=== PATIENT | female | born 1960 | race Caucasian/White ===

== ENCOUNTER 2016-12-15 05:33 | Outpatient (CLI) | payer OTHER ==
[~2016-12-15] VITALS: Ht 160 cm; Wt 62.7 kg
[~2016-12-15 05:33] MED LIST: ALBU0.632 IH; ALBU8.5H2 IH; ALPR.5T PO; ALPR1T PO; AMLO10TA82 PO; ARIP15TA PO; ATEN25TA PO; ATENOLOL; BENICAR; CLD600T PO; CPR500T PO; CYCL10TA9 PO; DXZS2T PO; HYDR-1231 PO; HYDR1CAP2 PO; LISI10TA PO; LISI10TA2 PO; LURA40TA PO; LVF500T PO; NAPR-243 PO; ONDAN4ODT PO; PAXIL; PRD20T PO; PRED20TA PO; QUET150T PO; TRAM50TA2 PO
== END 2016-12-15 12:34 ==
LOC: PREOP 05:33
PROVIDERS: ATTEND Surgery
DX: Z01.818 Encounter for other preprocedural examination (principal); R19.4 Change in bowel habit; K21.9 Gastro-esophageal reflux disease without esophagitis

== ENCOUNTER 2016-12-20 10:08 | Day surgery (SDC) | payer OTHER ==
[~2016-12-20] VITALS: Ht 160 cm; Wt 62.7 kg
[2016-12-20] MEDS ORDERED: LACTATED RINGERS 1,000 ML IV STA (10:12)
[2016-12-20] MEDS ORDERED: HURRICAINE EXT TUBE (BENZOCAINE) XX PRN (10:15)
[2016-12-20] MEDS ORDERED: PROPOFOL INJECTION 50 ML IV ONE (10:21)
[2016-12-20] MEDS ORDERED: MIDAZOLAM 2 MG/2 ML (VERSED) VIAL ONE (10:21)
[2016-12-20] MEDS ORDERED: DOXA2TAB2 PO (10:25)
[2016-12-20] MEDS ORDERED: DEXL60CA PO (10:25)
[2016-12-20] MEDS ORDERED: MELA10CA2 PO (10:25)
[2016-12-20] MEDS ORDERED: QUET200T PO (10:25)
[2016-12-20] MEDS ORDERED: POLY454P4 MC (10:25)
[2016-12-20] MEDS ORDERED: AMIO100T4 PO (10:25)
--- NOTE | 2016-12-20 10:35 | Progress Note-Pre Operative ---
Pre-Operative Progress Note H&P Reviewed The H&P was reviewed, patient examined and no changes noted. Date Seen by Provider: Dec 20, 2016 Time Seen by Provider: 10:35 Date H&P Reviewed: Dec 20, 2016 Time H&P Reviewed: 10:35 Pre-Operative Diagnosis: gerd, change in bowel habits ALEXIS CUEVAS DO Dec 20, 2016 10:35 am
[2016-12-20] MEDS ORDERED: HURRICAINE EXT TUBE (BENZOCAINE) ONE (10:42)
[2016-12-20 10:50] VITALS: BP 124/90
--- NOTE | 2016-12-20 11:50 | Progress Note-Post Operative ---
Post-Operative Progess Note Surgeon (s)/Hydramatic Specialist (s) Surgeon ALEXIS CUEVAS DO Hydramatic Specialist: na Pre-Operative Diagnosis gerd, change in bowel habits Post-Operative Diagnosis gastric polyp, gastritis, descending colon polyp Procedure & Operative Findings Date of Procedure 12/20/16 Procedure Performed/Findings egd c biopsy and hot bx polypectomy colonoscopy with hot bx polypectomy Anesthesia Type per [facility] Estimated Blood Loss Estimated blood loss (mL): none Specimens/Packing Specimens Removed antrum, gastric poly, ge junction, descending colon polyp ALEXIS CUEVAS DO Dec 20, 2016 11:50 am
--- NOTE | 2016-12-20 11:52 | Discharge Inst-Simple/Standard ---
Discharge Inst-Standard Patient Instructions/Follow Up Plan of Care/Instructions/FU: Continue on Dexilant Follow up in [facility] in 2 weeks. Activity as Tolerated: Yes Discharge Diet: No Restrictions MAURICIO KRAMER APRN Dec 20, 2016 11:52
[2016-12-20 12:00] VITALS: BP 115/73
[2016-12-20 12:30] VITALS: BP 120/71
[2016-12-20 12:35] VITALS: BP 120/71
--- OUTSIDE RECORDS SUMMARY | 2016-12-20 19:56 | XMS REPORT ---
Author Author SILVERIO FULLER [facility] eClinicalWorks Address Unknown Phone Unavailable Care Team Providers Care Parcel Post Officer Name Role Phone SILVERIO FULLER Unavailable Allergies No Known Allergies Problems Problem Type Condition Code Onset Dates Condition Status Problem Constipation, unspecified constipation type K59.00 Active Problem Secondary hypertension I15.9 Active Problem Abdominal bloating R14.0 Active Problem Chronic obstructive pulmonary disease, unspecified COPD type J44.9 Active Problem Smoking addiction F17.200 Active Problem Insomnia, unspecified type G47.00 Active Problem Gastroesophageal reflux disease, esophagitis presence not specified K21.9 Active Medications Medication Code System Code Instructions Start Date End Date Status Dosage MiraLax [facility] [address]-96 17 gm/dose Orally Once a day Mar 16, 2016 17 gm in liquid Results No Known Results Summary Purpose eClinicalWorks Submission
--- OUTSIDE RECORDS SUMMARY | 2016-12-20 19:56 | XMS REPORT ---
Author Author SILVERIO FULLER [facility] eClinicalWorks Address Unknown Phone Unavailable Care Team Providers Care Link Trainer Operator Name Role Phone SILVERIO FULLER CP Unavailable Allergies, Adverse Reactions, Alerts Substance Reaction Event Type N.K.D.A. Info Not Available Non Drug Allergy Problems Problem Type Condition Code Onset Dates Condition Status Assessment Gastroesophageal reflux disease, esophagitis presence not specified K21.9 Active Assessment Chronic obstructive pulmonary disease, unspecified COPD type J44.9 Active Assessment Smoking addiction F17.200 Active Problem Insomnia, unspecified type G47.00 Active Problem Gastroesophageal reflux disease, esophagitis presence not specified K21.9 Active Problem Secondary hypertension I15.9 Active Assessment Secondary hypertension I15.9 Active Assessment Insomnia, unspecified type G47.00 Active Problem Chronic obstructive pulmonary disease, unspecified COPD type J44.9 Active Problem Smoking addiction F17.200 Active Medications Medication Code System Code Instructions Start Date End Date Status Dosage Albuterol Sulfate [facility] [address]-17 108 (90 Base) MCG/ACT Inhalation every 4 hrs November 25, 2015 1 puff as needed Restoril [facility] [address]-64 30 MG Orally Once a day November 25, 2015 1 capsule at bedtime as needed Prilosec [facility] [address]-11 20 mg Orally Once a day November 03, 2015 1 capsule Amlodipine Besylate [facility] [address]-77 10 mg Orally Once a day 1 tablet Doxazosin Mesylate [facility] [address]-63 2 MG Orally Once a day 1 tablet Procedures Procedure Coding System Code Date COMPLETE CBC W/AUTO DIFF WBC CPT-4 36764 December 24, 2015 COMPREHEN METABOLIC PANEL CPT-4 28628 December 24, 2015 LIPID PANEL CPT-4 98416 December 24, 2015 VENIPUNCT, ROUTINE* CPT-4 72199 December 24, 2015 Office Visit, Est Pt., Level 4 CPT-4 46811 December 24, 2015 Vital Signs Date/Time: December 24, 2015 Cardiac Monitoring Heart Rate 80 bpm Weight 147 lbs Height 62 in Blood Pressure Diastolic 86 mmHg Blood Pressure Systolic 122 mmHg Results No Known Results Summary Purpose eClinicalWorks Submission
--- OUTSIDE RECORDS SUMMARY | 2016-12-20 19:56 | XMS REPORT ---
Author SILVERIO [facility] eClinicalWorks Address Unknown Phone Unavailable Care Team Providers Care Coal Tram Driver Name Role Phone SILVERIO FULLER CP Unavailable Allergies, Adverse Reactions, Alerts Substance Reaction Event Type N.K.D.A. Info Not Available Non Drug Allergy Problems Problem Type Condition Code Onset Dates Condition Status Assessment Gastroesophageal reflux disease, esophagitis presence not specified K21.9 Active Assessment Secondary hypertension I15.9 Active Assessment Insomnia, unspecified type G47.00 Active Assessment Abdominal bloating R14.0 Active Assessment Chronic obstructive pulmonary disease, unspecified COPD type J44.9 Active Problem Constipation, unspecified constipation type K59.00 Active Problem Secondary hypertension I15.9 Active Problem Abdominal bloating R14.0 Active Problem Chronic obstructive pulmonary disease, unspecified COPD type J44.9 Active Problem Smoking addiction F17.200 Active Problem Insomnia, unspecified type G47.00 Active Problem Gastroesophageal reflux disease, esophagitis presence not specified K21.9 Active Medications Medication Code System Code Instructions Start Date End Date Status Dosage Prilosec [facility] [address]-85 20 mg Orally Once a day November 03, 2015 1 capsule Amlodipine Besylate [facility] [address]-39 5mg Orally Once a day 2 tablet MiraLax [facility] [address]-03 17 gm/dose Orally Once a day Mar 16, 2016 as directed Doxazosin Mesylate [facility] [address]-14 2 MG Orally Once a day 1 tablet Albuterol Sulfate [facility] [address]-65 108 (90 Base) MCG/ACT Inhalation every 4 hrs November 25, 2015 1 puff as needed Seroquel [facility] [address]-37 50 MG Orally Once a day Mar 16, 2016 1 tablet Procedures Procedure Coding System Code Date Office Visit, Est Pt., Level 4 CPT-4 21243 Apr 05, 2016 Vital Signs Date/Time: Apr 05, 2016 Cardiac Monitoring Heart Rate 90 bpm Weight 149.9 lbs Height 62 in BMI 27.41 Index Blood Pressure Diastolic 80 mmHg Blood Pressure Systolic 144 mmHg Results No Known Results Summary Purpose eClinicalWorks Submission
--- OUTSIDE RECORDS SUMMARY | 2016-12-20 19:56 | XMS REPORT ---
Author Author SILVERIO FULLER [facility] eClinicalWorks Address Unknown Phone Unavailable Care Team Providers Care Community Organization Aide Name Role Phone SILVERIO FULLER Unavailable Allergies No Known Allergies Problems Problem Type Condition Code Onset Dates Condition Status Problem Insomnia, unspecified type G47.00 Active Problem Gastroesophageal reflux disease, esophagitis presence not specified K21.9 Active Problem Secondary hypertension I15.9 Active Problem Chronic obstructive pulmonary disease, unspecified COPD type J44.9 Active Problem Smoking addiction F17.200 Active Medications Medication Code System Code Instructions Start Date End Date Status Dosage Amlodipine Besylate [facility] [address]-70 5mg Orally Once a day 2 tablet Results No Known Results Summary Purpose eClinicalWorks Submission
--- OUTSIDE RECORDS SUMMARY | 2016-12-20 19:56 | XMS REPORT | Continuity of Care Document ---
Author Author [facility] Organization [facility] [address] Address Unknown Phone Unavailable Allergies Active Description Code Type Severity Reaction Onset Reported/Identified Relationship to Patient Clinical Status Yes No Known Drug Allergies [id number] Drug Allergy Unknown N/ A 12/15/2016 Medications Problems Date Dx Coded Attending Type Code Diagnosis Diagnosed By 03/25/2011 Ot 784.0 HEADACHE 03/25/2011 Ot 995.20 UNSP ADVERSE EFFECT OF UNSP DRUG, MEDICI 03/25/2011 Ot E000.8 OTHER EXTERNAL CAUSE STATUS 03/25/2011 Ot E939.3 ADV EFF ANTIPSYCHOTC NEC 06/15/2011 Ot 401.9 HYPERTENSION NOS 06/15/2011 Ot 791.9 ABN URINE FINDINGS NEC 06/15/2011 Ot 792.1 ABN FIND-STOOL CONTENTS 03/06/2012 Ot 276.8 HYPOPOTASSEMIA 03/06/2012 Ot 300.00 ANXIETY STATE NOS 03/06/2012 Ot 305.1 TOBACCO USE DISORDER 03/06/2012 Ot 311 DEPRESSIVE DISORDER NEC 03/06/2012 Ot 401.9 HYPERTENSION NOS 03/06/2012 Ot 496 CHR AIRWAY OBSTRUCT NEC 03/07/2012 Ot 706.2 SEBACEOUS CYST 03/01/2014 SCOTT STANTON APRN Ot 491.20 OBSTR CHRONIC BRONCHITIS, W/O EXACERBATI 03/01/2014 SCOTT STANTON GATEKEEPER Ot 724.1 PAIN IN THORACIC SPINE 09/28/2014 Ot 401.9 09/28/2014 Ot 706.2 09/28/2014 Ot V72.81 09/28/2014 Ot V74.8 09/28/2014 YUE DIETZ DO Ot 401.9 09/28/2014 YUE DIETZ DO Ot V58.69 09/28/2014 NIRMALA HENDERSON Ot 724.2 LUMBAGO 09/28/2014 NIRMALA HENDERSON Ot 724.3 SCIATICA 09/28/2014 NIRMALA HENDERSON Ot 847.2 SPRAIN LUMBAR REGION 09/28/2014 NIRMALA HENDERSON Ot E000.8 OTHER EXTERNAL CAUSE STATUS 09/28/2014 NIRMALA HENDERSON Ot E928.9 ACCIDENT NOS 09/28/2014 Ot 401.9 09/28/2014 Ot 706.2 09/28/2014 Ot V72.81 09/28/2014 Ot V74.8 09/28/2014 GELLENDER YUE ROJO Ot 401.9 09/28/2014 GELLENDER DOYUE Ot V58.69 03/20/2015 Ot 401.9 03/20/2015 Ot 706.2 03/20/2015 Ot V72.81 03/20/2015 Ot V74.8 03/20/2015 GELLENDER DOYUE Ot 401.9 03/20/2015 GELLENDER DOYUE Ot V58.69 04/03/2015 Ot 401.9 04/03/2015 Ot 706.2 04/03/2015 Ot V72.81 04/03/2015 Ot V74.8 04/03/2015 GELLENDER DOYUE Ot 401.9 04/03/2015 GELLENDER DOYUE Ot V58.69 03/24/2016 YUE DIETZ DO Ot I10 ESSENTIAL (PRIMARY) HYPERTENSION 03/24/2016 Ot 401.9 HYPERTENSION NOS 03/24/2016 Ot 706.2 SEBACEOUS CYST 03/24/2016 Ot V72.81 [id number] CARDIOVASCULAR 03/24/2016 Ot V74.8 SCREEN-BACTERIAL DIS NEC 03/24/2016 YUE DIETZ DO Ot 401.9 HYPERTENSION NOS 03/24/2016 GELLENDER DOYUE Ot V58.69 OTH MED,LT,CURRENT USE 03/24/2016 GELLENDER YUE ROJO Ot I10 ESSENTIAL (PRIMARY) HYPERTENSION 03/24/2016 GELLENDER DOYUE Ot I10 ESSENTIAL (PRIMARY) HYPERTENSION 04/29/2016 GELLENDER DOYUE Ot I10 ESSENTIAL (PRIMARY) HYPERTENSION 04/29/2016 GELLENDER DOYUE Ot 401.9 HYPERTENSION NOS 04/29/2016 GELLENDER YUE ROJO Ot V58.69 OTH MED,LT,CURRENT USE 12/15/2016 Ot 401.9 HYPERTENSION NOS 12/15/2016 Ot 706.2 SEBACEOUS CYST 12/15/2016 Ot V72.81 ISYS-RDD-ELUGWOGIL CARDIOVASCULAR 12/15/2016 Ot V74.8 SCREEN-BACTERIAL DIS NEC 12/15/2016 YUE DIETZ DO Ot 401.9 HYPERTENSION NOS 12/15/2016 YUE DIETZ DO Ot V58.69 OTH MED,LT,CURRENT USE 12/15/2016 YUE DIETZ DO Ot I10 ESSENTIAL (PRIMARY) HYPERTENSION 12/15/2016 YUE DIETZ DO Ot I10 ESSENTIAL (PRIMARY) HYPERTENSION 12/16/2016 ALEXIS CUEVAS DO Ot K21.9 GASTRO-ESOPHAGEAL REFLUX DISEASE WITHOUT 12/16/2016 ALEXIS CUEVAS DO Ot R19.4 CHANGE IN BOWEL HABIT 12/16/2016 ALEXIS CUEVAS DO Ot Z01.818 ENCOUNTER FOR OTHER PREPROCEDURAL EXAMIN Procedures Results Encounters ACCT No. Visit Date/Time Discharge Status Pt. Type Provider Facility Loc./Unit Complaint [id number] 12/15/2016 05:33:00 2016 12:34:00 DIS Outpatient ALEXIS CUEVAS DO [facility] [address] PREOP ACID REFLUX; CHANGE IN BH [id number] 09/28/2014 10:53:00 2014 12:45:00 DIS Emergency NIRMALA HENDERSON [facility] [address] ER BACK PAIN [id number] 03/01/2014 16:47:00 2013 18:18:00 DIS Emergency SCOTT STANTON APRN [facility] [address] ER BACK PAIN;COPD [id number] 10/15/2012 08:05:00 2012 23:59:59 CLS Outpatient YUE DIETZ DO [facility] [address] LAB HYPERTENSION,MEDICINE [id number] 12/20/2016 11:00:00 PEN Preadmit ALEXIS CUEVAS DO [facility] [address] ENDO ACID REFLUX;CHANGE IN BH [id number] 05/19/2015 10:18:00 ACT Outpatient YUE DIETZ DO [facility] [address] LAB HTN [id number] 05/16/2015 12:58:00 ACT Outpatient YUE DIETZ DO [facility] [address] LAB HYPERTENSION [id number] 03/07/2012 05:33:00 Document Registration [id number] 03/02/2012 23:00:00 Document Registration [id number] 03/01/2012 08:33:00 Document Registration [id number] 02/02/2012 07:37:00 Document Registration [id number] 06/15/2011 16:55:00 Document Registration [id number] 03/25/2011 11:35:00 Document Registration
--- OUTSIDE RECORDS SUMMARY | 2016-12-20 19:56 | XMS REPORT ---
Author Author SILVERIO FULLER [facility] eClinicalWorks Address Unknown Phone Unavailable Care Team Providers Care Eyeglass Frame Truer Name Role Phone SILVERIO FULLER Unavailable Allergies [...] esophagitis presence not specified K21.9 Active Medications No Known Medications Results No Known Results Summary Purpose eClinicalWorks Submission
--- NOTE | 2016-12-22 08:57 | OPERATIVE REPORT ---
PROCEDURE PHYSICIAN: ALXEIS CUEVAS DATE OF PROCEDURE: 12/20/2016 PREOPERATIVE DIAGNOSES: 1. GERD. 2. Change in bowel habits. POSTOPERATIVE DIAGNOSES: 1. Gastric polyp. 2. Gastritis. 3. Descending colon polyp. PROCEDURE: 1. EGD with biopsy and hot biopsy polypectomy. 2. Colonoscopy with hot biopsy polypectomy. SURGEON: Jeremy. ANESTHESIA: Per MDA. ESTIMATED BLOOD LOSS: None. COMPLICATIONS: None. INDICATIONS: The patient is a 56-year-old female with gastroesophageal reflux disease and change in bowel habits. She is recommended to have EGD and colonoscopy. She understands risks and benefits and wished to proceed with the procedure. Consent was signed on the chart. PROCEDURE: The patient was taken to the endoscopy suite, placed in left lateral recumbent position. Timeout was performed. The scope was inserted in the mouth, down the esophagus, stomach and into the duodenum without difficulty. There were no polyps, masses or ulcerations. The scope was slowly retracted back into the stomach which had erythematous changes. Biopsy of the antrum was obtained. The scope was retroflexed and in the cardia, there is a small around pale appearing polyp. Hot biopsy polypectomy was performed. A small to moderate sized hiatal hernia present. The scope was then returned to its normal position and slowly withdrawn. A biopsy of the GE junction was obtained. The scope was then slowly retracted back until completely removed. COLONOSCOPY: Digital rectal exam was performed. There were no palpable polyps, masses, or ulcerations. The scope was inserted in the rectum and advanced all the way to the cecum with minimal difficulty. Prep was adequate. There were no polyps, masses ulcers in the cecum, ascending, or transverse colon. Within the descending colon, there is diverticulosis present. There was also a small polyp, which hot biopsy polypectomy was performed. The scope was continued to be slowly retracted back into the sigmoid which again noting some diverticulosis present. Once in rectum, the scope was also retroflexed noting no other pathology. The scope was returned its normal position and slowly withdrawn until completely removed. The patient tolerated the procedure well without any complications. RECOMMENDATIONS: The patient will continue on her Dexilant and await biopsy results. The patient will need repeat colonoscopy in 3 to 5 years depending upon pathology results. The patient will need to be reevaluated if she has any problems prior to that. She should also eat a high fiber diet due to the diverticulosis. The patient will follow-up in the office in 2 to 3 weeks. Job ID: [id number] Dictated Date: 12/20/2016 11:54:46 Wallcovering Texturer Date: 12/22/2016 08:43:33 / renata
== END 2016-12-20 12:35 | disposition home or self-care (01) ==
LOC: ENDO 10:08
PROVIDERS: ATTEND Surgery
DX: K63.5 Polyp of colon (principal); K29.70 Gastritis, unspecified, without bleeding; K31.7 Polyp of stomach and duodenum; I10 Essential (primary) hypertension; J44.9 Chronic obstructive pulmonary disease, unspecified; F17.210 Nicotine dependence, cigarettes, uncomplicated; Z79.899 Other long term (current) drug therapy
CPT/HCPCS: 88305; 88341; 88342

== ENCOUNTER 2017-07-21 19:50 | Outpatient (CLI) | payer OTHER ==
[~2017-07-21 19:50] MED LIST changes: +AMIO100T4 PO; +DEXL60CA PO; +DOXA2TAB2 PO; +MELA10CA2 PO; +POLY454P4 MC; +QUET200T PO
== END 2017-07-22 06:20 | disposition home or self-care (01) ==
LOC: SLEEP 19:50
PROVIDERS: ATTEND Nurse Practitioner Community Health
DX: G47.33 Obstructive sleep apnea (adult) (pediatric) (principal); R06.83 Snoring
CPT/HCPCS: 95810

== ENCOUNTER → 2017-10-05 | Outpatient (CLI) | payer OTHER ==
[~2017-10-05] MED LIST changes: +CATHETER FLUSH 10 ML SYR IV PRN
--- NOTE | 2017-10-05 13:53 | Diagnostic Imaging Report ---
INDICATION: Chronic gastritis. TECHNIQUE: Patient was administered 5.1 mCi technetium 99m Choletec and imaging of the abdomen was performed. After 60 minutes, the patient was given one can of Ensure to drink and gallbladder ejection fraction was calculated. FINDINGS: There is homogeneous uptake of activity by the liver with prompt excretion of activity into the common duct. There was filling of the gallbladder. Normal passage of activity into the small bowel is seen. Gallbladder ejection fraction is calculated to be 74%. IMPRESSION: 1. No evidence of cystic duct or common bile duct obstruction. 2. Gallbladder ejection fraction of 74%. Dictated by: Dictated on workstation # [id number]
== END ==
LOC: CARD 09:51
PROVIDERS: ATTEND Nurse Practitioner Community Health
DX: K29.50 Unspecified chronic gastritis without bleeding (principal)
CPT/HCPCS: 78227

== ENCOUNTER 2019-01-11 14:03 | Emergency (ER) | payer SELFPAY ==
[~2019-01-11] VITALS: Ht 157.5 cm; Wt 66.7 kg
[~2019-01-11 14:03] MED LIST changes: -CATHETER FLUSH 10 ML SYR IV PRN
--- NOTE | 2019-01-11 14:07 | NUR ---
lamar shes been n/v blood for 3-4 yrs. pt here by self alert gcs 15. in [facility] pt same time. pt with ongoing issues of n/v blood. pt relates she came here with belongings in case she is admitted. pt relates " low on blood". last labs 2 weeks ago per pt. pt rela. pt also c/o abd " cramping " rating 6. pt relates stools as " my stools are always dark". last n/v 2 dyas ago but pt also said no blood. pt c/o nausea curently. denies dyspnea and no acute sighns of dyspnea noted. pt appears slightly anxious. lungs cta bilaterally. abd soft and distended and pt c/o abd " bloaty". tender to palpation bilateral upper quads only including the epigastric area. done [place] pt at 1413.
--- OUTSIDE RECORDS SUMMARY | 2019-01-11 14:10 | XMS REPORT ---
Author Author AYDE BYRD Organization [facility] Address [address] [place] [address] Care Team Providers Care Manager Consumer Insights Name Role Phone AYDE BYRD Unavailable PROBLEMS Type Condition ICD9-CM Code HRH39-NP Code Onset Dates Condition Status SNOMED Code Problem Chronic obstructive pulmonary disease, unspecified COPD type J44.9 Active 92775449 Problem Smoking addiction F17.200 Active 448528380 Problem Gastroesophageal reflux disease, esophagitis presence not specified K21.9 Active 698439799 Problem Insomnia, unspecified type G47.00 Active 073225102 Problem Secondary hypertension I15.9 Active 29484754 Problem Routine gynecological examination Z01.419 Active 170552109 Problem Primary insomnia F51.01 Active 1776803 Problem Gastroesophageal reflux disease without esophagitis K21.9 Active 410560137 Problem COPD with exacerbation J44.1 Active 362351496 Problem Constipation, unspecified constipation type K59.00 Active 71028407 Problem Other chronic pain G89.29 Active 28437440 Problem Abdominal bloating R14.0 Active 578071474 Problem Panlobular emphysema J43.1 Active 8241346 Problem Other chronic gastritis without hemorrhage K29.50 Active 8279004 Problem GERD with esophagitis K21.0 Active 066202331 Problem Anxiety F41.9 Active 71022672 ALLERGIES No Known Allergies ENCOUNTERS Encounter Location Date Diagnosis [facility] [id number] [place] [address] Sep, Other chest pain R07.89 [facility] [id number] [place] [address] Sep, GERD with esophagitis K21.0 [facility] [id number] [place] [address] Sep, Low back pain M54.5 and Other chronic pain G89.29 [facility] [id number] [place] [address] Sep, Secondary hypertension I15.9 [facility] [address] [address] Sep, [facility] [id number] [place] [address] Aug, GERD with esophagitis K21.0 [facility] [address] [address] Aug, Other chest pain R07.89 [facility] [address] [address] Aug, [facility] [address] [address] Aug, [facility] [address] [address] Aug, Bronchitis J40 ; Black stools K92.1 and Gastric pain R10.9 [facility] [id number] [place] [address] Aug, [facility] [id number] [place] [address] Jul, Other chest pain R07.89 [facility] [id number] [place] [address] Jul, [facility] [id number] [place] [address] Jun, Other chest pain R07.89 [facility] [id number] [place] [address] Jun, Viral gastroenteritis A08.4 and Bronchitis J40 [facility] [id number] [place] [address] Jun, [facility] [address] [address] Jun, Other chest pain R07.89 and Secondary hypertension I15.9 [facility] [id number] [place] [address] May, Chronic obstructive pulmonary disease, unspecified COPD type J44.9 [facility] [id number] [place] [address] May, [facility] [id number] [place] [address] May, Other chest pain R07.89 [facility] [id number] [place] [address] May, Other chest pain R07.89 [facility] [id number] [place] [address] Apr, Anxiety F41.9 [facility] [id number] [place] [address] Apr, [facility] [id number] [place] [address] Apr, [facility] [id number] [place] [address] Apr, Anxiety F41.9 [facility] [id number] [place] [address] Apr, COPD with exacerbation J44.1 [facility] [id number] [place] [address] Mar, [facility] [id number] [place] [address] Mar, [facility] [id number] [place] [address] Mar, Anxiety F41.9 ; Acute pain of right knee M25.561 ; Arthralgia, unspecified joint M25.50 and Panlobular emphysema J43.1 [facility] [id number] [address] Feb, Insomnia, unspecified type G47.00 [facility] [id number] [place] [address] Jan, [facility] [id number] [place] [address] Jan, Insomnia, unspecified type G47.00 [facility] [id number] [place] [address] Dec, [facility] [id number] [place] [address] Dec, Insomnia, unspecified type G47.00 [facility] [id number] [place] [address] Dec, [facility] [id number] [place] [address] Dec, GERD with esophagitis K21.0 [facility] [id number] [place] [address] Nov, Insomnia, unspecified type G47.00 [facility] [id number] [place] [address] October, Insomnia, unspecified type G47.00 [facility] [id number] [place] [address] Sep, Other chronic gastritis without hemorrhage K29.50 [facility] [id number] [place] [address] Sep, Secondary hypertension I15.9 [facility] [id number] [place] [address] Sep, Insomnia, unspecified type G47.00 [facility] [address] [place] [address] Sep, Primary insomnia F51.01 [facility] [address] [place] [address] Jul, [facility] [id number] [place] [address] Jul, [facility] [id number] [place] [address] Jul, [facility] [id number] [place] [address] Jun, [facility] [id number] [place] [address] Jun, Chronic obstructive pulmonary disease, unspecified COPD type J44.9 [facility] [id number] [place] [address] Jun, [facility] [id number] [place] [address] Jun, Primary insomnia F51.01 [facility] [id number] [place] [address] Jun, [facility] [id number] [place] [address] May, Chronic obstructive pulmonary disease, unspecified COPD type J44.9 [facility] [id number] [place] [address] May, [facility] [id number] [place] [address] May, Panlobular emphysema J43.1 and Gastroesophageal reflux disease without esophagitis K21.9 [facility] [id number] [place] [address] 28 Feb, 2017 Insomnia, unspecified type G47.00 [facility] [id number] [place] [address] 27 Feb, 2017 [facility] [id number] [place] [address] Feb, Secondary hypertension I15.9 [facility] [address] [address] Feb, [facility] [address] [place] [address] Jan, [facility] [id number] [place] [address] Jan, [facility] [id number] [place] [address] Jan, Secondary hypertension I15.9 [facility] [id number] [place] [address] Nov, [facility] [id number] [place] [address] Nov, Gastroesophageal reflux disease, esophagitis presence not specified K21.9 [facility] [id number] [place] [address] October, Chronic obstructive pulmonary disease, unspecified COPD type J44.9 [facility] [id number] [place] [address] Sep, [facility] [id number] [place] [address] Sep, [facility] [id number] [place] [address] Sep, [facility] [id number] [place] [address] Sep, [facility] [address] [place] [address] Sep, [facility] [id number] [place] [address] Sep, Secondary hypertension I15.9 ; Gastroesophageal reflux disease, esophagitis presence not specified K21.9 ; Smoking addiction F17.200 ; Constipation, unspecified constipation type K59.00 and Insomnia, unspecified type G47.00 [facility] [id number] [place] [address] Aug, Constipation, unspecified constipation type K59.00 [facility] [id number] [place] [address] Aug, [facility] [id number] [place] [address] Jul, Gastroesophageal reflux disease, esophagitis presence not specified K21.9 [facility] [id number] [place] [address] Jun, Insomnia, unspecified type G47.00 and Constipation, unspecified constipation type K59.00 [facility] [id number] [place] [address] Jun, Secondary hypertension I15.9 ; Gastroesophageal reflux disease, esophagitis presence not specified K21.9 ; Smoking addiction F17.200 ; Chronic obstructive pulmonary disease, unspecified COPD type J44.9 ; Insomnia, unspecified type G47.00 ; Constipation, unspecified constipation type K59.00 ; Routine gynecological examination Z01.419 and Screening cholesterol level Z13.220 [facility] [id number] [place] [address] Jun, [facility] [id number] [place] [address] May, [facility] [id number] [place] [address] May, [facility] [id number] [place] [address] Apr, [facility] [id number] [place] [address] Mar, Secondary hypertension I15.9 ; Insomnia, unspecified type G47.00 ; Gastroesophageal reflux disease, esophagitis presence not specified K21.9 ; Chronic obstructive pulmonary disease, unspecified COPD type J44.9 and Abdominal bloating R14.0 [facility] [address] [place] [address] Mar, [facility] [id number] [place] [address] Mar, [facility] [id number] [place] [address] Mar, Gastroesophageal reflux disease, esophagitis presence not specified K21.9 ; Secondary hypertension I15.9 ; Chronic obstructive pulmonary disease, unspecified COPD type J44.9 ; Smoking addiction F17.200 ; Abdominal bloating R14.0 ; Insomnia, unspecified type G47.00 and Constipation, unspecified constipation type K59.00 [facility] [id number] [place] [address] Jan, [facility] [address] [address] Dec, Secondary hypertension I15.9 ; Insomnia, unspecified type G47.00 ; Chronic obstructive pulmonary disease, unspecified COPD type J44.9 ; Smoking addiction F17.200 and Gastroesophageal reflux disease, esophagitis presence not specified K21.9 [facility] [id number] [place] [address] Nov, Secondary hypertension I15.9 ; Insomnia, unspecified type G47.00 ; Gastroesophageal reflux disease, esophagitis presence not specified K21.9 and Chronic obstructive pulmonary disease, unspecified COPD type J44.9 [facility] [address] [place] [address] October, Dyspepsia R10.13 IMMUNIZATIONS No Known Immunizations SOCIAL HISTORY Never Assessed REASON FOR VISIT Congestion, Pt reports she has COPD and spitting up yellow stuff. Notes for last 3 weeks she has noticed a "pea sized" knots that move around her stomach, and has some pain in upper left quadrants. Bowels are normal, notes some black stools. -Jase SANTORO PLAN OF CARE VITAL SIGNS Height 62 in 2018-08-15 Weight 145.8 lbs 2018-08-15 Temperature 97.8 degrees Fahrenheit 2018-08-15 Heart Rate 110 bpm 2018-08-15 Respiratory Rate 20 2018-08-15 Oximetry 98 % 2018-08-15 BMI 26.66 kg/m2 2018-08-15 Blood pressure systolic 146 mmHg 2018-08-15 Blood pressure diastolic 82 mmHg 2018-08-15 MEDICATIONS Medication Instructions Dosage Frequency Start Date End Date Duration Status Klonopin 1 MG Orally 2 times a day 1 tablet 12h Feb, 28 days Active PredniSONE 20 mg Orally Once a day 2 tablets 24h Apr, 5 days Not-Taking Zofran 4 MG Orally 3 times a day 1 tablet 8h Jun, Active Spiriva HandiHaler 18 MCG Inhalation Once a day 1 capsule 24h Mar, 90 days Active Seroquel 200 mg TAKE ONE TABLET BY MOUTH ONCE DAILY AT BEDTIME 30 Active PredniSONE 20 mg Orally Once a day 2 tablets 24h Aug, 5 days Active Amoxicillin 500 mg Orally every 8 hrs 1 capsule 8h Aug, 10 day(s) Active Oxygen 2 L/NC Not-Taking Naproxen 500 mg Orally every 12 hrs 1 tablet with food or milk as needed 12h Mar, Active Ventolin HFA 108 (90 Base) MCG/ACT Inhalation every 6 hrs 2 puffs as needed 6h Jun, 90 days Active Doxycycline Hyclate 100 MG Orally 2 times a day 1 capsule 12h Jun, 10 day(s) Active Amlodipine Besylate 5 mg Orally Once a day 2 tablet 24h 30 Active MiraLax - Orally Once a day 1 packet mixed with 8 ounces of fluid 24h Active Doxazosin Mesylate 2 MG Orally Once a day 1 tablet 24h 90 days Active Protonix 40 mg Orally at bedtime 1 tablet Active Famotidine 40 mg Orally Once a day 1 tablet 24h 30 Active RESULTS No Results PROCEDURES No Known procedures INSTRUCTIONS MEDICATIONS ADMINISTERED No Known Medications MEDICAL (GENERAL) HISTORY Type Description Date Medical History hypertension Medical History COPD -smoker Medical History blood in colon Surgical History cyst removal- back Surgical History endoscopy 01/2017 Surgical History colonoscopy 2016/ Hospitalization History Surgery(s)/Childbirth(s) only Hospitalization History ICU x2 days for HTN 2012
--- OUTSIDE RECORDS SUMMARY | 2019-01-11 14:10 | XMS REPORT ---
Author Author AYDE BYRD Organization [facility] Address [address] [place] [address] Care Team Providers Care Wool Classer Name Role Phone AYDE BYRD Unavailable PROBLEMS Type Condition ICD9-CM Code GMH32-OM Code Onset Dates Condition Status SNOMED Code Problem Abdominal bloating R14.0 Active 234084498 Problem Primary insomnia F51.01 Active 1335737 Problem Routine gynecological examination Z01.419 Active 779681046 Problem COPD with exacerbation J44.1 Active 614642745 Problem Anxiety F41.9 Active 47532260 Problem Panlobular emphysema J43.1 Active 8209199 Problem Gastroesophageal reflux disease without esophagitis K21.9 Active 267975090 Problem GERD with esophagitis K21.0 Active 702097004 Problem Other chronic gastritis without hemorrhage K29.50 Active 5772496 Problem Smoking addiction F17.200 Active 923943194 Problem Secondary hypertension I15.9 Active 72620164 Problem Chronic obstructive pulmonary disease, unspecified COPD type J44.9 Active 52259800 Problem Insomnia, unspecified type G47.00 Active 295737546 Problem Gastroesophageal reflux disease, esophagitis presence not specified K21.9 Active 869192237 Problem Constipation, unspecified constipation type K59.00 Active 29039817 ALLERGIES No Information ENCOUNTERS Encounter Location Date Diagnosis [facility] [id number] [address] May, [facility] [id number] [address] May, Other chest pain R07.89 [facility] [id number] [place] [address] May, Other chest pain R07.89 [facility] [id number] [address] Apr, Anxiety F41.9 [facility] [id number] [place] [address] Apr, [facility] [id number] [place] [address] Apr, [facility] [id number] [place] [address] Apr, Anxiety F41.9 [facility] [address] [address] Apr, COPD with exacerbation J44.1 [facility] [id number] [place] [address] Mar, [facility] [id number] [place] [address] Mar, [facility] [id number] [place] [address] Mar, Anxiety F41.9 ; Acute pain of right knee M25.561 ; Arthralgia, unspecified joint M25.50 and Panlobular emphysema J43.1 [facility] [id number] [place] [address] Feb, Insomnia, unspecified type G47.00 [facility] [id number] [place] [address] Jan, [facility] [id number] [place] [address] Jan, Insomnia, unspecified type G47.00 [facility] [id number] [place] [address] Dec, [facility] [id number] [place] [address] Dec, Insomnia, unspecified type G47.00 [facility] [id number] [place] [address] Dec, [facility] [id number] [place] [address] Dec, GERD with esophagitis K21.0 [facility] [id number] [place] [address] Nov, Insomnia, unspecified type G47.00 [facility] [id number] [place] [address] October, Insomnia, unspecified type G47.00 [facility] [id number] [place] [address] Sep, Other chronic gastritis without hemorrhage K29.50 [facility] [id number] [place] [address] Sep, Secondary hypertension I15.9 [facility] [id number] [place] [address] Sep, Insomnia, unspecified type G47.00 [facility] [id number] [place] [address] Sep, Primary insomnia F51.01 [facility] [id number] [place] [address] Jul, [facility] [id number] [place] [address] Jul, [facility] [id number] [place] [address] Jul, [facility] [id number] [place] [address] Jun, [facility] [id number] [place] [address] Jun, Chronic obstructive pulmonary disease, unspecified COPD type J44.9 [facility] [id number] [place] [address] Jun, [facility] [id number] [place] [address] Jun, Primary insomnia F51.01 [facility] [address] [address] Jun, [facility] [id number] [place] [address] May, Chronic obstructive pulmonary disease, unspecified COPD type J44.9 [facility] [address] [address] May, [facility] [address] [address] May, Panlobular emphysema J43.1 and Gastroesophageal reflux disease without esophagitis K21.9 [facility] [address] [address] Feb, Insomnia, unspecified type G47.00 [facility] [address] [address] Feb, [facility] [address] [address] Feb, Secondary hypertension I15.9 [facility] [id number] [place] [address] Feb, [facility] [id number] [place] [address] Jan, [facility] [id number] [place] [address] Jan, [facility] [id number] [place] [address] Jan, Secondary hypertension I15.9 [facility] [id number] [place] [address] Nov, [facility] [id number] [place] [address] Nov, Gastroesophageal reflux disease, esophagitis presence not specified K21.9 [facility] [id number] [place] [address] October, Chronic obstructive pulmonary disease, unspecified COPD type J44.9 [facility] [id number] [place] [address] Sep, [facility] [id number] [place] [address] Sep, [facility] [id number] [place] [address] Sep, [facility] [id number] [place] [address] Sep, [facility] [id number] [place] [address] Sep, [facility] [id number] [place] [address] Sep, Secondary hypertension I15.9 ; Gastroesophageal reflux disease, esophagitis presence not specified K21.9 ; Smoking addiction F17.200 ; Constipation, unspecified constipation type K59.00 and Insomnia, unspecified type G47.00 [id number] [place] [address] Aug, Constipation, unspecified constipation type K59.00 [facility] [address] [address] Aug, [facility] [id number] [place] [address] Jul, Gastroesophageal reflux disease, esophagitis presence not specified K21.9 [facility] [id number] [place] [address] Jun, Insomnia, unspecified type G47.00 and Constipation, unspecified constipation type K59.00 [facility] [id number] [place] [address] Jun, Secondary hypertension I15.9 ; Gastroesophageal reflux disease, esophagitis presence not specified K21.9 ; Smoking addiction F17.200 ; Chronic obstructive pulmonary disease, unspecified COPD type J44.9 ; Insomnia, unspecified type G47.00 ; Constipation, unspecified constipation type K59.00 ; Routine gynecological examination Z01.419 and Screening cholesterol level Z13.220 [id number] [place] [address] Jun, [address] [address] May, [address] [address] May, [id number] [place] [address] Apr, [address] [address] Mar, Secondary hypertension I15.9 ; Insomnia, unspecified type G47.00 ; Gastroesophageal reflux disease, esophagitis presence not specified K21.9 ; Chronic obstructive pulmonary disease, unspecified COPD type J44.9 and Abdominal bloating R14.0 [id number] [place] [address] Mar, [address] [id number] [place] [address] Mar, [address] [id number] [place] [address] Mar, Gastroesophageal reflux disease, esophagitis presence not specified K21.9 ; Secondary hypertension I15.9 ; Chronic obstructive pulmonary disease, unspecified COPD type J44.9 ; Smoking addiction F17.200 ; Abdominal bloating R14.0 ; Insomnia, unspecified type G47.00 and Constipation, unspecified constipation type K59.00 [address] [place] [id number] [place] [address] Jan, [address] [place] [address] Dec, Secondary hypertension I15.9 ; Insomnia, unspecified type G47.00 ; Chronic obstructive pulmonary disease, unspecified COPD type J44.9 ; Smoking addiction F17.200 and Gastroesophageal reflux disease, esophagitis presence not specified K21.9 [facility] [address] [facility] [id number] [address] 15 Nov, 2015 Secondary hypertension I15.9 ; Insomnia, unspecified type G47.00 ; Gastroesophageal reflux disease, esophagitis presence not specified K21.9 and Chronic obstructive pulmonary disease, unspecified COPD type J44.9 [facility] [address] [facility] [id number] [address] October, Dyspepsia R10.13 IMMUNIZATIONS No Known Immunizations SOCIAL HISTORY Never Assessed REASON FOR VISIT Medication refill request PLAN OF CARE VITAL SIGNS MEDICATIONS Unknown Medications RESULTS No Results PROCEDURES No Known procedures INSTRUCTIONS MEDICATIONS ADMINISTERED No Known Medications MEDICAL (GENERAL) HISTORY Type Description Date Medical History hypertension Medical History COPD -smoker Medical History blood in colon Surgical History cyst removal- back Surgical History endoscopy 01/2017 Surgical History colonoscopy 2017/ Hospitalization History Surgery(s)/Childbirth(s) only Hospitalization History ICU x2 days for HTN 2012
--- OUTSIDE RECORDS SUMMARY | 2019-01-11 14:10 | XMS REPORT ---
Author Author AYDE BYRD Organization [facility] Address [address] [place] [address] Care Team Providers Care Brick Burner Head Name Role Phone AYDE BYRD Unavailable PROBLEMS Type Condition ICD9-CM Code AAI74-BD Code Onset Dates Condition Status SNOMED Code Problem Abdominal bloating R14.0 Active 295896338 Problem Primary insomnia F51.01 Active 9200087 Problem Routine gynecological examination Z01.419 Active 714729941 Problem COPD with exacerbation J44.1 Active 027761424 Problem Anxiety F41.9 Active 14112500 Problem Panlobular emphysema J43.1 Active 6536503 Problem Gastroesophageal reflux disease without esophagitis K21.9 Active 279875242 Problem GERD with esophagitis K21.0 Active 863630887 Problem Other chronic gastritis without hemorrhage K29.50 Active 6306829 Problem Smoking addiction F17.200 Active 874412887 Problem Secondary hypertension I15.9 Active 41927524 Problem Chronic obstructive pulmonary disease, unspecified COPD type J44.9 Active 71708700 Problem Insomnia, unspecified type G47.00 Active 465053777 Problem Gastroesophageal reflux disease, esophagitis presence not specified K21.9 Active 448802304 Problem Constipation, unspecified constipation type K59.00 Active 89051708 ALLERGIES No Known Allergies ENCOUNTERS Encounter Location Date Diagnosis [facility] [id number] [address] May, Other chest pain R07.89 [facility] [id number] [address] May, Other chest pain R07.89 [facility] [id number] [address] Apr, Anxiety F41.9 [facility] [id number], [place] [address] Apr, [facility] [id number] [place] [phone] Apr, [facility] [id number] [place] [address] Apr, Anxiety F41.9 [facility] [id number] [place] [address] Apr, COPD with exacerbation J44.1 [facility] [id number] [place] [address] Mar, [facility] [id number] [place] [phone] Mar, [facility] [id number] [place] [address] Mar, Anxiety F41.9 ; Acute pain of right knee M25.561 ; Arthralgia, unspecified joint M25.50 and Panlobular emphysema J43.1 [facility] [id number] [place] [address] Feb, Insomnia, unspecified type G47.00 [facility] [id number] [place] [address] Jan, [facility] [id number] [place] [address] Jan, Insomnia, unspecified type G47.00 [facility] [id number] [place] [address] Dec, [facility] [id number] [place] [address] Dec, Insomnia, unspecified type G47.00 [facility] [id number] [place] [address] Dec, [facility] [id number] [place] [address] Dec, GERD with esophagitis K21.0 [facility] [id number] [place] [address] Nov, Insomnia, unspecified type G47.00 [facility] [id number] [place] [address] October, Insomnia, unspecified type G47.00 [facility] [address] [address] Sep, Other chronic gastritis without hemorrhage K29.50 [facility] [id number] [place] [address] Sep, Secondary hypertension I15.9 [facility] [id number] [place] [address] Sep, Insomnia, unspecified type G47.00 [facility] [id number] [place] [address] Sep, Primary insomnia F51.01 [facility] [id number] [place] [phone] Jul, [facility] [id number] [place] [phone] Jul, [facility] [id number] [place] [address] Jul, [facility] [id number] [place] [address] Jun, [facility] [id number] [place] [address] Jun, Chronic obstructive pulmonary disease, unspecified COPD type J44.9 [facility] [id number] [place] [address] Jun, [facility] [id number] [place] [address] Jun, Primary insomnia F51.01 [facility] [id number] [place] [address] Jun, [facility] [address] [address] May, Chronic obstructive pulmonary disease, unspecified COPD type J44.9 [facility] [id number] [place] [address] May, [facility] [address] [address] May, Panlobular emphysema J43.1 and Gastroesophageal reflux disease without esophagitis K21.9 [facility] [address] [address] Feb, Insomnia, unspecified type G47.00 [facility] [id number] [place] [address] Feb, [facility] [address] [address] Feb, Secondary hypertension I15.9 [facility] [id number] [place] [phone] Feb, [facility] [id number] [place] [phone] Jan, [facility] [id number] [place] [phone] Jan, [facility] [address] [address] Jan, Secondary hypertension I15.9 [facility] [address] [address] Nov, [facility] [address] [address] Nov, Gastroesophageal reflux disease, esophagitis presence not specified K21.9 [facility] [address] [address] October, Chronic obstructive pulmonary disease, unspecified COPD type J44.9 [facility] [id number] [place] [address] Sep, [facility] [id number] [place] [address] Sep, [id number] [place] [address] Sep, [facility] [id number] [place] [phone] Sep, [id number] [place] [phone] Sep, [id number] [place] [address] Sep, Secondary hypertension I15.9 ; Gastroesophageal reflux disease, esophagitis presence not specified K21.9 ; Smoking addiction F17.200 ; Constipation, unspecified constipation type K59.00 and Insomnia, unspecified type G47.00 [address] [facility] [id number] [place] [address] Aug, Constipation, unspecified constipation type K59.00 [address] [facility] [id number] [place] [address] Aug, [id number] [place] [address] Jul, Gastroesophageal reflux disease, esophagitis presence not specified K21.9 [address] [facility] [id number] [place] [address] Jun, Insomnia, unspecified type G47.00 and Constipation, unspecified constipation type K59.00 [address] [facility] [id number] [place] [address] Jun, Secondary hypertension I15.9 ; Gastroesophageal reflux disease, esophagitis presence not specified K21.9 ; Smoking addiction F17.200 ; Chronic obstructive pulmonary disease, unspecified COPD type J44.9 ; Insomnia, unspecified type G47.00 ; Constipation, unspecified constipation type K59.00 ; Routine gynecological examination Z01.419 and Screening cholesterol level Z13.220 [id number] [place] [phone] Jun, [id number] [place] [address] May, [id number] [place] [phone] May, [id number] [place] [address] Apr, [id number] [place] [address] Mar, Secondary hypertension I15.9 ; Insomnia, unspecified type G47.00 ; Gastroesophageal reflux disease, esophagitis presence not specified K21.9 ; Chronic obstructive pulmonary disease, unspecified COPD type J44.9 and Abdominal bloating R14.0 [address] [facility] [id number] [place] [address] Mar, [id number] [place] [address] Mar, [id number] [place] [address] Mar, Gastroesophageal reflux disease, esophagitis presence not specified K21.9 ; Secondary hypertension I15.9 ; Chronic obstructive pulmonary disease, unspecified COPD type J44.9 ; Smoking addiction F17.200 ; Abdominal bloating R14.0 ; Insomnia, unspecified type G47.00 and Constipation, unspecified constipation type K59.00 [id number] [place] [address] Jan, [id number] [place] [address] Dec, Secondary hypertension I15.9 ; Insomnia, unspecified type G47.00 ; Chronic obstructive pulmonary disease, unspecified COPD type J44.9 ; Smoking addiction F17.200 and Gastroesophageal reflux disease, esophagitis presence not specified K21.9 [facility] [address] [facility] [id number] [place] [address] Nov, Secondary hypertension I15.9 ; Insomnia, unspecified type G47.00 ; Gastroesophageal reflux disease, esophagitis presence not specified K21.9 and Chronic obstructive pulmonary disease, unspecified COPD type J44.9 [facility] [address] [facility] [id number] [place] [address] October, Dyspepsia R10.13 IMMUNIZATIONS No Known Immunizations SOCIAL HISTORY Never Assessed REASON FOR VISIT COPD, PT reports fort the last 2 months she has been having random chest pains t hat last 15 minutes. PT notes a slight flutter and acid reflux. -Jase SANTORO PLAN OF CARE VITAL SIGNS Height 62 in 2018-05-14 Weight 147.9 lbs 2018-05-14 Temperature 97.5 degrees Fahrenheit 2018-05-14 Heart Rate 108 bpm 2018-05-14 Respiratory Rate 20 2018-05-14 Oximetry 98 % 2018-05-14 BMI 27.05 kg/m2 2018-05-14 Blood pressure systolic 140 mmHg 2018-05-14 Blood pressure diastolic 68 mmHg 2018-05-14 MEDICATIONS Medication Instructions Dosage Frequency Start Date End Date Duration Status Ventolin HFA 108 (90 Base) MCG/ACT Inhalation every 6 hrs 2 puffs as needed 6h Jun, 90 days Active Doxazosin Mesylate 2 MG Orally Once a day 1 tablet 24h 90 days Active Famotidine 40 mg Orally Once a day 1 tablet 24h Dec, 30 day(s) Active Klonopin 1 MG Orally 2 times a day 1 tablet 12h 28 Feb, 2017 28 days Active Spiriva HandiHaler 18 MCG Inhalation Once a day 1 capsule 24h Mar, 90 days Active PredniSONE 20 mg Orally Once a day 2 tablets 24h Apr, 5 days Not-Taking Oxygen 2 L/NC Active Seroquel 200 mg TAKE ONE TABLET BY MOUTH ONCE DAILY AT BEDTIME 30 Active Amlodipine Besylate 5 mg Orally Once a day 2 tablet 24h 30 Active Protonix 40 mg Orally at bedtime 1 tablet Active Naproxen 500 mg Orally every 12 hrs 1 tablet with food or milk as needed 12h Mar, Active MiraLax - Orally Once a day 1 packet mixed with 8 ounces of fluid 24h Active RESULTS No Results PROCEDURES No Known [...]
--- OUTSIDE RECORDS SUMMARY | 2019-01-11 14:11 | XMS REPORT ---
Author Author AYDE BYRD Organization [facility] Address [address] [place] [address] Care Team Providers Care Health Associate Name Role Phone AYDE BYRD Unavailable PROBLEMS Type Condition ICD9-CM Code [id number] Code Onset Dates Condition Status SNOMED Code Problem Abdominal bloating R14.0 Active 217075472 Problem Primary insomnia F51.01 Active 6795350 Problem Routine gynecological examination Z01.419 Active 675057454 Problem COPD with exacerbation J44.1 Active 689121816 Problem Anxiety F41.9 Active 72775945 Problem Panlobular emphysema J43.1 Active 5913826 Problem Gastroesophageal reflux disease without esophagitis K21.9 Active 689239665 Problem GERD with esophagitis K21.0 Active 878352562 Problem Other chronic gastritis without hemorrhage K29.50 Active 9052719 Problem Smoking addiction F17.200 Active 996575071 Problem Secondary hypertension I15.9 Active 72174942 Problem Chronic obstructive pulmonary disease, unspecified COPD type J44.9 Active 97544271 Problem Insomnia, unspecified type G47.00 Active 543356464 Problem Gastroesophageal reflux disease, esophagitis presence not specified K21.9 Active 807815372 Problem Constipation, unspecified constipation type K59.00 Active 55406702 ALLERGIES No Information ENCOUNTERS Encounter Location Date Diagnosis [facility] [id number], [place] [address] May, Other chest pain R07.89 [facility] [id number] [address] May, Other chest pain R07.89 [facility] [address], [place] [address] Apr, Anxiety F41.9 [facility] [id number], [place] [address] Apr, [facility] [id number] [place] [address] Apr, [facility] [id number] [place] [address] Apr, Anxiety F41.9 [facility] [id number] [place] [address] Apr, COPD with exacerbation J44.1 [facility] [id number] [place] [address] Mar, [facility] [id number] [place] [address] Mar, [facility] [id number] [place] [address] Mar, Anxiety F41.9 ; Acute pain of right knee M25.561 ; Arthralgia, unspecified joint M25.50 and Panlobular emphysema J43.1 [facility] [id number] [place] [address] Feb, Insomnia, unspecified type G47.00 [facility] [id number] [place] [address] Jan, [facility] [id number] [place] [address] Jan, Insomnia, unspecified type G47.00 [facility] [id number] [place] [address] Dec, [facility] [id number] [place] [address] Dec, Insomnia, unspecified type G47.00 [facility] [id number] [place] [address] Dec, [facility] [id number] [place] [address] Dec, GERD with esophagitis K21.0 [facility] [id number] [place] [address] Nov, Insomnia, unspecified type G47.00 [facility] [id number] [place] [address] October, Insomnia, unspecified type G47.00 [facility] [id number] [place] [address] Sep, Other chronic gastritis without hemorrhage K29.50 [facility] [id number] [place] [address] Sep, Secondary hypertension I15.9 [facility] [id number] [place] [address] Sep, Insomnia, unspecified type G47.00 [facility] [id number] [place] [address] Sep, Primary insomnia F51.01 [facility] [id number] [place] [address] Jul, [facility] [id number] [place] [address] Jul, [facility] [id number] [place] [address] Jul, [facility] [id number] [place] [address] Jun, [facility] [id number] [place] [address] Jun, Chronic obstructive pulmonary disease, unspecified COPD type J44.9 [facility] [id number] [place] [address] Jun, [facility] [id number] [place] [address] Jun, Primary insomnia F51.01 [facility] [id number] [place] [address] Jun, [facility] [id number] [place] [address] May, Chronic obstructive pulmonary disease, unspecified COPD type J44.9 [facility] [id number] [place] [address] May, [facility] [address] [address] May, Panlobular emphysema J43.1 and Gastroesophageal reflux disease without esophagitis K21.9 [facility] [address] [address] Feb, Insomnia, unspecified type G47.00 [facility] [id number] [place] [address] Feb, [facility] [id number] [place] [address] Feb, Secondary hypertension I15.9 [facility] [id number] [place] [address] Feb, [facility] [id number] [place] [address] Jan, [facility] [id number] [place] [address] Jan, [facility] [id number] [place] [address] Jan, Secondary hypertension I15.9 [facility] [id number] [place] [address] Nov, [facility] [address] [address] Nov, Gastroesophageal reflux disease, esophagitis presence not specified K21.9 [facility] [id number] [place] [address] October, Chronic obstructive pulmonary disease, unspecified COPD type J44.9 [facility] [id number] [place] [address] Sep, [facility] [id number] [place] [address] Sep, [facility] [id number] [place] [address] Sep, [facility] [id number] [place] [address] Sep, [id number] [place] [address] Sep, [id number] [place] [address] Sep, Secondary hypertension I15.9 ; Gastroesophageal reflux disease, esophagitis presence not specified K21.9 ; Smoking addiction F17.200 ; Constipation, unspecified constipation type K59.00 and Insomnia, unspecified type G47.00 [address] [id number] [place] [address] Aug, Constipation, unspecified constipation type K59.00 [id number] [place] [address] Aug, [id number] [place] [address] Jul, Gastroesophageal reflux disease, esophagitis presence not specified K21.9 [id number] [place] [address] Jun, Insomnia, unspecified type G47.00 and Constipation, unspecified constipation type K59.00 [id number] [place] [address] Jun, Secondary hypertension I15.9 ; Gastroesophageal reflux disease, esophagitis presence not specified K21.9 ; Smoking addiction F17.200 ; Chronic obstructive pulmonary disease, unspecified COPD type J44.9 ; Insomnia, unspecified type G47.00 ; Constipation, unspecified constipation type K59.00 ; Routine gynecological examination Z01.419 and Screening cholesterol level Z13.220 [id number] [place] [address] Jun, [id number] [place] [address] May, [id number] [place] [address] May, [id number] [place] [address] Apr, [id number] [place] [address] Mar, Secondary hypertension I15.9 ; Insomnia, unspecified type G47.00 ; Gastroesophageal reflux disease, esophagitis presence not specified K21.9 ; Chronic obstructive pulmonary disease, unspecified COPD type J44.9 and Abdominal bloating R14.0 [address] [id number] [place] [address] Mar, [address] [id number] [place] [address] Mar, [id number] [place] [address] Mar, Gastroesophageal reflux disease, esophagitis presence not specified K21.9 ; Secondary hypertension I15.9 ; Chronic obstructive pulmonary disease, unspecified COPD type J44.9 ; Smoking addiction F17.200 ; Abdominal bloating R14.0 ; Insomnia, unspecified type G47.00 and Constipation, unspecified constipation type K59.00 [id number] [place] [address] Jan, [id number] [place] [address] Dec, Secondary hypertension I15.9 ; Insomnia, unspecified type G47.00 ; Chronic obstructive pulmonary disease, unspecified COPD type J44.9 ; Smoking addiction F17.200 and Gastroesophageal reflux disease, esophagitis presence not specified K21.9 [facility] [address] [facility] [id number] [place] [address] Nov, Secondary hypertension I15.9 ; Insomnia, unspecified type G47.00 ; Gastroesophageal reflux disease, esophagitis presence not specified K21.9 and Chronic obstructive pulmonary disease, unspecified COPD type J44.9 [facility] [address] [facility] [id number] [place] [address] October, Dyspepsia R10.13 IMMUNIZATIONS No Known Immunizations SOCIAL HISTORY Never Assessed REASON FOR VISIT Xray (walk-in) Kevin.Pati RT (R) RDMS RVT PLAN OF CARE Activity Details Pending Test Xray : Chest 2 View (IN HOUSE) VITAL SIGNS MEDICATIONS Unknown Medications RESULTS No Results PROCEDURES Procedure Date Ordered Result Body Site EKG, TRACING (IN-HOUSE) 2018-05-15 Normal X-RAY EXAM CHEST 2 VIEWS May 15, 2018 ELECTROCARDIOGRAM, TRACING May 15, 2018 INSTRUCTIONS MEDICATIONS ADMINISTERED No Known Medications MEDICAL (GENERAL) HISTORY Type Description Date Medical History hypertension Medical History COPD -smoker Medical History blood in colon Surgical History cyst removal- back Surgical History endoscopy 01/2017 Surgical History colonoscopy 2017/ Hospitalization History Surgery(s)/Childbirth(s) only Hospitalization History ICU x2 days for HTN 2012
--- OUTSIDE RECORDS SUMMARY | 2019-01-11 14:11 | XMS REPORT ---
Author Author AYDE BYRD Organization [facility] Address [address] [place] [address] Care Team Providers Care Business Ethics Professor Name Role Phone AYDE BYRD Unavailable PROBLEMS Type Condition ICD9-CM Code [id number] Code Onset Dates Condition Status SNOMED Code Problem Abdominal bloating R14.0 Active 985765116 Problem Primary insomnia F51.01 Active 5259472 Problem Routine gynecological examination Z01.419 Active 802899860 Problem COPD with exacerbation J44.1 Active 403613904 Problem Anxiety F41.9 Active 99894123 Problem Panlobular emphysema J43.1 Active 7085112 Problem Gastroesophageal reflux disease without esophagitis K21.9 Active 538270934 Problem GERD with esophagitis K21.0 Active 132690590 Problem Other chronic gastritis without hemorrhage K29.50 Active 7043077 Problem Smoking addiction F17.200 Active 897450354 Problem Secondary hypertension I15.9 Active 89844167 Problem Chronic obstructive pulmonary disease, unspecified COPD type J44.9 Active 83950153 Problem Insomnia, unspecified type G47.00 Active 473262376 Problem Gastroesophageal reflux disease, esophagitis presence not specified K21.9 Active 290194968 Problem Constipation, unspecified constipation type K59.00 Active 39882548 ALLERGIES No Information ENCOUNTERS Encounter Location Date Diagnosis [facility] [id number] [address] May, [facility] [id number], [place] [address] Apr, Anxiety F41.9 [facility] [id number], [place] [address] Apr, [facility] [id number], [place] [address] Apr, [facility] [id number] [place] [address] Apr, Anxiety F41.9 [facility] [id number] [place] [address] Apr, COPD with exacerbation J44.1 [facility] [id number] [place] [address] Mar, [facility] [id number] [place] [address] Mar, [facility] [id number] [place] [address] Mar, Anxiety F41.9 ; Acute pain of right knee M25.561 ; Arthralgia, unspecified joint M25.50 and Panlobular emphysema J43.1 [facility] [id number] [place] [address] Feb, Insomnia, unspecified type G47.00 [facility] [id number] [place] [address] Jan, [facility] [id number] [place] [address] Jan, Insomnia, unspecified type G47.00 [facility] [id number] [place] [address] Dec, [facility] [id number] [place] [address] Dec, Insomnia, unspecified type G47.00 [facility] [id number] [place] [address] Dec, [facility] [id number] [place] [address] Dec, GERD with esophagitis K21.0 [facility] [id number] [place] [address] Nov, Insomnia, unspecified type G47.00 [facility] [id number] [place] [address] October, Insomnia, unspecified type G47.00 [facility] [id number] [place] [address] Sep, Other chronic gastritis without hemorrhage K29.50 [facility] [id number] [place] [address] Sep, Secondary hypertension I15.9 [facility] [id number] [place] [address] Sep, Insomnia, unspecified type G47.00 [facility] [id number] [place] [address] Sep, Primary insomnia F51.01 [facility] [id number] [place] [address] Jul, [facility] [id number] [place] [address] Jul, [facility] [id number] [place] [address] Jul, [facility] [id number] [place] [address] Jun, [facility] [id number] [place] [address] Jun, Chronic obstructive pulmonary disease, unspecified COPD type J44.9 [facility] [id number] [place] [address] Jun, [facility] [id number] [place] [address] Jun, Primary insomnia F51.01 [facility] [id number] [place] [address] Jun, [facility] [id number] [place] [address] May, Chronic obstructive pulmonary disease, unspecified COPD type J44.9 [facility] [id number] [place] [address] May, [facility] [id number] [place] [address] May, Panlobular emphysema J43.1 and Gastroesophageal reflux disease without esophagitis K21.9 [facility] [id number] [place] [address] Feb, Insomnia, unspecified type G47.00 [facility] [id number] [place] [address] Feb, [facility] [id number] [place] [address] Feb, Secondary hypertension I15.9 [facility] [address] [address] Feb, [facility] [id number] [place] [address] Jan, [facility] [id number] [place] [phone] Jan, [facility] [id number] [place] [address] Jan, Secondary hypertension I15.9 [facility] [id number] [place] [address] Nov, [facility] [id number] [place] [address] Nov, Gastroesophageal reflux disease, esophagitis presence not specified K21.9 [facility] [id number] [place] [address] October, Chronic obstructive pulmonary disease, unspecified COPD type J44.9 [facility] [id number] [place] [phone] Sep, [id number] [place] [address] Sep, [address] [id number] [place] [address] Sep, [address] [facility] [id number] [place] [address] Sep, [id number] [place] [address] Sep, [address] [facility] [id number] [place] [address] Sep, Secondary hypertension I15.9 ; Gastroesophageal reflux disease, esophagitis presence not specified K21.9 ; Smoking addiction F17.200 ; Constipation, unspecified constipation type K59.00 and Insomnia, unspecified type G47.00 [address] [facility] [id number] [place] [address] Aug, Constipation, unspecified constipation type K59.00 [address] [facility] [id number] [place] [address] Aug, [address] [id number] [place] [address] Jul, Gastroesophageal reflux disease, esophagitis presence not specified K21.9 [address] [facility] [id number] [place] [address] Jun, Insomnia, unspecified type G47.00 and Constipation, unspecified constipation type K59.00 [id number] [place] [address] Jun, Secondary hypertension I15.9 ; Gastroesophageal reflux disease, esophagitis presence not specified K21.9 ; Smoking addiction F17.200 ; Chronic obstructive pulmonary disease, unspecified COPD type J44.9 ; Insomnia, unspecified type G47.00 ; Constipation, unspecified constipation type K59.00 ; Routine gynecological examination Z01.419 and Screening cholesterol level Z13.220 [address], [place] [address] Jun, [facility] [address], [place] [address] May, [facility] [address], [place] [address] May, [facility] [id number] [place] [phone] Apr, [facility] [id number] [place] [address] Mar, Secondary hypertension I15.9 ; Insomnia, unspecified type G47.00 ; Gastroesophageal reflux disease, esophagitis presence not specified K21.9 ; Chronic obstructive pulmonary disease, unspecified COPD type J44.9 and Abdominal bloating R14.0 [address], [place] [address] Mar, [facility] [address], [place] [address] Mar, [id number] [place] [address] Mar, Gastroesophageal reflux disease, esophagitis presence not specified K21.9 ; Secondary hypertension I15.9 ; Chronic obstructive pulmonary disease, unspecified COPD type J44.9 ; Smoking addiction F17.200 ; Abdominal bloating R14.0 ; Insomnia, unspecified type G47.00 and Constipation, unspecified constipation type K59.00 [address] [address], [place] [address] Jan, [address] [id number] [place] [address] Dec, Secondary hypertension I15.9 ; Insomnia, unspecified type G47.00 ; Chronic obstructive pulmonary disease, unspecified COPD type J44.9 ; Smoking addiction F17.200 and Gastroesophageal reflux disease, esophagitis presence not specified K21.9 [id number] [address] Nov, Secondary hypertension I15.9 ; Insomnia, unspecified type G47.00 ; Gastroesophageal reflux disease, esophagitis presence not specified K21.9 and Chronic obstructive pulmonary disease, unspecified COPD type J44.9 [facility] [address] [facility] [id number] [place] [address] October, Dyspepsia R10.13 IMMUNIZATIONS No Known Immunizations SOCIAL HISTORY Never Assessed REASON FOR VISIT Spiriva PLAN OF CARE VITAL SIGNS MEDICATIONS Medication Instructions Dosage Frequency Start Date End Date Duration Status Spiriva HandiHaler 18 MCG Inhalation Once a day 1 capsule 24h Mar, 90 days Active RESULTS No Results PROCEDURES No Known [...]
--- OUTSIDE RECORDS SUMMARY | 2019-01-11 14:11 | XMS REPORT ---
Author Author PAULINE GRANDA Organization [facility] Address [address] [place] [address] Care Team Providers Care Log Getter Name Role Phone PAULINE GRANDA Unavailable PROBLEMS Type Condition ICD9-CM Code WEQ59-AI Code Onset Dates Condition Status SNOMED Code Problem Abdominal bloating R14.0 Active 514948994 Problem Primary insomnia F51.01 Active 8406716 Problem Routine gynecological examination Z01.419 Active 388614013 Problem COPD with exacerbation J44.1 Active 196310745 Problem Anxiety F41.9 Active 93530412 Problem Panlobular emphysema J43.1 Active 6137074 Problem Gastroesophageal reflux disease without esophagitis K21.9 Active 128533650 Problem GERD with esophagitis K21.0 Active 745245165 Problem Other chronic gastritis without hemorrhage K29.50 Active 3969395 Problem Smoking addiction F17.200 Active 271208282 Problem Secondary hypertension I15.9 Active 99562701 Problem Chronic obstructive pulmonary disease, unspecified COPD type J44.9 Active 66355759 Problem Insomnia, unspecified type G47.00 Active 436519984 Problem Gastroesophageal reflux disease, esophagitis presence not specified K21.9 Active 618527573 Problem Constipation, unspecified constipation type K59.00 Active 61772781 ALLERGIES No Known Allergies ENCOUNTERS Encounter Location Date Diagnosis [facility] [id number], [place] [address] Apr, [facility] [id number] [address] Apr, Anxiety F41.9 [facility] [address], [place] [address] Apr, COPD with exacerbation J44.1 [facility] [id number], [place] [address] Mar, [place] [id number] [place] [address] Mar, [place] [address] [address] Mar, Anxiety F41.9 ; Acute pain of right knee M25.561 ; Arthralgia, unspecified joint M25.50 and Panlobular emphysema J43.1 [place] [address] [address] Feb, Insomnia, unspecified type G47.00 [place] [address] [address] Jan, [place] [address] [address] Jan, Insomnia, unspecified type G47.00 [place] [address] [address] Dec, [place] [id number] [place] [address] Dec, Insomnia, unspecified type G47.00 [place] [id number] [place] [address] Dec, [place] [id number] [place] [address] Dec, GERD with esophagitis K21.0 [place] [id number] [place] [address] Nov, Insomnia, unspecified type G47.00 [place] [id number] [place] [address] October, Insomnia, unspecified type G47.00 [place] [id number] [place] [address] Sep, Other chronic gastritis without hemorrhage K29.50 [facility] [id number] [place] [address] Sep, Secondary hypertension I15.9 [facility] [id number] [place] [address] Sep, Insomnia, unspecified type G47.00 [facility] [id number] [place] [address] Sep, Primary insomnia F51.01 [facility] [id number] [place] [address] Jul, [facility] [id number] [place] [address] Jul, [facility] [id number] [place] [address] Jul, [facility] [id number] [place] [address] Jun, [facility] [id number] [place] [address] Jun, Chronic obstructive pulmonary disease, unspecified COPD type J44.9 [facility] [id number] [place] [address] Jun, [facility] [id number] [place] [address] Jun, Primary insomnia F51.01 [facility] [id number] [place] [address] Jun, [facility] [id number] [place] [address] May, Chronic obstructive pulmonary disease, unspecified COPD type J44.9 [facility] [id number] [place] [address] May, [facility] [id number] [place] [address] May, Panlobular emphysema J43.1 and Gastroesophageal reflux disease without esophagitis K21.9 [facility] [address], [place] [address] Feb, Insomnia, unspecified type G47.00 [facility] [address], [place] [address] Feb, [facility] [id number] [place] [address] Feb, Secondary hypertension I15.9 [facility] [address], [place] [address] Feb, [facility] [id number] [place] [address] Jan, [facility] [id number] [place] [address] Jan, [facility] [id number] [place] [address] Jan, Secondary hypertension I15.9 [facility] [id number] [place] [address] Nov, [facility] [id number] [place] [address] Nov, Gastroesophageal reflux disease, esophagitis presence not specified K21.9 [facility] [address], [place] [address] October, Chronic obstructive pulmonary disease, unspecified COPD type J44.9 [facility] [address], [place] [address] Sep, [facility] [id number] [place] [address] Sep, [facility] [address], [place] [address] Sep, [facility] [id number] [place] [address] Sep, [place] [id number] [place] [address] Sep, [place] [id number] [place] [address] Sep, Secondary hypertension I15.9 ; Gastroesophageal reflux disease, esophagitis presence not specified K21.9 ; Smoking addiction F17.200 ; Constipation, unspecified constipation type K59.00 and Insomnia, unspecified type G47.00 [place] [id number] [place] [address] Aug, Constipation, unspecified constipation type K59.00 [place] [id number] [place] [address] Aug, [place] [id number] [place] [address] Jul, Gastroesophageal reflux disease, esophagitis presence not specified K21.9 [place] [id number] [place] [address] Jun, Insomnia, unspecified type G47.00 and Constipation, unspecified constipation type K59.00 [place] [id number] [place] [address] Jun, Secondary hypertension I15.9 ; Gastroesophageal reflux disease, esophagitis presence not specified K21.9 ; Smoking addiction F17.200 ; Chronic obstructive pulmonary disease, unspecified COPD type J44.9 ; Insomnia, unspecified type G47.00 ; Constipation, unspecified constipation type K59.00 ; Routine gynecological examination Z01.419 and Screening cholesterol level Z13.220 [place] [id number] [place] [address] Jun, [place] [id number] [place] [address] May, [place] [id number] [place] [address] May, [place] [id number] [place] [address] Apr, [place] [id number] [place] [address] Mar, Secondary hypertension I15.9 ; Insomnia, unspecified type G47.00 ; Gastroesophageal reflux disease, esophagitis presence not specified K21.9 ; Chronic obstructive pulmonary disease, unspecified COPD type J44.9 and Abdominal bloating R14.0 [place] [id number] [place] [address] Mar, [place] [id number] [place] [address] Mar, [place] [id number] [place] [address] Mar, Gastroesophageal reflux disease, esophagitis presence not specified K21.9 ; Secondary hypertension I15.9 ; Chronic obstructive pulmonary disease, unspecified COPD type J44.9 ; Smoking addiction F17.200 ; Abdominal bloating R14.0 ; Insomnia, unspecified type G47.00 and Constipation, unspecified constipation type K59.00 [place] [id number] [place] [address] Jan, [place] [id number] [place] [address] Dec, Secondary hypertension I15.9 ; Insomnia, unspecified type G47.00 ; Chronic obstructive pulmonary disease, unspecified COPD type J44.9 ; Smoking addiction F17.200 and Gastroesophageal reflux disease, esophagitis presence not specified K21.9 [place] [address] [place] [address] Nov, Secondary hypertension I15.9 ; Insomnia, unspecified type G47.00 ; Gastroesophageal reflux disease, esophagitis presence not specified K21.9 and Chronic obstructive pulmonary disease, unspecified COPD type J44.9 [facility] [id number] [place] [address] October, Dyspepsia R10.13 IMMUNIZATIONS Vaccine Route Administration Date Status SOLUMEDROL (UP TO 125 MG) IM Intramuscular Apr 12, 2018 Administered SOCIAL HISTORY Never Assessed REASON FOR VISIT dizziness, congestion-twoshahrzad,RMA, pt complainingof dizziness hard to breathe, c oughing up green phlegm. started a couple of days ago PLAN OF CARE Activity Details Follow Up prn Reason: VITAL SIGNS Height 62 in 2018-04-12 Weight 148.6 lbs 2018-04-12 Temperature 98.1 degrees Fahrenheit 2018-04-12 Heart Rate 80 bpm 2018-04-12 Respiratory Rate 20 2018-04-12 Oximetry on room air:100 % 2018-04-12 BMI 27.18 kg/m2 2018-04-12 Blood pressure systolic 122 mmHg 2018-04-12 Blood pressure diastolic 72 mmHg 2018-04-12 MEDICATIONS Medication Instructions Dosage Frequency Start Date End Date Duration Status Protonix 40 mg Orally at bedtime 1 tablet Active Doxazosin Mesylate 2 MG Orally Once a day 1 tablet 24h 90 days Active Ventolin HFA 108 (90 Base) MCG/ACT Inhalation every 6 hrs 2 puffs as needed 6h Jun, 90 days Active MiraLax - Orally Once a day 1 packet mixed with 8 ounces of fluid 24h Active Naproxen 500 mg Orally every 12 hrs 1 tablet with food or milk as needed 12h Mar, Active Spiriva HandiHaler 18 MCG Inhalation Once a day 1 capsule 24h Mar, Active Oxygen 2 L/NC Active Seroquel 200 mg TAKE ONE TABLET BY MOUTH ONCE DAILY AT BEDTIME 30 Active Amlodipine Besylate 5 mg Orally Once a day 2 tablet 24h 30 Active Doxycycline Hyclate 100 mg Orally twice a day 1 tablet 12h Apr, Apr, 10 day(s) Active PredniSONE 20 mg Orally Once a day 2 tablets 24h Apr, 5 days Active Famotidine 40 mg Orally Once a day 1 tablet 24h Dec, 30 day(s) Active Klonopin 1 MG Orally 2 times a day 1 tablet 12h Feb, 28 days Active RESULTS No Results PROCEDURES Procedure Date Ordered Result Body Site SOLUMEDROL (UP TO 125 MG) Apr 12, 2018 THER/PROPH/DIAG INJ, SC/IM Apr 12, 2018 INSTRUCTIONS MEDICATIONS ADMINISTERED No Known Medications MEDICAL (GENERAL) HISTORY Type Description Date Medical History hypertension Medical History COPD -smoker Medical History blood in colon Surgical History cyst removal- back Surgical History endoscopy 01/2017 Surgical History colonoscopy 2017/ Hospitalization History Surgery(s)/Childbirth(s) only Hospitalization History ICU x2 days for HTN 2012
--- OUTSIDE RECORDS SUMMARY | 2019-01-11 14:11 | XMS REPORT ---
Author Author AYDE BYRD Organization [facility] Address [address] [place] [address] Care Team Providers Care Executive Casino Host Name Role Phone AYDE BYRD Unavailable PROBLEMS Type Condition ICD9-CM Code NWE70-LA Code Onset Dates Condition Status SNOMED Code Problem Abdominal bloating R14.0 Active 530325663 Problem Primary insomnia F51.01 Active 0313564 Problem Routine gynecological examination Z01.419 Active 633114989 Problem COPD with exacerbation J44.1 Active 473167528 Problem Anxiety F41.9 Active 12589284 Problem Panlobular emphysema J43.1 Active 9357980 Problem Gastroesophageal reflux disease without esophagitis K21.9 Active 076923295 Problem GERD with esophagitis K21.0 Active 863418749 Problem Other chronic gastritis without hemorrhage K29.50 Active 3979935 Problem Smoking addiction F17.200 Active 742104246 Problem Secondary hypertension I15.9 Active 33151750 Problem Chronic obstructive pulmonary disease, unspecified COPD type J44.9 Active 50087918 Problem Insomnia, unspecified type G47.00 Active 770086794 Problem Gastroesophageal reflux disease, esophagitis presence not specified K21.9 Active 545784840 Problem Constipation, unspecified constipation type K59.00 Active 81916802 ALLERGIES No Information ENCOUNTERS Encounter Location Date Diagnosis [facility] [id number] [address] May, [facility] [id number] [address] Apr, Anxiety F41.9 [facility] [id number] [address] Apr, [facility] [id number] [address] Apr, [facility] [id number] [place] [address] Apr, Anxiety F41.9 [facility] [id number] [place] [address] Apr, COPD with exacerbation J44.1 [facility] [id number] [place] [address] Mar, [facility] [id number] [place] [address] Mar, [facility] [id number] [place] [address] Mar, Anxiety F41.9 ; Acute pain of right knee M25.561 ; Arthralgia, unspecified joint M25.50 and Panlobular emphysema J43.1 [facility] [id number] [place] [address] Feb, Insomnia, unspecified type G47.00 [facility] [id number] [place] [address] Jan, [facility] [id number] [place] [address] Jan, Insomnia, unspecified type G47.00 [facility] [id number] [place] [address] Dec, [facility] [id number] [place] [address] Dec, Insomnia, unspecified type G47.00 [facility] [id number] [place] [address] Dec, [facility] [id number] [place] [address] Dec, GERD with esophagitis K21.0 [facility] [id number] [place] [address] Nov, Insomnia, unspecified type G47.00 [facility] [id number] [place] [address] October, Insomnia, unspecified type G47.00 [facility] [id number] [place] [address] Sep, Other chronic gastritis without hemorrhage K29.50 [facility] [id number] [place] [address] Sep, Secondary hypertension I15.9 [facility] [id number] [place] [address] Sep, Insomnia, unspecified type G47.00 [facility] [id number] [place] [address] Sep, Primary insomnia F51.01 [facility] [id number] [place] [address] Jul, [facility] [id number] [place] [address] Jul, [facility] [id number] [place] [address] Jul, [facility] [id number] [place] [address] Jun, [facility] [id number] [place] [address] Jun, Chronic obstructive pulmonary disease, unspecified COPD type J44.9 [facility] [id number] [place] [address] Jun, [facility] [id number] [place] [address] Jun, Primary insomnia F51.01 [facility] [id number] [place] [address] Jun, [facility] [id number] [place] [address] May, Chronic obstructive pulmonary disease, unspecified COPD type J44.9 [facility] [id number] [place] [address] May, [facility] [id number] [place] [address] May, Panlobular emphysema J43.1 and Gastroesophageal reflux disease without esophagitis K21.9 [facility] [id number] [place] [address] Feb, Insomnia, unspecified type G47.00 [facility] [id number] [place] [address] Feb, [facility] [id number] [place] [address] Feb, Secondary hypertension I15.9 [facility] [address] [address] Feb, [facility] [id number] [place] [address] Jan, [facility] [id number] [place] [address] Jan, [facility] [id number] [place] [address] Jan, Secondary hypertension I15.9 [facility] [id number] [place] [address] Nov, [facility] [id number] [place] [address] Nov, Gastroesophageal reflux disease, esophagitis presence not specified K21.9 [facility] [id number] [place] [address] October, Chronic obstructive pulmonary disease, unspecified COPD type J44.9 [facility] [id number] [place] [address] Sep, [place] [id number] [place] [address] Sep, [place] [id number] [place] [address] Sep, [place] [id number] [place] [address] Sep, [place] [id number] [place] [address] Sep, [place] [id number] [place] [address] Sep, Secondary hypertension I15.9 ; Gastroesophageal reflux disease, esophagitis presence not specified K21.9 ; Smoking addiction F17.200 ; Constipation, unspecified constipation type K59.00 and Insomnia, unspecified type G47.00 [place] [id number] [place] [address] Aug, Constipation, unspecified constipation type K59.00 [place] [id number] [place] [address] Aug, [place] [id number] [place] [address] Jul, Gastroesophageal reflux disease, esophagitis presence not specified K21.9 [place] [id number] [place] [address] Jun, Insomnia, unspecified type G47.00 and Constipation, unspecified constipation type K59.00 [place] [id number] [place] [address] Jun, Secondary hypertension I15.9 ; Gastroesophageal reflux disease, esophagitis presence not specified K21.9 ; Smoking addiction F17.200 ; Chronic obstructive pulmonary disease, unspecified COPD type J44.9 ; Insomnia, unspecified type G47.00 ; Constipation, unspecified constipation type K59.00 ; Routine gynecological examination Z01.419 and Screening cholesterol level Z13.220 [place] [address] [address] Jun, [facility] [address] [address] May, [facility] [address] [address] May, [facility] [id number] [place] [address] Apr, [facility] [id number] [place] [address] Mar, Secondary hypertension I15.9 ; Insomnia, unspecified type G47.00 ; Gastroesophageal reflux disease, esophagitis presence not specified K21.9 ; Chronic obstructive pulmonary disease, unspecified COPD type J44.9 and Abdominal bloating R14.0 [place] [address] [address] Mar, [facility] [address] [address] Mar, [place] [id number] [place] [address] Mar, Gastroesophageal reflux disease, esophagitis presence not specified K21.9 ; Secondary hypertension I15.9 ; Chronic obstructive pulmonary disease, unspecified COPD type J44.9 ; Smoking addiction F17.200 ; Abdominal bloating R14.0 ; Insomnia, unspecified type G47.00 and Constipation, unspecified constipation type K59.00 [place] [address] [address] Jan, [place] [id number] [place] [address] Dec, Secondary hypertension I15.9 ; Insomnia, unspecified type G47.00 ; Chronic obstructive pulmonary disease, unspecified COPD type J44.9 ; Smoking addiction F17.200 and Gastroesophageal reflux disease, esophagitis presence not specified K21.9 [place] [id number] [address] Nov, Secondary hypertension I15.9 ; Insomnia, unspecified type G47.00 ; Gastroesophageal reflux disease, esophagitis presence not specified K21.9 and Chronic obstructive pulmonary disease, unspecified COPD type J44.9 [facility] [address] [facility] [id number] [address] October, Dyspepsia R10.13 IMMUNIZATIONS No Known Immunizations SOCIAL HISTORY Never Assessed REASON FOR VISIT Repository Medication PLAN OF CARE VITAL SIGNS MEDICATIONS Unknown [...]
--- OUTSIDE RECORDS SUMMARY | 2019-01-11 14:11 | XMS REPORT ---
Author Author AYDE BYRD Organization [facility] Address [address] [place] [address] Care Team Providers Care Cns Name Role Phone AYDE BYRD Unavailable PROBLEMS Type Condition ICD9-CM Code YYR41-HQ Code Onset Dates Condition Status SNOMED Code Problem Abdominal bloating R14.0 Active 978393907 Problem Primary insomnia F51.01 Active 3346452 Problem Routine gynecological examination Z01.419 Active 927465520 Problem COPD with exacerbation J44.1 Active 026327771 Problem Anxiety F41.9 Active 08367259 Problem Panlobular emphysema J43.1 Active 8831301 Problem Gastroesophageal reflux disease without esophagitis K21.9 Active 888708134 Problem GERD with esophagitis K21.0 Active 084212738 Problem Other chronic gastritis without hemorrhage K29.50 Active 2693531 Problem Smoking addiction F17.200 Active 191849199 Problem Secondary hypertension I15.9 Active 85905180 Problem Chronic obstructive pulmonary disease, unspecified COPD type J44.9 Active 93836760 Problem Insomnia, unspecified type G47.00 Active 037471686 Problem Gastroesophageal reflux disease, esophagitis presence not specified K21.9 Active 810418932 Problem Constipation, unspecified constipation type K59.00 Active 12591417 ALLERGIES No Information ENCOUNTERS Encounter Location Date Diagnosis [facility] [id number], [place] [address] Apr, [facility] [address], [place] [address] Apr, [facility] [address] [place] [address] Apr, Anxiety F41.9 [facility] [id number], [place] [address] Apr, COPD with exacerbation J44.1 [facility] [id number], [place] [address] Mar, [facility] [id number] [place] [address] Mar, [facility] [id number] [place] [address] Mar, Anxiety F41.9 ; Acute pain of right knee M25.561 ; Arthralgia, unspecified joint M25.50 and Panlobular emphysema J43.1 [facility] [id number] [place] [address] Feb, Insomnia, unspecified type G47.00 [facility] [id number] [place] [address] Jan, [facility] [id number] [place] [address] Jan, Insomnia, unspecified type G47.00 [facility] [id number] [place] [address] Dec, [facility] [id number] [place] [address] Dec, Insomnia, unspecified type G47.00 [facility] [id number] [place] [address] Dec, [facility] [id number] [place] [address] Dec, GERD with esophagitis K21.0 [facility] [id number] [place] [address] Nov, Insomnia, unspecified type G47.00 [facility] [id number] [place] [address] October, Insomnia, unspecified type G47.00 [facility] [id number] [place] [address] Sep, Other chronic gastritis without hemorrhage K29.50 [facility] [id number], [place] [address] Sep, Secondary hypertension I15.9 [facility] [address] [place] [address] Sep, Insomnia, unspecified type G47.00 [facility] [id number] [place] [address] Sep, Primary insomnia F51.01 [facility] [id number] [place] [address] Jul, [facility] [id number] [place] [address] Jul, [facility] [id number] [place] [address] Jul, [facility] [id number] [place] [address] Jun, [facility] [address] [place] [address] Jun, Chronic obstructive pulmonary disease, unspecified COPD type J44.9 [facility] [address], [place] [address] Jun, [facility] [address] [place] [address] Jun, Primary insomnia F51.01 [facility] [address], [place] [address] Jun, [facility] [id number] [place] [address] May, Chronic obstructive pulmonary disease, unspecified COPD type J44.9 [facility] [address], [place] [address] May, [facility] [id number] [place] [address] May, Panlobular emphysema J43.1 and Gastroesophageal reflux disease without esophagitis K21.9 [facility] [id number] [place] [address] Feb, Insomnia, unspecified type G47.00 [facility] [address] [address] Feb, [facility] [address] [address] Feb, Secondary hypertension I15.9 [facility] [address] [address] Feb, [facility] [address] [address] Jan, [facility] [address] [address] Jan, [facility] [address] [address] Jan, Secondary hypertension I15.9 [facility] [address] [address] Nov, [facility] [id number] [place] [address] Nov, Gastroesophageal reflux disease, esophagitis presence not specified K21.9 [facility] [id number] [place] [address] October, Chronic obstructive pulmonary disease, unspecified COPD type J44.9 [facility] [address] [address] Sep, [facility] [id number] [place] [address] Sep, [facility] [address] [address] Sep, [facility] [address], [place] [address] Sep, [facility] [id number] [place] [address] Sep, [facility] [id number] [place] [address] Sep, Secondary hypertension I15.9 ; Gastroesophageal reflux disease, esophagitis presence not specified K21.9 ; Smoking addiction F17.200 ; Constipation, unspecified constipation type K59.00 and Insomnia, unspecified type G47.00 [place] [id number] [place] [address] Aug, Constipation, unspecified constipation type K59.00 [place] [id number] [place] [address] Aug, [place] [id number] [place] [address] Jul, Gastroesophageal reflux disease, esophagitis presence not specified K21.9 [place] [id number] [place] [address] Jun, Insomnia, unspecified type G47.00 and Constipation, unspecified constipation type K59.00 [place] [id number] [place] [address] Jun, Secondary hypertension I15.9 ; Gastroesophageal reflux disease, esophagitis presence not specified K21.9 ; Smoking addiction F17.200 ; Chronic obstructive pulmonary disease, unspecified COPD type J44.9 ; Insomnia, unspecified type G47.00 ; Constipation, unspecified constipation type K59.00 ; Routine gynecological examination Z01.419 and Screening cholesterol level Z13.220 [place] [address] [place] [address] Jun, [place] [address] [place] [address] May, [place] [address], [place] [address] May, [place] [id number] [place] [address] Apr, [place] [id number] [place] [address] Mar, Secondary hypertension I15.9 ; Insomnia, unspecified type G47.00 ; Gastroesophageal reflux disease, esophagitis presence not specified K21.9 ; Chronic obstructive pulmonary disease, unspecified COPD type J44.9 and Abdominal bloating R14.0 [place] [id number] [place] [address] Mar, [place] [id number] [place] [address] Mar, [place] [id number] [place] [address] Mar, Gastroesophageal reflux disease, esophagitis presence not specified K21.9 ; Secondary hypertension I15.9 ; Chronic obstructive pulmonary disease, unspecified COPD type J44.9 ; Smoking addiction F17.200 ; Abdominal bloating R14.0 ; Insomnia, unspecified type G47.00 and Constipation, unspecified constipation type K59.00 [place] [address] [place] [address] Jan, [place] [id number] [place] [address] Dec, Secondary hypertension I15.9 ; Insomnia, unspecified type G47.00 ; Chronic obstructive pulmonary disease, unspecified COPD type J44.9 ; Smoking addiction F17.200 and Gastroesophageal reflux disease, esophagitis presence not specified K21.9 [place] [address] [place] [address] Nov, Secondary hypertension I15.9 ; Insomnia, unspecified type G47.00 ; Gastroesophageal reflux disease, esophagitis presence not specified K21.9 and Chronic obstructive pulmonary disease, unspecified COPD type J44.9 [facility] [place] [address] [facility] [id number] [address] October, Dyspepsia R10.13 IMMUNIZATIONS No Known Immunizations SOCIAL HISTORY Never Assessed REASON FOR VISIT Medication refill request PLAN OF CARE VITAL SIGNS MEDICATIONS Medication Instructions Dosage Frequency Start Date End Date Duration Status Seroquel 200 mg TAKE ONE TABLET BY MOUTH ONCE DAILY AT BEDTIME 30 Active RESULTS No Results PROCEDURES No [...]
[2019-01-11] MEDS ORDERED: PANTOPRAZOLE 40 MG (PROTONIX) VIAL IV STA (14:12)
[2019-01-11] MEDS ORDERED: NS IV 1000 ML 1,000 ML IV SCH (14:12)
--- OUTSIDE RECORDS SUMMARY | 2019-01-11 14:12 | XMS REPORT ---
Author Author AYDE BYRD Organization [facility] Address [address] [place] [address] Care Team Providers Care Automotive Product Engineer Name Role Phone AYDE BYRD Unavailable PROBLEMS Type Condition ICD9-CM Code [id number] Code Onset Dates Condition Status SNOMED Code Problem Abdominal bloating R14.0 Active 502098974 Problem Routine gynecological examination Z01.419 Active 675426130 Problem Constipation, unspecified constipation type K59.00 Active 70221021 Problem Anxiety F41.9 Active 07760251 Problem GERD with esophagitis K21.0 Active 542625231 Problem Gastroesophageal reflux disease without esophagitis K21.9 Active 546254951 Problem Primary insomnia F51.01 Active 2021454 Problem Other chronic gastritis without hemorrhage K29.50 Active 0769084 Problem Panlobular emphysema J43.1 Active 7909754 Problem Secondary hypertension I15.9 Active 16964310 Problem Insomnia, unspecified type G47.00 Active 058455217 Problem Chronic obstructive pulmonary disease, unspecified COPD type J44.9 Active 54419720 Problem Smoking addiction F17.200 Active 173877706 Problem Gastroesophageal reflux disease, esophagitis presence not specified K21.9 Active 503069271 ALLERGIES No Information ENCOUNTERS Encounter Location Date Diagnosis [facility] [address], [place] [address] Mar, [facility] [address], [place] [address] Mar, Anxiety F41.9 ; Acute pain of right knee M25.561 ; Arthralgia, unspecified joint M25.50 and Panlobular emphysema J43.1 [facility] [id number] [address] Feb, Insomnia, unspecified type G47.00 [place] [id number] [place] [address] Jan, [facility] [id number] [place] [address] Jan, Insomnia, unspecified type G47.00 [facility] [id number] [place] [address] Dec, [facility] [address] [address] Dec, Insomnia, unspecified type G47.00 [facility] [id number] [place] [address] Dec, [facility] [address] [address] Dec, GERD with esophagitis K21.0 [facility] [id number] [place] [address] Nov, Insomnia, unspecified type G47.00 [facility] [id number] [place] [address] October, Insomnia, unspecified type G47.00 [facility] [id number] [place] [address] Sep, Other chronic gastritis without hemorrhage K29.50 [facility] [id number] [place] [address] Sep, Secondary hypertension I15.9 [facility] [id number] [place] [address] Sep, Insomnia, unspecified type G47.00 [facility] [id number] [place] [address] Sep, Primary insomnia F51.01 [facility] [id number] [place] [address] Jul, [facility] [address] [address] Jul, [facility] [address], [place] [address] Jul, [facility] [id number] [place] [address] Jun, [facility] [id number] [place] [address] Jun, Chronic obstructive pulmonary disease, unspecified COPD type J44.9 [facility] [id number] [place] [address] Jun, [facility] [id number] [place] [address] Jun, Primary insomnia F51.01 [facility] [id number] [place] [address] Jun, [facility] [id number] [place] [address] May, Chronic obstructive pulmonary disease, unspecified COPD type J44.9 [facility] [address] [place] [address] May, [facility] [id number] [place] [address] May, Panlobular emphysema J43.1 and Gastroesophageal reflux disease without esophagitis K21.9 [facility] [address] [place] [address] Feb, Insomnia, unspecified type G47.00 [facility] [address] [place] [address] Feb, [facility] [id number] [place] [address] Feb, Secondary hypertension I15.9 [facility] [address], [place] [address] Feb, [place] [address], [place] [address] Jan, [facility] [id number] [place] [address] Jan, [facility] [address], [place] [address] Jan, Secondary hypertension I15.9 [facility] [id number] [place] [address] Nov, [facility] [id number] [place] [address] Nov, Gastroesophageal reflux disease, esophagitis presence not specified K21.9 [facility] [id number] [address] October, Chronic obstructive pulmonary disease, unspecified COPD type J44.9 [facility] [id number] [place] [address] Sep, [facility] [id number] [place] [address] Sep, [facility] [id number] [place] [address] Sep, [facility] [address], [place] [address] Sep, [facility] [address] [place] [address] Sep, [facility] [address], [place] [address] Sep, Secondary hypertension I15.9 ; Gastroesophageal reflux disease, esophagitis presence not specified K21.9 ; Smoking addiction F17.200 ; Constipation, unspecified constipation type K59.00 and Insomnia, unspecified type G47.00 [facility] [address], [place] [address] Aug, Constipation, unspecified constipation type K59.00 [place] [id number] [address] Aug, [place] [id number] [place] [address] Jul, Gastroesophageal reflux disease, esophagitis presence not specified K21.9 [place] [id number] [place] [address] Jun, Insomnia, unspecified type G47.00 and Constipation, unspecified constipation type K59.00 [place] [id number] [place] [address] Jun, Secondary hypertension I15.9 ; Gastroesophageal reflux disease, esophagitis presence not specified K21.9 ; Smoking addiction F17.200 ; Chronic obstructive pulmonary disease, unspecified COPD type J44.9 ; Insomnia, unspecified type G47.00 ; Constipation, unspecified constipation type K59.00 ; Routine gynecological examination Z01.419 and Screening cholesterol level Z13.220 [place] [id number] [place] [address] Jun, [place] [id number] [place] [address] May, [place] [id number] [place] [address] May, [place] [id number] [place] [address] Apr, [place] [id number] [place] [address] Mar, Secondary hypertension I15.9 ; Insomnia, unspecified type G47.00 ; Gastroesophageal reflux disease, esophagitis presence not specified K21.9 ; Chronic obstructive pulmonary disease, unspecified COPD type J44.9 and Abdominal bloating R14.0 [place] [id number] [place] [address] Mar, [place] [address] [place] [address] Mar, [facility] [id number] [place] [address] Mar, Gastroesophageal reflux disease, esophagitis presence not specified K21.9 ; Secondary hypertension I15.9 ; Chronic obstructive pulmonary disease, unspecified COPD type J44.9 ; Smoking addiction F17.200 ; Abdominal bloating R14.0 ; Insomnia, unspecified type G47.00 and Constipation, unspecified constipation type K59.00 [facility] [id number] [place] [address] Jan, [facility] [id number] [place] [address] Dec, Secondary hypertension I15.9 ; Insomnia, unspecified type G47.00 ; Chronic obstructive pulmonary disease, unspecified COPD type J44.9 ; Smoking addiction F17.200 and Gastroesophageal reflux disease, esophagitis presence not specified K21.9 [facility] [address] [place] [address] Nov, Secondary hypertension I15.9 ; Insomnia, unspecified type G47.00 ; Gastroesophageal reflux disease, esophagitis presence not specified K21.9 and Chronic obstructive pulmonary disease, unspecified COPD type J44.9 [facility] [id number], [place] [address] October, Dyspepsia R10.13 IMMUNIZATIONS No Known Immunizations SOCIAL HISTORY Never Assessed REASON FOR VISIT Controlled Med Refill PLAN OF CARE VITAL SIGNS MEDICATIONS Medication Instructions Dosage Frequency Start Date End Date Duration Status Klonopin 1 MG Orally hs 1 tablet Feb, 28 days Active RESULTS No Results PROCEDURES No [...]
--- OUTSIDE RECORDS SUMMARY | 2019-01-11 14:12 | XMS REPORT ---
Author Author AYDE BYRD Organization [facility] Address [address] [place] [address] Care Team Providers Care Analytics Specialist Name Role Phone AYDE BYRD Unavailable PROBLEMS Type Condition ICD9-CM Code [id number] Code Onset Dates Condition Status SNOMED Code Problem Abdominal bloating R14.0 Active 131662973 Problem Routine gynecological examination Z01.419 Active 229425560 Problem Constipation, unspecified constipation type K59.00 Active 61672819 Problem Anxiety F41.9 Active 07728304 Problem GERD with esophagitis K21.0 Active 340446298 Problem Gastroesophageal reflux disease without esophagitis K21.9 Active 499376789 Problem Primary insomnia F51.01 Active 7149837 Problem Other chronic gastritis without hemorrhage K29.50 Active 1035442 Problem Panlobular emphysema J43.1 Active 1186625 Problem Secondary hypertension I15.9 Active 26815725 Problem Insomnia, unspecified type G47.00 Active 836046575 Problem Chronic obstructive pulmonary disease, unspecified COPD type J44.9 Active 07843284 Problem Smoking addiction F17.200 Active 790565512 Problem Gastroesophageal reflux disease, esophagitis presence not specified K21.9 Active 599977117 ALLERGIES No Known Allergies ENCOUNTERS Encounter Location Date Diagnosis [facility] [address], [place] [address] Mar, [facility] [address] [address] Mar, [facility] [address] [place] [address] Mar, Anxiety F41.9 ; Acute pain of right knee M25.561 ; Arthralgia, unspecified joint M25.50 and Panlobular emphysema J43.1 [facility] [address] [place] [address] Feb, Insomnia, unspecified type G47.00 [facility] [id number] [place] [address] Jan, [facility] [id number] [place] [address] Jan, Insomnia, unspecified type G47.00 [facility] [address] [address] Dec, [facility] [id number] [place] [address] Dec, Insomnia, unspecified type G47.00 [facility] [id number] [place] [address] Dec, [facility] [id number] [place] [address] Dec, GERD with esophagitis K21.0 [facility] [id number] [place] [address] Nov, Insomnia, unspecified type G47.00 [facility] [id number] [place] [address] October, Insomnia, unspecified type G47.00 [facility] [id number] [place] [address] Sep, Other chronic gastritis without hemorrhage K29.50 [facility] [id number] [place] [address] Sep, Secondary hypertension I15.9 [facility] [id number] [place] [address] Sep, Insomnia, unspecified type G47.00 [facility] [id number] [place] [address] Sep, Primary insomnia F51.01 [facility] [id number] [place] [address] Jul, [facility] [address], [place] [address] Jul, [facility] [address] [place] [address] Jul, [facility] [address] [place] [address] Jun, [facility] [id number] [place] [address] Jun, Chronic obstructive pulmonary disease, unspecified COPD type J44.9 [facility] [id number] [place] [address] Jun, [facility] [address] [place] [address] Jun, Primary insomnia F51.01 [facility] [id number] [place] [address] Jun, [facility] [address] [place] [address] May, Chronic obstructive pulmonary disease, unspecified COPD type J44.9 [facility] [address] [place] [address] May, [facility] [address] [place] [address] May, Panlobular emphysema J43.1 and Gastroesophageal reflux disease without esophagitis K21.9 [facility] [address], [place] [address] Feb, Insomnia, unspecified type G47.00 [facility] [address], [place] [address] Feb, [facility] [address], [place] [address] Feb, Secondary hypertension I15.9 [facility] [address], [place] [address] Feb, [facility] [address] [place] [address] Jan, [facility] [address] [place] [address] Jan, [facility] [id number] [place] [address] Jan, Secondary hypertension I15.9 [facility] [id number] [place] [address] Nov, [facility] [id number] [place] [address] Nov, Gastroesophageal reflux disease, esophagitis presence not specified K21.9 [facility] [id number] [place] [address] October, Chronic obstructive pulmonary disease, unspecified COPD type J44.9 [facility] [address], [place] [address] Sep, [facility] [id number] [place] [address] Sep, [facility] [id number] [place] [address] Sep, [facility] [address] [place] [address] Sep, [facility] [address] [place] [address] Sep, [facility] [id number] [place] [address] Sep, Secondary hypertension I15.9 ; Gastroesophageal reflux disease, esophagitis presence not specified K21.9 ; Smoking addiction F17.200 ; Constipation, unspecified constipation type K59.00 and Insomnia, unspecified type G47.00 [place] [id number] [place] [address] Aug, Constipation, unspecified constipation type K59.00 [place] [id number] [place] [address] Aug, [place] [id number] [place] [address] Jul, Gastroesophageal reflux disease, esophagitis presence not specified K21.9 [place] [id number] [place] [address] Jun, Insomnia, unspecified type G47.00 and Constipation, unspecified constipation type K59.00 [place] [id number] [place] [address] Jun, Secondary hypertension I15.9 ; Gastroesophageal reflux disease, esophagitis presence not specified K21.9 ; Smoking addiction F17.200 ; Chronic obstructive pulmonary disease, unspecified COPD type J44.9 ; Insomnia, unspecified type G47.00 ; Constipation, unspecified constipation type K59.00 ; Routine gynecological examination Z01.419 and Screening cholesterol level Z13.220 [place] [id number] [place] [address] Jun, [place] [id number] [place] [address] May, [place] [id number] [place] [address] May, [place] [id number] [place] [address] Apr, [place] [id number] [place] [address] Mar, Secondary hypertension I15.9 ; Insomnia, unspecified type G47.00 ; Gastroesophageal reflux disease, esophagitis presence not specified K21.9 ; Chronic obstructive pulmonary disease, unspecified COPD type J44.9 and Abdominal bloating R14.0 [place] [address] [address] Mar, [facility] [id number] [place] [address] Mar, [facility] [id number] [place] [address] Mar, Gastroesophageal reflux disease, esophagitis presence not specified K21.9 ; Secondary hypertension I15.9 ; Chronic obstructive pulmonary disease, unspecified COPD type J44.9 ; Smoking addiction F17.200 ; Abdominal bloating R14.0 ; Insomnia, unspecified type G47.00 and Constipation, unspecified constipation type K59.00 [facility] [id number] [place] [address] Jan, [place] [id number] [place] [address] Dec, Secondary hypertension I15.9 ; Insomnia, unspecified type G47.00 ; Chronic obstructive pulmonary disease, unspecified COPD type J44.9 ; Smoking addiction F17.200 and Gastroesophageal reflux disease, esophagitis presence not specified K21.9 [place] [id number] [place] [address] Nov, Secondary hypertension I15.9 ; Insomnia, unspecified type G47.00 ; Gastroesophageal reflux disease, esophagitis presence not specified K21.9 and Chronic obstructive pulmonary disease, unspecified COPD type J44.9 [facility] [address] [place] [address] October, Dyspepsia R10.13 IMMUNIZATIONS No Known Immunizations SOCIAL HISTORY Never Assessed REASON FOR VISIT Anxiety, PT reports she has been having shortness of breath. PT notes some pain in right knee, sharp pain in the back of the knee -Jase SANTORO PLAN OF CARE Activity Details Follow Up 4 Weeks Reason:copd VITAL SIGNS Height 62 in 2018-03-12 Weight 148.1 lbs 2018-03-12 Temperature 97.9 degrees Fahrenheit 2018-03-12 Heart Rate 97 bpm 2018-03-12 Respiratory Rate 20 2018-03-12 Oximetry 99 % 2018-03-12 BMI 27.08 kg/m2 2018-03-12 Blood pressure systolic 148 mmHg 2018-03-12 Blood pressure diastolic 72 mmHg 2018-03-12 MEDICATIONS Medication Instructions Dosage Frequency Start Date End Date Duration Status Zofran 4 MG Orally every 8 hours, PRN 1 tablet 16 Sep, 2017 Active Ventolin HFA 108 (90 Base) MCG/ACT Inhalation every 6 hrs 2 puffs as needed 6h Jun, 90 days Active Naproxen 500 mg Orally every 12 hrs 1 tablet with food or milk as needed 12h Mar, Active Amlodipine Besylate 5 mg Orally Once a day 2 tablet 24h 30 Active Famotidine 40 mg Orally Once a day 1 tablet 24h Dec, 30 day(s) Active Spiriva HandiHaler 18 MCG Inhalation Once a day 1 capsule 24h Mar, Active Doxazosin Mesylate 2 MG Orally Once a day 1 tablet 24h 90 days Active Oxygen 2 L/NC Active Seroquel 200 mg TAKE ONE TABLET BY MOUTH ONCE DAILY AT BEDTIME 30 Active Klonopin 1 MG Orally 2 times a day 1 tablet 12h Feb, 28 days Active MiraLax - Orally Once a day 1 packet mixed with 8 ounces of fluid 24h Active Protonix 40 mg Orally at bedtime 1 tablet Active RESULTS No Results PROCEDURES Procedure Date Ordered Result Body Site 09 PANEL (PROFILE 1) Mar 12, 2018 VENIPUNCT, ROUTINE* Mar 12, 2018 COMPLETE CBC W/AUTO DIFF WBC Mar 12, 2018 COMPREHEN METABOLIC PANEL Mar 12, 2018 ASSAY THYROID STIM HORMONE Mar 12, 2018 C-REACTIVE PROTEIN Mar 12, 2018 INSTRUCTIONS MEDICATIONS ADMINISTERED No Known Medications MEDICAL (GENERAL) HISTORY Type Description Date Medical History hypertension Medical History COPD -smoker Medical History blood in colon Surgical History cyst removal- back Surgical History endoscopy 01/2017 Surgical History colonoscopy 2017/ Hospitalization History Surgery(s)/Childbirth(s) only Hospitalization History ICU x2 days for HTN 2012
--- OUTSIDE RECORDS SUMMARY | 2019-01-11 14:12 | XMS REPORT ---
Author Author AYDE BYRD Organization [facility] Address [address] [place] [address] Care Team Providers Care Turbine Assembler Name Role Phone AYDE BYRD Unavailable PROBLEMS Type Condition ICD9-CM Code ICO47-OQ Code Onset Dates Condition Status SNOMED Code Problem Abdominal bloating R14.0 Active 732976593 Problem Primary insomnia F51.01 Active 2200167 Problem Routine gynecological examination Z01.419 Active 432488903 Problem COPD with exacerbation J44.1 Active 272181036 Problem Anxiety F41.9 Active 38819164 Problem Panlobular emphysema J43.1 Active 5401745 Problem Gastroesophageal reflux disease without esophagitis K21.9 Active 009036790 Problem GERD with esophagitis K21.0 Active 899391571 Problem Other chronic gastritis without hemorrhage K29.50 Active 1059875 Problem Smoking addiction F17.200 Active 121103380 Problem Secondary hypertension I15.9 Active 91901574 Problem Chronic obstructive pulmonary disease, unspecified COPD type J44.9 Active 05599969 Problem Insomnia, unspecified type G47.00 Active 036279674 Problem Gastroesophageal reflux disease, esophagitis presence not specified K21.9 Active 552685777 Problem Constipation, unspecified constipation type K59.00 Active 20382222 ALLERGIES No Information ENCOUNTERS Encounter Location Date Diagnosis [facility] [id number] [address] Apr, [facility] [address] [address] Apr, Anxiety F41.9 [facility] [address], [place] [address] Apr, COPD with exacerbation J44.1 [facility] [id number] [address] Mar, [facility] [id number] [place] [address] Mar, [facility] [address] [address] Mar, Anxiety F41.9 ; Acute pain of right knee M25.561 ; Arthralgia, unspecified joint M25.50 and Panlobular emphysema J43.1 [place] [address] [address] Feb, Insomnia, unspecified type G47.00 [place] [id number] [place] [address] Jan, [place] [address] [address] Jan, Insomnia, unspecified type G47.00 [place] [address] [address] Dec, [place] [id number] [place] [address] Dec, Insomnia, unspecified type G47.00 [place] [id number] [place] [address] Dec, [place] [id number] [place] [address] Dec, GERD with esophagitis K21.0 [place] [id number] [place] [address] Nov, Insomnia, unspecified type G47.00 [place] [id number] [place] [address] October, Insomnia, unspecified type G47.00 [place] [id number] [place] [address] Sep, Other chronic gastritis without hemorrhage K29.50 [place] [address] [address] Sep, Secondary hypertension I15.9 [facility] [address] [place] [address] Sep, Insomnia, unspecified type G47.00 [facility] [address], [place] [address] Sep, Primary insomnia F51.01 [facility] [id number] [place] [address] Jul, [facility] [address] [place] [address] Jul, [facility] [id number] [place] [address] Jul, [facility] [id number] [place] [address] Jun, [facility] [id number] [place] [address] Jun, Chronic obstructive pulmonary disease, unspecified COPD type J44.9 [facility] [address] [place] [address] Jun, [facility] [address], [place] [address] Jun, Primary insomnia F51.01 [facility] [address] [place] [address] Jun, [facility] [address] [address] May, Chronic obstructive pulmonary disease, unspecified COPD type J44.9 [facility] [address] [place] [address] May, [facility] [address] [address] May, Panlobular emphysema J43.1 and Gastroesophageal reflux disease without esophagitis K21.9 [facility] [address], [place] [address] Feb, Insomnia, unspecified type G47.00 [facility] [address] [place] [address] Feb, [facility] [id number] [place] [address] Feb, Secondary hypertension I15.9 [facility] [address] [place] [address] Feb, [facility] [id number] [place] [address] Jan, [facility] [id number] [place] [address] Jan, [facility] [id number] [place] [address] Jan, Secondary hypertension I15.9 [facility] [id number] [place] [address] Nov, [facility] [id number] [place] [address] Nov, Gastroesophageal reflux disease, esophagitis presence not specified K21.9 [facility] [address] [place] [address] October, Chronic obstructive pulmonary disease, unspecified COPD type J44.9 [facility] [address], [place] [address] Sep, [facility] [id number] [place] [address] Sep, [facility] [id number] [place] [address] Sep, [facility] [id number] [place] [address] Sep, [place] [address] [place] [address] Sep, [place] [id number] [place] [address] Sep, Secondary hypertension I15.9 ; Gastroesophageal reflux disease, esophagitis presence not specified K21.9 ; Smoking addiction F17.200 ; Constipation, unspecified constipation type K59.00 and Insomnia, unspecified type G47.00 [place] [id number] [place] [address] Aug, Constipation, unspecified constipation type K59.00 [place] [id number] [place] [address] Aug, [place] [id number] [place] [address] Jul, Gastroesophageal reflux disease, esophagitis presence not specified K21.9 [place] [id number] [place] [address] Jun, Insomnia, unspecified type G47.00 and Constipation, unspecified constipation type K59.00 [place] [id number] [place] [address] Jun, Secondary hypertension I15.9 ; Gastroesophageal reflux disease, esophagitis presence not specified K21.9 ; Smoking addiction F17.200 ; Chronic obstructive pulmonary disease, unspecified COPD type J44.9 ; Insomnia, unspecified type G47.00 ; Constipation, unspecified constipation type K59.00 ; Routine gynecological examination Z01.419 and Screening cholesterol level Z13.220 [place] [id number] [place] [address] Jun, [place] [id number] [place] [address] May, [place] [id number] [place] [address] May, [place] [address] [place] [address] Apr, [place] [id number] [place] [address] Mar, Secondary hypertension I15.9 ; Insomnia, unspecified type G47.00 ; Gastroesophageal reflux disease, esophagitis presence not specified K21.9 ; Chronic obstructive pulmonary disease, unspecified COPD type J44.9 and Abdominal bloating R14.0 [place] [id number] [place] [address] Mar, [place] [id number] [place] [address] Mar, [place] [id number] [place] [address] Mar, Gastroesophageal reflux disease, esophagitis presence not specified K21.9 ; Secondary hypertension I15.9 ; Chronic obstructive pulmonary disease, unspecified COPD type J44.9 ; Smoking addiction F17.200 ; Abdominal bloating R14.0 ; Insomnia, unspecified type G47.00 and Constipation, unspecified constipation type K59.00 [place] [id number] [place] [address] Jan, [place] [id number] [place] [address] Dec, Secondary hypertension I15.9 ; Insomnia, unspecified type G47.00 ; Chronic obstructive pulmonary disease, unspecified COPD type J44.9 ; Smoking addiction F17.200 and Gastroesophageal reflux disease, esophagitis presence not specified K21.9 [place] [address] [place] [address] Nov, Secondary hypertension I15.9 ; Insomnia, unspecified type G47.00 ; Gastroesophageal reflux disease, esophagitis presence not specified K21.9 and Chronic obstructive pulmonary disease, unspecified COPD type J44.9 [facility] [address] [address] 24 May, 2016 Dyspepsia R10.13 IMMUNIZATIONS No Known Immunizations SOCIAL HISTORY Never Assessed REASON FOR VISIT Controlled Med Refill PLAN OF CARE VITAL SIGNS MEDICATIONS Medication Instructions Dosage Frequency Start Date End Date Duration Status Klonopin 1 MG Orally 2 times a day 1 tablet 12h 28 Feb, 2017 28 days Active RESULTS No Results PROCEDURES [...]
--- OUTSIDE RECORDS SUMMARY | 2019-01-11 14:12 | XMS REPORT ---
Author Author AYDE BYRD Organization [facility] Address [address] [place] [address] Care Team Providers Care Python Architect Name Role Phone AYDE BYRD Unavailable PROBLEMS Type Condition ICD9-CM Code HWL31-NJ Code Onset Dates Condition Status SNOMED Code Problem Abdominal bloating R14.0 Active 132962373 Problem Routine gynecological examination Z01.419 Active 372661301 Problem Constipation, unspecified constipation type K59.00 Active 13821077 Problem Anxiety F41.9 Active 89679182 Problem GERD with esophagitis K21.0 Active 101416674 Problem Gastroesophageal reflux disease without esophagitis K21.9 Active 895350029 Problem Primary insomnia F51.01 Active 7886219 Problem Other chronic gastritis without hemorrhage K29.50 Active 2330968 Problem Panlobular emphysema J43.1 Active 4225588 Problem Secondary hypertension I15.9 Active 36750694 Problem Insomnia, unspecified type G47.00 Active 282148753 Problem Chronic obstructive pulmonary disease, unspecified COPD type J44.9 Active 38396539 Problem Smoking addiction F17.200 Active 891688234 Problem Gastroesophageal reflux disease, esophagitis presence not specified K21.9 Active 372517888 ALLERGIES No Information ENCOUNTERS Encounter Location Date Diagnosis [facility] [address], [place] [address] Mar, [facility] [address], [place] [address] Mar, [facility] [id number] [place] [address] Mar, [facility] [address], [place] [address] Mar, Anxiety F41.9 ; Acute pain of right knee M25.561 ; Arthralgia, unspecified joint M25.50 and Panlobular emphysema J43.1 [facility] [id number] [place] [address] Feb, Insomnia, unspecified type G47.00 [facility] [id number] [place] [address] Jan, [facility] [id number] [place] [address] Jan, Insomnia, unspecified type G47.00 [facility] [id number] [place] [address] Dec, [facility] [address] [address] Dec, Insomnia, unspecified type G47.00 [facility] [id number] [place] [address] Dec, [facility] [address] [address] Dec, GERD with esophagitis K21.0 [facility] [id number] [place] [address] Nov, Insomnia, unspecified type G47.00 [facility] [id number] [place] [address] October, Insomnia, unspecified type G47.00 [facility] [id number] [place] [address] Sep, Other chronic gastritis without hemorrhage K29.50 [facility] [id number] [place] [address] Sep, Secondary hypertension I15.9 [facility] [id number] [place] [address] Sep, Insomnia, unspecified type G47.00 [facility] [id number] [place] [address] Sep, Primary insomnia F51.01 [facility] [address], [place] [address] Jul, [facility] [address], [place] [address] Jul, [facility] [address] [place] [address] Jul, [facility] [id number] [place] [address] Jun, [facility] [id number] [place] [address] Jun, Chronic obstructive pulmonary disease, unspecified COPD type J44.9 [facility] [address] [place] [address] Jun, [facility] [id number] [place] [address] Jun, Primary insomnia F51.01 [facility] [id number] [place] [address] Jun, [facility] [address] [place] [address] May, Chronic obstructive pulmonary disease, unspecified COPD type J44.9 [facility] [address], [place] [address] May, [facility] [id number] [place] [address] May, Panlobular emphysema J43.1 and Gastroesophageal reflux disease without esophagitis K21.9 [facility] [address], [place] [address] Feb, Insomnia, unspecified type G47.00 [facility] [address], [place] [address] Feb, [facility] [id number], [place] [address] Feb, Secondary hypertension I15.9 [facility] [address], [place] [address] Feb, [facility] [address], [place] [address] Jan, [facility] [address] [place] [address] Jan, [facility] [address] [place] [address] Jan, Secondary hypertension I15.9 [facility] [address] [place] [address] Nov, [facility] [id number] [place] [address] Nov, Gastroesophageal reflux disease, esophagitis presence not specified K21.9 [facility] [address], [place] [address] October, Chronic obstructive pulmonary disease, unspecified COPD type J44.9 [facility] [address] [place] [address] Sep, [facility] [address], [place] [address] Sep, [facility] [address], [place] [address] Sep, [facility] [address], [place] [address] Sep, [facility] [id number] [place] [address] Sep, [facility] [address], [place] [address] Sep, Secondary hypertension I15.9 ; Gastroesophageal reflux disease, esophagitis presence not specified K21.9 ; Smoking addiction F17.200 ; Constipation, unspecified constipation type K59.00 and Insomnia, unspecified type G47.00 [place] [id number] [place] [address] Aug, Constipation, unspecified constipation type K59.00 [place] [id number] [place] [address] Aug, [place] [address] [address] Jul, Gastroesophageal reflux disease, esophagitis presence not specified K21.9 [place] [id number] [place] [address] Jun, Insomnia, unspecified type G47.00 and Constipation, unspecified constipation type K59.00 [place] [id number] [place] [address] Jun, Secondary hypertension I15.9 ; Gastroesophageal reflux disease, esophagitis presence not specified K21.9 ; Smoking addiction F17.200 ; Chronic obstructive pulmonary disease, unspecified COPD type J44.9 ; Insomnia, unspecified type G47.00 ; Constipation, unspecified constipation type K59.00 ; Routine gynecological examination Z01.419 and Screening cholesterol level Z13.220 [place] [address] [place] [address] Jun, [place] [id number] [place] [address] May, [place] [id number] [place] [address] May, [place] [id number] [place] [address] Apr, [place] [id number] [place] [address] Mar, Secondary hypertension I15.9 ; Insomnia, unspecified type G47.00 ; Gastroesophageal reflux disease, esophagitis presence not specified K21.9 ; Chronic obstructive pulmonary disease, unspecified COPD type J44.9 and Abdominal bloating R14.0 [place] [id number] [place] [address] Mar, [place] [id number] [place] [address] Mar, [place] [id number] [place] [address] Mar, Gastroesophageal reflux disease, esophagitis presence not specified K21.9 ; Secondary hypertension I15.9 ; Chronic obstructive pulmonary disease, unspecified COPD type J44.9 ; Smoking addiction F17.200 ; Abdominal bloating R14.0 ; Insomnia, unspecified type G47.00 and Constipation, unspecified constipation type K59.00 [place] [id number] [place] [address] Jan, [place] [id number] [place] [address] Dec, Secondary hypertension I15.9 ; Insomnia, unspecified type G47.00 ; Chronic obstructive pulmonary disease, unspecified COPD type J44.9 ; Smoking addiction F17.200 and Gastroesophageal reflux disease, esophagitis presence not specified K21.9 [place] [address] [place] [address] Nov, Secondary hypertension I15.9 ; Insomnia, unspecified type G47.00 ; Gastroesophageal reflux disease, esophagitis presence not specified K21.9 and Chronic obstructive pulmonary disease, unspecified COPD type J44.9 [facility] [id number] [place] [address] October, Dyspepsia R10.13 IMMUNIZATIONS No Known Immunizations SOCIAL HISTORY Never Assessed REASON FOR VISIT Requests return call PLAN OF CARE VITAL SIGNS MEDICATIONS Unknown Medications RESULTS No Results PROCEDURES No Known procedures INSTRUCTIONS MEDICATIONS ADMINISTERED No Known Medications MEDICAL (GENERAL) HISTORY Type Description Date Medical History hypertension Medical History COPD -smoker Medical History blood in colon Surgical History cyst removal- back Surgical History endoscopy 01/2017 Surgical History colonoscopy 2017/ Hospitalization History Surgery(s)/Childbirth(s) only Hospitalization History ICU x2 days for HTN 2013
--- OUTSIDE RECORDS SUMMARY | 2019-01-11 14:12 | XMS REPORT ---
Author Author AYDE BYRD Organization [facility] Address [address] [place] [address] Care Team Providers Care Bradley Linebacker Crewmember Name Role Phone AYDE BYRD Unavailable PROBLEMS Type Condition ICD9-CM Code PPW32-YC Code Onset Dates Condition Status SNOMED Code Problem Abdominal bloating R14.0 Active 414412372 Problem Routine gynecological examination Z01.419 Active 705418101 Problem Constipation, unspecified constipation type K59.00 Active 50333978 Problem Anxiety F41.9 Active 80843160 Problem GERD with esophagitis K21.0 Active 062007977 Problem Gastroesophageal reflux disease without esophagitis K21.9 Active 326729088 Problem Primary insomnia F51.01 Active 6419336 Problem Other chronic gastritis without hemorrhage K29.50 Active 1388377 Problem Panlobular emphysema J43.1 Active 7853304 Problem Secondary hypertension I15.9 Active 89554042 Problem Insomnia, unspecified type G47.00 Active 392438345 Problem Chronic obstructive pulmonary disease, unspecified COPD type J44.9 Active 35488690 Problem Smoking addiction F17.200 Active 858385323 Problem Gastroesophageal reflux disease, esophagitis presence not specified K21.9 Active 237271839 ALLERGIES No Information ENCOUNTERS Encounter Location Date Diagnosis [facility] [id number] [place] [address] Mar, [facility] [id number] [place] [address] Mar, [facility] [id number] [place] [address] Mar, Anxiety F41.9 ; Acute pain of right knee M25.561 ; Arthralgia, unspecified joint M25.50 and Panlobular emphysema J43.1 [facility] [address] [place] [address] Feb, Insomnia, unspecified type G47.00 [facility] [id number] [place] [address] Jan, [facility] [id number] [place] [address] Jan, Insomnia, unspecified type G47.00 [facility] [address] [address] Dec, [facility] [id number] [place] [address] Dec, Insomnia, unspecified type G47.00 [facility] [address] [address] Dec, [facility] [address] [address] Dec, GERD with esophagitis K21.0 [facility] [id number] [place] [address] Nov, Insomnia, unspecified type G47.00 [facility] [id number] [place] [address] October, Insomnia, unspecified type G47.00 [facility] [id number] [place] [address] Sep, Other chronic gastritis without hemorrhage K29.50 [facility] [id number] [place] [address] Sep, Secondary hypertension I15.9 [facility] [address] [address] Sep, Insomnia, unspecified type G47.00 [facility] [id number] [place] [address] Sep, Primary insomnia F51.01 [facility] [address] [address] Jul, [facility] [address] [address] Jul, [facility] [id number] [place] [address] Jul, [facility] [id number] [address] Jun, [facility] [id number] [place] [address] Jun, Chronic obstructive pulmonary disease, unspecified COPD type J44.9 [facility] [id number] [place] [address] Jun, [facility] [address] [place] [address] Jun, Primary insomnia F51.01 [facility] [address] [place] [address] Jun, [facility] [address] [place] [address] May, Chronic obstructive pulmonary disease, unspecified COPD type J44.9 [facility] [address] [address] May, [facility] [address] [address] May, Panlobular emphysema J43.1 and Gastroesophageal reflux disease without esophagitis K21.9 [facility] [address] [address] Feb, Insomnia, unspecified type G47.00 [facility] [address] [address] Feb, [facility] [address] [address] 19 Feb, 2017 Secondary hypertension I15.9 [facility] [address] [address] Feb, [facility] [id number] [address] Jan, [facility] [address] [address] Jan, [facility] [id number] [place] [address] Jan, Secondary hypertension I15.9 [facility] [address] [place] [address] Nov, [facility] [id number] [place] [address] Nov, Gastroesophageal reflux disease, esophagitis presence not specified K21.9 [facility] [id number] [place] [address] October, Chronic obstructive pulmonary disease, unspecified COPD type J44.9 [facility] [address] [address] Sep, [facility] [id number] [place] [address] Sep, [facility] [address] [place] [address] Sep, [facility] [id number] [address] Sep, [facility] [address] [address] Sep, [facility] [id number] [place] [address] Sep, Secondary hypertension I15.9 ; Gastroesophageal reflux disease, esophagitis presence not specified K21.9 ; Smoking addiction F17.200 ; Constipation, unspecified constipation type K59.00 and Insomnia, unspecified type G47.00 [facility] [id number] [place] [address] Aug, Constipation, unspecified constipation type K59.00 [place] [id number] [place] [address] Aug, [place] [id number] [place] [address] Jul, Gastroesophageal reflux disease, esophagitis presence not specified K21.9 [place] [id number] [place] [address] Jun, Insomnia, unspecified type G47.00 and Constipation, unspecified constipation type K59.00 [place] [id number] [place] [address] Jun, Secondary hypertension I15.9 ; Gastroesophageal reflux disease, esophagitis presence not specified K21.9 ; Smoking addiction F17.200 ; Chronic obstructive pulmonary disease, unspecified COPD type J44.9 ; Insomnia, unspecified type G47.00 ; Constipation, unspecified constipation type K59.00 ; Routine gynecological examination Z01.419 and Screening cholesterol level Z13.220 [place] [id number] [place] [address] Jun, [place] [id number] [place] [address] May, [place] [id number] [place] [address] May, [place] [id number] [place] [address] Apr, [place] [id number] [place] [address] Mar, Secondary hypertension I15.9 ; Insomnia, unspecified type G47.00 ; Gastroesophageal reflux disease, esophagitis presence not specified K21.9 ; Chronic obstructive pulmonary disease, unspecified COPD type J44.9 and Abdominal bloating R14.0 [place] [address] [place] [address] 10 Mar, 2016 [facility] [id number] [place] [address] Mar, [facility] [id number] [place] [address] Mar, Gastroesophageal reflux disease, esophagitis presence not specified K21.9 ; Secondary hypertension I15.9 ; Chronic obstructive pulmonary disease, unspecified COPD type J44.9 ; Smoking addiction F17.200 ; Abdominal bloating R14.0 ; Insomnia, unspecified type G47.00 and Constipation, unspecified constipation type K59.00 [facility] [id number] [place] [address] Jan, [place] [id number] [place] [address] Dec, Secondary hypertension I15.9 ; Insomnia, unspecified type G47.00 ; Chronic obstructive pulmonary disease, unspecified COPD type J44.9 ; Smoking addiction F17.200 and Gastroesophageal reflux disease, esophagitis presence not specified K21.9 [place] [id number] [place] [address] Nov, Secondary hypertension I15.9 ; Insomnia, unspecified type G47.00 ; Gastroesophageal reflux disease, esophagitis presence not specified K21.9 and Chronic obstructive pulmonary disease, unspecified COPD type J44.9 [facility] [id number] [place] [address] October, Dyspepsia R10.13 IMMUNIZATIONS No Known Immunizations SOCIAL HISTORY Never Assessed REASON FOR VISIT Medication question PLAN OF CARE VITAL SIGNS MEDICATIONS Unknown [...]
--- OUTSIDE RECORDS SUMMARY | 2019-01-11 14:13 | XMS REPORT ---
Author Author AYDE BYRD Organization [facility] [place] Address [address] [place] [address] Care Team Providers Care Material Reclaimer Name Role Phone AYDE BYRD Unavailable PROBLEMS Type Condition ICD9-CM Code YOX95-RH Code Onset Dates Condition Status SNOMED Code Problem Chronic obstructive pulmonary disease, unspecified COPD type J44.9 Active 77004941 Problem Constipation, unspecified constipation type K59.00 Active 56215519 Problem Abdominal bloating R14.0 Active 168929569 Problem Smoking addiction F17.200 Active 540680149 Problem Secondary hypertension I15.9 Active 19460718 Problem Insomnia, unspecified type G47.00 Active 072845738 Problem Gastroesophageal reflux disease, esophagitis presence not specified K21.9 Active 650274461 Problem GERD with esophagitis K21.0 Active 155122894 Problem Other chronic gastritis without hemorrhage K29.50 Active 4833925 Problem Primary insomnia F51.01 Active 6358188 Problem Routine gynecological examination Z01.419 Active 929112740 Problem Panlobular emphysema J43.1 Active 5880164 Problem Gastroesophageal reflux disease without esophagitis K21.9 Active 921074790 ALLERGIES No Known Allergies ENCOUNTERS Encounter Location Date Diagnosis [place] [id number] [place] [address] Jan, [facility] [place] [id number] [place] [address] Jan, Insomnia, unspecified type G47.00 [facility] [place] [address] [place] [id number] [place] [address] Dec, [facility] [place] [id number] [place] [address] Dec, Insomnia, unspecified type G47.00 [place] [address] [place] [id number] [place] [address] Dec, [facility] [place] [address] [place] [id number] [place] [address] Dec, GERD with esophagitis K21.0 [facility] [place] [address] [place] [id number] [place] [address] Nov, Insomnia, unspecified type G47.00 [facility] [place] [address] [address] October, Insomnia, unspecified type G47.00 [facility] [place] [address] [place] [id number] [place] [address] Sep, Other chronic gastritis without hemorrhage K29.50 [facility] [place] [address] [place] [id number] [place] [address] Sep, Secondary hypertension I15.9 [place] [address] [place] [id number] [place] [address] Sep, Insomnia, unspecified type G47.00 [facility] [place] [address] [place] [id number] [place] [address] Sep, Primary insomnia F51.01 [facility] [place] [address] [place] [id number] [place] [address] Jul, [facility] [place] [address] [place] [id number] [place] [address] Jul, [facility] [place] [address] [place] [id number] [place] [address] Jul, [facility] [place] [address] [place] [id number] [place] [address] Jun, [facility] [place] [address] [place] [id number] [place] [address] Jun, Chronic obstructive pulmonary disease, unspecified COPD type J44.9 [facility] [place] [address] [place] [id number] [place] [address] Jun, [facility] [place] [address] [place] [id number] [place] [address] Jun, Primary insomnia F51.01 [facility] [place] [address] [place] [id number] [place] [address] Jun, [facility] [place] [address] [place] [id number] [place] [address] May, Chronic obstructive pulmonary disease, unspecified COPD type J44.9 [facility] [place] [address] [place] [id number] [place] [address] May, [facility] [place] [address] [address] May, Panlobular emphysema J43.1 and Gastroesophageal reflux disease without esophagitis K21.9 [facility] [place] [address] [place] [id number] [place] [address] Feb, Insomnia, unspecified type G47.00 [facility] [place] [address] [place] [id number] [place] [address] Feb, [facility] [place] [address] [place] [id number] [place] [address] Feb, Secondary hypertension I15.9 [facility] [address] [place] [id number] [place] [address] Feb, [facility] [place] [address] [place] [id number] [place] [address] Jan, [facility] [place] [address] [place] [id number] [place] [address] Jan, [facility] [place] [address] [address] Jan, Secondary hypertension I15.9 [facility] [place] [address] [place] [id number] [place] [address] Nov, [facility] [place] [address] [address] Nov, Gastroesophageal reflux disease, esophagitis presence not specified K21.9 [facility] [place] [address] [place] [id number] [place] [address] October, Chronic obstructive pulmonary disease, unspecified COPD type J44.9 [facility] [place] [address] [place] [id number] [place] [address] Sep, [facility] [place] [address] [address] Sep, [facility] [place] [address] [place] [id number] [place] [address] Sep, [facility] [place] [address] [place] [id number] [place] [address] Sep, [facility] [place] [address] [place] [id number] [place] [address] Sep, [facility] [address] [place] [id number] [place] [address] Sep, Secondary hypertension I15.9 ; Gastroesophageal reflux disease, esophagitis presence not specified K21.9 ; Smoking addiction F17.200 ; Constipation, unspecified constipation type K59.00 and Insomnia, unspecified type G47.00 [facility] [place] [address] [place] [id number] [place] [address] Aug, Constipation, unspecified constipation type K59.00 [facility] [place] [address] [place] [id number] [place] [address] Aug, [facility] [place] [address] [place] [id number] [place] [address] Jul, Gastroesophageal reflux disease, esophagitis presence not specified K21.9 [facility] [place] [address] [place] [id number] [place] [address] Jun, Insomnia, unspecified type G47.00 and Constipation, unspecified constipation type K59.00 [facility] [place] [address] [place] [id number] [place] [address] Jun, Secondary hypertension I15.9 ; Gastroesophageal reflux disease, esophagitis presence not specified K21.9 ; Smoking addiction F17.200 ; Chronic obstructive pulmonary disease, unspecified COPD type J44.9 ; Insomnia, unspecified type G47.00 ; Constipation, unspecified constipation type K59.00 ; Routine gynecological examination Z01.419 and Screening cholesterol level Z13.220 [place] [address] [address] Jun, [place] [address] [address] May, [place] [address] [address] May, [place] [address] [place] [id number] [place] [address] Apr, [place] [address] [address] Mar, Secondary hypertension I15.9 ; Insomnia, unspecified type G47.00 ; Gastroesophageal reflux disease, esophagitis presence not specified K21.9 ; Chronic obstructive pulmonary disease, unspecified COPD type J44.9 and Abdominal bloating R14.0 [place] [address] [place] [id number] [place] [address] Mar, [place] [address] [place] [id number] [place] [address] Mar, [place] [address] [place] [id number] [place] [address] Mar, Gastroesophageal reflux disease, esophagitis presence not specified K21.9 ; Secondary hypertension I15.9 ; Chronic obstructive pulmonary disease, unspecified COPD type J44.9 ; Smoking addiction F17.200 ; Abdominal bloating R14.0 ; Insomnia, unspecified type G47.00 and Constipation, unspecified constipation type K59.00 [place] [address] [place] [id number] [place] [address] Jan, [facility] [address] [facility] [id number] [address] Dec, Secondary hypertension I15.9 ; Insomnia, unspecified type G47.00 ; Chronic obstructive pulmonary disease, unspecified COPD type J44.9 ; Smoking addiction F17.200 and Gastroesophageal reflux disease, esophagitis presence not specified K21.9 [facility] [address] [facility] [id number] [address] Nov, Secondary hypertension I15.9 ; Insomnia, unspecified type G47.00 ; Gastroesophageal reflux disease, esophagitis presence not specified K21.9 and Chronic obstructive pulmonary disease, unspecified COPD type J44.9 [facility] [address] [id number] [address] October, Dyspepsia R10.13 IMMUNIZATIONS No Known Immunizations SOCIAL HISTORY Never Assessed REASON FOR VISIT Abdominal pain-MAUDE long, heart burn, vomiting a lot ,dizziness PLAN OF CARE VITAL SIGNS Height 62 in 2017-12-14 Weight 142.4 lbs 2017-12-14 Temperature 97.6 degrees Fahrenheit 2017-12-14 Heart Rate 77 bpm 2017-12-14 Respiratory Rate 20 2017-12-14 Oximetry on room air:100 % 2017-12-14 BMI 26.04 kg/m2 2017-12-14 Blood pressure systolic 150 mmHg 2017-12-14 Blood pressure diastolic 84 mmHg 2017-12-14 MEDICATIONS Medication Instructions Dosage Frequency Start Date End Date Duration Status Ventolin HFA 108 (90 Base) MCG/ACT Inhalation every 6 hrs 2 puffs as needed 6h Jun, 90 days Active Oxygen 2 L/NC Active Famotidine 40 mg Orally Once a day 1 tablet 24h Dec, 30 day(s) Active Doxazosin Mesylate 2 MG Orally Once a day 1 tablet 24h 90 days Active Doxepin HCl 150 MG Orally Once a day 1 capsule at bedtime 24h 30 Not-Taking Klonopin 1 MG Orally hs 1 tablet Feb, 28 days Active Melatonin 3 MG Orally Once a day 1 tablet at bedtime as needed with food 24h Active Seroquel 200 mg TAKE ONE TABLET BY MOUTH ONCE DAILY AT BEDTIME 30 Active MiraLax - Orally Once a day 1 packet mixed with 8 ounces of fluid 24h Active Zofran 4 MG Orally every 8 hours, PRN 1 tablet Sep, Active Tofranil 25 MG Orally Once a day, at night 1 tablet at bedtime Jun, Not-Taking Protonix 40 mg Orally at bedtime 1 tablet Active Amlodipine Besylate 5 mg Orally Once a day 2 tablet 24h 30 Active ProAir HFA 108 (90 Base) MCG/ACT Inhalation every 4 hrs 2 puffs as needed 4h 17 Not-Taking RESULTS No Results PROCEDURES No Known procedures INSTRUCTIONS MEDICATIONS ADMINISTERED No Known Medications MEDICAL (GENERAL) HISTORY Type Description Date Medical History hypertension Medical History COPD -smoker Medical History blood in colon Surgical History cyst removal- back Surgical History endoscopy 01/2017 Surgical History colonoscopy 2017/ Hospitalization History Surgery(s)/Childbirth(s) only Hospitalization History ICU x2 days for HTN 2012
--- OUTSIDE RECORDS SUMMARY | 2019-01-11 14:13 | XMS REPORT ---
Author Author AYDE BYRD Organization [facility] Address [address] [place] [address] Care Team Providers Care Forensic Psychologist Name Role Phone AYDE BYRD Unavailable PROBLEMS Type Condition ICD9-CM Code APO45-UW Code Onset Dates Condition Status SNOMED Code Problem Chronic obstructive pulmonary disease, unspecified COPD type J44.9 Active 47205986 Problem Constipation, unspecified constipation type K59.00 Active 63602663 Problem Abdominal bloating R14.0 Active 191834778 Problem Smoking addiction F17.200 Active 559983825 Problem Secondary hypertension I15.9 Active 71431332 Problem Insomnia, unspecified type G47.00 Active 568186501 Problem Gastroesophageal reflux disease, esophagitis presence not specified K21.9 Active 297010352 Problem GERD with esophagitis K21.0 Active 868778186 Problem Other chronic gastritis without hemorrhage K29.50 Active 1174442 Problem Primary insomnia F51.01 Active 4043562 Problem Routine gynecological examination Z01.419 Active 663470562 Problem Panlobular emphysema J43.1 Active 3925479 Problem Gastroesophageal reflux disease without esophagitis K21.9 Active 208776578 ALLERGIES No Information ENCOUNTERS Encounter Location Date Diagnosis [place] [id number] [place] [address] Jan, [facility] [address] [address] Jan, Insomnia, unspecified type G47.00 [place] [address] [place] [id number] [address] Dec, [facility] [address] [address] Dec, Insomnia, unspecified type G47.00 [place] [address] [place] [id number] [address] Dec, [facility] [address] [place] [id number] [address] Dec, GERD with esophagitis K21.0 [facility] [address] [place] [id number] [address] Nov, Insomnia, unspecified type G47.00 [facility] [address] [place] [id number] [address] October, Insomnia, unspecified type G47.00 [facility] [address] [place] [id number] [address] Sep, Other chronic gastritis without hemorrhage K29.50 [facility] [address] [place] [id number] [address] Sep, Secondary hypertension I15.9 [facility] [address] [place] [id number] [place] [address] Sep, Insomnia, unspecified type G47.00 [facility] [address] [place] [id number] [place] [address] Sep, Primary insomnia F51.01 [facility] [address] [place] [id number] [address] Jul, [facility] [address] [place] [id number] [address] Jul, [facility] [address] [place] [id number] [place] [address] Jul, [facility] [address] [place] [id number] [address] Jun, [facility] [address] [place] [id number] [address] Jun, Chronic obstructive pulmonary disease, unspecified COPD type J44.9 [facility] [address] [place] [id number] [address] Jun, [facility] [address] [place] [id number] [place] [address] Jun, Primary insomnia F51.01 [facility] [address] [place] [id number] [address] Jun, [facility] [address] [place] [id number] [place] [address] May, Chronic obstructive pulmonary disease, unspecified COPD type J44.9 [facility] [address] [place] [id number] [place] [address] May, [facility] [address] [address] May, Panlobular emphysema J43.1 and Gastroesophageal reflux disease without esophagitis K21.9 [facility] [address] [place] [id number] [place] [address] Feb, Insomnia, unspecified type G47.00 [facility] [address] [place] [id number] [place] [address] Feb, [facility] [address] [place] [id number] [place] [address] Feb, Secondary hypertension I15.9 [facility] [address] [place] [id number] [address] Feb, [facility] [address] [place] [id number] [place] [address] Jan, [facility] [address] [place] [id number] [place] [address] Jan, [facility] [address] [address] Jan, Secondary hypertension I15.9 [facility] [address] [place] [id number] [place] [address] Nov, [facility] [address] [address] Nov, Gastroesophageal reflux disease, esophagitis presence not specified K21.9 [facility] [address] [place] [id number] [place] [address] October, Chronic obstructive pulmonary disease, unspecified COPD type J44.9 [facility] [address] [place] [id number] [place] [address] Sep, [facility] [address] [place] [id number] [place] [address] Sep, [facility] [address] [place] [id number] [address] Sep, [facility] [address] [place] [id number] [address] Sep, [facility] [address] [place] [id number] [place] [address] Sep, [facility] [address] [place] [id number] [place] [address] Sep, Secondary hypertension I15.9 ; Gastroesophageal reflux disease, esophagitis presence not specified K21.9 ; Smoking addiction F17.200 ; Constipation, unspecified constipation type K59.00 and Insomnia, unspecified type G47.00 [facility] [address] [place] [address] Aug, Constipation, unspecified constipation type K59.00 [facility] [address] [place] [address] Aug, [facility] [address] [place] [id number] [place] [address] Jul, Gastroesophageal reflux disease, esophagitis presence not specified K21.9 [facility] [address] [place] [id number] [place] [address] Jun, Insomnia, unspecified type G47.00 and Constipation, unspecified constipation type K59.00 [facility] [address] [place] [id number] [place] [address] Jun, Secondary hypertension I15.9 ; Gastroesophageal reflux disease, esophagitis presence not specified K21.9 ; Smoking addiction F17.200 ; Chronic obstructive pulmonary disease, unspecified COPD type J44.9 ; Insomnia, unspecified type G47.00 ; Constipation, unspecified constipation type K59.00 ; Routine gynecological examination Z01.419 and Screening cholesterol level Z13.220 [place] [address] [place] [id number] [place] [address] Jun, [place] [address] [place] [id number] [address] May, [place] [address] [address] May, [place] [address] [place] [id number] [address] Apr, [place] [address] [place] [id number] [address] Mar, Secondary hypertension I15.9 ; Insomnia, unspecified type G47.00 ; Gastroesophageal reflux disease, esophagitis presence not specified K21.9 ; Chronic obstructive pulmonary disease, unspecified COPD type J44.9 and Abdominal bloating R14.0 [place] [address] [place] [id number] [place] [address] Mar, [place] [address] [place] [id number] [address] Mar, [place] [address] [place] [id number] [address] Mar, Gastroesophageal reflux disease, esophagitis presence not specified K21.9 ; Secondary hypertension I15.9 ; Chronic obstructive pulmonary disease, unspecified COPD type J44.9 ; Smoking addiction F17.200 ; Abdominal bloating R14.0 ; Insomnia, unspecified type G47.00 and Constipation, unspecified constipation type K59.00 [place] [address] [id number] [id number] Jan, [facility] [address] [facility] [id number] [address] Dec, Secondary hypertension I15.9 ; Insomnia, unspecified type G47.00 ; Chronic obstructive pulmonary disease, unspecified COPD type J44.9 ; Smoking addiction F17.200 and Gastroesophageal reflux disease, esophagitis presence not specified K21.9 [facility] [address] [facility] [id number], [place] [address] Nov, Secondary hypertension I15.9 ; Insomnia, unspecified type G47.00 ; Gastroesophageal reflux disease, esophagitis presence not specified K21.9 and Chronic obstructive pulmonary disease, unspecified COPD type J44.9 [facility] [address] [facility] [id number], [place] [address] October, Dyspepsia R10.13 IMMUNIZATIONS No Known Immunizations [...]
--- OUTSIDE RECORDS SUMMARY | 2019-01-11 14:13 | XMS REPORT ---
Author Author AYDE BYRD Organization [facility] Address [address] [place] [address] Care Team Providers Care Floor Covering Printer Name Role Phone AYDE BYRD Unavailable PROBLEMS Type Condition ICD9-CM Code LKI25-HT Code Onset Dates Condition Status SNOMED Code Problem Chronic obstructive pulmonary disease, unspecified COPD type J44.9 Active 30665370 Problem Constipation, unspecified constipation type K59.00 Active 89612657 Problem Abdominal bloating R14.0 Active 808477738 Problem Smoking addiction F17.200 Active 655889712 Problem Secondary hypertension I15.9 Active 64726745 Problem Insomnia, unspecified type G47.00 Active 793261158 Problem Gastroesophageal reflux disease, esophagitis presence not specified K21.9 Active 251490511 Problem GERD with esophagitis K21.0 Active 326418869 Problem Other chronic gastritis without hemorrhage K29.50 Active 9685153 Problem Primary insomnia F51.01 Active 2825403 Problem Routine gynecological examination Z01.419 Active 818110014 Problem Panlobular emphysema J43.1 Active 0507831 Problem Gastroesophageal reflux disease without esophagitis K21.9 Active 116083122 ALLERGIES No Information ENCOUNTERS Encounter Location Date Diagnosis [place] [id number] [place] [address] Jan, [facility] [id number] [place] [address] Jan, Insomnia, unspecified type G47.00 [place] [address] [place] [id number] [place] [address] Dec, [facility] [id number] [place] [address] Dec, Insomnia, unspecified type G47.00 [place] [address] [place] [id number] [place] [address] Dec, [facility] [address] [place] [id number] [place] [address] Dec, GERD with esophagitis K21.0 [facility] [address] [place] [id number] [place] [address] Nov, Insomnia, unspecified type G47.00 [facility] [address] [place] [id number] [place] [address] October, Insomnia, unspecified type G47.00 [facility] [address] [place] [id number] [place] [address] Sep, Other chronic gastritis without hemorrhage K29.50 [facility] [address] [place] [id number] [place] [address] Sep, Secondary hypertension I15.9 [facility] [address] [place] [id number] [place] [address] Sep, Insomnia, unspecified type G47.00 [facility] [address] [place] [id number] [place] [address] Sep, Primary insomnia F51.01 [facility] [address] [place] [id number] [place] [address] Jul, [facility] [address] [place] [id number] [place] [address] Jul, [facility] [address] [place] [id number] [place] [address] Jul, [facility] [address] [place] [id number] [place] [address] Jun, [facility] [address] [place] [id number] [place] [address] Jun, Chronic obstructive pulmonary disease, unspecified COPD type J44.9 [facility] [address] [place] [id number] [place] [address] Jun, [facility] [address] [place] [id number] [place] [address] Jun, Primary insomnia F51.01 [facility] [address] [place] [id number] [place] [address] Jun, [facility] [address] [place] [id number] [place] [address] May, Chronic obstructive pulmonary disease, unspecified COPD type J44.9 [facility] [address] [place] [id number] [place] [address] May, [facility] [address] [address] May, Panlobular emphysema J43.1 and Gastroesophageal reflux disease without esophagitis K21.9 [facility] [address] [place] [id number] [place] [address] Feb, Insomnia, unspecified type G47.00 [facility] [address] [place] [id number] [place] [address] Feb, [facility] [address] [place] [id number] [place] [address] Feb, Secondary hypertension I15.9 [facility] [address] [place] [id number] [place] [address] Feb, [facility] [address] [place] [id number] [place] [address] Jan, [facility] [address] [place] [id number] [place] [address] Jan, [facility] [address] [address] Jan, Secondary hypertension I15.9 [facility] [address] [place] [id number] [place] [address] Nov, [facility] [address] [address] Nov, Gastroesophageal reflux disease, esophagitis presence not specified K21.9 [facility] [address] [place] [id number] [place] [address] October, Chronic obstructive pulmonary disease, unspecified COPD type J44.9 [facility] [address] [place] [id number] [place] [address] Sep, [facility] [address] [place] [id number] [place] [address] Sep, [facility] [address] [place] [id number] [place] [address] Sep, [facility] [address] [place] [id number] [place] [address] Sep, [facility] [address] [place] [id number] [place] [address] Sep, [facility] [address] [place] [id number] [place] [address] Sep, Secondary hypertension I15.9 ; Gastroesophageal reflux disease, esophagitis presence not specified K21.9 ; Smoking addiction F17.200 ; Constipation, unspecified constipation type K59.00 and Insomnia, unspecified type G47.00 [facility] [id number] [place] [address] Aug, Constipation, unspecified constipation type K59.00 [facility] [id number] [place] [address] Aug, [facility] [address] [place] [id number] [place] [address] Jul, Gastroesophageal reflux disease, esophagitis presence not specified K21.9 [facility] [address] [place] [id number] [place] [address] Jun, Insomnia, unspecified type G47.00 and Constipation, unspecified constipation type K59.00 [facility] [address] [place] [id number] [place] [address] Jun, Secondary hypertension I15.9 ; Gastroesophageal reflux disease, esophagitis presence not specified K21.9 ; Smoking addiction F17.200 ; Chronic obstructive pulmonary disease, unspecified COPD type J44.9 ; Insomnia, unspecified type G47.00 ; Constipation, unspecified constipation type K59.00 ; Routine gynecological examination Z01.419 and Screening cholesterol level Z13.220 [place] [address] [place] [id number] [place] [address] Jun, [place] [address] [place] [id number] [place] [address] May, [place] [address] [address] May, [place] [address] [place] [id number] [place] [address] Apr, [place] [address] [place] [id number] [place] [address] Mar, Secondary hypertension I15.9 ; Insomnia, unspecified type G47.00 ; Gastroesophageal reflux disease, esophagitis presence not specified K21.9 ; Chronic obstructive pulmonary disease, unspecified COPD type J44.9 and Abdominal bloating R14.0 [place] [address] [place] [id number] [place] [address] Mar, [place] [address] [place] [id number] [place] [address] Mar, [place] [address] [place] [id number] [place] [address] Mar, Gastroesophageal reflux disease, esophagitis presence not specified K21.9 ; Secondary hypertension I15.9 ; Chronic obstructive pulmonary disease, unspecified COPD type J44.9 ; Smoking addiction F17.200 ; Abdominal bloating R14.0 ; Insomnia, unspecified type G47.00 and Constipation, unspecified constipation type K59.00 [place] [address] [place] [id number] [place] [address] Jan, [facility] [address] [facility] [id number] [address] Dec, Secondary hypertension I15.9 ; Insomnia, unspecified type G47.00 ; Chronic obstructive pulmonary disease, unspecified COPD type J44.9 ; Smoking addiction F17.200 and Gastroesophageal reflux disease, esophagitis presence not specified K21.9 [facility] [address] [facility] [id number] [address] Nov, Secondary hypertension I15.9 ; Insomnia, unspecified type G47.00 ; Gastroesophageal reflux disease, esophagitis presence not specified K21.9 and Chronic obstructive pulmonary disease, unspecified COPD type J44.9 [facility] [address] [place] [id number] [address] October, Dyspepsia R10.13 IMMUNIZATIONS No Known Immunizations [...]
--- OUTSIDE RECORDS SUMMARY | 2019-01-11 14:13 | XMS REPORT ---
Author Author AYDE BYRD Organization [facility] Address [address] [place] [address] Care Team Providers Care Coroner Transport Technician Name Role Phone AYDE BYRD Unavailable PROBLEMS Type Condition ICD9-CM Code GNH66-MH Code Onset Dates Condition Status SNOMED Code Problem Chronic obstructive pulmonary disease, unspecified COPD type J44.9 Active 70925699 Problem Constipation, unspecified constipation type K59.00 Active 21133028 Problem Abdominal bloating R14.0 Active 640778068 Problem Smoking addiction F17.200 Active 184121776 Problem Secondary hypertension I15.9 Active 16707519 Problem Insomnia, unspecified type G47.00 Active 576805810 Problem Gastroesophageal reflux disease, esophagitis presence not specified K21.9 Active 719672797 Problem GERD with esophagitis K21.0 Active 878631935 Problem Other chronic gastritis without hemorrhage K29.50 Active 7850627 Problem Primary insomnia F51.01 Active 0594237 Problem Routine gynecological examination Z01.419 Active 464287932 Problem Panlobular emphysema J43.1 Active 1541183 Problem Gastroesophageal reflux disease without esophagitis K21.9 Active 601012575 ALLERGIES No Information ENCOUNTERS Encounter Location Date Diagnosis [place] [id number] [place] [address] Mar, [facility] [address] [place] [address] Feb, Insomnia, unspecified type G47.00 [facility] [address] [place] [id number] [place] [address] Jan, [facility] [address] [place] [address] Jan, Insomnia, unspecified type G47.00 [place] [address] [place] [id number] [place] [address] Dec, [facility] [address] [place] [id number] [place] [address] Dec, Insomnia, unspecified type G47.00 [facility] [address] [place] [id number] [place] [address] Dec, [facility] [address] [place] [id number] [place] [address] Dec, GERD with esophagitis K21.0 [facility] [address] [place] [id number] [place] [address] Nov, Insomnia, unspecified type G47.00 [facility] [address] [place] [id number] [place] [address] October, Insomnia, unspecified type G47.00 [facility] [address] [place] [id number] [place] [address] Sep, Other chronic gastritis without hemorrhage K29.50 [facility] [address] [place] [id number] [place] [address] Sep, Secondary hypertension I15.9 [facility] [address] [place] [id number] [place] [address] Sep, Insomnia, unspecified type G47.00 [facility] [address] [place] [id number] [place] [address] Sep, Primary insomnia F51.01 [facility] [address] [place] [id number] [place] [address] Jul, [facility] [address] [place] [id number] [place] [address] Jul, [facility] [address] [place] [id number] [place] [address] Jul, [facility] [address] [place] [id number] [place] [address] Jun, [facility] [address] [place] [id number] [place] [address] Jun, Chronic obstructive pulmonary disease, unspecified COPD type J44.9 [facility] [address] [place] [id number] [place] [address] Jun, [facility] [address] [place] [id number] [place] [address] Jun, Primary insomnia F51.01 [facility] [address] [address] Jun, [facility] [address] [place] [id number] [place] [address] May, Chronic obstructive pulmonary disease, unspecified COPD type J44.9 [facility] [address] [place] [id number] [place] [address] May, [facility] [address] [address] May, Panlobular emphysema J43.1 and Gastroesophageal reflux disease without esophagitis K21.9 [facility] [address] [place] [id number] [place] [address] Feb, Insomnia, unspecified type G47.00 [facility] [address] [place] [id number] [place] [address] Feb, [facility] [address] [place] [id number] [place] [address] Feb, Secondary hypertension I15.9 [facility] [address] [place] [id number] [place] [address] Feb, [facility] [address] [place] [id number] [place] [address] Jan, [facility] [address] [place] [id number] [place] [address] Jan, [facility] [address] [place] [id number] [place] [address] Jan, Secondary hypertension I15.9 [facility] [address] [place] [id number] [place] [address] Nov, [facility] [address] [place] [id number] [place] [address] Nov, Gastroesophageal reflux disease, esophagitis presence not specified K21.9 [facility] [address] [place] [id number] [place] [address] October, Chronic obstructive pulmonary disease, unspecified COPD type J44.9 [facility] [address] [place] [id number] [place] [address] Sep, [facility] [address] [place] [id number] [place] [address] Sep, [facility] [address] [place] [id number] [place] [address] Sep, [facility] [address] [place] [id number] [place] [address] Sep, [facility] [address] [place] [id number] [place] [address] Sep, [facility] [address] [place] [id number] [place] [address] Sep, Secondary hypertension I15.9 ; Gastroesophageal reflux disease, esophagitis presence not specified K21.9 ; Smoking addiction F17.200 ; Constipation, unspecified constipation type K59.00 and Insomnia, unspecified type G47.00 [facility] [address] [address] Aug, Constipation, unspecified constipation type K59.00 [facility] [address] [place] [id number] [place] [address] Aug, [facility] [address] [place] [address] Jul, Gastroesophageal reflux disease, esophagitis presence not specified K21.9 [place] [address] [place] [id number] [place] [address] Jun, Insomnia, unspecified type G47.00 and Constipation, unspecified constipation type K59.00 [place] [address] [place] [id number] [place] [address] Jun, Secondary hypertension I15.9 ; Gastroesophageal reflux disease, esophagitis presence not specified K21.9 ; Smoking addiction F17.200 ; Chronic obstructive pulmonary disease, unspecified COPD type J44.9 ; Insomnia, unspecified type G47.00 ; Constipation, unspecified constipation type K59.00 ; Routine gynecological examination Z01.419 and Screening cholesterol level Z13.220 [place] [address] [address] Jun, [place] [address] [address] May, [place] [address] [address] May, [place] [address] [place] [id number] [place] [address] Apr, [place] [address] [place] [id number] [place] [address] Mar, Secondary hypertension I15.9 ; Insomnia, unspecified type G47.00 ; Gastroesophageal reflux disease, esophagitis presence not specified K21.9 ; Chronic obstructive pulmonary disease, unspecified COPD type J44.9 and Abdominal bloating R14.0 [place] [address] [place] [id number] [place] [address] Mar, [place] [address] [address] Mar, [place] [address] [place] [id number] [place] [address] Mar, Gastroesophageal reflux disease, esophagitis presence not specified K21.9 ; Secondary hypertension I15.9 ; Chronic obstructive pulmonary disease, unspecified COPD type J44.9 ; Smoking addiction F17.200 ; Abdominal bloating R14.0 ; Insomnia, unspecified type G47.00 and Constipation, unspecified constipation type K59.00 [facility] [address] [place] [address] Jan, [facility] [address] [place] [id number] [place] [address] Dec, Secondary hypertension I15.9 ; Insomnia, unspecified type G47.00 ; Chronic obstructive pulmonary disease, unspecified COPD type J44.9 ; Smoking addiction F17.200 and Gastroesophageal reflux disease, esophagitis presence not specified K21.9 [facility] [address] [place] [address] Nov, Secondary hypertension I15.9 ; Insomnia, unspecified type G47.00 ; Gastroesophageal reflux disease, esophagitis presence not specified K21.9 and Chronic obstructive pulmonary disease, unspecified COPD type J44.9 [facility] [address] [place] [address] October, Dyspepsia R10.13 IMMUNIZATIONS No Known Immunizations [...]
--- OUTSIDE RECORDS SUMMARY | 2019-01-11 14:13 | XMS REPORT ---
Author Author AYDE BYRD Organization [facility] Address [address] [place] [address] Care Team Providers Care Proof Coin Collector Name Role Phone AYDE BYRD Unavailable PROBLEMS Type Condition ICD9-CM Code [id number] Code Onset Dates Condition Status SNOMED Code Problem Chronic obstructive pulmonary disease, unspecified COPD type J44.9 Active 39244174 Problem Constipation, unspecified constipation type K59.00 Active 03498410 Problem Abdominal bloating R14.0 Active 442806656 Problem Smoking addiction F17.200 Active 781895641 Problem Secondary hypertension I15.9 Active 12511499 Problem Insomnia, unspecified type G47.00 Active 147569822 Problem Gastroesophageal reflux disease, esophagitis presence not specified K21.9 Active 938911849 Problem GERD with esophagitis K21.0 Active 516056807 Problem Other chronic gastritis without hemorrhage K29.50 Active 5636703 Problem Primary insomnia F51.01 Active 7442343 Problem Routine gynecological examination Z01.419 Active 880904959 Problem Panlobular emphysema J43.1 Active 6981162 Problem Gastroesophageal reflux disease without esophagitis K21.9 Active 273812321 ALLERGIES No Information ENCOUNTERS Encounter Location Date Diagnosis [place] [id number] [place] [address] Mar, [facility] [id number] [place] [address] Feb, Insomnia, unspecified type G47.00 [facility] [address] [place] [id number] [place] [address] Jan, [facility] [id number] [place] [address] Jan, Insomnia, unspecified type G47.00 [place] [address] [place] [id number] [place] [address] Dec, [facility] [id number] [place] [address] Dec, Insomnia, unspecified type G47.00 [facility] [id number] [place] [address] Dec, [facility] [id number] [place] [address] Dec, GERD with esophagitis K21.0 [facility] [id number] [place] [address] Nov, Insomnia, unspecified type G47.00 [facility] [address] [id number] [place] [address] October, Insomnia, unspecified type G47.00 [facility] [id number] [place] [address] Sep, Other chronic gastritis without hemorrhage K29.50 [facility] [address] [id number] [place] [address] Sep, Secondary hypertension I15.9 [facility] [id number] [place] [address] Sep, Insomnia, unspecified type G47.00 [facility] [id number] [place] [address] Sep, Primary insomnia F51.01 [facility] [id number] [place] [phone] Jul, [facility] [address] [id number] [place] [address] Jul, [facility] [address] [id number] [place] [phone] Jul, [facility] [id number] [place] [address] Jun, [facility] [id number] [place] [address] Jun, Chronic obstructive pulmonary disease, unspecified COPD type J44.9 [facility] [id number] [place] [address] Jun, [facility] [id number] [place] [address] Jun, Primary insomnia F51.01 [facility] [address] [address] Jun, [facility] [address] [id number] [place] [address] May, Chronic obstructive pulmonary disease, unspecified COPD type J44.9 [facility] [id number] [place] [address] May, [facility] [address] [address] May, Panlobular emphysema J43.1 and Gastroesophageal reflux disease without esophagitis K21.9 [facility] [address] [id number] [place] [address] Feb, Insomnia, unspecified type G47.00 [facility] [id number] [place] [address] Feb, [facility] [address] [place] [id number] [place] [address] Feb, Secondary hypertension I15.9 [facility] [id number] [place] [phone] Feb, [facility] [address] [place] [id number] [place] [address] Jan, [facility] [address] [id number] [place] [address] Jan, [facility] [address] [place] [id number] [place] [address] Jan, Secondary hypertension I15.9 [facility] [address] [place] [id number] [place] [address] Nov, [facility] [address] [place] [id number] [place] [address] Nov, Gastroesophageal reflux disease, esophagitis presence not specified K21.9 [facility] [address] [place] [id number] [place] [address] October, Chronic obstructive pulmonary disease, unspecified COPD type J44.9 [facility] [address] [place] [id number] [place] [address] Sep, [facility] [address] [place] [id number] [place] [address] Sep, [facility] [address] [place] [id number] [place] [address] Sep, [facility] [address] [place] [id number] [place] [address] Sep, [facility] [address] [place] [id number] [place] [address] Sep, [facility] [address] [id number] [place] [address] Sep, Secondary hypertension I15.9 ; Gastroesophageal reflux disease, esophagitis presence not specified K21.9 ; Smoking addiction F17.200 ; Constipation, unspecified constipation type K59.00 and Insomnia, unspecified type G47.00 [facility] [address] [address] Aug, Constipation, unspecified constipation type K59.00 [facility] [address] [place] [id number] [place] [address] Aug, [facility] [id number] [place] [address] Jul, Gastroesophageal reflux disease, esophagitis presence not specified K21.9 [place] [address] [place] [id number] [place] [address] Jun, Insomnia, unspecified type G47.00 and Constipation, unspecified constipation type K59.00 [place] [address] [place] [id number] [place] [address] Jun, Secondary hypertension I15.9 ; Gastroesophageal reflux disease, esophagitis presence not specified K21.9 ; Smoking addiction F17.200 ; Chronic obstructive pulmonary disease, unspecified COPD type J44.9 ; Insomnia, unspecified type G47.00 ; Constipation, unspecified constipation type K59.00 ; Routine gynecological examination Z01.419 and Screening cholesterol level Z13.220 [place] [address] [address] Jun, [place] [address] [address] May, [place] [address] [address] May, [place] [address] [place] [id number] [place] [address] Apr, [place] [address] [place] [id number] [place] [address] Mar, Secondary hypertension I15.9 ; Insomnia, unspecified type G47.00 ; Gastroesophageal reflux disease, esophagitis presence not specified K21.9 ; Chronic obstructive pulmonary disease, unspecified COPD type J44.9 and Abdominal bloating R14.0 [place] [address] [place] [id number] [place] [address] Mar, [place] [address] [address] Mar, [place] [address] [place] [id number] [place] [address] Mar, Gastroesophageal reflux disease, esophagitis presence not specified K21.9 ; Secondary hypertension I15.9 ; Chronic obstructive pulmonary disease, unspecified COPD type J44.9 ; Smoking addiction F17.200 ; Abdominal bloating R14.0 ; Insomnia, unspecified type G47.00 and Constipation, unspecified constipation type K59.00 [facility] [address] [address] Jan, [facility] [address] [place] [id number] [place] [address] Dec, Secondary hypertension I15.9 ; Insomnia, unspecified type G47.00 ; Chronic obstructive pulmonary disease, unspecified COPD type J44.9 ; Smoking addiction F17.200 and Gastroesophageal reflux disease, esophagitis presence not specified K21.9 [place] [id number] [place] [address] Nov, Secondary hypertension I15.9 ; Insomnia, unspecified type G47.00 ; Gastroesophageal reflux disease, esophagitis presence not specified K21.9 and Chronic obstructive pulmonary disease, unspecified COPD type J44.9 [facility] [id number] [place] [address] October, Dyspepsia R10.13 IMMUNIZATIONS No Known Immunizations SOCIAL HISTORY Never Assessed REASON FOR VISIT letter of medical necessity PLAN OF CARE VITAL SIGNS MEDICATIONS Unknown [...]
--- OUTSIDE RECORDS SUMMARY | 2019-01-11 14:14 | XMS REPORT ---
Author Author AYDE BYRD Organization [facility] Address [address] [place] [address] Care Team Providers Care Head Swamper Name Role Phone AYDE BYRD Unavailable PROBLEMS Type Condition ICD9-CM Code OEG52-II Code Onset Dates Condition Status SNOMED Code Problem Chronic obstructive pulmonary disease, unspecified COPD type J44.9 Active 45653306 Problem Constipation, unspecified constipation type K59.00 Active 54551958 Problem Abdominal bloating R14.0 Active 327832920 Problem Smoking addiction F17.200 Active 222109964 Problem Secondary hypertension I15.9 Active 23718303 Problem Insomnia, unspecified type G47.00 Active 193913264 Problem Gastroesophageal reflux disease, esophagitis presence not specified K21.9 Active 409722357 Problem GERD with esophagitis K21.0 Active 517771891 Problem Other chronic gastritis without hemorrhage K29.50 Active 5795974 Problem Primary insomnia F51.01 Active 3604028 Problem Routine gynecological examination Z01.419 Active 107985681 Problem Panlobular emphysema J43.1 Active 2281927 Problem Gastroesophageal reflux disease without esophagitis K21.9 Active 296300503 ALLERGIES No Known Allergies ENCOUNTERS Encounter Location Date Diagnosis [facility] [id number] [place] [address] Dec, [facility] [address] [place] [address] Dec, Insomnia, unspecified type G47.00 [facility] [address] [place] [id number] [place] [address] Dec, [facility] [address] [place] [address] Dec, GERD with esophagitis K21.0 [facility] [address] [id number] [place] [address] Nov, Insomnia, unspecified type G47.00 [facility] [address] [place] [id number] [place] [address] October, Insomnia, unspecified type G47.00 [facility] [address] [place] [id number] [place] [address] Sep, Other chronic gastritis without hemorrhage K29.50 [facility] [address] [place] [id number] [place] [address] Sep, Secondary hypertension I15.9 [facility] [address] [place] [id number] [place] [address] Sep, Insomnia, unspecified type G47.00 [facility] [address] [place] [id number] [place] [address] Sep, Primary insomnia F51.01 [facility] [address] [id number] [place] [address] Jul, [facility] [address] [place] [id number] [place] [address] Jul, [facility] [address] [id number] [place] [address] Jul, [facility] [address] [id number] [place] [address] Jun, [facility] [address] [place] [id number] [place] [address] Jun, Chronic obstructive pulmonary disease, unspecified COPD type J44.9 [facility] [id number] [place] [address] Jun, [facility] [address] [id number] [place] [address] Jun, Primary insomnia F51.01 [facility] [address] [place] [id number] [place] [address] Jun, [facility] [address] [place] [address] May, Chronic obstructive pulmonary disease, unspecified COPD type J44.9 [facility] [address] [id number] [place] [address] May, [facility] [id number] [place] [address] May, Panlobular emphysema J43.1 and Gastroesophageal reflux disease without esophagitis K21.9 [facility] [id number] [place] [address] Feb, Insomnia, unspecified type G47.00 [facility] [id number] [place] [address] Feb, [facility] [address] [place] [id number] [place] [address] Feb, Secondary hypertension I15.9 [facility] [address] [place] [address] Feb, [facility] [id number] [place] [address] Jan, [facility] [id number] [place] [address] Jan, [facility] [id number] [place] [address] Jan, Secondary hypertension I15.9 [facility] [id number] [place] [address] Nov, [facility] [id number] [place] [address] Nov, Gastroesophageal reflux disease, esophagitis presence not specified K21.9 [facility] [address] [place] [address] October, Chronic obstructive pulmonary disease, unspecified COPD type J44.9 [place] [address] [address] Sep, [place] [address] [place] [id number] [place] [address] Sep, [place] [address] [place] [id number] [place] [address] Sep, [place] [address] [place] [id number] [place] [address] Sep, [place] [address] [place] [id number] [place] [address] Sep, [place] [address] [place] [id number] [place] [address] Sep, Secondary hypertension I15.9 ; Gastroesophageal reflux disease, esophagitis presence not specified K21.9 ; Smoking addiction F17.200 ; Constipation, unspecified constipation type K59.00 and Insomnia, unspecified type G47.00 [place] [address] [place] [id number] [place] [address] Aug, Constipation, unspecified constipation type K59.00 [place] [address] [id number] [place] [address] Aug, [place] [address] [place] [id number] [place] [address] Jul, Gastroesophageal reflux disease, esophagitis presence not specified K21.9 [place] [address] [id number] [place] [address] Jun, Insomnia, unspecified type G47.00 and Constipation, unspecified constipation type K59.00 [place] [address] [place] [id number] [place] [address] Jun, Secondary hypertension I15.9 ; Gastroesophageal reflux disease, esophagitis presence not specified K21.9 ; Smoking addiction F17.200 ; Chronic obstructive pulmonary disease, unspecified COPD type J44.9 ; Insomnia, unspecified type G47.00 ; Constipation, unspecified constipation type K59.00 ; Routine gynecological examination Z01.419 and Screening cholesterol level Z13.220 [place] [id number] [place] [address] Jun, [place] [address] [place] [id number] [place] [address] May, [place] [address] [place] [id number] [place] [address] May, [place] [address] [place] [id number] [place] [address] Apr, [place] [address] [place] [id number] [place] [address] Mar, Secondary hypertension I15.9 ; Insomnia, unspecified type G47.00 ; Gastroesophageal reflux disease, esophagitis presence not specified K21.9 ; Chronic obstructive pulmonary disease, unspecified COPD type J44.9 and Abdominal bloating R14.0 [place] [address] [id number] [place] [address] Mar, [place] [address] [place] [id number] [place] [address] Mar, [place] [address] [place] [id number] [place] [address] Mar, Gastroesophageal reflux disease, esophagitis presence not specified K21.9 ; Secondary hypertension I15.9 ; Chronic obstructive pulmonary disease, unspecified COPD type J44.9 ; Smoking addiction F17.200 ; Abdominal bloating R14.0 ; Insomnia, unspecified type G47.00 and Constipation, unspecified constipation type K59.00 [place] [address] [place] [address] Jan, [place] [address] [place] [id number] [place] [address] Dec, Secondary hypertension I15.9 ; Insomnia, unspecified type G47.00 ; Chronic obstructive pulmonary disease, unspecified COPD type J44.9 ; Smoking addiction F17.200 and Gastroesophageal reflux disease, esophagitis presence not specified K21.9 [facility] [address] [facility] [id number] [place] [address] Nov, Secondary hypertension I15.9 ; Insomnia, unspecified type G47.00 ; Gastroesophageal reflux disease, esophagitis presence not specified K21.9 and Chronic obstructive pulmonary disease, unspecified COPD type J44.9 [facility] [address] [facility] [id number] [place] [address] October, Dyspepsia R10.13 IMMUNIZATIONS No Known Immunizations SOCIAL HISTORY Never Assessed REASON FOR VISIT gallbladder check, nausea, intermittent vomiting, epigastric pain----DBennettRN, PHQ2, AUDIT-C, contract and PDM PLAN OF CARE VITAL SIGNS Height 62 in 2017-09-25 Weight 150 lbs 2017-09-25 Temperature 98.0 degrees Fahrenheit 2017-09-25 Heart Rate 90 bpm 2017-09-25 Respiratory Rate 20 2017-09-25 BMI 27.43 kg/m2 2017-09-25 Blood pressure systolic 154 mmHg 2017-09-25 Blood pressure diastolic 86 mmHg 2017-09-25 MEDICATIONS Medication Instructions Dosage Frequency Start Date End Date Duration Status Doxepin HCl 150 MG Orally Once a day 1 capsule at bedtime 24h Sep, 30 day(s) Active Oxygen 2 L/NC Active Seroquel 200 mg TAKE ONE TABLET BY MOUTH ONCE DAILY AT BEDTIME 30 Active Amlodipine Besylate 5 mg Orally Once a day 2 tablet 24h 30 Active Doxazosin Mesylate 2 MG Orally Once a day 1 tablet 24h 90 days Active MiraLax - Orally Once a day 1 packet mixed with 8 ounces of fluid 24h Active Protonix 40 mg Orally at bedtime 1 tablet Active Klonopin 1 MG Orally hs 1 tablet Feb, 28 days Active Nicoderm CQ 14 MG/24HR Transdermal Once a day 1 patch to skin 24h Aug, Sep, 30 day(s) Not-Taking Tofranil 25 MG Orally Once a day, at night 1 tablet at bedtime Jun, Not-Taking ProAir HFA 108 (90 Base) MCG/ACT Inhalation every 4 hrs 2 puffs as needed 4h 17 Not-Taking Ventolin HFA 108 (90 Base) MCG/ACT Inhalation every 6 hrs 2 puffs as needed 6h Jun, 90 days Active Chantix 1 MG Orally Twice a day 1 tablet 12h 15 May, 2017 Nov, 30 day(s) Not-Taking Zofran 4 MG Orally every 8 hours, PRN 1 tablet Sep, Active RESULTS Name Result Date Reference Range H PYLORI (IN HOUSE) 2017-09-25 H. PYLORI Negative Control + Lot # [id number] Exp date 10/17/2017 PROCEDURES Procedure Date Ordered Result Body Site IMMUNOASSAY,INFECTIOUS AGENT September 25, 2017 INSTRUCTIONS MEDICATIONS ADMINISTERED No Known Medications MEDICAL (GENERAL) HISTORY Type Description Date Medical History hypertension Medical History COPD -smoker Medical History blood in colon Surgical History cyst removal- back Surgical History endoscopy 01/2017 Surgical History colonoscopy 2017/ Hospitalization History Surgery(s)/Childbirth(s) only Hospitalization History ICU x2 days for HTN 2012
--- OUTSIDE RECORDS SUMMARY | 2019-01-11 14:14 | XMS REPORT ---
Author Author AYDE BYRD Organization [facility] Address [address] [place] [address] Care Team Providers Care Vascular Physician Name Role Phone AYDE BYRD Unavailable PROBLEMS Type Condition ICD9-CM Code [id number] Code Onset Dates Condition Status SNOMED Code Problem Chronic obstructive pulmonary disease, unspecified COPD type J44.9 Active 24088504 Problem Constipation, unspecified constipation type K59.00 Active 27247166 Problem Abdominal bloating R14.0 Active 590756506 Problem Smoking addiction F17.200 Active 707425876 Problem Secondary hypertension I15.9 Active 51571848 Problem Insomnia, unspecified type G47.00 Active 827928763 Problem Gastroesophageal reflux disease, esophagitis presence not specified K21.9 Active 073940443 Problem GERD with esophagitis K21.0 Active 248816915 Problem Other chronic gastritis without hemorrhage K29.50 Active 7268744 Problem Primary insomnia F51.01 Active 3737114 Problem Routine gynecological examination Z01.419 Active 379697576 Problem Panlobular emphysema J43.1 Active 5850267 Problem Gastroesophageal reflux disease without esophagitis K21.9 Active 873225688 ALLERGIES No Information ENCOUNTERS Encounter Location Date Diagnosis [facility] [id number] [place] [address] Dec, [facility] [address] [place] [address] Dec, Insomnia, unspecified type G47.00 [facility] [id number] [place] [address] Dec, [facility] [id number] [place] [address] Dec, GERD with esophagitis K21.0 [facility] [id number] [place] [address] Nov, Insomnia, unspecified type G47.00 [facility] [id number] [place] [address] October, Insomnia, unspecified type G47.00 [facility] [id number] [place] [address] Sep, Other chronic gastritis without hemorrhage K29.50 [facility] [id number] [place] [address] Sep, Secondary hypertension I15.9 [facility] [id number] [place] [address] Sep, Insomnia, unspecified type G47.00 [facility] [id number] [place] [address] Sep, Primary insomnia F51.01 [facility] [id number] [place] [address] Jul, [facility] [id number] [place] [address] Jul, [facility] [id number] [place] [address] Jul, [facility] [id number] [place] [address] Jun, [facility] [id number] [place] [address] Jun, Chronic obstructive pulmonary disease, unspecified COPD type J44.9 [facility] [id number] [place] [address] Jun, [facility] [id number] [place] [address] Jun, Primary insomnia F51.01 [facility] [id number] [place] [address] Jun, [facility] [address] [place] [address] May, Chronic obstructive pulmonary disease, unspecified COPD type J44.9 [facility] [id number] [place] [address] May, [facility] [id number] [place] [address] May, Panlobular emphysema J43.1 and Gastroesophageal reflux disease without esophagitis K21.9 [facility] [id number] [place] [address] Feb, Insomnia, unspecified type G47.00 [facility] [id number] [place] [address] Feb, [facility] [id number] [place] [address] Feb, Secondary hypertension I15.9 [facility] [id number] [place] [address] Feb, [facility] [id number] [place] [address] Jan, [facility] [id number] [place] [address] Jan, [facility] [id number] [place] [address] Jan, Secondary hypertension I15.9 [facility] [id number] [place] [address] Nov, [facility] [id number] [place] [address] Nov, Gastroesophageal reflux disease, esophagitis presence not specified K21.9 [facility] [address] [place] [address] October, Chronic obstructive pulmonary disease, unspecified COPD type J44.9 [place] [address] [address] Sep, [place] [id number] [place] [address] Sep, [place] [id number] [place] [address] Sep, [place] [id number] [place] [address] Sep, [place] [id number] [place] [address] Sep, [place] [id number] [place] [address] Sep, Secondary hypertension I15.9 ; Gastroesophageal reflux disease, esophagitis presence not specified K21.9 ; Smoking addiction F17.200 ; Constipation, unspecified constipation type K59.00 and Insomnia, unspecified type G47.00 [place] [id number] [place] [address] Aug, Constipation, unspecified constipation type K59.00 [place] [address] [place] [address] Aug, [place] [id number] [place] [address] Jul, Gastroesophageal reflux disease, esophagitis presence not specified K21.9 [place] [id number] [place] [address] Jun, Insomnia, unspecified type G47.00 and Constipation, unspecified constipation type K59.00 [place] [id number] [place] [address] Jun, Secondary hypertension I15.9 ; Gastroesophageal reflux disease, esophagitis presence not specified K21.9 ; Smoking addiction F17.200 ; Chronic obstructive pulmonary disease, unspecified COPD type J44.9 ; Insomnia, unspecified type G47.00 ; Constipation, unspecified constipation type K59.00 ; Routine gynecological examination Z01.419 and Screening cholesterol level Z13.220 [place] [address] [place] [address] Jun, [place] [id number] [place] [address] May, [place] [id number] [place] [address] May, [place] [id number] [place] [address] Apr, [place] [id number] [place] [address] Mar, Secondary hypertension I15.9 ; Insomnia, unspecified type G47.00 ; Gastroesophageal reflux disease, esophagitis presence not specified K21.9 ; Chronic obstructive pulmonary disease, unspecified COPD type J44.9 and Abdominal bloating R14.0 [place] [id number] [place] [address] Mar, [place] [id number] [place] [address] Mar, [place] [id number] [place] [address] Mar, Gastroesophageal reflux disease, esophagitis presence not specified K21.9 ; Secondary hypertension I15.9 ; Chronic obstructive pulmonary disease, unspecified COPD type J44.9 ; Smoking addiction F17.200 ; Abdominal bloating R14.0 ; Insomnia, unspecified type G47.00 and Constipation, unspecified constipation type K59.00 [place] [address] [place] [address] Jan, [place] [id number] [place] [address] Dec, Secondary hypertension I15.9 ; Insomnia, unspecified type G47.00 ; Chronic obstructive pulmonary disease, unspecified COPD type J44.9 ; Smoking addiction F17.200 and Gastroesophageal reflux disease, esophagitis presence not specified K21.9 [facility] [address] [facility] [id number] [address] Nov, Secondary hypertension I15.9 ; Insomnia, unspecified type G47.00 ; Gastroesophageal reflux disease, esophagitis presence not specified K21.9 and Chronic obstructive pulmonary disease, unspecified COPD type J44.9 [facility] [address] [facility] [id number] [place] [address] October, Dyspepsia R10.13 IMMUNIZATIONS No Known Immunizations SOCIAL HISTORY Never Assessed REASON FOR VISIT Repository Medication PLAN OF CARE VITAL SIGNS MEDICATIONS Medication Instructions Dosage Frequency Start Date End Date Duration Status Doxazosin Mesylate 2 MG Orally Once a day 1 tablet 24h 90 days Active RESULTS No Results PROCEDURES [...]
--- OUTSIDE RECORDS SUMMARY | 2019-01-11 14:14 | XMS REPORT ---
Author Author AYDE BYRD Organization [facility] Address [address] [place] [address] Care Team Providers Care [employer] Commerce Consultant Name Role Phone AYDE BYRD Unavailable PROBLEMS Type Condition ICD9-CM Code HTH74-UE Code Onset Dates Condition Status SNOMED Code Problem Chronic obstructive pulmonary disease, unspecified COPD type J44.9 Active 75405373 Problem Constipation, unspecified constipation type K59.00 Active 54535978 Problem Abdominal bloating R14.0 Active 020120681 Problem Smoking addiction F17.200 Active 668840234 Problem Secondary hypertension I15.9 Active 52352611 Problem Insomnia, unspecified type G47.00 Active 084274344 Problem Gastroesophageal reflux disease, esophagitis presence not specified K21.9 Active 637107765 Problem GERD with esophagitis K21.0 Active 049459503 Problem Other chronic gastritis without hemorrhage K29.50 Active 2619296 Problem Primary insomnia F51.01 Active 5372423 Problem Routine gynecological examination Z01.419 Active 821509868 Problem Panlobular emphysema J43.1 Active 6072152 Problem Gastroesophageal reflux disease without esophagitis K21.9 Active 521762828 ALLERGIES No Information ENCOUNTERS Encounter Location Date Diagnosis [place] [id number] [place] [address] Jan, [facility] [id number] [place] [address] Jan, Insomnia, unspecified type G47.00 [place] [address] [id number] [place] [address] Dec, [facility] [id number] [place] [address] Dec, Insomnia, unspecified type G47.00 [place] [id number] [place] [address] Dec, [facility] [id number] [place] [address] Dec, GERD with esophagitis K21.0 [facility] [id number] [place] [address] Nov, Insomnia, unspecified type G47.00 [facility] [id number] [place] [address] October, Insomnia, unspecified type G47.00 [facility] [id number] [place] [address] Sep, Other chronic gastritis without hemorrhage K29.50 [facility] [id number] [place] [address] Sep, Secondary hypertension I15.9 [facility] [id number] [place] [address] Sep, Insomnia, unspecified type G47.00 [facility] [id number] [place] [address] Sep, Primary insomnia F51.01 [facility] [id number] [place] [address] Jul, [facility] [id number] [place] [address] Jul, [facility] [id number] [place] [address] Jul, [facility] [id number] [place] [address] Jun, [facility] [id number] [place] [address] Jun, Chronic obstructive pulmonary disease, unspecified COPD type J44.9 [facility] [id number] [place] [address] Jun, [facility] [id number] [place] [address] Jun, Primary insomnia F51.01 [facility] [id number] [place] [address] Jun, [facility] [id number] [place] [address] May, Chronic obstructive pulmonary disease, unspecified COPD type J44.9 [facility] [id number] [place] [address] May, [facility] [address] [address] May, Panlobular emphysema J43.1 and Gastroesophageal reflux disease without esophagitis K21.9 [facility] [id number] [place] [address] Feb, Insomnia, unspecified type G47.00 [facility] [id number] [place] [address] Feb, [facility] [id number] [place] [address] Feb, Secondary hypertension I15.9 [facility] [id number] [place] [address] Feb, [facility] [id number] [place] [address] Jan, [facility] [id number] [place] [address] Jan, [facility] [address] [address] Jan, Secondary hypertension I15.9 [facility] [id number] [place] [address] Nov, [facility] [address] [address] Nov, Gastroesophageal reflux disease, esophagitis presence not specified K21.9 [facility] [id number] [place] [address] October, Chronic obstructive pulmonary disease, unspecified COPD type J44.9 [facility] [id number] [place] [address] Sep, [facility] [id number] [place] [address] Sep, [facility] [id number] [place] [address] Sep, [facility] [id number] [place] [address] Sep, [facility] [id number] [place] [address] Sep, [facility] [id number] [place] [address] Sep, Secondary hypertension I15.9 ; Gastroesophageal reflux disease, esophagitis presence not specified K21.9 ; Smoking addiction F17.200 ; Constipation, unspecified constipation type K59.00 and Insomnia, unspecified type G47.00 [facility] [address] [place] [address] Aug, Constipation, unspecified constipation type K59.00 [facility] [id number] [place] [address] Aug, [facility] [id number] [place] [address] Jul, Gastroesophageal reflux disease, esophagitis presence not specified K21.9 [facility] [id number] [place] [address] Jun, Insomnia, unspecified type G47.00 and Constipation, unspecified constipation type K59.00 [facility] [id number] [place] [address] Jun, Secondary hypertension I15.9 ; Gastroesophageal reflux disease, esophagitis presence not specified K21.9 ; Smoking addiction F17.200 ; Chronic obstructive pulmonary disease, unspecified COPD type J44.9 ; Insomnia, unspecified type G47.00 ; Constipation, unspecified constipation type K59.00 ; Routine gynecological examination Z01.419 and Screening cholesterol level Z13.220 [place] [id number] [place] [address] Jun, [place] [id number] [place] [address] May, [place] [address] [address] May, [place] [id number] [place] [address] Apr, [place] [id number] [place] [address] Mar, Secondary hypertension I15.9 ; Insomnia, unspecified type G47.00 ; Gastroesophageal reflux disease, esophagitis presence not specified K21.9 ; Chronic obstructive pulmonary disease, unspecified COPD type J44.9 and Abdominal bloating R14.0 [place] [id number] [place] [address] Mar, [place] [id number] [place] [address] Mar, [place] [id number] [place] [address] Mar, Gastroesophageal reflux disease, esophagitis presence not specified K21.9 ; Secondary hypertension I15.9 ; Chronic obstructive pulmonary disease, unspecified COPD type J44.9 ; Smoking addiction F17.200 ; Abdominal bloating R14.0 ; Insomnia, unspecified type G47.00 and Constipation, unspecified constipation type K59.00 [place] [id number] [place] [address] Jan, [facility] [address] [facility] [id number] [address] Dec, Secondary hypertension I15.9 ; Insomnia, unspecified type G47.00 ; Chronic obstructive pulmonary disease, unspecified COPD type J44.9 ; Smoking addiction F17.200 and Gastroesophageal reflux disease, esophagitis presence not specified K21.9 [facility] [address] [facility] [id number] [address] Nov, Secondary hypertension I15.9 ; Insomnia, unspecified type G47.00 ; Gastroesophageal reflux disease, esophagitis presence not specified K21.9 and Chronic obstructive pulmonary disease, unspecified COPD type J44.9 [facility] [address] [facility] [id number] [address] October, Dyspepsia R10.13 IMMUNIZATIONS No Known Immunizations SOCIAL HISTORY Never Assessed REASON FOR VISIT med refill PLAN OF CARE VITAL SIGNS MEDICATIONS Medication [...]
--- OUTSIDE RECORDS SUMMARY | 2019-01-11 14:14 | XMS REPORT ---
Author Author AYDE BYRD Organization [facility] Address [address] [place] [address] Care Team Providers Care Inhalation Therapy Aides Teacher Name Role Phone AYDE BYRD Unavailable PROBLEMS Type Condition ICD9-CM Code PCI21-FV Code Onset Dates Condition Status SNOMED Code Problem Chronic obstructive pulmonary disease, unspecified COPD type J44.9 Active 48910519 Problem Constipation, unspecified constipation type K59.00 Active 65634446 Problem Abdominal bloating R14.0 Active 806296602 Problem Smoking addiction F17.200 Active 091467338 Problem Secondary hypertension I15.9 Active 74140956 Problem Insomnia, unspecified type G47.00 Active 296872397 Problem Gastroesophageal reflux disease, esophagitis presence not specified K21.9 Active 080491903 Problem GERD with esophagitis K21.0 Active 881021080 Problem Other chronic gastritis without hemorrhage K29.50 Active 7766083 Problem Primary insomnia F51.01 Active 4265301 Problem Routine gynecological examination Z01.419 Active 602270453 Problem Panlobular emphysema J43.1 Active 3620600 Problem Gastroesophageal reflux disease without esophagitis K21.9 Active 444368495 ALLERGIES No Information ENCOUNTERS Encounter Location Date Diagnosis [facility] [id number] [place] [address] Dec, [facility] [id number] [place] [address] Dec, Insomnia, unspecified type G47.00 [facility] [address] [id number] [place] [address] Dec, [facility] [id number] [place] [address] Dec, GERD with esophagitis K21.0 [facility] [id number] [place] [address] Nov, Insomnia, unspecified type G47.00 [facility] [id number] [place] [address] October, Insomnia, unspecified type G47.00 [facility] [id number] [place] [address] Sep, Other chronic gastritis without hemorrhage K29.50 [facility] [id number] [place] [address] Sep, Secondary hypertension I15.9 [facility] [id number] [place] [address] Sep, Insomnia, unspecified type G47.00 [facility] [id number] [place] [address] Sep, Primary insomnia F51.01 [facility] [id number] [place] [address] Jul, [facility] [id number] [place] [address] Jul, [facility] [id number] [place] [address] Jul, [facility] [id number] [place] [address] Jun, [facility] [id number] [place] [address] Jun, Chronic obstructive pulmonary disease, unspecified COPD type J44.9 [facility] [id number] [place] [address] Jun, [facility] [id number] [place] [address] Jun, Primary insomnia F51.01 [facility] [id number] [place] [address] Jun, [facility] [id number] [place] [address] May, Chronic obstructive pulmonary disease, unspecified COPD type J44.9 [facility] [id number] [place] [address] May, [facility] [id number] [place] [address] May, Panlobular emphysema J43.1 and Gastroesophageal reflux disease without esophagitis K21.9 [facility] [id number] [place] [address] Feb, Insomnia, unspecified type G47.00 [facility] [id number] [place] [address] Feb, [facility] [id number] [place] [address] Feb, Secondary hypertension I15.9 [facility] [id number] [place] [address] Feb, [facility] [id number] [place] [address] Jan, [facility] [id number] [place] [address] Jan, [facility] [id number] [place] [address] Jan, Secondary hypertension I15.9 [facility] [id number] [place] [address] Nov, [facility] [id number] [place] [address] Nov, Gastroesophageal reflux disease, esophagitis presence not specified K21.9 [facility] [id number] [place] [address] October, Chronic obstructive pulmonary disease, unspecified COPD type J44.9 [place] [address] [address] Sep, [place] [id number] [place] [address] Sep, [place] [id number] [place] [address] Sep, [place] [id number] [place] [address] Sep, [place] [id number] [place] [address] Sep, [place] [id number] [place] [address] Sep, Secondary hypertension I15.9 ; Gastroesophageal reflux disease, esophagitis presence not specified K21.9 ; Smoking addiction F17.200 ; Constipation, unspecified constipation type K59.00 and Insomnia, unspecified type G47.00 [place] [id number] [place] [address] Aug, Constipation, unspecified constipation type K59.00 [place] [id number] [place] [address] Aug, [place] [id number] [place] [address] Jul, Gastroesophageal reflux disease, esophagitis presence not specified K21.9 [place] [id number] [place] [address] Jun, Insomnia, unspecified type G47.00 and Constipation, unspecified constipation type K59.00 [place] [id number] [place] [address] Jun, Secondary hypertension I15.9 ; Gastroesophageal reflux disease, esophagitis presence not specified K21.9 ; Smoking addiction F17.200 ; Chronic obstructive pulmonary disease, unspecified COPD type J44.9 ; Insomnia, unspecified type G47.00 ; Constipation, unspecified constipation type K59.00 ; Routine gynecological examination Z01.419 and Screening cholesterol level Z13.220 [place] [id number] [place] [address] Jun, [place] [id number] [place] [address] May, [place] [id number] [place] [address] May, [place] [id number] [place] [address] Apr, [place] [id number] [place] [address] Mar, Secondary hypertension I15.9 ; Insomnia, unspecified type G47.00 ; Gastroesophageal reflux disease, esophagitis presence not specified K21.9 ; Chronic obstructive pulmonary disease, unspecified COPD type J44.9 and Abdominal bloating R14.0 [place] [id number] [place] [address] Mar, [place] [id number] [place] [address] Mar, [place] [id number] [place] [address] Mar, Gastroesophageal reflux disease, esophagitis presence not specified K21.9 ; Secondary hypertension I15.9 ; Chronic obstructive pulmonary disease, unspecified COPD type J44.9 ; Smoking addiction F17.200 ; Abdominal bloating R14.0 ; Insomnia, unspecified type G47.00 and Constipation, unspecified constipation type K59.00 [place] [id number] [place] [address] Jan, [place] [id number] [place] [address] Dec, Secondary hypertension I15.9 ; Insomnia, unspecified type G47.00 ; Chronic obstructive pulmonary disease, unspecified COPD type J44.9 ; Smoking addiction F17.200 and Gastroesophageal reflux disease, esophagitis presence not specified K21.9 [facility] [address] [facility] [id number] [address] Nov, Secondary hypertension I15.9 ; Insomnia, unspecified type G47.00 ; Gastroesophageal reflux disease, esophagitis presence not specified K21.9 and Chronic obstructive pulmonary disease, unspecified COPD type J44.9 [facility] [address] [facility] [id number] [address] October, Dyspepsia R10.13 IMMUNIZATIONS No Known Immunizations SOCIAL HISTORY Never Assessed REASON FOR VISIT Controlled Med Refill 10/17/17 PLAN OF CARE VITAL SIGNS MEDICATIONS Medication [...]
--- OUTSIDE RECORDS SUMMARY | 2019-01-11 14:14 | XMS REPORT ---
Author Author AYDE BYRD Organization [facility] Address [address] [place] [address] Care Team Providers Care Secondary Social Studies Teacher Name Role Phone AYDE BYRD Unavailable PROBLEMS Type Condition ICD9-CM Code RLU46-CA Code Onset Dates Condition Status SNOMED Code Problem Chronic obstructive pulmonary disease, unspecified COPD type J44.9 Active 73994602 Problem Constipation, unspecified constipation type K59.00 Active 12902586 Problem Abdominal bloating R14.0 Active 196596635 Problem Smoking addiction F17.200 Active 517190890 Problem Secondary hypertension I15.9 Active 20424179 Problem Insomnia, unspecified type G47.00 Active 253710153 Problem Gastroesophageal reflux disease, esophagitis presence not specified K21.9 Active 328789891 Problem GERD with esophagitis K21.0 Active 162126864 Problem Other chronic gastritis without hemorrhage K29.50 Active 2041624 Problem Primary insomnia F51.01 Active 4751663 Problem Routine gynecological examination Z01.419 Active 814585658 Problem Panlobular emphysema J43.1 Active 6511078 Problem Gastroesophageal reflux disease without esophagitis K21.9 Active 531844852 ALLERGIES No Information ENCOUNTERS Encounter Location Date Diagnosis [place] [id number] [place] [address] Jan, [facility] [id number] [place] [address] Jan, Insomnia, unspecified type G47.00 [place] [address] [place] [id number] [place] [address] Dec, [facility] [id number] [place] [address] Dec, Insomnia, unspecified type G47.00 [place] [address] [place] [id number] [place] [address] Dec, [facility] [id number] [place] [address] Dec, GERD with esophagitis K21.0 [facility] [id number] [place] [address] Nov, Insomnia, unspecified type G47.00 [facility] [address] [place] [id number] [place] [address] October, Insomnia, unspecified type G47.00 [facility] [address] [place] [address] [id number] [place] [address] Sep, Other chronic gastritis without hemorrhage K29.50 [facility] [address] [address] [id number] [place] [address] Sep, Secondary hypertension I15.9 [facility] [address] [id number] [place] [address] Sep, Insomnia, unspecified type G47.00 [facility] [address] [address] [id number] [place] [address] Sep, Primary insomnia F51.01 [facility] [address] [address] [id number] [place] [address] Jul, [facility] [id number] [place] [address] Jul, [facility] [address] [id number] [place] [address] Jul, [facility] [address] [place] [address] [id number] [place] [address] Jun, [facility] [address] [address] [id number] [place] [address] Jun, Chronic obstructive pulmonary disease, unspecified COPD type J44.9 [facility] [address] [place] [address] [id number] [place] [address] Jun, [facility] [address] [id number] [place] [address] Jun, Primary insomnia F51.01 [facility] [address] [id number] [place] [address] Jun, [facility] [address] [id number] [place] [address] May, Chronic obstructive pulmonary disease, unspecified COPD type J44.9 [facility] [address] [id number] [place] [address] May, [facility] [address] [address] May, Panlobular emphysema J43.1 and Gastroesophageal reflux disease without esophagitis K21.9 [facility] [address] [id number] [place] [address] Feb, Insomnia, unspecified type G47.00 [facility] [id number] [place] [address] Feb, [facility] [id number] [place] [address] Feb, Secondary hypertension I15.9 [facility] [id number] [place] [address] Feb, [facility] [id number] [place] [phone] Jan, [facility] [id number] [place] [address] Jan, [facility] [address] [address] Jan, Secondary hypertension I15.9 [facility] [id number] [place] [address] Nov, [facility] [address] [address] Nov, Gastroesophageal reflux disease, esophagitis presence not specified K21.9 [facility] [id number] [place] [address] October, Chronic obstructive pulmonary disease, unspecified COPD type J44.9 [facility] [id number] [place] [address] Sep, [facility] [id number] [place] [address] Sep, [facility] [address] [id number] [place] [address] Sep, [facility] [address] [address] [id number] [place] [address] Sep, [facility] [address] [address] [id number] [place] [address] Sep, [facility] [address] [id number] [place] [address] Sep, Secondary hypertension I15.9 ; Gastroesophageal reflux disease, esophagitis presence not specified K21.9 ; Smoking addiction F17.200 ; Constipation, unspecified constipation type K59.00 and Insomnia, unspecified type G47.00 [facility] [id number] [place] [address] Aug, Constipation, unspecified constipation type K59.00 [facility] [id number] [place] [address] Aug, [facility] [address] [id number] [place] [address] Jul, Gastroesophageal reflux disease, esophagitis presence not specified K21.9 [facility] [address] [id number] [place] [address] Jun, Insomnia, unspecified type G47.00 and Constipation, unspecified constipation type K59.00 [facility] [id number] [place] [address] Jun, Secondary hypertension I15.9 ; Gastroesophageal reflux disease, esophagitis presence not specified K21.9 ; Smoking addiction F17.200 ; Chronic obstructive pulmonary disease, unspecified COPD type J44.9 ; Insomnia, unspecified type G47.00 ; Constipation, unspecified constipation type K59.00 ; Routine gynecological examination Z01.419 and Screening cholesterol level Z13.220 [place] [address] [place] [id number] [place] [address] Jun, [place] [address] [place] [id number] [place] [address] May, [place] [address] [address] May, [place] [address] [place] [id number] [place] [address] Apr, [place] [address] [place] [id number] [place] [address] Mar, Secondary hypertension I15.9 ; Insomnia, unspecified type G47.00 ; Gastroesophageal reflux disease, esophagitis presence not specified K21.9 ; Chronic obstructive pulmonary disease, unspecified COPD type J44.9 and Abdominal bloating R14.0 [place] [address] [place] [id number] [place] [phone] Mar, [place] [address] [place] [id number] [place] [address] Mar, [place] [address] [place] [id number] [place] [address] Mar, Gastroesophageal reflux disease, esophagitis presence not specified K21.9 ; Secondary hypertension I15.9 ; Chronic obstructive pulmonary disease, unspecified COPD type J44.9 ; Smoking addiction F17.200 ; Abdominal bloating R14.0 ; Insomnia, unspecified type G47.00 and Constipation, unspecified constipation type K59.00 [place] [address] [place] [id number] [place] [address] Jan, [facility] [address] [facility] [id number] [address] Dec, Secondary hypertension I15.9 ; Insomnia, unspecified type G47.00 ; Chronic obstructive pulmonary disease, unspecified COPD type J44.9 ; Smoking addiction F17.200 and Gastroesophageal reflux disease, esophagitis presence not specified K21.9 [facility] [address] [facility] [id number] [address] Nov, Secondary hypertension I15.9 ; Insomnia, unspecified type G47.00 ; Gastroesophageal reflux disease, esophagitis presence not specified K21.9 and Chronic obstructive pulmonary disease, unspecified COPD type J44.9 [facility] [address] [facility] [id number] [address] October, Dyspepsia R10.13 IMMUNIZATIONS No Known Immunizations SOCIAL HISTORY Never Assessed REASON FOR VISIT Controlled Med Refill 11/14/17 PLAN OF CARE VITAL SIGNS MEDICATIONS Medication [...]
[2019-01-11] MEDS ORDERED: ONDANSETRON 4 MG/2 ML (SDV) Z0FRAN IVP ONE (14:15)
--- OUTSIDE RECORDS SUMMARY | 2019-01-11 14:15 | XMS REPORT ---
Author Author AYDE BYRD Organization [facility] Address [address] [place] [address] Care Team Providers Care Head Of Data Name Role Phone AYDE BYRD Unavailable PROBLEMS Type Condition ICD9-CM Code PWV00-LS Code Onset Dates Condition Status SNOMED Code Problem Chronic obstructive pulmonary disease, unspecified COPD type J44.9 Active 61978841 Problem Constipation, unspecified constipation type K59.00 Active 60442441 Problem Abdominal bloating R14.0 Active 718109064 Problem Smoking addiction F17.200 Active 834440503 Problem Secondary hypertension I15.9 Active 94306469 Problem Insomnia, unspecified type G47.00 Active 941491592 Problem Gastroesophageal reflux disease, esophagitis presence not specified K21.9 Active 597035441 Problem GERD with esophagitis K21.0 Active 924310713 Problem Other chronic gastritis without hemorrhage K29.50 Active 5235354 Problem Primary insomnia F51.01 Active 8924862 Problem Routine gynecological examination Z01.419 Active 487491569 Problem Panlobular emphysema J43.1 Active 1835928 Problem Gastroesophageal reflux disease without esophagitis K21.9 Active 093205285 ALLERGIES No Information ENCOUNTERS Encounter Location Date Diagnosis [facility] [id number] [place] [phone] Dec, Insomnia, unspecified type G47.00 [facility] [id number] [place] [phone] Dec, [facility] [id number] [place] [phone] Dec, GERD with esophagitis K21.0 [facility] [id number] [place] [address] Nov, Insomnia, unspecified type G47.00 [facility] [id number] [place] [address] October, Insomnia, unspecified type G47.00 [facility] [id number] [place] [phone] Sep, Other chronic gastritis without hemorrhage K29.50 [facility] [id number] [place] [address] Sep, Secondary hypertension I15.9 [facility] [id number] [place] [address] Sep, Insomnia, unspecified type G47.00 [facility] [id number] [place] [address] Sep, Primary insomnia F51.01 [facility] [id number] [place] [address] Jul, [facility] [id number] [place] [phone] Jul, [facility] [id number] [place] [address] Jul, [facility] [id number] [place] [phone] Jun, [facility] [id number] [place] [phone] Jun, Chronic obstructive pulmonary disease, unspecified COPD type J44.9 [facility] [id number] [place] [phone] Jun, [facility] [id number] [place] [address] Jun, Primary insomnia F51.01 [facility] [id number] [place] [address] Jun, [facility] [id number] [place] [phone] May, Chronic obstructive pulmonary disease, unspecified COPD type J44.9 [facility] [id number] [place] [phone] May, [facility] [id number] [place] [phone] May, Panlobular emphysema J43.1 and Gastroesophageal reflux disease without esophagitis K21.9 [facility] [id number] [place] [address] Feb, Insomnia, unspecified type G47.00 [facility] [id number] [place] [phone] Feb, [facility] [id number] [place] [phone] Feb, Secondary hypertension I15.9 [facility] [id number] [place] [phone] Feb, [facility] [id number] [place] [phone] Jan, [facility] [id number] [place] [phone] Jan, [facility] [id number] [place] [address] Jan, Secondary hypertension I15.9 [facility] [id number] [place] [phone] Nov, [facility] [id number] [place] [address] Nov, Gastroesophageal reflux disease, esophagitis presence not specified K21.9 [facility] [id number] [place] [address] October, Chronic obstructive pulmonary disease, unspecified COPD type J44.9 [facility] [id number] [place] [phone] Sep, [place] [address] [address] Sep, [place] [id number] [place] [phone] Sep, [place] [id number] [place] [address] Sep, [place] [id number] [place] [address] Sep, [place] [id number] [place] [address] Sep, Secondary hypertension I15.9 ; Gastroesophageal reflux disease, esophagitis presence not specified K21.9 ; Smoking addiction F17.200 ; Constipation, unspecified constipation type K59.00 and Insomnia, unspecified type G47.00 [place] [id number] [place] [address] Aug, Constipation, unspecified constipation type K59.00 [place] [id number] [place] [address] Aug, [place] [id number] [place] [address] Jul, Gastroesophageal reflux disease, esophagitis presence not specified K21.9 [place] [address] [place] [address] Jun, Insomnia, unspecified type G47.00 and Constipation, unspecified constipation type K59.00 [place] [id number] [place] [address] Jun, Secondary hypertension I15.9 ; Gastroesophageal reflux disease, esophagitis presence not specified K21.9 ; Smoking addiction F17.200 ; Chronic obstructive pulmonary disease, unspecified COPD type J44.9 ; Insomnia, unspecified type G47.00 ; Constipation, unspecified constipation type K59.00 ; Routine gynecological examination Z01.419 and Screening cholesterol level Z13.220 [place] [id number] [address] Jun, [facility] [id number] [place] [address] May, [facility] [id number] [place] [address] May, [facility] [id number] [place] [address] Apr, [facility] [id number] [place] [address] Mar, Secondary hypertension I15.9 ; Insomnia, unspecified type G47.00 ; Gastroesophageal reflux disease, esophagitis presence not specified K21.9 ; Chronic obstructive pulmonary disease, unspecified COPD type J44.9 and Abdominal bloating R14.0 [place] [id number] [place] [address] Mar, [place] [id number] [place] [phone] Mar, [place] [id number] [place] [address] Mar, Gastroesophageal reflux disease, esophagitis presence not specified K21.9 ; Secondary hypertension I15.9 ; Chronic obstructive pulmonary disease, unspecified COPD type J44.9 ; Smoking addiction F17.200 ; Abdominal bloating R14.0 ; Insomnia, unspecified type G47.00 and Constipation, unspecified constipation type K59.00 [place] [id number] [place] [address] Jan, [facility] [id number] [place] [address] Dec, Secondary hypertension I15.9 ; Insomnia, unspecified type G47.00 ; Chronic obstructive pulmonary disease, unspecified COPD type J44.9 ; Smoking addiction F17.200 and Gastroesophageal reflux disease, esophagitis presence not specified K21.9 [place] [id number] [place] [address] Nov, Secondary hypertension I15.9 ; Insomnia, unspecified type G47.00 ; Gastroesophageal reflux disease, esophagitis presence not specified K21.9 and Chronic obstructive pulmonary disease, unspecified COPD type J44.9 [facility] [address] [facility] [id number] [place] [address] October, Dyspepsia R10.13 IMMUNIZATIONS No Known Immunizations SOCIAL HISTORY Never Assessed REASON FOR VISIT Repository Medication PLAN OF CARE VITAL SIGNS MEDICATIONS Medication Instructions Dosage Frequency Start Date End Date Duration Status Doxepin HCl 150 MG Orally Once a day 1 capsule at bedtime 24h Sep, 30 day(s) Active RESULTS No Results PROCEDURES No Known [...]
--- OUTSIDE RECORDS SUMMARY | 2019-01-11 14:15 | XMS REPORT ---
Author Author AYDE BYRD Organization [facility] Address [address] [place] [address] Care Team Providers Care Carton Stapler Name Role Phone AYDE BYRD Unavailable PROBLEMS Type Condition ICD9-CM Code FRT75-ND Code Onset Dates Condition Status SNOMED Code Problem Chronic obstructive pulmonary disease, unspecified COPD type J44.9 Active 30637428 Problem Constipation, unspecified constipation type K59.00 Active 96522880 Problem Abdominal bloating R14.0 Active 474029940 Problem Smoking addiction F17.200 Active 094608464 Problem Secondary hypertension I15.9 Active 13882604 Problem Insomnia, unspecified type G47.00 Active 129487326 Problem Gastroesophageal reflux disease, esophagitis presence not specified K21.9 Active 978048820 Problem GERD with esophagitis K21.0 Active 543468575 Problem Other chronic gastritis without hemorrhage K29.50 Active 5876399 Problem Primary insomnia F51.01 Active 2271376 Problem Routine gynecological examination Z01.419 Active 881763382 Problem Panlobular emphysema J43.1 Active 7647655 Problem Gastroesophageal reflux disease without esophagitis K21.9 Active 574743116 ALLERGIES No Information ENCOUNTERS Encounter Location Date Diagnosis [facility] [id number] [place] [address] Dec, [facility] [id number] [place] [address] Dec, Insomnia, unspecified type G47.00 [facility] [id number] [place] [address] Dec, [facility] [id number] [place] [address] Dec, GERD with esophagitis K21.0 [facility] [id number] [place] [address] Nov, Insomnia, unspecified type G47.00 [facility] [id number] [place] [address] October, Insomnia, unspecified type G47.00 [facility] [id number] [place] [address] Sep, Other chronic gastritis without hemorrhage K29.50 [facility] [id number] [place] [phone] Sep, Secondary hypertension I15.9 [facility] [id number] [place] [address] Sep, Insomnia, unspecified type G47.00 [facility] [id number] [place] [address] Sep, Primary insomnia F51.01 [facility] [id number] [place] [phone] Jul, [facility] [id number] [place] [phone] Jul, [facility] [id number] [place] [address] Jul, [facility] [id number] [place] [address] Jun, [facility] [id number] [place] [phone] Jun, Chronic obstructive pulmonary disease, unspecified COPD type J44.9 [facility] [id number] [place] [address] Jun, [facility] [id number] [place] [address] Jun, Primary insomnia F51.01 [facility] [id number] [place] [address] Jun, [facility] [id number] [place] [address] May, Chronic obstructive pulmonary disease, unspecified COPD type J44.9 [facility] [id number] [place] [phone] May, [facility] [id number] [place] [address] May, Panlobular emphysema J43.1 and Gastroesophageal reflux disease without esophagitis K21.9 [facility] [id number] [place] [address] Feb, Insomnia, unspecified type G47.00 [facility] [id number] [place] [address] Feb, [facility] [id number] [place] [phone] Feb, Secondary hypertension I15.9 [facility] [id number] [place] [phone] Feb, [facility] [id number] [place] [phone] Jan, [facility] [id number] [place] [phone] Jan, [facility] [id number] [place] [address] Jan, Secondary hypertension I15.9 [facility] [id number] [place] [address] Nov, [facility] [id number] [place] [address] Nov, Gastroesophageal reflux disease, esophagitis presence not specified K21.9 [facility] [address] [place] [address] October, Chronic obstructive pulmonary disease, unspecified COPD type J44.9 [place] [address] [address] Sep, [place] [id number] [place] [phone] Sep, [place] [id number] [place] [address] Sep, [place] [id number] [place] [address] Sep, [place] [id number] [place] [address] Sep, [place] [id number] [place] [address] Sep, Secondary hypertension I15.9 ; Gastroesophageal reflux disease, esophagitis presence not specified K21.9 ; Smoking addiction F17.200 ; Constipation, unspecified constipation type K59.00 and Insomnia, unspecified type G47.00 [place] [id number] [place] [address] Aug, Constipation, unspecified constipation type K59.00 [place] [id number] [place] [address] Aug, [place] [id number] [place] [address] Jul, Gastroesophageal reflux disease, esophagitis presence not specified K21.9 [place] [id number] [place] [address] Jun, Insomnia, unspecified type G47.00 and Constipation, unspecified constipation type K59.00 [place] [id number] [place] [address] Jun, Secondary hypertension I15.9 ; Gastroesophageal reflux disease, esophagitis presence not specified K21.9 ; Smoking addiction F17.200 ; Chronic obstructive pulmonary disease, unspecified COPD type J44.9 ; Insomnia, unspecified type G47.00 ; Constipation, unspecified constipation type K59.00 ; Routine gynecological examination Z01.419 and Screening cholesterol level Z13.220 [place] [id number] [place] [address] Jun, [place] [id number] [place] [address] May, [place] [id number] [place] [phone] May, [place] [id number] [place] [address] Apr, [place] [id number] [place] [address] Mar, Secondary hypertension I15.9 ; Insomnia, unspecified type G47.00 ; Gastroesophageal reflux disease, esophagitis presence not specified K21.9 ; Chronic obstructive pulmonary disease, unspecified COPD type J44.9 and Abdominal bloating R14.0 [place] [id number] [place] [address] Mar, [place] [id number] [place] [address] Mar, [place] [id number] [place] [address] Mar, Gastroesophageal reflux disease, esophagitis presence not specified K21.9 ; Secondary hypertension I15.9 ; Chronic obstructive pulmonary disease, unspecified COPD type J44.9 ; Smoking addiction F17.200 ; Abdominal bloating R14.0 ; Insomnia, unspecified type G47.00 and Constipation, unspecified constipation type K59.00 [place] [id number] [place] [address] Jan, [place] [id number] [place] [address] Dec, Secondary hypertension I15.9 ; Insomnia, unspecified type G47.00 ; Chronic obstructive pulmonary disease, unspecified COPD type J44.9 ; Smoking addiction F17.200 and Gastroesophageal reflux disease, esophagitis presence not specified K21.9 [facility] [address] [facility] [id number] [place] [address] Nov, Secondary hypertension I15.9 ; Insomnia, unspecified type G47.00 ; Gastroesophageal reflux disease, esophagitis presence not specified K21.9 and Chronic obstructive pulmonary disease, unspecified COPD type J44.9 [facility] [address] [facility] [id number] [place] [address] October, Dyspepsia R10.13 IMMUNIZATIONS No Known Immunizations [...]
--- OUTSIDE RECORDS SUMMARY | 2019-01-11 14:15 | XMS REPORT ---
Author Author SILVERIO FULLER Organization [facility] Address [address] [place] [address] Care Team Providers Care Factory Focus Technician Name Role Phone SILVERIO FULLER Unavailable PROBLEMS Type Condition ICD9-CM Code WWO56-HZ Code Onset Dates Condition Status SNOMED Code Problem Chronic obstructive pulmonary disease, unspecified COPD type J44.9 Active 03499881 Problem Gastroesophageal reflux disease, esophagitis presence not specified K21.9 Active 466612361 Problem Routine gynecological examination Z01.419 Active 072868235 Problem Constipation, unspecified constipation type K59.00 Active 31316645 Problem Secondary hypertension I15.9 Active 22921847 Problem Smoking addiction F17.200 Active 796734195 Problem Abdominal bloating R14.0 Active 390609033 Problem Insomnia, unspecified type G47.00 Active 837615923 ALLERGIES No Information SOCIAL HISTORY Never Assessed PLAN OF CARE VITAL SIGNS MEDICATIONS No Known Medications RESULTS No Results PROCEDURES No Known procedures IMMUNIZATIONS No Known Immunizations MEDICAL (GENERAL) HISTORY Type Description Date Medical History hypertension Medical History COPD -smoker Medical History blood in colon Surgical History cyst removal- back Surgical History endoscopy 01/2017 Surgical History colonoscopy 2017/ Hospitalization History Surgery(s)/Childbirth(s) only Hospitalization History ICU x2 days for HTN 2012
--- OUTSIDE RECORDS SUMMARY | 2019-01-11 14:15 | XMS REPORT ---
Author Author SILVERIO FULLER Organization [facility] Address [address] [place] [address] Care Team Providers Care Drink Mixer Name Role Phone SILVERIO FULLER Unavailable PROBLEMS Type Condition ICD9-CM Code BGR55-PG Code Onset Dates Condition Status SNOMED Code Problem Chronic obstructive pulmonary disease, unspecified COPD type J44.9 Active 23709683 Problem Gastroesophageal reflux disease, esophagitis presence not specified K21.9 Active 561095597 Problem Routine gynecological examination Z01.419 Active 015859899 Problem Constipation, unspecified constipation type K59.00 Active 21091946 Problem Secondary hypertension I15.9 Active 69569112 Problem Smoking addiction F17.200 Active 516745746 Problem Abdominal bloating R14.0 Active 377951274 Problem Insomnia, unspecified type G47.00 Active 287681709 ALLERGIES Unknown Allergies SOCIAL HISTORY No smoking Hx information available PLAN OF CARE VITAL SIGNS MEDICATIONS Medication Instructions Dosage Frequency Start Date End Date Duration Status Seroquel 50 mg Orally Once a day 1 tablet 24h Mar, 30 day(s) Active RESULTS No Results PROCEDURES No Known procedures IMMUNIZATIONS No Known Immunizations
--- OUTSIDE RECORDS SUMMARY | 2019-01-11 14:15 | XMS REPORT ---
Author Author AYDE BYRD Organization [facility] Address [address] [place] [address] Care Team Providers Care Cyber Forensic Specialist Name Role Phone AYDE BRYD Unavailable PROBLEMS Type Condition ICD9-CM Code IIF10-IP Code Onset Dates Condition Status SNOMED Code Problem Chronic obstructive pulmonary disease, unspecified COPD type J44.9 Active 17753455 Problem Constipation, unspecified constipation type K59.00 Active 81656842 Problem Abdominal bloating R14.0 Active 479836116 Problem Smoking addiction F17.200 Active 503306832 Problem Secondary hypertension I15.9 Active 96336444 Problem Insomnia, unspecified type G47.00 Active 544584252 Problem Gastroesophageal reflux disease, esophagitis presence not specified K21.9 Active 359650541 Problem GERD with esophagitis K21.0 Active 969357462 Problem Other chronic gastritis without hemorrhage K29.50 Active 5540458 Problem Primary insomnia F51.01 Active 8199723 Problem Routine gynecological examination Z01.419 Active 385341999 Problem Panlobular emphysema J43.1 Active 8285580 Problem Gastroesophageal reflux disease without esophagitis K21.9 Active 374480767 ALLERGIES No Information ENCOUNTERS Encounter Location Date Diagnosis [place] [id number] [place] [address] Dec, GERD with esophagitis K21.0 [facility] [id number] [place] [address] Nov, Insomnia, unspecified type G47.00 [facility] [address] [address] October, Insomnia, unspecified type G47.00 [facility] [id number] [place] [address] Sep, Other chronic gastritis without hemorrhage K29.50 [place] [address], [place] [address] Sep, Secondary hypertension I15.9 [facility] [address] [address] Sep, Insomnia, unspecified type G47.00 [facility] [address] [address] Sep, Primary insomnia F51.01 [facility] [address] [address] Jul, [facility] [id number] [place] [address] Jul, [facility] [id number] [address] Jul, [facility] [id number] [place] [address] Jun, [facility] [address], [place] [address] Jun, Chronic obstructive pulmonary disease, unspecified COPD type J44.9 [facility] [address], [place] [address] Jun, [facility] [address], [place] [address] Jun, Primary insomnia F51.01 [facility] [address], [place] [address] Jun, [facility] [id number] [address] May, Chronic obstructive pulmonary disease, unspecified COPD type J44.9 [facility] [id number] [address] May, [facility] [id number] [address] May, Panlobular emphysema J43.1 and Gastroesophageal reflux disease without esophagitis K21.9 [facility] [id number] [place] [address] Feb, Insomnia, unspecified type G47.00 [facility] [id number] [place] [address] Feb, [facility] [address] [address] Feb, Secondary hypertension I15.9 [facility] [id number] [place] [address] Feb, [facility] [id number] [place] [address] Jan, [facility] [id number] [place] [address] Jan, [facility] [id number] [place] [address] Jan, Secondary hypertension I15.9 [facility] [id number] [place] [address] Nov, [facility] [id number] [place] [address] Nov, Gastroesophageal reflux disease, esophagitis presence not specified K21.9 [facility] [id number] [place] [address] October, Chronic obstructive pulmonary disease, unspecified COPD type J44.9 [facility] [id number] [place] [address] Sep, [facility] [id number] [place] [address] Sep, [facility] [id number] [place] [address] Sep, [facility] [address] [place] [address] Sep, [facility] [id number] [place] [address] Sep, [facility] [id number] [place] [address] Sep, Secondary hypertension I15.9 ; Gastroesophageal reflux disease, esophagitis presence not specified K21.9 ; Smoking addiction F17.200 ; Constipation, unspecified constipation type K59.00 and Insomnia, unspecified type G47.00 [place] [id number] [place] [address] Aug, Constipation, unspecified constipation type K59.00 [place] [address] [address] Aug, [place] [address] [address] Jul, Gastroesophageal reflux disease, esophagitis presence not specified K21.9 [place] [id number] [place] [address] Jun, Insomnia, unspecified type G47.00 and Constipation, unspecified constipation type K59.00 [place] [id number] [place] [address] Jun, Secondary hypertension I15.9 ; Gastroesophageal reflux disease, esophagitis presence not specified K21.9 ; Smoking addiction F17.200 ; Chronic obstructive pulmonary disease, unspecified COPD type J44.9 ; Insomnia, unspecified type G47.00 ; Constipation, unspecified constipation type K59.00 ; Routine gynecological examination Z01.419 and Screening cholesterol level Z13.220 [place] [id number] [place] [address] Jun, [place] [id number] [place] [address] May, [place] [address] [address] May, [place] [address] [place] [address] Apr, [place] [id number] [place] [address] Mar, Secondary hypertension I15.9 ; Insomnia, unspecified type G47.00 ; Gastroesophageal reflux disease, esophagitis presence not specified K21.9 ; Chronic obstructive pulmonary disease, unspecified COPD type J44.9 and Abdominal bloating R14.0 [place] [id number] [place] [address] Mar, [place] [address] [address] Mar, [place] [id number] [place] [address] Mar, Gastroesophageal reflux disease, esophagitis presence not specified K21.9 ; Secondary hypertension I15.9 ; Chronic obstructive pulmonary disease, unspecified COPD type J44.9 ; Smoking addiction F17.200 ; Abdominal bloating R14.0 ; Insomnia, unspecified type G47.00 and Constipation, unspecified constipation type K59.00 [place] [id number] [place] [address] Jan, [place] [id number] [place] [address] Dec, Secondary hypertension I15.9 ; Insomnia, unspecified type G47.00 ; Chronic obstructive pulmonary disease, unspecified COPD type J44.9 ; Smoking addiction F17.200 and Gastroesophageal reflux disease, esophagitis presence not specified K21.9 [place] [id number] [place] [address] Nov, Secondary hypertension I15.9 ; Insomnia, unspecified type G47.00 ; Gastroesophageal reflux disease, esophagitis presence not specified K21.9 and Chronic obstructive pulmonary disease, unspecified COPD type J44.9 [facility] [id number] [place] [address] October, Dyspepsia R10.13 IMMUNIZATIONS No Known Immunizations SOCIAL HISTORY Never Assessed REASON FOR VISIT Refill request PLAN OF CARE VITAL SIGNS MEDICATIONS [...]
--- OUTSIDE RECORDS SUMMARY | 2019-01-11 14:15 | XMS REPORT ---
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 Role Phone AYDE BYRD Unavailable PROBLEMS Type Condition ICD9-CM Code BXU00-DK Code Onset Dates Condition Status SNOMED Code Problem Chronic obstructive pulmonary disease, unspecified COPD type J44.9 Active 58483036 Problem Constipation, unspecified constipation type K59.00 Active 25358139 Problem Abdominal bloating R14.0 Active 737889341 Problem Smoking addiction F17.200 Active 705601909 Problem Secondary hypertension I15.9 Active 09471134 Problem Insomnia, unspecified type G47.00 Active 943287271 Problem Gastroesophageal reflux disease, esophagitis presence not specified K21.9 Active 213263220 Problem GERD with esophagitis K21.0 Active 850343217 Problem Other chronic gastritis without hemorrhage K29.50 Active 4206299 Problem Primary insomnia F51.01 Active 3981686 Problem Routine gynecological examination Z01.419 Active 295203114 Problem Panlobular emphysema J43.1 Active 1465294 Problem Gastroesophageal reflux disease without esophagitis K21.9 Active 835215151 ALLERGIES No Information ENCOUNTERS Encounter Location Date Diagnosis [place] [id number] [place] [address] Dec, GERD with esophagitis K21.0 [facility] [id number] [place] [address] Nov, Insomnia, unspecified type G47.00 [facility] [address] [address] October, Insomnia, unspecified type G47.00 [facility] [id number] [place] [address] Sep, Other chronic gastritis without hemorrhage K29.50 [place] [address], [place] [address] Sep, Secondary hypertension I15.9 [facility] [address] [place] [address] Sep, Insomnia, unspecified type G47.00 [facility] [address] [place] [address] Sep, Primary insomnia F51.01 [facility] [address] [place] [address] Jul, [facility] [id number] [place] [address] Jul, [facility] [address] [address] Jul, [facility] [id number] [place] [address] Jun, [facility] [address], [place] [address] Jun, Chronic obstructive pulmonary disease, unspecified COPD type J44.9 [facility] [address], [place] [address] Jun, [facility] [address], [place] [address] Jun, Primary insomnia F51.01 [facility] [address], [place] [address] Jun, [facility] [id number], [place] [address] May, Chronic obstructive pulmonary disease, unspecified COPD type J44.9 [facility] [id number], [place] [address] May, [facility] [id number], [place] [address] May, Panlobular emphysema J43.1 and Gastroesophageal reflux disease without esophagitis K21.9 [facility] [id number] [place] [address] Feb, Insomnia, unspecified type G47.00 [facility] [id number] [place] [address] Feb, [facility] [address] [address] Feb, Secondary hypertension I15.9 [facility] [id number] [place] [address] Feb, [facility] [id number] [place] [address] Jan, [facility] [id number] [place] [address] Jan, [facility] [id number] [place] [address] Jan, Secondary hypertension I15.9 [facility] [id number] [place] [address] Nov, [facility] [id number] [place] [address] Nov, Gastroesophageal reflux disease, esophagitis presence not specified K21.9 [facility] [id number] [place] [address] October, Chronic obstructive pulmonary disease, unspecified COPD type J44.9 [facility] [id number] [place] [address] Sep, [facility] [id number] [place] [address] Sep, [facility] [id number] [place] [address] Sep, [facility] [address] [place] [address] Sep, [facility] [id number] [place] [address] Sep, [facility] [id number] [place] [address] Sep, Secondary hypertension I15.9 ; Gastroesophageal reflux disease, esophagitis presence not specified K21.9 ; Smoking addiction F17.200 ; Constipation, unspecified constipation type K59.00 and Insomnia, unspecified type G47.00 [place] [id number] [place] [address] Aug, Constipation, unspecified constipation type K59.00 [place] [address] [address] Aug, [place] [address] [address] Jul, Gastroesophageal reflux disease, esophagitis presence not specified K21.9 [place] [id number] [place] [address] Jun, Insomnia, unspecified type G47.00 and Constipation, unspecified constipation type K59.00 [place] [id number] [place] [address] Jun, Secondary hypertension I15.9 ; Gastroesophageal reflux disease, esophagitis presence not specified K21.9 ; Smoking addiction F17.200 ; Chronic obstructive pulmonary disease, unspecified COPD type J44.9 ; Insomnia, unspecified type G47.00 ; Constipation, unspecified constipation type K59.00 ; Routine gynecological examination Z01.419 and Screening cholesterol level Z13.220 [place] [id number] [place] [address] Jun, [place] [id number] [place] [address] May, [place] [address] [address] May, [place] [address] [place] [address] Apr, [place] [id number] [place] [address] Mar, Secondary hypertension I15.9 ; Insomnia, unspecified type G47.00 ; Gastroesophageal reflux disease, esophagitis presence not specified K21.9 ; Chronic obstructive pulmonary disease, unspecified COPD type J44.9 and Abdominal bloating R14.0 [place] [id number] [place] [address] Mar, [place] [address] [address] Mar, [place] [id number] [place] [address] Mar, Gastroesophageal reflux disease, esophagitis presence not specified K21.9 ; Secondary hypertension I15.9 ; Chronic obstructive pulmonary disease, unspecified COPD type J44.9 ; Smoking addiction F17.200 ; Abdominal bloating R14.0 ; Insomnia, unspecified type G47.00 and Constipation, unspecified constipation type K59.00 [place] [id number] [place] [address] Jan, [place] [id number] [place] [address] Dec, Secondary hypertension I15.9 ; Insomnia, unspecified type G47.00 ; Chronic obstructive pulmonary disease, unspecified COPD type J44.9 ; Smoking addiction F17.200 and Gastroesophageal reflux disease, esophagitis presence not specified K21.9 [place] [id number] [place] [address] Nov, Secondary hypertension I15.9 ; Insomnia, unspecified type G47.00 ; Gastroesophageal reflux disease, esophagitis presence not specified K21.9 and Chronic obstructive pulmonary disease, unspecified COPD type J44.9 [facility] [id number] [place] [address] October, Dyspepsia R10.13 IMMUNIZATIONS No Known Immunizations SOCIAL HISTORY Never Assessed REASON FOR VISIT Requests return call PLAN OF CARE VITAL SIGNS MEDICATIONS Medication Instructions Dosage Frequency Start Date End Date Duration Status Nicoderm CQ 14 MG/24HR Transdermal Once a day 1 patch to skin 24h Aug, Sep, 30 day(s) Active RESULTS No Results [...]
--- OUTSIDE RECORDS SUMMARY | 2019-01-11 14:16 | XMS REPORT ---
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 Phone AYDE BYRD Unavailable PROBLEMS Type Condition ICD9-CM Code MEE40-XO Code Onset Dates Condition Status SNOMED Code Problem Secondary hypertension I15.9 Active 44382444 Problem Abdominal bloating R14.0 Active 567154062 Problem Insomnia, unspecified type G47.00 Active 847351605 Problem Gastroesophageal reflux disease, esophagitis presence not specified K21.9 Active 035013045 Problem Chronic obstructive pulmonary disease, unspecified COPD type J44.9 Active 27178678 Problem Smoking addiction F17.200 Active 431652319 Problem Other chronic gastritis without hemorrhage K29.50 Active 0923894 Problem Panlobular emphysema J43.1 Active 5036843 Problem Routine gynecological examination Z01.419 Active 571713888 Problem Constipation, unspecified constipation type K59.00 Active 73364988 Problem Gastroesophageal reflux disease without esophagitis K21.9 Active 477672560 Problem Primary insomnia F51.01 Active 4000728 ALLERGIES No Information ENCOUNTERS Encounter Location Date Diagnosis [place] [id number] [place] [address] Dec, [facility] [id number] [place] [address] Nov, Insomnia, unspecified type G47.00 [facility] [id number] [place] [address] October, Insomnia, unspecified type G47.00 [facility] [id number] [place] [address] Sep, Other chronic gastritis without hemorrhage K29.50 [facility] [id number] [place] [address] Sep, Secondary hypertension I15.9 [facility] [id number] [place] [address] Sep, Insomnia, unspecified type G47.00 [facility] [id number] [place] [address] Sep, Primary insomnia F51.01 [facility] [id number] [place] [address] Jul, [facility] [id number] [place] [address] Jul, [facility] [id number] [place] [address] Jul, [facility] [id number] [place] [address] Jun, [facility] [id number] [place] [address] Jun, Chronic obstructive pulmonary disease, unspecified COPD type J44.9 [facility] [id number] [place] [address] Jun, [facility] [id number] [place] [address] Jun, Primary insomnia F51.01 [facility] [id number] [place] [address] Jun, [facility] [id number] [place] [address] May, Chronic obstructive pulmonary disease, unspecified COPD type J44.9 [facility] [id number] [place] [address] May, [facility] [id number] [place] [address] May, Panlobular emphysema J43.1 and Gastroesophageal reflux disease without esophagitis K21.9 [facility] [id number] [address] Feb, Insomnia, unspecified type G47.00 [facility] [id number] [place] [address] Feb, [facility] [id number] [place] [address] Feb, Secondary hypertension I15.9 [facility] [id number] [place] [address] Feb, [facility] [id number] [place] [address] Jan, [facility] [id number] [place] [address] Jan, [facility] [id number] [place] [address] Jan, Secondary hypertension I15.9 [facility] [id number] [place] [address] Nov, [facility] [id number] [place] [address] Nov, Gastroesophageal reflux disease, esophagitis presence not specified K21.9 [facility] [id number] [address] October, Chronic obstructive pulmonary disease, unspecified COPD type J44.9 [facility] [id number] [address] Sep, [facility] [id number] [place] [address] Sep, [facility] [id number] [place] [address] Sep, [facility] [id number] [place] [address] Sep, [place] [id number] [place] [address] Sep, [place] [id number] [place] [address] Sep, Secondary hypertension I15.9 ; Gastroesophageal reflux disease, esophagitis presence not specified K21.9 ; Smoking addiction F17.200 ; Constipation, unspecified constipation type K59.00 and Insomnia, unspecified type G47.00 [place] [id number] [place] [address] Aug, Constipation, unspecified constipation type K59.00 [place] [address] [address] Aug, [place] [address] [address] Jul, Gastroesophageal reflux disease, esophagitis presence not specified K21.9 [place] [id number] [place] [address] Jun, Insomnia, unspecified type G47.00 and Constipation, unspecified constipation type K59.00 [place] [id number] [place] [address] Jun, Secondary hypertension I15.9 ; Gastroesophageal reflux disease, esophagitis presence not specified K21.9 ; Smoking addiction F17.200 ; Chronic obstructive pulmonary disease, unspecified COPD type J44.9 ; Insomnia, unspecified type G47.00 ; Constipation, unspecified constipation type K59.00 ; Routine gynecological examination Z01.419 and Screening cholesterol level Z13.220 [place] [id number] [place] [address] Jun, [place] [id number] [place] [address] May, [place] [id number] [place] [address] May, [place] [address] [place] [address] Apr, [place] [id number] [place] [address] Mar, Secondary hypertension I15.9 ; Insomnia, unspecified type G47.00 ; Gastroesophageal reflux disease, esophagitis presence not specified K21.9 ; Chronic obstructive pulmonary disease, unspecified COPD type J44.9 and Abdominal bloating R14.0 [place] [address] [address] Mar, [place] [id number] [place] [address] Mar, [place] [id number] [place] [address] Mar, Gastroesophageal reflux disease, esophagitis presence not specified K21.9 ; Secondary hypertension I15.9 ; Chronic obstructive pulmonary disease, unspecified COPD type J44.9 ; Smoking addiction F17.200 ; Abdominal bloating R14.0 ; Insomnia, unspecified type G47.00 and Constipation, unspecified constipation type K59.00 [place] [id number] [place] [address] Jan, [place] [id number] [place] [address] Dec, Secondary hypertension I15.9 ; Insomnia, unspecified type G47.00 ; Chronic obstructive pulmonary disease, unspecified COPD type J44.9 ; Smoking addiction F17.200 and Gastroesophageal reflux disease, esophagitis presence not specified K21.9 [place] [id number] [place] [address] Nov, Secondary hypertension I15.9 ; Insomnia, unspecified type G47.00 ; Gastroesophageal reflux disease, esophagitis presence not specified K21.9 and Chronic obstructive pulmonary disease, unspecified COPD type J44.9 [facility] [id number] [place] [address] October, Dyspepsia R10.13 IMMUNIZATIONS No Known Immunizations SOCIAL HISTORY Never Assessed REASON FOR VISIT PALS PLAN OF CARE VITAL SIGNS MEDICATIONS Medication Instructions Dosage Frequency Start Date End Date Duration Status Ventolin HFA 108 (90 Base) MCG/ACT Inhalation every 6 hrs 2 puffs as needed 6h Jun, 90 days Active RESULTS No Results PROCEDURES [...]
--- OUTSIDE RECORDS SUMMARY | 2019-01-11 14:16 | XMS REPORT ---
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 Name Role Phone AYDE BYRD Unavailable PROBLEMS Type Condition ICD9-CM Code CZZ04-OI Code Onset Dates Condition Status SNOMED Code Problem Secondary hypertension I15.9 Active 07439468 Problem Abdominal bloating R14.0 Active 497750835 Problem Insomnia, unspecified type G47.00 Active 963452874 Problem Gastroesophageal reflux disease, esophagitis presence not specified K21.9 Active 004210687 Problem Chronic obstructive pulmonary disease, unspecified COPD type J44.9 Active 80802323 Problem Smoking addiction F17.200 Active 389678676 Problem Other chronic gastritis without hemorrhage K29.50 Active 8823160 Problem Panlobular emphysema J43.1 Active 5038864 Problem Routine gynecological examination Z01.419 Active 882405328 Problem Constipation, unspecified constipation type K59.00 Active 48820437 Problem Gastroesophageal reflux disease without esophagitis K21.9 Active 400263753 Problem Primary insomnia F51.01 Active 5403111 ALLERGIES No Information ENCOUNTERS Encounter Location Date Diagnosis [place] [id number] [place] [address] Dec, [facility] [place] [id number] [place] [address] Nov, Insomnia, unspecified type G47.00 [facility] [place] [id number] [place] [address] October, Insomnia, unspecified type G47.00 [facility] [place] [id number] [place] [address] Sep, Other chronic gastritis without hemorrhage K29.50 [facility] [place] [id number] [place] [address] Sep, Secondary hypertension I15.9 [facility] [place] [id number] [place] [address] Sep, Insomnia, unspecified type G47.00 [facility] [place] [id number] [place] [address] Sep, Primary insomnia F51.01 [facility] [place] [id number] [place] [address] Jul, [facility] [place] [id number] [place] [address] Jul, [facility] [place] [id number] [place] [address] Jul, [facility] [place] [id number] [place] [address] Jun, [facility] [place] [id number] [place] [address] Jun, Chronic obstructive pulmonary disease, unspecified COPD type J44.9 [facility] [place] [id number] [place] [address] Jun, [facility] [place] [id number] [place] [address] Jun, Primary insomnia F51.01 [facility] [place] [id number] [place] [address] Jun, [facility] [place] [id number] [place] [address] May, Chronic obstructive pulmonary disease, unspecified COPD type J44.9 [facility] [place] [id number] [place] [address] May, [facility] [place] [id number] [place] [address] May, Panlobular emphysema J43.1 and Gastroesophageal reflux disease without esophagitis K21.9 [facility] [place] [address] [place] [address] Feb, Insomnia, unspecified type G47.00 [facility] [place] [id number] [place] [address] Feb, [facility] [place] [id number] [place] [address] Feb, Secondary hypertension I15.9 [facility] [id number] [place] [address] Feb, [facility] [place] [id number] [place] [address] Jan, [facility] [place] [id number] [place] [address] Jan, [facility] [place] [id number] [place] [address] Jan, Secondary hypertension I15.9 [facility] [place] [id number] [place] [address] Nov, [facility] [place] [id number] [place] [address] Nov, Gastroesophageal reflux disease, esophagitis presence not specified K21.9 [facility] [place] [address] [address] October, Chronic obstructive pulmonary disease, unspecified COPD type J44.9 [facility] [place] [address] [place] [address] Sep, [facility] [place] [id number] [place] [address] Sep, [facility] [place] [id number] [place] [address] Sep, [facility] [place] [id number] [place] [address] Sep, [place] [id number] [place] [address] Sep, [place] [id number] [place] [address] Sep, Secondary hypertension I15.9 ; Gastroesophageal reflux disease, esophagitis presence not specified K21.9 ; Smoking addiction F17.200 ; Constipation, unspecified constipation type K59.00 and Insomnia, unspecified type G47.00 [place] [id number] [place] [address] Aug, Constipation, unspecified constipation type K59.00 [place] [address] [address] Aug, [place] [address] [address] Jul, Gastroesophageal reflux disease, esophagitis presence not specified K21.9 [place] [id number] [place] [address] Jun, Insomnia, unspecified type G47.00 and Constipation, unspecified constipation type K59.00 [place] [id number] [place] [address] Jun, Secondary hypertension I15.9 ; Gastroesophageal reflux disease, esophagitis presence not specified K21.9 ; Smoking addiction F17.200 ; Chronic obstructive pulmonary disease, unspecified COPD type J44.9 ; Insomnia, unspecified type G47.00 ; Constipation, unspecified constipation type K59.00 ; Routine gynecological examination Z01.419 and Screening cholesterol level Z13.220 [place] [id number] [place] [address] Jun, [place] [id number] [place] [address] May, [place] [id number] [place] [address] May, [place] [address] [place] [address] Apr, [place] [id number] [place] [address] Mar, Secondary hypertension I15.9 ; Insomnia, unspecified type G47.00 ; Gastroesophageal reflux disease, esophagitis presence not specified K21.9 ; Chronic obstructive pulmonary disease, unspecified COPD type J44.9 and Abdominal bloating R14.0 [place] [address] [address] Mar, [place] [id number] [place] [address] Mar, [place] [id number] [place] [address] Mar, Gastroesophageal reflux disease, esophagitis presence not specified K21.9 ; Secondary hypertension I15.9 ; Chronic obstructive pulmonary disease, unspecified COPD type J44.9 ; Smoking addiction F17.200 ; Abdominal bloating R14.0 ; Insomnia, unspecified type G47.00 and Constipation, unspecified constipation type K59.00 [place] [id number] [place] [address] Jan, [place] [id number] [place] [address] Dec, Secondary hypertension I15.9 ; Insomnia, unspecified type G47.00 ; Chronic obstructive pulmonary disease, unspecified COPD type J44.9 ; Smoking addiction F17.200 and Gastroesophageal reflux disease, esophagitis presence not specified K21.9 [place] [id number] [place] [address] Nov, Secondary hypertension I15.9 ; Insomnia, unspecified type G47.00 ; Gastroesophageal reflux disease, esophagitis presence not specified K21.9 and Chronic obstructive pulmonary disease, unspecified COPD type J44.9 [facility] [id number] [place] [address] October, Dyspepsia R10.13 IMMUNIZATIONS No Known Immunizations [...]
--- OUTSIDE RECORDS SUMMARY | 2019-01-11 14:16 | XMS REPORT ---
Author Author MATEO GODFREY Organization [facility] Address [address] [place] [address] Care Team Providers Care Office Employee Name Role Phone MATEO GODFREY Unavailable PROBLEMS Type Condition ICD9-CM Code MCV72-GC Code Onset Dates Condition Status SNOMED Code Problem Secondary hypertension I15.9 Active 58365592 Problem Abdominal bloating R14.0 Active 781191701 Problem Insomnia, unspecified type G47.00 Active 188726678 Problem Gastroesophageal reflux disease, esophagitis presence not specified K21.9 Active 161643757 Problem Chronic obstructive pulmonary disease, unspecified COPD type J44.9 Active 93595786 Problem Smoking addiction F17.200 Active 962940405 Problem Other chronic gastritis without hemorrhage K29.50 Active 3754079 Problem Panlobular emphysema J43.1 Active 5700549 Problem Routine gynecological examination Z01.419 Active 110537839 Problem Constipation, unspecified constipation type K59.00 Active 98217519 Problem Gastroesophageal reflux disease without esophagitis K21.9 Active 992451139 Problem Primary insomnia F51.01 Active 0934882 ALLERGIES No Known Allergies ENCOUNTERS Encounter Location Date Diagnosis [facility] [id number] [place] [address] October, [facility] [id number] [place] [address] Sep, Other chronic gastritis without hemorrhage K29.50 [facility] [id number] [place] [address] Sep, Secondary hypertension I15.9 [facility] [id number] [place] [address] Sep, Insomnia, unspecified type G47.00 [facility] [id number] [place] [address] Sep, Primary insomnia F51.01 [facility] [address] [place] [address] Jul, [facility] [id number] [place] [address] Jul, [facility] [id number] [place] [address] Jul, [facility] [id number] [place] [address] Jun, [facility] [id number] [place] [address] Jun, Chronic obstructive pulmonary disease, unspecified COPD type J44.9 [facility] [id number] [place] [address] Jun, [facility] [id number] [place] [address] Jun, Primary insomnia F51.01 [facility] [id number] [place] [address] Jun, [facility] [id number] [place] [address] May, Chronic obstructive pulmonary disease, unspecified COPD type J44.9 [facility] [id number] [place] [address] May, [facility] [id number] [place] [address] May, Panlobular emphysema J43.1 and Gastroesophageal reflux disease without esophagitis K21.9 [facility] [id number] [place] [address] Feb, Insomnia, unspecified type G47.00 [facility] [id number] [place] [address] Feb, [facility] [address] [place] [address] Feb, Secondary hypertension I15.9 [facility] [address] [place] [address] Feb, [facility] [address] [place] [address] Jan, [facility] [address] [place] [address] Jan, [facility] [address] [address] Jan, Secondary hypertension I15.9 [facility] [address] [address] Nov, [facility] [id number] [place] [address] Nov, Gastroesophageal reflux disease, esophagitis presence not specified K21.9 [facility] [address] [place] [address] October, Chronic obstructive pulmonary disease, unspecified COPD type J44.9 [facility] [address] [place] [address] Sep, [facility] [address] [place] [address] Sep, [facility] [address] [place] [address] Sep, [facility] [address] [place] [address] Sep, [facility] [address] [place] [address] Sep, [facility] [address] [place] [address] Sep, Secondary hypertension I15.9 ; Gastroesophageal reflux disease, esophagitis presence not specified K21.9 ; Smoking addiction F17.200 ; Constipation, unspecified constipation type K59.00 and Insomnia, unspecified type G47.00 [place] [id number] [place] [address] Aug, Constipation, unspecified constipation type K59.00 [place] [id number] [place] [address] Aug, [place] [address] [address] Jul, Gastroesophageal reflux disease, esophagitis presence not specified K21.9 [place] [address] [address] Jun, Insomnia, unspecified type G47.00 and Constipation, unspecified constipation type K59.00 [place] [id number] [place] [address] Jun, Secondary hypertension I15.9 ; Gastroesophageal reflux disease, esophagitis presence not specified K21.9 ; Smoking addiction F17.200 ; Chronic obstructive pulmonary disease, unspecified COPD type J44.9 ; Insomnia, unspecified type G47.00 ; Constipation, unspecified constipation type K59.00 ; Routine gynecological examination Z01.419 and Screening cholesterol level Z13.220 [place] [id number] [place] [address] Jun, [place] [id number] [place] [address] May, [place] [id number] [place] [address] May, [place] [id number] [place] [address] Apr, [place] [id number] [place] [address] Mar, Secondary hypertension I15.9 ; Insomnia, unspecified type G47.00 ; Gastroesophageal reflux disease, esophagitis presence not specified K21.9 ; Chronic obstructive pulmonary disease, unspecified COPD type J44.9 and Abdominal bloating R14.0 [place] [id number] [place] [address] Mar, [facility] [id number] [place] [address] Mar, [facility] [id number] [place] [address] Mar, Gastroesophageal reflux disease, esophagitis presence not specified K21.9 ; Secondary hypertension I15.9 ; Chronic obstructive pulmonary disease, unspecified COPD type J44.9 ; Smoking addiction F17.200 ; Abdominal bloating R14.0 ; Insomnia, unspecified type G47.00 and Constipation, unspecified constipation type K59.00 [place] [id number] [place] [address] Jan, [place] [id number] [place] [address] Dec, Secondary hypertension I15.9 ; Insomnia, unspecified type G47.00 ; Chronic obstructive pulmonary disease, unspecified COPD type J44.9 ; Smoking addiction F17.200 and Gastroesophageal reflux disease, esophagitis presence not specified K21.9 [place] [address] [place] [address] Nov, Secondary hypertension I15.9 ; Insomnia, unspecified type G47.00 ; Gastroesophageal reflux disease, esophagitis presence not specified K21.9 and Chronic obstructive pulmonary disease, unspecified COPD type J44.9 [facility] [id number] [place] [address] October, Dyspepsia R10.13 IMMUNIZATIONS No Known Immunizations SOCIAL HISTORY Never Assessed REASON FOR VISIT Vomiting in sleep, wanting to get on medication for anxiety--Lavelle Etienne MA PLAN OF CARE Activity Details Follow Up 2 Months Reason: VITAL SIGNS Height 62 in 2017-03-09 Weight 149.6 lbs 2017-03-09 Temperature 98.1 degrees Fahrenheit 2017-03-09 Heart Rate 84 bpm 2017-03-09 Respiratory Rate 20 2017-03-09 BMI 27.36 kg/m2 2017-03-09 Blood pressure systolic 142 mmHg 2017-03-09 Blood pressure diastolic 78 mmHg 2017-03-09 MEDICATIONS Medication Instructions Dosage Frequency Start Date End Date Duration Status Carafate 1 GM Orally 4 times a day 1 tablet on an empty stomach 6h 11 Feb, 2017 30 day(s) Active Seroquel 200 MG TAKE ONE TABLET BY MOUTH ONCE DAILY AT BEDTIME 30 Active MiraLax - Orally Once a day 1 packet mixed with 8 ounces of fluid 24h Active Klonopin 1 MG Orally hs 1 tablet Feb, 30 days Active Amlodipine Besylate 5 mg Orally Once a day 2 tablet 24h Active ProAir HFA 108 (90 Base) MCG/ACT Inhalation every 4 hrs 2 puffs as needed 4h 16 Active Doxazosin Mesylate 2 MG Orally Once [...]
--- OUTSIDE RECORDS SUMMARY | 2019-01-11 14:16 | XMS REPORT ---
Author Author AYDE BYRD Organization [facility] Address [address] [place] [address] Care Team Providers Care Police Officer Crime Prevention Name Role Phone AYDE BYRD Unavailable PROBLEMS Type Condition ICD9-CM Code CKA70-KT Code Onset Dates Condition Status SNOMED Code Problem Secondary hypertension I15.9 Active 15115898 Problem Abdominal bloating R14.0 Active 277073459 Problem Insomnia, unspecified type G47.00 Active 056620847 Problem Gastroesophageal reflux disease, esophagitis presence not specified K21.9 Active 715013709 Problem Chronic obstructive pulmonary disease, unspecified COPD type J44.9 Active 92111373 Problem Smoking addiction F17.200 Active 414054417 Problem Other chronic gastritis without hemorrhage K29.50 Active 5184340 Problem Panlobular emphysema J43.1 Active 6518778 Problem Routine gynecological examination Z01.419 Active 582164043 Problem Constipation, unspecified constipation type K59.00 Active 13585838 Problem Gastroesophageal reflux disease without esophagitis K21.9 Active 707188028 Problem Primary insomnia F51.01 Active 8030949 ALLERGIES No Information ENCOUNTERS Encounter Location Date Diagnosis [place] [id number] [place] [address] Dec, [facility] [id number] [place] [address] Nov, Insomnia, unspecified type G47.00 [facility] [id number] [place] [address] October, Insomnia, unspecified type G47.00 [facility] [id number] [place] [address] Sep, Other chronic gastritis without hemorrhage K29.50 [facility] [id number] [place] [address] Sep, Secondary hypertension I15.9 [facility] [address] [place] [address] Sep, Insomnia, unspecified type G47.00 [facility] [id number] [place] [address] Sep, Primary insomnia F51.01 [facility] [id number] [place] [address] Jul, [facility] [id number] [place] [address] Jul, [facility] [id number] [place] [address] Jul, [facility] [id number] [place] [address] Jun, [facility] [id number] [place] [address] Jun, Chronic obstructive pulmonary disease, unspecified COPD type J44.9 [facility] [id number] [place] [address] Jun, [facility] [id number] [place] [address] Jun, Primary insomnia F51.01 [facility] [id number] [place] [address] Jun, [facility] [id number] [place] [address] May, Chronic obstructive pulmonary disease, unspecified COPD type J44.9 [facility] [id number] [place] [address] May, [facility] [address] [place] [address] May, Panlobular emphysema J43.1 and Gastroesophageal reflux disease without esophagitis K21.9 [facility] [address] [place] [address] Feb, Insomnia, unspecified type G47.00 [facility] [id number] [place] [address] Feb, [facility] [id number] [place] [address] Feb, Secondary hypertension I15.9 [facility] [address] [place] [address] Feb, [facility] [id number] [place] [address] Jan, [facility] [id number] [place] [address] Jan, [facility] [id number] [place] [address] Jan, Secondary hypertension I15.9 [facility] [id number] [place] [address] Nov, [facility] [id number] [place] [address] Nov, Gastroesophageal reflux disease, esophagitis presence not specified K21.9 [facility] [address] [address] October, Chronic obstructive pulmonary disease, unspecified COPD type J44.9 [facility] [address] [place] [address] Sep, [facility] [id number] [place] [address] Sep, [facility] [id number] [place] [address] Sep, [facility] [address] [place] [address] Sep, [place] [address] [place] [address] Sep, [place] [id number] [place] [address] Sep, Secondary hypertension I15.9 ; Gastroesophageal reflux disease, esophagitis presence not specified K21.9 ; Smoking addiction F17.200 ; Constipation, unspecified constipation type K59.00 and Insomnia, unspecified type G47.00 [place] [id number] [place] [address] Aug, Constipation, unspecified constipation type K59.00 [place] [address] [address] Aug, [place] [address] [address] Jul, Gastroesophageal reflux disease, esophagitis presence not specified K21.9 [place] [id number] [place] [address] Jun, Insomnia, unspecified type G47.00 and Constipation, unspecified constipation type K59.00 [place] [id number] [place] [address] Jun, Secondary hypertension I15.9 ; Gastroesophageal reflux disease, esophagitis presence not specified K21.9 ; Smoking addiction F17.200 ; Chronic obstructive pulmonary disease, unspecified COPD type J44.9 ; Insomnia, unspecified type G47.00 ; Constipation, unspecified constipation type K59.00 ; Routine gynecological examination Z01.419 and Screening cholesterol level Z13.220 [place] [id number] [place] [address] Jun, [place] [id number] [place] [address] May, [place] [id number] [place] [address] May, [place] [address] [place] [address] Apr, [place] [id number] [place] [address] Mar, Secondary hypertension I15.9 ; Insomnia, unspecified type G47.00 ; Gastroesophageal reflux disease, esophagitis presence not specified K21.9 ; Chronic obstructive pulmonary disease, unspecified COPD type J44.9 and Abdominal bloating R14.0 [place] [address] [address] Mar, [place] [id number] [place] [address] Mar, [place] [id number] [place] [address] Mar, Gastroesophageal reflux disease, esophagitis presence not specified K21.9 ; Secondary hypertension I15.9 ; Chronic obstructive pulmonary disease, unspecified COPD type J44.9 ; Smoking addiction F17.200 ; Abdominal bloating R14.0 ; Insomnia, unspecified type G47.00 and Constipation, unspecified constipation type K59.00 [place] [id number] [place] [address] Jan, [place] [id number] [place] [address] Dec, Secondary hypertension I15.9 ; Insomnia, unspecified type G47.00 ; Chronic obstructive pulmonary disease, unspecified COPD type J44.9 ; Smoking addiction F17.200 and Gastroesophageal reflux disease, esophagitis presence not specified K21.9 [place] [address] [place] [address] Nov, Secondary hypertension I15.9 ; Insomnia, unspecified type G47.00 ; Gastroesophageal reflux disease, esophagitis presence not specified K21.9 and Chronic obstructive pulmonary disease, unspecified COPD type J44.9 [facility] [address] [place] [address] October, Dyspepsia R10.13 IMMUNIZATIONS No Known Immunizations SOCIAL HISTORY Never Assessed REASON FOR VISIT Questions PLAN OF CARE VITAL SIGNS MEDICATIONS Unknown [...]
--- OUTSIDE RECORDS SUMMARY | 2019-01-11 14:16 | XMS REPORT ---
Author Author SILVERIO FULLER Organization [facility] Address [address] [place] [address] Care Team Providers Care Apparatus Engineering Technologist Name Role Phone SILVERIO FULLER Unavailable PROBLEMS Type Condition ICD9-CM Code EWQ19-UY Code Onset Dates Condition Status SNOMED Code Problem Chronic obstructive pulmonary disease, unspecified COPD type J44.9 Active 37460157 Problem Smoking addiction F17.200 Active 166882347 Problem Routine gynecological examination Z01.419 Active 740122137 Problem Abdominal bloating R14.0 Active 400589224 Problem Insomnia, unspecified type G47.00 Active 637404199 Problem Gastroesophageal reflux disease, esophagitis presence not specified K21.9 Active 305557502 Problem Constipation, unspecified constipation type K59.00 Active 63761808 Problem Secondary hypertension I15.9 Active 54609677 ALLERGIES Unknown Allergies SOCIAL HISTORY No smoking Hx information available PLAN OF CARE VITAL SIGNS MEDICATIONS Unknown Medications RESULTS No Results PROCEDURES No Known procedures IMMUNIZATIONS No Known Immunizations
--- OUTSIDE RECORDS SUMMARY | 2019-01-11 14:16 | XMS REPORT ---
Author Author SILVERIO FULLER Organization [facility] Address [address] [place] [address] Care Team Providers Care Chief Financial Officer Name Role Phone SILVERIO FULLER Unavailable PROBLEMS Type Condition ICD9-CM Code URE20-YL Code Onset Dates Condition Status SNOMED Code Problem Chronic obstructive pulmonary disease, unspecified COPD type J44.9 Active 96444853 Problem Gastroesophageal reflux disease, esophagitis presence not specified K21.9 Active 287203299 Problem Routine gynecological examination Z01.419 Active 385312989 Problem Constipation, unspecified constipation type K59.00 Active 34102114 Problem Secondary hypertension I15.9 Active 98297643 Problem Smoking addiction F17.200 Active 470443975 Problem Abdominal bloating R14.0 Active 519501033 Problem Insomnia, unspecified type G47.00 Active 859326868 ALLERGIES Unknown Allergies SOCIAL HISTORY No smoking Hx information available PLAN OF CARE VITAL SIGNS MEDICATIONS Medication Instructions Dosage Frequency Start Date End Date Duration Status MiraLax 17 gm/dose Orally Once a day 17 gm in liquid 24h Mar, Active Seroquel 50 mg Orally Once a day 1 tablet 24h Mar, Active RESULTS No Results PROCEDURES No Known procedures IMMUNIZATIONS No Known Immunizations
--- OUTSIDE RECORDS SUMMARY | 2019-01-11 14:17 | XMS REPORT ---
Author Author SILVERIO Kyle Organization [facility] Address [address] [place] [address] Care Team Providers Care Recoil Spring Winder Name Role Phone SILVERIO Kyle Unavailable PROBLEMS Type Condition ICD9-CM Code JEJ39-[id number] Code Onset Dates Condition Status SNOMED Code Problem Smoking addiction F17.200 Active 236729061 Problem Insomnia, unspecified type G47.00 Active 786904411 Problem Secondary hypertension I15.9 Active 56375761 Problem Gastroesophageal reflux disease, esophagitis presence not specified K21.9 Active 987292815 Problem Chronic obstructive pulmonary disease, unspecified COPD type J44.9 Active 15700059 Problem Panlobular emphysema J43.1 Active 6450052 Problem Gastroesophageal reflux disease without esophagitis K21.9 Active 746887976 Problem Constipation, unspecified constipation type K59.00 Active 88505423 Problem Abdominal bloating R14.0 Active 987051947 Problem Primary insomnia F51.01 Active 3131997 Problem Routine gynecological examination Z01.419 Active 917387034 ALLERGIES No Information ENCOUNTERS Encounter Location Date Diagnosis [facility] [id number] [address] Sep, [facility] [id number] [place] [address] Sep, [facility] [address], [place] [address] Sep, Primary insomnia F51.01 [facility] [id number] [place] [address] Jul, [facility] [address] [address] Jul, [facility] [id number] [address] 14 Jul, 2017 [facility] [id number] [place] [address] Jun, [facility] [id number] [place] [address] Jun, Chronic obstructive pulmonary disease, unspecified COPD type J44.9 [facility] [id number] [place] [address] Jun, [facility] [id number] [place] [address] Jun, Primary insomnia F51.01 [facility] [id number] [place] [address] Jun, [facility] [id number] [place] [address] May, Chronic obstructive pulmonary disease, unspecified COPD type J44.9 [facility] [id number] [place] [address] May, [facility] [id number] [place] [address] May, Panlobular emphysema J43.1 and Gastroesophageal reflux disease without esophagitis K21.9 [facility] [address] [place] [address] Feb, Insomnia, unspecified type G47.00 [facility] [address] [place] [address] Feb, [facility] [id number] [place] [address] Feb, Secondary hypertension I15.9 [facility] [address] [address] Feb, [facility] [id number] [place] [address] Jan, [facility] [id number] [place] [address] Jan, [facility] [id number] [place] [address] Jan, Secondary hypertension I15.9 [facility] [id number] [place] [address] Nov, [facility] [id number] [place] [address] Nov, Gastroesophageal reflux disease, esophagitis presence not specified K21.9 [facility] [address] [address] October, Chronic obstructive pulmonary disease, unspecified COPD type J44.9 [facility] [id number] [place] [address] Sep, [facility] [id number] [place] [address] Sep, [facility] [id number] [place] [address] Sep, [facility] [id number] [place] [address] Sep, [facility] [address] [place] [address] Sep, [facility] [id number] [place] [address] Sep, Secondary hypertension I15.9 ; Gastroesophageal reflux disease, esophagitis presence not specified K21.9 ; Smoking addiction F17.200 ; Constipation, unspecified constipation type K59.00 and Insomnia, unspecified type G47.00 [facility] [address] [place] [address] Aug, Constipation, unspecified constipation type K59.00 [facility] [id number] [place] [address] Aug, [place] [id number] [place] [address] Jul, Gastroesophageal reflux disease, esophagitis presence not specified K21.9 [place] [id number] [place] [address] Jun, Insomnia, unspecified type G47.00 and Constipation, unspecified constipation type K59.00 [place] [address] [address] Jun, Secondary hypertension I15.9 ; Gastroesophageal reflux disease, esophagitis presence not specified K21.9 ; Smoking addiction F17.200 ; Chronic obstructive pulmonary disease, unspecified COPD type J44.9 ; Insomnia, unspecified type G47.00 ; Constipation, unspecified constipation type K59.00 ; Routine gynecological examination Z01.419 and Screening cholesterol level Z13.220 [place] [address] [address] Jun, [place] [address] [address] May, [place] [address] [address] May, [place] [id number] [place] [address] Apr, [place] [id number] [place] [address] Mar, Secondary hypertension I15.9 ; Insomnia, unspecified type G47.00 ; Gastroesophageal reflux disease, esophagitis presence not specified K21.9 ; Chronic obstructive pulmonary disease, unspecified COPD type J44.9 and Abdominal bloating R14.0 [place] [id number] [place] [address] Mar, [place] [address] [address] Mar, [place] [id number] [address] Mar, Gastroesophageal reflux disease, esophagitis presence not specified K21.9 ; Secondary hypertension I15.9 ; Chronic obstructive pulmonary disease, unspecified COPD type J44.9 ; Smoking addiction F17.200 ; Abdominal bloating R14.0 ; Insomnia, unspecified type G47.00 and Constipation, unspecified constipation type K59.00 [facility] [address] [address] Jan, [facility] [id number] [place] [address] Dec, Secondary hypertension I15.9 ; Insomnia, unspecified type G47.00 ; Chronic obstructive pulmonary disease, unspecified COPD type J44.9 ; Smoking addiction F17.200 and Gastroesophageal reflux disease, esophagitis presence not specified K21.9 [facility] [address] [place] [address] Nov, Secondary hypertension I15.9 ; Insomnia, unspecified type G47.00 ; Gastroesophageal reflux disease, esophagitis presence not specified K21.9 and Chronic obstructive pulmonary disease, unspecified COPD type J44.9 [facility] [id number] [address] October, Dyspepsia R10.13 IMMUNIZATIONS No Known Immunizations [...]
--- OUTSIDE RECORDS SUMMARY | 2019-01-11 14:17 | XMS REPORT ---
Author Author AYDE BYRD Organization [facility] Address [address] [place] [address] Care Team Providers Care Dental Scheduling Coordinator Name Role Phone AYDE BYRD Unavailable PROBLEMS Type Condition ICD9-CM Code AAI28-EK Code Onset Dates Condition Status SNOMED Code Problem Secondary hypertension I15.9 Active 13592882 Problem Abdominal bloating R14.0 Active 859148827 Problem Insomnia, unspecified type G47.00 Active 933614174 Problem Gastroesophageal reflux disease, esophagitis presence not specified K21.9 Active 280816004 Problem Chronic obstructive pulmonary disease, unspecified COPD type J44.9 Active 60175920 Problem Smoking addiction F17.200 Active 716705528 Problem Other chronic gastritis without hemorrhage K29.50 Active 1780194 Problem Panlobular emphysema J43.1 Active 2557430 Problem Routine gynecological examination Z01.419 Active 845705634 Problem Constipation, unspecified constipation type K59.00 Active 88713344 Problem Gastroesophageal reflux disease without esophagitis K21.9 Active 575452327 Problem Primary insomnia F51.01 Active 1669124 ALLERGIES No Information ENCOUNTERS Encounter Location Date Diagnosis [place] [id number] [place] [address] Dec, [facility] [id number] [place] [address] Nov, Insomnia, unspecified type G47.00 [facility] [id number] [place] [address] October, Insomnia, unspecified type G47.00 [facility] [id number] [place] [address] Sep, Other chronic gastritis without hemorrhage K29.50 [facility] [id number] [place] [address] Sep, Secondary hypertension I15.9 [facility] [id number] [place] [address] Sep, Insomnia, unspecified type G47.00 [facility] [id number] [place] [address] Sep, Primary insomnia F51.01 [facility] [id number] [place] [address] Jul, [facility] [id number] [place] [address] Jul, [facility] [id number] [place] [address] Jul, [facility] [id number] [place] [address] Jun, [facility] [id number] [place] [address] Jun, Chronic obstructive pulmonary disease, unspecified COPD type J44.9 [facility] [id number] [place] [address] Jun, [facility] [id number] [place] [address] Jun, Primary insomnia F51.01 [facility] [id number] [place] [address] Jun, [facility] [id number] [place] [address] May, Chronic obstructive pulmonary disease, unspecified COPD type J44.9 [facility] [id number] [place] [address] May, [facility] [address] [place] [address] May, Panlobular emphysema J43.1 and Gastroesophageal reflux disease without esophagitis K21.9 [facility] [address], [place] [address] Feb, Insomnia, unspecified type G47.00 [facility] [id number] [place] [address] Feb, [facility] [id number] [place] [address] Feb, Secondary hypertension I15.9 [facility] [id number] [place] [address] Feb, [facility] [id number] [place] [address] Jan, [facility] [id number] [place] [address] Jan, [facility] [id number] [place] [address] Jan, Secondary hypertension I15.9 [facility] [id number] [place] [address] Nov, [facility] [id number] [place] [address] Nov, Gastroesophageal reflux disease, esophagitis presence not specified K21.9 [facility] [address], [place] [address] October, Chronic obstructive pulmonary disease, unspecified COPD type J44.9 [facility] [address], [place] [address] Sep, [facility] [id number] [place] [address] Sep, [facility] [id number] [place] [address] Sep, [facility] [id number] [place] [address] Sep, [place] [id number] [place] [address] Sep, [place] [id number] [place] [address] Sep, Secondary hypertension I15.9 ; Gastroesophageal reflux disease, esophagitis presence not specified K21.9 ; Smoking addiction F17.200 ; Constipation, unspecified constipation type K59.00 and Insomnia, unspecified type G47.00 [place] [id number] [place] [address] Aug, Constipation, unspecified constipation type K59.00 [place] [address] [address] Aug, [place] [address] [address] Jul, Gastroesophageal reflux disease, esophagitis presence not specified K21.9 [place] [id number] [place] [address] Jun, Insomnia, unspecified type G47.00 and Constipation, unspecified constipation type K59.00 [place] [id number] [place] [address] Jun, Secondary hypertension I15.9 ; Gastroesophageal reflux disease, esophagitis presence not specified K21.9 ; Smoking addiction F17.200 ; Chronic obstructive pulmonary disease, unspecified COPD type J44.9 ; Insomnia, unspecified type G47.00 ; Constipation, unspecified constipation type K59.00 ; Routine gynecological examination Z01.419 and Screening cholesterol level Z13.220 [place] [id number] [place] [address] Jun, [place] [id number] [place] [address] May, [place] [id number] [place] [address] May, [place] [address] [place] [address] Apr, [place] [id number] [place] [address] Mar, Secondary hypertension I15.9 ; Insomnia, unspecified type G47.00 ; Gastroesophageal reflux disease, esophagitis presence not specified K21.9 ; Chronic obstructive pulmonary disease, unspecified COPD type J44.9 and Abdominal bloating R14.0 [place] [address] [address] Mar, [place] [id number] [place] [address] Mar, [place] [id number] [place] [address] Mar, Gastroesophageal reflux disease, esophagitis presence not specified K21.9 ; Secondary hypertension I15.9 ; Chronic obstructive pulmonary disease, unspecified COPD type J44.9 ; Smoking addiction F17.200 ; Abdominal bloating R14.0 ; Insomnia, unspecified type G47.00 and Constipation, unspecified constipation type K59.00 [place] [id number] [place] [address] Jan, [place] [id number] [place] [address] Dec, Secondary hypertension I15.9 ; Insomnia, unspecified type G47.00 ; Chronic obstructive pulmonary disease, unspecified COPD type J44.9 ; Smoking addiction F17.200 and Gastroesophageal reflux disease, esophagitis presence not specified K21.9 [place] [address] [place] [address] Nov, Secondary hypertension I15.9 ; Insomnia, unspecified type G47.00 ; Gastroesophageal reflux disease, esophagitis presence not specified K21.9 and Chronic obstructive pulmonary disease, unspecified COPD type J44.9 [facility] [address] [place] [address] October, Dyspepsia R10.13 IMMUNIZATIONS No Known Immunizations SOCIAL HISTORY Never Assessed REASON FOR VISIT Medication refill request PLAN OF CARE VITAL SIGNS MEDICATIONS Medication Instructions Dosage Frequency Start Date End Date Duration Status Seroquel 200 MG TAKE ONE TABLET BY [...]
--- OUTSIDE RECORDS SUMMARY | 2019-01-11 14:17 | XMS REPORT ---
Author Author SILVERIO FULLER Organization [facility] Address [address] [place] [address] Care Team Providers Care Librarian Name Role Phone SILVERIO FULLER Unavailable PROBLEMS Type Condition ICD9-CM Code RYO69-YD Code Onset Dates Condition Status SNOMED Code Problem Chronic obstructive pulmonary disease, unspecified COPD type J44.9 Active 68226340 Problem Gastroesophageal reflux disease, esophagitis presence not specified K21.9 Active 418303183 Problem Routine gynecological examination Z01.419 Active 178797405 Problem Constipation, unspecified constipation type K59.00 Active 91224127 Problem Secondary hypertension I15.9 Active 50692106 Problem Smoking addiction F17.200 Active 271382790 Problem Abdominal bloating R14.0 Active 511186914 Problem Insomnia, unspecified type G47.00 Active 467238525 ALLERGIES No Information SOCIAL HISTORY Never Assessed PLAN OF CARE VITAL SIGNS MEDICATIONS Medication Instructions Dosage Frequency Start Date End Date Duration Status Prilosec 20 mg Orally Once a day 1 capsule 24h October, 30 day(s) Active RESULTS No Results PROCEDURES No Known procedures IMMUNIZATIONS No Known Immunizations MEDICAL (GENERAL) HISTORY Type Description Date Medical History hypertension Medical History COPD -smoker Medical History blood in colon Surgical History cyst removal- back Hospitalization History Surgery(s)/Childbirth(s) only Hospitalization History ICU x2 days for HTN 2012
--- OUTSIDE RECORDS SUMMARY | 2019-01-11 14:17 | XMS REPORT ---
Author Author AYDE BYRD Organization [facility] Address [address] [place] [address] Care Team Providers Care Data Processing Mechanic Name Role Phone AYDE BYRD Unavailable PROBLEMS Type Condition ICD9-CM Code [id number] Code Onset Dates Condition Status SNOMED Code Problem Secondary hypertension I15.9 Active 05723731 Problem Abdominal bloating R14.0 Active 308101276 Problem Insomnia, unspecified type G47.00 Active 749492713 Problem Gastroesophageal reflux disease, esophagitis presence not specified K21.9 Active 399600545 Problem Chronic obstructive pulmonary disease, unspecified COPD type J44.9 Active 36224850 Problem Smoking addiction F17.200 Active 602105501 Problem Other chronic gastritis without hemorrhage K29.50 Active 3249666 Problem Panlobular emphysema J43.1 Active 7737849 Problem Routine gynecological examination Z01.419 Active 267856690 Problem Constipation, unspecified constipation type K59.00 Active 85072019 Problem Gastroesophageal reflux disease without esophagitis K21.9 Active 978330887 Problem Primary insomnia F51.01 Active 2877521 ALLERGIES No Known Allergies ENCOUNTERS Encounter Location Date Diagnosis [facility] [address] [address] Dec, [facility] [id number] [place] [address] Nov, Insomnia, unspecified type G47.00 [facility] [id number] [place] [address] October, Insomnia, unspecified type G47.00 [facility] [id number] [place] [address] Sep, Other chronic gastritis without hemorrhage K29.50 [facility] [id number] [place] [address] Sep, Secondary hypertension I15.9 [facility] [address] [place] [address] Sep, Insomnia, unspecified type G47.00 [facility] [id number] [place] [address] Sep, Primary insomnia F51.01 [facility] [id number] [place] [address] Jul, [facility] [id number] [place] [address] Jul, [facility] [id number] [place] [address] Jul, [facility] [id number] [place] [address] Jun, [facility] [id number] [place] [address] Jun, Chronic obstructive pulmonary disease, unspecified COPD type J44.9 [facility] [id number] [place] [address] Jun, [facility] [id number] [place] [address] Jun, Primary insomnia F51.01 [facility] [id number] [place] [address] Jun, [facility] [id number] [place] [address] May, Chronic obstructive pulmonary disease, unspecified COPD type J44.9 [facility] [id number] [place] [address] May, [facility] [address] [place] [address] May, Panlobular emphysema J43.1 and Gastroesophageal reflux disease without esophagitis K21.9 [facility] [address] [address] Feb, Insomnia, unspecified type G47.00 [facility] [address], [place] [address] Feb, [facility] [address], [place] [address] Feb, Secondary hypertension I15.9 [facility] [address] [address] Feb, [facility] [address] [place] [address] Jan, [facility] [id number] [place] [address] Jan, [facility] [id number] [place] [address] Jan, Secondary hypertension I15.9 [facility] [address] [place] [address] Nov, [facility] [id number] [place] [address] Nov, Gastroesophageal reflux disease, esophagitis presence not specified K21.9 [facility] [address] [address] October, Chronic obstructive pulmonary disease, unspecified COPD type J44.9 [facility] [address] [address] Sep, [facility] [address] [address] Sep, [facility] [address] [address] Sep, [facility] [address] [address] Sep, [place] [address] [address] Sep, [place] [id number] [place] [address] Sep, Secondary hypertension I15.9 ; Gastroesophageal reflux disease, esophagitis presence not specified K21.9 ; Smoking addiction F17.200 ; Constipation, unspecified constipation type K59.00 and Insomnia, unspecified type G47.00 [place] [id number] [place] [address] Aug, Constipation, unspecified constipation type K59.00 [facility] [id number] [place] [address] Aug, [place] [id number] [place] [address] Jul, Gastroesophageal reflux disease, esophagitis presence not specified K21.9 [facility] [id number] [place] [address] Jun, Insomnia, unspecified type G47.00 and Constipation, unspecified constipation type K59.00 [place] [id number] [place] [address] Jun, Secondary hypertension I15.9 ; Gastroesophageal reflux disease, esophagitis presence not specified K21.9 ; Smoking addiction F17.200 ; Chronic obstructive pulmonary disease, unspecified COPD type J44.9 ; Insomnia, unspecified type G47.00 ; Constipation, unspecified constipation type K59.00 ; Routine gynecological examination Z01.419 and Screening cholesterol level Z13.220 [place] [id number] [place] [address] Jun, [place] [id number] [place] [address] May, [place] [id number] [place] [address] May, [place] [address] [place] [address] Apr, [facility] [id number] [place] [address] Mar, Secondary hypertension I15.9 ; Insomnia, unspecified type G47.00 ; Gastroesophageal reflux disease, esophagitis presence not specified K21.9 ; Chronic obstructive pulmonary disease, unspecified COPD type J44.9 and Abdominal bloating R14.0 [place] [id number] [place] [address] Mar, [place] [id number] [place] [address] Mar, [place] [id number] [place] [address] Mar, Gastroesophageal reflux disease, esophagitis presence not specified K21.9 ; Secondary hypertension I15.9 ; Chronic obstructive pulmonary disease, unspecified COPD type J44.9 ; Smoking addiction F17.200 ; Abdominal bloating R14.0 ; Insomnia, unspecified type G47.00 and Constipation, unspecified constipation type K59.00 [place] [id number] [place] [address] Jan, [place] [id number] [place] [address] Dec, Secondary hypertension I15.9 ; Insomnia, unspecified type G47.00 ; Chronic obstructive pulmonary disease, unspecified COPD type J44.9 ; Smoking addiction F17.200 and Gastroesophageal reflux disease, esophagitis presence not specified K21.9 [place] [address] [place] [address] Nov, Secondary hypertension I15.9 ; Insomnia, unspecified type G47.00 ; Gastroesophageal reflux disease, esophagitis presence not specified K21.9 and Chronic obstructive pulmonary disease, unspecified COPD type J44.9 [facility] [address] [place] [address] October, Dyspepsia R10.13 IMMUNIZATIONS No Known Immunizations SOCIAL HISTORY Never Assessed REASON FOR VISIT Dizziness and SOB due to her COPD-Javier SANTORO, PT has more concerns but was infor med this was a SD apt and needs to see her PCP PLAN OF CARE VITAL SIGNS Height 62 in 2017-05-25 Weight 145.7 lbs 2017-05-25 Temperature 98.5 degrees Fahrenheit 2017-05-25 Heart Rate 96 bpm 2017-05-25 Respiratory Rate 20 2017-05-25 Oximetry ambulating w/o oxygen:96 % 2017-05-25 BMI 26.65 kg/m2 2017-05-25 Blood pressure systolic 148 mmHg 2017-05-25 Blood pressure diastolic 88 mmHg 2017-05-25 MEDICATIONS Medication Instructions Dosage Frequency Start Date End Date Duration Status Amlodipine Besylate 5 mg Orally Once a day 2 tablet 24h 30 Active ProAir HFA 108 (90 Base) MCG/ACT Inhalation every 4 hrs 2 puffs as needed 4h 17 Active MiraLax - Orally Once a day 1 packet mixed with 8 ounces of fluid 24h Active Doxazosin Mesylate 2 MG Orally Once a day 1 tablet 24h 90 days Active Seroquel 200 MG TAKE ONE TABLET BY MOUTH ONCE DAILY AT BEDTIME 30 Active RESULTS Name Result Date Reference Range Xray : Chest (IN HOUSE) 2017-05-25 PROCEDURES Procedure Date Ordered Result Body Site MEASURE BLOOD OXYGEN LEVEL May 25, 2017 CHEST X-RAY May 25, 2017 SPIROMETRY May 25, 2017 INSTRUCTIONS MEDICATIONS ADMINISTERED No Known Medications MEDICAL (GENERAL) HISTORY Type Description Date Medical History hypertension Medical History COPD -smoker Medical History blood in colon Surgical History cyst removal- back Surgical History endoscopy 01/2017 Surgical History colonoscopy 2017/ Hospitalization History Surgery(s)/Childbirth(s) only Hospitalization History ICU x2 days for HTN 2012
--- OUTSIDE RECORDS SUMMARY | 2019-01-11 14:17 | XMS REPORT ---
Author Author SILVERIO Kyle Organization [facility] Address [address] [place] [address] Care Team Providers Care Jewel Hole Gauger Name Role Phone Saroj SILVERIO Unavailable PROBLEMS Type Condition ICD9-CM Code XLJ26-OQ Code Onset Dates Condition Status SNOMED Code Problem Secondary hypertension I15.9 Active 13835148 Problem Abdominal bloating R14.0 Active 837884080 Problem Insomnia, unspecified type G47.00 Active 112365895 Problem Gastroesophageal reflux disease, esophagitis presence not specified K21.9 Active 914865785 Problem Chronic obstructive pulmonary disease, unspecified COPD type J44.9 Active 79242913 Problem Smoking addiction F17.200 Active 783267294 Problem Other chronic gastritis without hemorrhage K29.50 Active 0271941 Problem Panlobular emphysema J43.1 Active 0919374 Problem Routine gynecological examination Z01.419 Active 001102435 Problem Constipation, unspecified constipation type K59.00 Active 72661343 Problem Gastroesophageal reflux disease without esophagitis K21.9 Active 540151864 Problem Primary insomnia F51.01 Active 0930271 ALLERGIES No Information ENCOUNTERS Encounter Location Date Diagnosis [facility] [id number] [place] [address] Sep, Other chronic gastritis without hemorrhage K29.50 [facility] [id number] [place] [address] Sep, Secondary hypertension I15.9 [facility] [id number] [place] [address] Sep, Insomnia, unspecified type G47.00 [facility] [id number] [place] [address] Sep, Primary insomnia F51.01 [facility] [address] [address] Jul, [facility] [id number] [place] [address] Jul, [facility] [id number] [place] [address] Jul, [facility] [id number] [place] [address] Jun, [facility] [id number] [place] [address] Jun, Chronic obstructive pulmonary disease, unspecified COPD type J44.9 [facility] [id number] [place] [address] Jun, [facility] [id number] [place] [address] Jun, Primary insomnia F51.01 [facility] [id number] [place] [address] Jun, [facility] [id number] [place] [address] May, Chronic obstructive pulmonary disease, unspecified COPD type J44.9 [facility] [id number] [place] [address] May, [facility] [id number] [place] [address] May, Panlobular emphysema J43.1 and Gastroesophageal reflux disease without esophagitis K21.9 [facility] [id number] [place] [address] Feb, Insomnia, unspecified type G47.00 [facility] [id number], [place] [address] Feb, [facility] [id number] [place] [address] Feb, Secondary hypertension I15.9 [facility] [address], [place] [address] Feb, [facility] [address], [place] [address] Jan, [facility] [id number] [place] [address] Jan, [facility] [id number] [place] [address] Jan, Secondary hypertension I15.9 [facility] [id number] [place] [address] Nov, [facility] [id number] [place] [address] Nov, Gastroesophageal reflux disease, esophagitis presence not specified K21.9 [facility] [id number] [place] [address] October, Chronic obstructive pulmonary disease, unspecified COPD type J44.9 [facility] [id number] [place] [address] Sep, [facility] [id number] [place] [address] Sep, [facility] [address], [place] [address] Sep, [facility] [id number] [place] [address] Sep, [facility] [id number] [place] [address] Sep, [facility] [id number] [place] [address] Sep, Secondary hypertension I15.9 ; Gastroesophageal reflux disease, esophagitis presence not specified K21.9 ; Smoking addiction F17.200 ; Constipation, unspecified constipation type K59.00 and Insomnia, unspecified type G47.00 [place] [id number] [place] [address] Aug, Constipation, unspecified constipation type K59.00 [place] [id number] [place] [address] Aug, [place] [id number] [place] [address] Jul, Gastroesophageal reflux disease, esophagitis presence not specified K21.9 [place] [id number] [place] [address] Jun, Insomnia, unspecified type G47.00 and Constipation, unspecified constipation type K59.00 [place] [id number] [place] [address] Jun, Secondary hypertension I15.9 ; Gastroesophageal reflux disease, esophagitis presence not specified K21.9 ; Smoking addiction F17.200 ; Chronic obstructive pulmonary disease, unspecified COPD type J44.9 ; Insomnia, unspecified type G47.00 ; Constipation, unspecified constipation type K59.00 ; Routine gynecological examination Z01.419 and Screening cholesterol level Z13.220 [place] [id number] [place] [address] Jun, [place] [id number] [place] [address] May, [place] [id number] [place] [address] May, [place] [id number] [place] [address] Apr, [place] [id number] [place] [address] Mar, Secondary hypertension I15.9 ; Insomnia, unspecified type G47.00 ; Gastroesophageal reflux disease, esophagitis presence not specified K21.9 ; Chronic obstructive pulmonary disease, unspecified COPD type J44.9 and Abdominal bloating R14.0 [place] [id number] [place] [address] Mar, [facility] [id number] [place] [address] Mar, [place] [id number] [place] [address] Mar, Gastroesophageal reflux disease, esophagitis presence not specified K21.9 ; Secondary hypertension I15.9 ; Chronic obstructive pulmonary disease, unspecified COPD type J44.9 ; Smoking addiction F17.200 ; Abdominal bloating R14.0 ; Insomnia, unspecified type G47.00 and Constipation, unspecified constipation type K59.00 [place] [id number] [place] [address] Jan, [place] [id number] [place] [address] Dec, Secondary hypertension I15.9 ; Insomnia, unspecified type G47.00 ; Chronic obstructive pulmonary disease, unspecified COPD type J44.9 ; Smoking addiction F17.200 and Gastroesophageal reflux disease, esophagitis presence not specified K21.9 [place] [id number] [place] [address] Nov, Secondary hypertension I15.9 ; Insomnia, unspecified type G47.00 ; Gastroesophageal reflux disease, esophagitis presence not specified K21.9 and Chronic obstructive pulmonary disease, unspecified COPD type J44.9 [facility] [id number] [place] [address] October, Dyspepsia R10.13 IMMUNIZATIONS No Known Immunizations SOCIAL HISTORY Never Assessed REASON FOR VISIT Medication question PLAN OF CARE VITAL SIGNS MEDICATIONS No [...]
--- OUTSIDE RECORDS SUMMARY | 2019-01-11 14:17 | XMS REPORT ---
Author Author SILVERIO Kyle Organization 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 Role Phone Saroj SILVERIO Unavailable PROBLEMS Type Condition ICD9-CM Code CKU54-QU Code Onset Dates Condition Status SNOMED Code Problem Secondary hypertension I15.9 Active 14445927 Problem Abdominal bloating R14.0 Active 846513690 Problem Insomnia, unspecified type G47.00 Active 990264166 Problem Gastroesophageal reflux disease, esophagitis presence not specified K21.9 Active 856909776 Problem Chronic obstructive pulmonary disease, unspecified COPD type J44.9 Active 50734214 Problem Smoking addiction F17.200 Active 261232639 Problem Other chronic gastritis without hemorrhage K29.50 Active 8651646 Problem Panlobular emphysema J43.1 Active 5021708 Problem Routine gynecological examination Z01.419 Active 312789004 Problem Constipation, unspecified constipation type K59.00 Active 99000898 Problem Gastroesophageal reflux disease without esophagitis K21.9 Active 748585288 Problem Primary insomnia F51.01 Active 1160408 ALLERGIES No Information ENCOUNTERS Encounter Location Date Diagnosis [facility] [id number] [place] [address] Sep, Other chronic gastritis without hemorrhage K29.50 [facility] [id number] [place] [address] Sep, Secondary hypertension I15.9 [facility] [id number] [place] [address] Sep, Insomnia, unspecified type G47.00 [facility] [id number] [place] [address] Sep, Primary insomnia F51.01 [facility] [address] [address] Jul, [facility] [id number] [place] [address] Jul, [facility] [id number] [place] [address] Jul, [facility] [id number] [place] [address] Jun, [facility] [id number] [place] [address] Jun, Chronic obstructive pulmonary disease, unspecified COPD type J44.9 [facility] [id number] [place] [address] Jun, [facility] [id number] [place] [address] Jun, Primary insomnia F51.01 [facility] [id number] [place] [address] Jun, [facility] [id number] [place] [address] May, Chronic obstructive pulmonary disease, unspecified COPD type J44.9 [facility] [address] [place] [address] May, [facility] [id number] [place] [address] May, Panlobular emphysema J43.1 and Gastroesophageal reflux disease without esophagitis K21.9 [facility] [id number] [place] [address] Feb, Insomnia, unspecified type G47.00 [facility] [address] [address] Feb, [facility] [id number] [place] [address] Feb, Secondary hypertension I15.9 [facility] [id number] [address] Feb, [facility] [address] [address] Jan, [facility] [id number] [place] [address] Jan, [facility] [address] [place] [address] Jan, Secondary hypertension I15.9 [facility] [id number] [place] [address] Nov, [facility] [id number] [place] [address] Nov, Gastroesophageal reflux disease, esophagitis presence not specified K21.9 [facility] [address] [place] [address] October, Chronic obstructive pulmonary disease, unspecified COPD type J44.9 [facility] [address] [place] [address] Sep, [facility] [address] [place] [address] Sep, [facility] [id number] [address] Sep, [facility] [address] [place] [address] Sep, [facility] [address] [place] [address] Sep, [facility] [address] [place] [address] Sep, Secondary hypertension I15.9 ; Gastroesophageal reflux disease, esophagitis presence not specified K21.9 ; Smoking addiction F17.200 ; Constipation, unspecified constipation type K59.00 and Insomnia, unspecified type G47.00 [place] [id number] [place] [address] Aug, Constipation, unspecified constipation type K59.00 [place] [id number] [place] [address] Aug, [place] [id number] [place] [address] Jul, Gastroesophageal reflux disease, esophagitis presence not specified K21.9 [place] [id number] [place] [address] Jun, Insomnia, unspecified type G47.00 and Constipation, unspecified constipation type K59.00 [place] [id number] [place] [address] Jun, Secondary hypertension I15.9 ; Gastroesophageal reflux disease, esophagitis presence not specified K21.9 ; Smoking addiction F17.200 ; Chronic obstructive pulmonary disease, unspecified COPD type J44.9 ; Insomnia, unspecified type G47.00 ; Constipation, unspecified constipation type K59.00 ; Routine gynecological examination Z01.419 and Screening cholesterol level Z13.220 [place] [id number] [place] [address] Jun, [place] [id number] [place] [address] May, [place] [id number] [place] [address] May, [place] [id number] [place] [address] Apr, [place] [id number] [place] [address] Mar, Secondary hypertension I15.9 ; Insomnia, unspecified type G47.00 ; Gastroesophageal reflux disease, esophagitis presence not specified K21.9 ; Chronic obstructive pulmonary disease, unspecified COPD type J44.9 and Abdominal bloating R14.0 [place] [address] [place] [address] Mar, [facility] [id number] [place] [address] Mar, [place] [id number] [place] [address] Mar, Gastroesophageal reflux disease, esophagitis presence not specified K21.9 ; Secondary hypertension I15.9 ; Chronic obstructive pulmonary disease, unspecified COPD type J44.9 ; Smoking addiction F17.200 ; Abdominal bloating R14.0 ; Insomnia, unspecified type G47.00 and Constipation, unspecified constipation type K59.00 [place] [id number] [place] [address] Jan, [place] [id number] [place] [address] Dec, Secondary hypertension I15.9 ; Insomnia, unspecified type G47.00 ; Chronic obstructive pulmonary disease, unspecified COPD type J44.9 ; Smoking addiction F17.200 and Gastroesophageal reflux disease, esophagitis presence not specified K21.9 [place] [id number] [place] [address] Nov, Secondary hypertension I15.9 ; Insomnia, unspecified type G47.00 ; Gastroesophageal reflux disease, esophagitis presence not specified K21.9 and Chronic obstructive pulmonary disease, unspecified COPD type J44.9 [facility] [id number] [place] [address] October, Dyspepsia R10.13 IMMUNIZATIONS No Known Immunizations SOCIAL HISTORY Never Assessed REASON FOR VISIT Repository Refill Request PLAN OF CARE VITAL SIGNS MEDICATIONS Medication Instructions Dosage Frequency Start Date End Date Duration Status Amlodipine Besylate 5 mg Orally Once a day 2 tablet 24h Active RESULTS No Results PROCEDURES No [...]
--- OUTSIDE RECORDS SUMMARY | 2019-01-11 14:17 | XMS REPORT ---
Author Author SILVERIO FULLER Organization [facility] Address [address] [place] [address] Care Team Providers Care Online Tutor Name Role Phone SILVERIO FULLER Unavailable PROBLEMS Type Condition ICD9-CM Code ASF46-DC Code Onset Dates Condition Status SNOMED Code Problem Chronic obstructive pulmonary disease, unspecified COPD type J44.9 Active 39084430 Problem Gastroesophageal reflux disease, esophagitis presence not specified K21.9 Active 290642039 Problem Routine gynecological examination Z01.419 Active 236695020 Problem Constipation, unspecified constipation type K59.00 Active 80105854 Problem Secondary hypertension I15.9 Active 01957477 Problem Smoking addiction F17.200 Active 158292236 Problem Abdominal bloating R14.0 Active 399527359 Problem Insomnia, unspecified type G47.00 Active 278610454 ALLERGIES No Information SOCIAL HISTORY Never Assessed PLAN OF CARE VITAL SIGNS MEDICATIONS Medication Instructions Dosage Frequency Start Date End Date Duration Status MiraLax - Orally Once a day 17 gm in liquid 24h Mar, Nov, 30 days Active RESULTS No Results PROCEDURES No Known procedures IMMUNIZATIONS No Known Immunizations MEDICAL (GENERAL) HISTORY Type Description Date Medical History hypertension Medical History COPD -smoker Medical History blood in colon Surgical History cyst removal- back Surgical History endoscopy 01/2017 Surgical History colonoscopy 2017/ Hospitalization History Surgery(s)/Childbirth(s) only Hospitalization History ICU x2 days for HTN 2012
--- OUTSIDE RECORDS SUMMARY | 2019-01-11 14:18 | XMS REPORT ---
Author Author AYDE BYRD Organization [facility] Address [address] [place] [address] Care Team Providers Care Director Of Radio Services Name Role Phone AYDE BYRD Unavailable PROBLEMS Type Condition ICD9-CM Code KUV23-KO Code Onset Dates Condition Status SNOMED Code Problem Secondary hypertension I15.9 Active 55930310 Problem Abdominal bloating R14.0 Active 202360019 Problem Insomnia, unspecified type G47.00 Active 659337621 Problem Gastroesophageal reflux disease, esophagitis presence not specified K21.9 Active 974749402 Problem Chronic obstructive pulmonary disease, unspecified COPD type J44.9 Active 78807837 Problem Smoking addiction F17.200 Active 934575346 Problem Other chronic gastritis without hemorrhage K29.50 Active 4017567 Problem Panlobular emphysema J43.1 Active 9796568 Problem Routine gynecological examination Z01.419 Active 665156612 Problem Constipation, unspecified constipation type K59.00 Active 25582293 Problem Gastroesophageal reflux disease without esophagitis K21.9 Active 128494164 Problem Primary insomnia F51.01 Active 3998734 ALLERGIES No Information ENCOUNTERS Encounter Location Date Diagnosis [facility] [id number] [place] [address] Dec, [facility] [id number] [place] [address] Nov, Insomnia, unspecified type G47.00 [facility] [id number] [place] [address] October, Insomnia, unspecified type G47.00 [facility] [id number] [place] [address] Sep, Other chronic gastritis without hemorrhage K29.50 [facility] [id number] [place] [address] Sep, Secondary hypertension I15.9 [facility] [address] [place] [address] Sep, Insomnia, unspecified type G47.00 [facility] [id number] [place] [address] Sep, Primary insomnia F51.01 [facility] [id number] [place] [address] Jul, [facility] [id number] [place] [address] Jul, [facility] [id number] [place] [address] Jul, [facility] [id number] [place] [address] Jun, [facility] [id number] [place] [address] Jun, Chronic obstructive pulmonary disease, unspecified COPD type J44.9 [facility] [id number] [place] [address] Jun, [facility] [id number] [place] [address] Jun, Primary insomnia F51.01 [facility] [id number] [place] [address] Jun, [facility] [id number] [place] [address] May, Chronic obstructive pulmonary disease, unspecified COPD type J44.9 [facility] [id number] [place] [address] May, [facility] [address] [place] [address] May, Panlobular emphysema J43.1 and Gastroesophageal reflux disease without esophagitis K21.9 [facility] [address], [place] [address] Feb, Insomnia, unspecified type G47.00 [facility] [id number] [place] [address] Feb, [facility] [id number] [place] [address] Feb, Secondary hypertension I15.9 [facility] [address] [place] [address] Feb, [facility] [id number] [place] [address] Jan, [facility] [id number] [place] [address] Jan, [facility] [id number] [place] [address] Jan, Secondary hypertension I15.9 [facility] [id number] [place] [address] Nov, [facility] [id number] [place] [address] Nov, Gastroesophageal reflux disease, esophagitis presence not specified K21.9 [facility] [address], [place] [address] October, Chronic obstructive pulmonary disease, unspecified COPD type J44.9 [facility] [address], [place] [address] Sep, [facility] [id number] [place] [address] Sep, [facility] [id number] [place] [address] Sep, [facility] [address] [place] [address] Sep, [place] [address] [place] [address] Sep, [place] [id number] [place] [address] Sep, Secondary hypertension I15.9 ; Gastroesophageal reflux disease, esophagitis presence not specified K21.9 ; Smoking addiction F17.200 ; Constipation, unspecified constipation type K59.00 and Insomnia, unspecified type G47.00 [place] [id number] [place] [address] Aug, Constipation, unspecified constipation type K59.00 [place] [address] [address] Aug, [place] [address] [address] Jul, Gastroesophageal reflux disease, esophagitis presence not specified K21.9 [place] [id number] [place] [address] Jun, Insomnia, unspecified type G47.00 and Constipation, unspecified constipation type K59.00 [place] [id number] [place] [address] Jun, Secondary hypertension I15.9 ; Gastroesophageal reflux disease, esophagitis presence not specified K21.9 ; Smoking addiction F17.200 ; Chronic obstructive pulmonary disease, unspecified COPD type J44.9 ; Insomnia, unspecified type G47.00 ; Constipation, unspecified constipation type K59.00 ; Routine gynecological examination Z01.419 and Screening cholesterol level Z13.220 [place] [id number] [place] [address] Jun, [place] [id number] [place] [address] May, [place] [id number] [place] [address] May, [place] [address] [place] [address] Apr, [place] [id number] [place] [address] Mar, Secondary hypertension I15.9 ; Insomnia, unspecified type G47.00 ; Gastroesophageal reflux disease, esophagitis presence not specified K21.9 ; Chronic obstructive pulmonary disease, unspecified COPD type J44.9 and Abdominal bloating R14.0 [place] [address] [address] Mar, [place] [id number] [place] [address] Mar, [place] [id number] [place] [address] Mar, Gastroesophageal reflux disease, esophagitis presence not specified K21.9 ; Secondary hypertension I15.9 ; Chronic obstructive pulmonary disease, unspecified COPD type J44.9 ; Smoking addiction F17.200 ; Abdominal bloating R14.0 ; Insomnia, unspecified type G47.00 and Constipation, unspecified constipation type K59.00 [place] [id number] [place] [address] Jan, [place] [id number] [place] [address] Dec, Secondary hypertension I15.9 ; Insomnia, unspecified type G47.00 ; Chronic obstructive pulmonary disease, unspecified COPD type J44.9 ; Smoking addiction F17.200 and Gastroesophageal reflux disease, esophagitis presence not specified K21.9 [place] [address] [place] [address] Nov, Secondary hypertension I15.9 ; Insomnia, unspecified type G47.00 ; Gastroesophageal reflux disease, esophagitis presence not specified K21.9 and Chronic obstructive pulmonary disease, unspecified COPD type J44.9 [facility] [address] [place] [address] October, Dyspepsia R10.13 IMMUNIZATIONS No Known Immunizations SOCIAL HISTORY Never Assessed REASON FOR VISIT [facility] 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 PLAN OF CARE Activity Details Follow Up prn Reason: VITAL SIGNS MEDICATIONS Unknown Medications RESULTS No Results PROCEDURES Procedure Date Ordered Result Body Site PULMONARY FUNCTION TEST (IN-HOUSE) 2017-06-01 Positive NEB/MDI DEMO Jun 01, 2017 SPRIOMETRY CHALLENGE Jun 01, 2017 SPIROMETRY Jun 01, 2017 INSTRUCTIONS MEDICATIONS ADMINISTERED No Known Medications MEDICAL (GENERAL) HISTORY Type Description Date Medical History hypertension Medical History COPD -smoker Medical History blood in colon Surgical History cyst removal- back Surgical History endoscopy 01/2017 Surgical History colonoscopy 2017/ Hospitalization History Surgery(s)/Childbirth(s) only Hospitalization History ICU x2 days for HTN 2012
--- OUTSIDE RECORDS SUMMARY | 2019-01-11 14:18 | XMS REPORT ---
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 Name Role Phone AYDE BYRD Unavailable PROBLEMS Type Condition ICD9-CM Code PZK86-AR Code Onset Dates Condition Status SNOMED Code Problem Secondary hypertension I15.9 Active 62468725 Problem Abdominal bloating R14.0 Active 389910039 Problem Insomnia, unspecified type G47.00 Active 390548559 Problem Gastroesophageal reflux disease, esophagitis presence not specified K21.9 Active 435156489 Problem Chronic obstructive pulmonary disease, unspecified COPD type J44.9 Active 58330818 Problem Smoking addiction F17.200 Active 892118110 Problem Other chronic gastritis without hemorrhage K29.50 Active 6085732 Problem Panlobular emphysema J43.1 Active 9787816 Problem Routine gynecological examination Z01.419 Active 360926409 Problem Constipation, unspecified constipation type K59.00 Active 02764655 Problem Gastroesophageal reflux disease without esophagitis K21.9 Active 852810470 Problem Primary insomnia F51.01 Active 0747694 ALLERGIES No Information ENCOUNTERS Encounter Location Date Diagnosis [place] [id number] [place] [address] Dec, [facility] [id number] [place] [address] Nov, Insomnia, unspecified type G47.00 [facility] [id number] [place] [address] October, Insomnia, unspecified type G47.00 [facility] [id number] [place] [address] Sep, Other chronic gastritis without hemorrhage K29.50 [facility] [id number] [place] [address] Sep, Secondary hypertension I15.9 [facility] [id number] [place] [address] Sep, Insomnia, unspecified type G47.00 [facility] [id number] [place] [address] Sep, Primary insomnia F51.01 [facility] [id number] [place] [address] Jul, [facility] [id number] [place] [address] Jul, [facility] [id number] [place] [address] Jul, [facility] [id number] [place] [address] Jun, [facility] [id number] [place] [address] Jun, Chronic obstructive pulmonary disease, unspecified COPD type J44.9 [facility] [id number] [place] [address] Jun, [facility] [id number] [place] [address] Jun, Primary insomnia F51.01 [facility] [id number] [place] [address] Jun, [facility] [id number] [place] [address] May, Chronic obstructive pulmonary disease, unspecified COPD type J44.9 [facility] [id number] [place] [address] May, [facility] [id number] [place] [address] May, Panlobular emphysema J43.1 and Gastroesophageal reflux disease without esophagitis K21.9 [facility] [address] [address] Feb, Insomnia, unspecified type G47.00 [facility] [id number] [place] [phone] Feb, [facility] [id number] [place] [address] Feb, Secondary hypertension I15.9 [facility] [id number] [place] [address] Feb, [facility] [id number] [place] [address] Jan, [facility] [id number] [place] [address] Jan, [facility] [id number] [place] [address] Jan, Secondary hypertension I15.9 [facility] [id number] [place] [address] Nov, [facility] [id number] [place] [address] Nov, Gastroesophageal reflux disease, esophagitis presence not specified K21.9 [facility] [id number] [address] October, Chronic obstructive pulmonary disease, unspecified COPD type J44.9 [facility] [address] [address] Sep, [facility] [id number] [place] [address] Sep, [facility] [id number] [place] [address] Sep, [facility] [id number] [place] [address] Sep, [place] [id number] [place] [address] Sep, [place] [id number] [place] [address] Sep, Secondary hypertension I15.9 ; Gastroesophageal reflux disease, esophagitis presence not specified K21.9 ; Smoking addiction F17.200 ; Constipation, unspecified constipation type K59.00 and Insomnia, unspecified type G47.00 [place] [id number] [place] [address] Aug, Constipation, unspecified constipation type K59.00 [place] [address] [address] Aug, [place] [address] [address] Jul, Gastroesophageal reflux disease, esophagitis presence not specified K21.9 [place] [id number] [place] [address] Jun, Insomnia, unspecified type G47.00 and Constipation, unspecified constipation type K59.00 [place] [id number] [place] [address] Jun, Secondary hypertension I15.9 ; Gastroesophageal reflux disease, esophagitis presence not specified K21.9 ; Smoking addiction F17.200 ; Chronic obstructive pulmonary disease, unspecified COPD type J44.9 ; Insomnia, unspecified type G47.00 ; Constipation, unspecified constipation type K59.00 ; Routine gynecological examination Z01.419 and Screening cholesterol level Z13.220 [place] [id number] [place] [address] Jun, [place] [id number] [place] [address] May, [place] [id number] [place] [address] May, [place] [address] [place] [address] Apr, [place] [id number] [place] [address] Mar, Secondary hypertension I15.9 ; Insomnia, unspecified type G47.00 ; Gastroesophageal reflux disease, esophagitis presence not specified K21.9 ; Chronic obstructive pulmonary disease, unspecified COPD type J44.9 and Abdominal bloating R14.0 [place] [address] [address] Mar, [place] [id number] [place] [address] Mar, [place] [id number] [place] [address] Mar, Gastroesophageal reflux disease, esophagitis presence not specified K21.9 ; Secondary hypertension I15.9 ; Chronic obstructive pulmonary disease, unspecified COPD type J44.9 ; Smoking addiction F17.200 ; Abdominal bloating R14.0 ; Insomnia, unspecified type G47.00 and Constipation, unspecified constipation type K59.00 [place] [id number] [place] [address] Jan, [place] [id number] [place] [address] Dec, Secondary hypertension I15.9 ; Insomnia, unspecified type G47.00 ; Chronic obstructive pulmonary disease, unspecified COPD type J44.9 ; Smoking addiction F17.200 and Gastroesophageal reflux disease, esophagitis presence not specified K21.9 [place] [id number] [place] [address] Nov, Secondary hypertension I15.9 ; Insomnia, unspecified type G47.00 ; Gastroesophageal reflux disease, esophagitis presence not specified K21.9 and Chronic obstructive pulmonary disease, unspecified COPD type J44.9 [facility] [id number] [place] [address] October, Dyspepsia R10.13 IMMUNIZATIONS No Known Immunizations SOCIAL HISTORY Never Assessed REASON FOR VISIT Medication// PLAN OF CARE VITAL SIGNS MEDICATIONS Medication Instructions Dosage Frequency Start Date End Date Duration Status Chantix 1 MG Orally Twice a day 1 tablet 12h 15 May, 2017 13 Nov, 2017 30 day(s) Active RESULTS No Results PROCEDURES [...]
--- OUTSIDE RECORDS SUMMARY | 2019-01-11 14:18 | XMS REPORT ---
Author Author AYDE BYRD Organization [facility] Address [address] [place] [address] Care Team Providers Care Screening Technician Name Role Phone AYDE BYRD Unavailable PROBLEMS Type Condition ICD9-CM Code ITB21-IN Code Onset Dates Condition Status SNOMED Code Problem Secondary hypertension I15.9 Active 12457337 Problem Abdominal bloating R14.0 Active 201788999 Problem Insomnia, unspecified type G47.00 Active 141856430 Problem Gastroesophageal reflux disease, esophagitis presence not specified K21.9 Active 897151882 Problem Chronic obstructive pulmonary disease, unspecified COPD type J44.9 Active 71520547 Problem Smoking addiction F17.200 Active 065095063 Problem Other chronic gastritis without hemorrhage K29.50 Active 2002554 Problem Panlobular emphysema J43.1 Active 2817684 Problem Routine gynecological examination Z01.419 Active 576392715 Problem Constipation, unspecified constipation type K59.00 Active 57378444 Problem Gastroesophageal reflux disease without esophagitis K21.9 Active 277579083 Problem Primary insomnia F51.01 Active 5295129 ALLERGIES No Information ENCOUNTERS Encounter Location Date Diagnosis [place] [id number] [place] [address] Dec, [facility] [id number] [place] [address] Nov, Insomnia, unspecified type G47.00 [facility] [id number] [place] [address] October, Insomnia, unspecified type G47.00 [facility] [id number] [place] [address] Sep, Other chronic gastritis without hemorrhage K29.50 [facility] [id number] [place] [address] Sep, Secondary hypertension I15.9 [facility] [id number] [place] [address] Sep, Insomnia, unspecified type G47.00 [facility] [id number] [place] [address] Sep, Primary insomnia F51.01 [facility] [id number] [place] [address] Jul, [facility] [id number] [place] [address] Jul, [facility] [id number] [place] [address] Jul, [facility] [id number] [place] [address] Jun, [facility] [id number] [place] [address] Jun, Chronic obstructive pulmonary disease, unspecified COPD type J44.9 [facility] [id number] [place] [address] Jun, [facility] [id number] [place] [address] Jun, Primary insomnia F51.01 [facility] [id number] [place] [address] Jun, [facility] [id number] [place] [address] May, Chronic obstructive pulmonary disease, unspecified COPD type J44.9 [facility] [id number] [place] [address] May, [facility] [id number] [place] [address] May, Panlobular emphysema J43.1 and Gastroesophageal reflux disease without esophagitis K21.9 [facility] [id number] [address] Feb, Insomnia, unspecified type G47.00 [facility] [id number] [place] [address] Feb, [facility] [id number] [place] [address] Feb, Secondary hypertension I15.9 [facility] [id number] [place] [address] Feb, [facility] [id number] [place] [address] Jan, [facility] [id number] [place] [address] Jan, [facility] [id number] [place] [address] Jan, Secondary hypertension I15.9 [facility] [id number] [place] [address] Nov, [facility] [id number] [place] [address] Nov, Gastroesophageal reflux disease, esophagitis presence not specified K21.9 [facility] [id number] [address] October, Chronic obstructive pulmonary disease, unspecified COPD type J44.9 [facility] [id number] [address] Sep, [facility] [id number] [place] [address] Sep, [facility] [id number] [place] [address] Sep, [facility] [id number] [place] [address] Sep, [place] [id number] [place] [address] Sep, [place] [id number] [place] [address] Sep, Secondary hypertension I15.9 ; Gastroesophageal reflux disease, esophagitis presence not specified K21.9 ; Smoking addiction F17.200 ; Constipation, unspecified constipation type K59.00 and Insomnia, unspecified type G47.00 [place] [id number] [place] [address] Aug, Constipation, unspecified constipation type K59.00 [place] [address] [address] Aug, [place] [address] [address] Jul, Gastroesophageal reflux disease, esophagitis presence not specified K21.9 [place] [id number] [place] [address] Jun, Insomnia, unspecified type G47.00 and Constipation, unspecified constipation type K59.00 [place] [id number] [place] [address] Jun, Secondary hypertension I15.9 ; Gastroesophageal reflux disease, esophagitis presence not specified K21.9 ; Smoking addiction F17.200 ; Chronic obstructive pulmonary disease, unspecified COPD type J44.9 ; Insomnia, unspecified type G47.00 ; Constipation, unspecified constipation type K59.00 ; Routine gynecological examination Z01.419 and Screening cholesterol level Z13.220 [place] [id number] [place] [address] Jun, [place] [id number] [place] [address] May, [place] [id number] [place] [address] May, [place] [address] [place] [address] Apr, [place] [id number] [place] [address] Mar, Secondary hypertension I15.9 ; Insomnia, unspecified type G47.00 ; Gastroesophageal reflux disease, esophagitis presence not specified K21.9 ; Chronic obstructive pulmonary disease, unspecified COPD type J44.9 and Abdominal bloating R14.0 [place] [address] [address] Mar, [place] [id number] [place] [address] Mar, [place] [id number] [place] [address] Mar, Gastroesophageal reflux disease, esophagitis presence not specified K21.9 ; Secondary hypertension I15.9 ; Chronic obstructive pulmonary disease, unspecified COPD type J44.9 ; Smoking addiction F17.200 ; Abdominal bloating R14.0 ; Insomnia, unspecified type G47.00 and Constipation, unspecified constipation type K59.00 [place] [id number] [place] [address] Jan, [place] [id number] [place] [address] Dec, Secondary hypertension I15.9 ; Insomnia, unspecified type G47.00 ; Chronic obstructive pulmonary disease, unspecified COPD type J44.9 ; Smoking addiction F17.200 and Gastroesophageal reflux disease, esophagitis presence not specified K21.9 [place] [address] [place] [address] Nov, Secondary hypertension I15.9 ; Insomnia, unspecified type G47.00 ; Gastroesophageal reflux disease, esophagitis presence not specified K21.9 and Chronic obstructive pulmonary disease, unspecified COPD type J44.9 [facility] [id number] [place] [address] October, Dyspepsia R10.13 IMMUNIZATIONS No Known Immunizations SOCIAL HISTORY Never Assessed REASON FOR VISIT Medication question PLAN OF CARE VITAL SIGNS MEDICATIONS Medication Instructions Dosage Frequency Start Date End Date Duration Status Tofranil 25 MG Orally Once a day, at night 1 tablet at bedtime Jun, Active RESULTS No Results PROCEDURES No Known [...]
--- OUTSIDE RECORDS SUMMARY | 2019-01-11 14:18 | XMS REPORT ---
Author Author AYDE BYRD Organization [facility] Address [address] [place] [address] Care Team Providers Care Analytics Senior Manager Name Role Phone AYDE BYRD Unavailable PROBLEMS Type Condition ICD9-CM Code WBL33-DC Code Onset Dates Condition Status SNOMED Code Problem Secondary hypertension I15.9 Active 41617534 Problem Abdominal bloating R14.0 Active 040106515 Problem Insomnia, unspecified type G47.00 Active 170700194 Problem Gastroesophageal reflux disease, esophagitis presence not specified K21.9 Active 003538729 Problem Chronic obstructive pulmonary disease, unspecified COPD type J44.9 Active 40518363 Problem Smoking addiction F17.200 Active 260341185 Problem Other chronic gastritis without hemorrhage K29.50 Active 0360113 Problem Panlobular emphysema J43.1 Active 8211987 Problem Routine gynecological examination Z01.419 Active 780840387 Problem Constipation, unspecified constipation type K59.00 Active 50558913 Problem Gastroesophageal reflux disease without esophagitis K21.9 Active 415617604 Problem Primary insomnia F51.01 Active 8317712 ALLERGIES No Known Allergies ENCOUNTERS Encounter Location Date Diagnosis [facility] [address], [place] [address] Dec, [facility] [id number] [place] [phone] Nov, Insomnia, unspecified type G47.00 [facility] [id number] [place] [address] October, Insomnia, unspecified type G47.00 [facility] [id number] [place] [phone] Sep, Other chronic gastritis without hemorrhage K29.50 [facility] [id number] [place] [phone] Sep, Secondary hypertension I15.9 [facility] [id number] [place] [address] Sep, Insomnia, unspecified type G47.00 [facility] [id number] [place] [phone] Sep, Primary insomnia F51.01 [facility] [id number] [place] [phone] Jul, [facility] [id number] [place] [phone] Jul, [facility] [id number] [place] [phone] Jul, [facility] [id number] [place] [phone] Jun, [facility] [id number] [place] [phone] Jun, Chronic obstructive pulmonary disease, unspecified COPD type J44.9 [facility] [id number] [place] [phone] Jun, [facility] [id number] [place] [phone] Jun, Primary insomnia F51.01 [facility] [id number] [place] [phone] Jun, [facility] [id number] [place] [phone] May, Chronic obstructive pulmonary disease, unspecified COPD type J44.9 [facility] [id number] [place] [phone] May, [facility] [id number] [place] [phone] May, Panlobular emphysema J43.1 and Gastroesophageal reflux disease without esophagitis K21.9 [facility] [address], [place] [address] Feb, Insomnia, unspecified type G47.00 [facility] [address], [place] [address] Feb, [facility] [address], [place] [address] Feb, Secondary hypertension I15.9 [facility] [address], [place] [address] Feb, [facility] [id number] [place] [phone] Jan, [facility] [id number] [place] [phone] Jan, [facility] [id number] [place] [phone] Jan, Secondary hypertension I15.9 [facility] [id number] [place] [phone] Nov, [facility] [id number] [place] [phone] Nov, Gastroesophageal reflux disease, esophagitis presence not specified K21.9 [facility] [address], [place] [address] October, Chronic obstructive pulmonary disease, unspecified COPD type J44.9 [facility] [address], [place] [address] Sep, [facility] [address], [place] [address] Sep, [facility] [address], [place] [address] Sep, [facility] [address], [place] [address] Sep, [place] [address], [place] [address] Sep, [place] [id number] [place] [address] Sep, Secondary hypertension I15.9 ; Gastroesophageal reflux disease, esophagitis presence not specified K21.9 ; Smoking addiction F17.200 ; Constipation, unspecified constipation type K59.00 and Insomnia, unspecified type G47.00 [place] [id number] [place] [address] Aug, Constipation, unspecified constipation type K59.00 [place] [id number] [place] [address] Aug, [place] [id number] [place] [address] Jul, Gastroesophageal reflux disease, esophagitis presence not specified K21.9 [place] [id number] [place] [address] Jun, Insomnia, unspecified type G47.00 and Constipation, unspecified constipation type K59.00 [place] [id number] [place] [address] Jun, Secondary hypertension I15.9 ; Gastroesophageal reflux disease, esophagitis presence not specified K21.9 ; Smoking addiction F17.200 ; Chronic obstructive pulmonary disease, unspecified COPD type J44.9 ; Insomnia, unspecified type G47.00 ; Constipation, unspecified constipation type K59.00 ; Routine gynecological examination Z01.419 and Screening cholesterol level Z13.220 [place] [id number] [place] [phone] Jun, [place] [id number] [place] [phone] May, [place] [id number] [place] [phone] May, [place] [address] [place] [address] Apr, [facility] [id number] [place] [address] Mar, Secondary hypertension I15.9 ; Insomnia, unspecified type G47.00 ; Gastroesophageal reflux disease, esophagitis presence not specified K21.9 ; Chronic obstructive pulmonary disease, unspecified COPD type J44.9 and Abdominal bloating R14.0 [place] [id number] [place] [phone] Mar, [place] [id number] [place] [phone] Mar, [place] [id number] [place] [phone] Mar, Gastroesophageal reflux disease, esophagitis presence not specified K21.9 ; Secondary hypertension I15.9 ; Chronic obstructive pulmonary disease, unspecified COPD type J44.9 ; Smoking addiction F17.200 ; Abdominal bloating R14.0 ; Insomnia, unspecified type G47.00 and Constipation, unspecified constipation type K59.00 [place] [id number] [place] [address] Jan, [place] [id number] [place] [address] Dec, Secondary hypertension I15.9 ; Insomnia, unspecified type G47.00 ; Chronic obstructive pulmonary disease, unspecified COPD type J44.9 ; Smoking addiction F17.200 and Gastroesophageal reflux disease, esophagitis presence not specified K21.9 [place] [id number] [place] [address] Nov, Secondary hypertension I15.9 ; Insomnia, unspecified type G47.00 ; Gastroesophageal reflux disease, esophagitis presence not specified K21.9 and Chronic obstructive pulmonary disease, unspecified COPD type J44.9 [facility] [id number] [place] [phone] October, Dyspepsia R10.13 IMMUNIZATIONS No Known Immunizations SOCIAL HISTORY Never Assessed REASON FOR VISIT Transition of Care. Angel, pt reports that chantix did not help and has sto pped it., pt wants to see if she can get some xanax to help with sleeping. PLAN OF CARE VITAL SIGNS Height 62 in 2017-06-19 Weight 143.5 lbs 2017-06-19 Temperature 98.1 degrees Fahrenheit 2017-06-19 Heart Rate 100 bpm 2017-06-19 Respiratory Rate 22 2017-06-19 BMI 26.24 kg/m2 2017-06-19 Blood pressure systolic 144 mmHg 2017-06-19 Blood pressure diastolic 78 mmHg 2017-06-19 MEDICATIONS Medication Instructions Dosage Frequency Start Date End Date Duration Status MiraLax - Orally Once a day 1 packet mixed with 8 ounces of fluid 24h Active Amlodipine Besylate 5 mg Orally Once a day 2 tablet 24h 30 Active Seroquel 200 MG TAKE ONE TABLET BY MOUTH ONCE DAILY AT BEDTIME 30 Active Chantix 1 MG Orally Twice a day 1 tablet 12h 15 May, 2017 Nov, 30 day(s) Not-Taking Doxazosin Mesylate 2 MG Orally Once a day 1 tablet 24h 90 days Active ProAir HFA 108 (90 Base) MCG/ACT Inhalation every 4 hrs 2 puffs as needed 4h 17 Not-Taking Ventolin HFA 108 (90 Base) MCG/ACT Inhalation every 6 hrs 2 puffs as needed 6h Jun, Active Doxepin HCl 150 MG Orally Once a day 1 capsule at bedtime 24h 11 Sep, 2016 30 day(s) Active Protonix 40 mg Orally at bedtime 1 tablet Active RESULTS No Results PROCEDURES No Known [...]
--- OUTSIDE RECORDS SUMMARY | 2019-01-11 14:18 | XMS REPORT ---
Author Author SILVERIO FULLER Organization [facility] Address [address] [place] [address] Care Team Providers Care Rn Angiography Name Role Phone SILVERIO FULLER Unavailable PROBLEMS Type Condition ICD9-CM Code EXJ44-XN Code Onset Dates Condition Status SNOMED Code Problem Chronic obstructive pulmonary disease, unspecified COPD type J44.9 Active 25138764 Problem Gastroesophageal reflux disease, esophagitis presence not specified K21.9 Active 633257285 Problem Routine gynecological examination Z01.419 Active 841325454 Problem Constipation, unspecified constipation type K59.00 Active 31137686 Problem Secondary hypertension I15.9 Active 96669632 Problem Smoking addiction F17.200 Active 332572235 Problem Abdominal bloating R14.0 Active 990504388 Problem Insomnia, unspecified type G47.00 Active 785925370 ALLERGIES No Information SOCIAL HISTORY Never Assessed PLAN OF CARE VITAL SIGNS MEDICATIONS Medication Instructions Dosage Frequency Start Date End Date Duration Status ProAir HFA 108 (90 Base) MCG/ACT Inhalation every 4 hrs 2 puffs as needed 4h October, Active RESULTS No Results PROCEDURES No Known procedures IMMUNIZATIONS No Known Immunizations MEDICAL (GENERAL) HISTORY Type Description Date Medical History hypertension Medical History COPD -smoker Medical History blood in colon Surgical History cyst removal- back Surgical History endoscopy 01/2017 Surgical History colonoscopy 2017/ Hospitalization History Surgery(s)/Childbirth(s) only Hospitalization History ICU x2 days for HTN 2012
--- OUTSIDE RECORDS SUMMARY | 2019-01-11 14:18 | XMS REPORT ---
Author Author SILVERIO FULLER Organization [facility] Address [address] [place] [address] Care Team Providers Care Maitre D Name Role Phone FULLER SILVERIO Unavailable PROBLEMS Type Condition ICD9-CM Code MWI80-UE Code Onset Dates Condition Status SNOMED Code Problem Chronic obstructive pulmonary disease, unspecified COPD type J44.9 Active 98014292 Problem Gastroesophageal reflux disease, esophagitis presence not specified K21.9 Active 425698435 Problem Routine gynecological examination Z01.419 Active 757942263 Problem Constipation, unspecified constipation type K59.00 Active 76631274 Problem Secondary hypertension I15.9 Active 07196514 Problem Smoking addiction F17.200 Active 786637215 Problem Abdominal bloating R14.0 Active 020918457 Problem Insomnia, unspecified type G47.00 Active 653643172 ALLERGIES Substance Reaction Event Type Date Status N.K.D.A. Unknown Non Drug Allergy Jun, Unknown SOCIAL HISTORY No smoking Hx information available PLAN OF CARE Activity Details Follow Up 3 Months, prn Reason:htn VITAL SIGNS Height 62 in 2016-06-29 Weight 149.6 lbs 2016-06-29 Temperature 97.8 degrees Fahrenheit 2016-06-29 Heart Rate 80 bpm 2016-06-29 BMI 27.36 kg/m2 2016-06-29 Blood pressure systolic 150 mmHg 2016-06-29 Blood pressure diastolic 96 mmHg 2016-06-29 MEDICATIONS Medication Instructions Dosage Frequency Start Date End Date Duration Status Seroquel 50 mg Orally Once a day 1 tablet 24h Mar, Active MiraLax 17 gm/dose Orally Once a day 17 gm in liquid 24h Mar, Active Prilosec 20 mg Orally Once a day 1 capsule 24h October, 30 day(s) Active Doxazosin Mesylate 2 MG Orally Once a day 1 tablet 24h Active Albuterol Sulfate 108 (90 Base) MCG/ACT Inhalation every 4 hrs 1 puff as needed 4h Nov, Active Amlodipine Besylate 5mg Orally Once a day 2 tablet 24h Active RESULTS Name Result Date Reference Range CBC 2016-06-29 WBC 7.1 3.4-10.8 RBC 4.37 3.77-5.28 Hemoglobin 12.1 11.1-15.9 Hematocrit 36.6 34.0-46.6 MCV 84 79-97 MCH 27.7 26.6-33.0 MCHC 33.1 31.5-35.7 RDW 14.0 12.3-15.4 Platelets 272 150-379 Neutrophils 65 Lymphs 26 Monocytes 7 Eos 2 Basos 0 Neutrophils (Absolute) 4.6 1.4-7.0 Lymphs (Absolute) 1.9 0.7-3.1 Monocytes(Absolute) 0.5 0.1-0.9 Eos (Absolute) 0.1 0.0-0.4 Baso (Absolute) 0.0 0.0-0.2 Immature Granulocytes 0 Immature Grans (Abs) 0.0 0.0-0.1 LIPID PANEL 2016-06-29 Cholesterol, Total 164 100-199 Triglycerides 81 0-149 HDL Cholesterol 34 >39 VLDL Cholesterol Murphy 16 5-40 LDL Cholesterol Calc 114 0-99 Comment: CMP 2016-06-29 Glucose, Serum 105 65-99 BUN 12 6-24 Creatinine, Serum 0.67 0.57-1.00 eGFR If NonAfricn Am 99 >59 eGFR If Africn Am 114 >59 BUN/Creatinine Ratio 18 9-23 Sodium, Serum 141 134-144 Potassium, Serum 4.1 3.5-5.2 Chloride, Serum 103 96-106 Carbon Dioxide, Total 23 18-29 Calcium, Serum 9.4 8.7-10.2 Protein, Total, Serum 7.0 6.0-8.5 Albumin, Serum 4.3 3.5-5.5 Globulin, Total 2.7 1.5-4.5 A/G Ratio 1.6 1.1-2.5 Bilirubin, Total <0.2 0.0-1.2 Alkaline Phosphatase, S 136 39-117 AST (SGOT) 17 0-40 ALT (SGPT) 18 0-32 PAP TEST W/ HPV REGARDLESS 2016-06-29 DIAGNOSIS: Specimen adequacy: Clinician provided ICD10: Performed by: . . Note: HPV, high-risk Negative Negative PDF Report 2016-06-29 PDF Report1 LCLS CULTURE, GENITAL 2016-06-29 Genital Culture, Routine Final report Result 1 TRICHOMONAS (IN HOUSE) 2016-06-29 TRICHOMONAS negative Control + Lot # [id number] Exp date 05/2017 GC/CHLAM PROBE (STATE) 2016-06-29 CHLAMYDIA Negative GC Negative PROCEDURES Procedure Date Ordered Related Diagnosis Body Site COMPLETE CBC W/AUTO DIFF WBC Jun 29, 2016 COMPREHEN METABOLIC PANEL Jun 29, 2016 VENIPUNCT, ROUTINE* Jun 29, 2016 SPECIMEN HANDLING Jun 29, 2016 Office Visit, Est Pt., Level 4 Jun 29, 2016 No Charge Jun 29, 2016 LIPID PANEL Jun 29, 2016 CULTURE, BACTERIA, OTHER Jun 29, 2016 TRICHOMONAS ASSAY W/OPTIC Jun 29, 2016 IMMUNIZATIONS No Known Immunizations
--- OUTSIDE RECORDS SUMMARY | 2019-01-11 14:19 | XMS REPORT ---
Author Author SILVERIO Kyle Organization [facility] Address [address] [place] [address] Care Team Providers Care Material Mover Name Role Phone Saroj SILVERIO Unavailable PROBLEMS Type Condition ICD9-CM Code XWC94-UC Code Onset Dates Condition Status SNOMED Code Problem Secondary hypertension I15.9 Active 13826359 Problem Abdominal bloating R14.0 Active 480532673 Problem Insomnia, unspecified type G47.00 Active 519559514 Problem Gastroesophageal reflux disease, esophagitis presence not specified K21.9 Active 033719105 Problem Chronic obstructive pulmonary disease, unspecified COPD type J44.9 Active 79627850 Problem Smoking addiction F17.200 Active 178023643 Problem Other chronic gastritis without hemorrhage K29.50 Active 0277380 Problem Panlobular emphysema J43.1 Active 2936569 Problem Routine gynecological examination Z01.419 Active 862696254 Problem Constipation, unspecified constipation type K59.00 Active 51014433 Problem Gastroesophageal reflux disease without esophagitis K21.9 Active 684436207 Problem Primary insomnia F51.01 Active 0776130 ALLERGIES No Information ENCOUNTERS Encounter Location Date Diagnosis [facility] [id number] [place] [phone] Sep, Other chronic gastritis without hemorrhage K29.50 [facility] [id number] [place] [phone] Sep, Secondary hypertension I15.9 [facility] [id number] [place] [address] Sep, Insomnia, unspecified type G47.00 [facility] [id number] [place] [phone] Sep, Primary insomnia F51.01 [facility] [address] [address] Jul, [facility] [id number] [place] [phone] Jul, [facility] [id number] [place] [phone] Jul, [facility] [id number] [place] [phone] Jun, [facility] [id number] [place] [phone] Jun, Chronic obstructive pulmonary disease, unspecified COPD type J44.9 [facility] [id number] [place] [phone] Jun, [facility] [id number] [place] [phone] Jun, Primary insomnia F51.01 [facility] [id number] [place] [phone] Jun, [facility] [id number] [place] [phone] May, Chronic obstructive pulmonary disease, unspecified COPD type J44.9 [facility] [address] [place] [phone] May, [facility] [id number] [place] [phone] May, Panlobular emphysema J43.1 and Gastroesophageal reflux disease without esophagitis K21.9 [facility] [address] [place] [phone] Feb, Insomnia, unspecified type G47.00 [facility] [address] [address] Feb, [facility] [id number] [place] [phone] Feb, Secondary hypertension I15.9 [facility] [address] [address] Feb, [facility] [address] [address] Jan, [facility] [address] [place] [phone] Jan, [facility] [address] [place] [phone] Jan, Secondary hypertension I15.9 [facility] [address] [place] [phone] Nov, [facility] [id number] [place] [phone] Nov, Gastroesophageal reflux disease, esophagitis presence not specified K21.9 [facility] [address] [place] [address] October, Chronic obstructive pulmonary disease, unspecified COPD type J44.9 [facility] [address] [place] [phone] Sep, [facility] [address] [place] [phone] Sep, [facility] [address] [address] Sep, [facility] [address] [place] [address] Sep, [facility] [address] [place] [phone] Sep, [facility] [address] [place] [address] Sep, Secondary hypertension I15.9 ; Gastroesophageal reflux disease, esophagitis presence not specified K21.9 ; Smoking addiction F17.200 ; Constipation, unspecified constipation type K59.00 and Insomnia, unspecified type G47.00 [facility] [id number] [place] [address] Aug, Constipation, unspecified constipation type K59.00 [facility] [id number] [place] [address] Aug, [facility] [id number] [place] [address] Jul, Gastroesophageal reflux disease, esophagitis presence not specified K21.9 [facility] [id number] [place] [address] Jun, Insomnia, unspecified type G47.00 and Constipation, unspecified constipation type K59.00 [facility] [id number] [place] [address] Jun, Secondary hypertension I15.9 ; Gastroesophageal reflux disease, esophagitis presence not specified K21.9 ; Smoking addiction F17.200 ; Chronic obstructive pulmonary disease, unspecified COPD type J44.9 ; Insomnia, unspecified type G47.00 ; Constipation, unspecified constipation type K59.00 ; Routine gynecological examination Z01.419 and Screening cholesterol level Z13.220 [facility] [id number] [place] [phone] Jun, [facility] [id number] [place] [phone] May, [facility] [id number] [place] [phone] May, [facility] [id number] [place] [phone] Apr, [facility] [id number] [place] [phone] Mar, Secondary hypertension I15.9 ; Insomnia, unspecified type G47.00 ; Gastroesophageal reflux disease, esophagitis presence not specified K21.9 ; Chronic obstructive pulmonary disease, unspecified COPD type J44.9 and Abdominal bloating R14.0 [facility] [address] [place] [phone] Mar, [facility] [id number] [place] [phone] Mar, [facility] [id number] [place] [address] Mar, Gastroesophageal reflux disease, esophagitis presence not specified K21.9 ; Secondary hypertension I15.9 ; Chronic obstructive pulmonary disease, unspecified COPD type J44.9 ; Smoking addiction F17.200 ; Abdominal bloating R14.0 ; Insomnia, unspecified type G47.00 and Constipation, unspecified constipation type K59.00 [facility] [id number] [place] [address] Jan, [facility] [id number] [place] [address] Dec, Secondary hypertension I15.9 ; Insomnia, unspecified type G47.00 ; Chronic obstructive pulmonary disease, unspecified COPD type J44.9 ; Smoking addiction F17.200 and Gastroesophageal reflux disease, esophagitis presence not specified K21.9 [facility] [address] [place] [phone] Nov, Secondary hypertension I15.9 ; Insomnia, unspecified type G47.00 ; Gastroesophageal reflux disease, esophagitis presence not specified K21.9 and Chronic obstructive pulmonary disease, unspecified COPD type J44.9 [facility] [id number] [place] [address] October, Dyspepsia R10.13 IMMUNIZATIONS No Known Immunizations SOCIAL HISTORY Never Assessed REASON FOR VISIT advise PLAN OF CARE VITAL SIGNS MEDICATIONS Medication Instructions Dosage Frequency Start Date End Date Duration Status Carafate 1 GM Orally 4 times a day 1 tablet on an empty stomach 6h Feb, 30 day(s) Active Seroquel 200 mg Orally Once a day TAKE ONE TABLET BY MOUTH ONCE DAILY AT BEDTIME 24h 30 Active RESULTS No Results PROCEDURES [...]
--- OUTSIDE RECORDS SUMMARY | 2019-01-11 14:20 | XMS REPORT | Continuity of Care Document ---
Author Organization Unknown Address Unknown Phone Unavailable Allergies Active Description Code Type Severity Reaction Onset Reported/Identified Relationship to Patient Clinical Status Yes No Known Drug Allergies [id number] Drug Allergy Unknown N/A 12/15/2016 Medications There is no data. Problems Date Dx Coded Attending Type Code Diagnosis Diagnosed By 08/01/2009 Ot 305.00 ALCOHOL ABUSE- UNSPEC 08/01/2009 Ot 401.9 HYPERTENSION NOS 08/01/2009 Ot 524.60 TEMPOROMANDIBULAR JOINT DISORDERS, UNSPE 08/01/2009 Ot 780.09 OTHER ALTERATION OF CONSCIOUSNESS 08/01/2009 Ot 784.0 11/09/2009 Ot 401.9 HYPERTENSION NOS 11/09/2009 Ot 786.50 CHEST PAIN NOS 11/09/2009 Ot V58.69 OTH MED,LT,CURRENT USE 01/07/2010 Ot 723.1 CERVICALGIA 10/23/2010 Ot 401.9 HYPERTENSION NOS 10/23/2010 Ot 491.21 OBSTR CHRONIC BRONCHITIS, W (ACUTE) EXAC 10/23/2010 Ot 786.05 SHORTNESS OF BREATH 03/25/2011 Ot 784.0 HEADACHE 03/25/2011 Ot 995.20 [...] Ot 706.2 SEBACEOUS CYST 03/01/2014 SCOTT STANTON SENIOR AUDITOR Ot 491.20 OBSTR CHRONIC BRONCHITIS, W/O EXACERBATI 03/01/2014 SCOTT STANTON SENIOR AUDITOR Ot 724.1 PAIN IN THORACIC SPINE 09/28/2014 Ot 401.9 09/28/2014 Ot 706.2 09/28/2014 Ot V72.81 09/28/2014 Ot V74.8 09/28/2014 MIRELA ROJOYUE Ot 401.9 09/28/2014 MIRELA ROJO YUE Brown Ot V58.69 09/28/2014 NIRMALA HENDERSON Ot 724.2 LUMBAGO 09/28/2014 NIRMALA HENDERSON Ot 724.3 SCIATICA 09/28/2014 NIRMALA HENDERSON Ot 847.2 SPRAIN LUMBAR REGION 09/28/2014 NIRMALA HENDERSON Ot E000.8 OTHER EXTERNAL CAUSE STATUS 09/28/2014 NIRMALA HENDERSON Ot E928.9 ACCIDENT NOS 09/28/2014 Ot 401.9 09/28/2014 Ot 706.2 09/28/2014 Ot V72.81 09/28/2014 Ot V74.8 09/28/2014 MIRELA ROJO YUE Brown Ot 401.9 09/28/2014 MIRELA ROJO YUE Brown Ot V58.69 03/20/2015 Ot 401.9 03/20/2015 Ot 706.2 03/20/2015 Ot V72.81 03/20/2015 Ot V74.8 03/20/2015 MIRELA ROJO YUE Brown Ot 401.9 03/20/2015 MIRELA ROOJ YUE Brown Ot V58.69 04/03/2015 Ot 401.9 04/03/2015 Ot 706.2 04/03/2015 Ot V72.81 04/03/2015 Ot V74.8 04/03/2015 MIRELA ROJO YUE Brown Ot 401.9 04/03/2015 MIRELA ROJO YUE Brown Ot V58.69 03/24/2016 YUE DIETZ DO Ot I10 ESSENTIAL (PRIMARY) HYPERTENSION 03/24/2016 Ot 401.9 HYPERTENSION NOS 03/24/2016 Ot 706.2 SEBACEOUS CYST 03/24/2016 Ot V72.81 [id number] CARDIOVASCULAR 03/24/2016 Ot V74.8 SCREEN-BACTERIAL DIS NEC 03/24/2016 YUE DIETZ DO Ot 401.9 HYPERTENSION NOS 03/24/2016 YUE DIETZ DO Ot V58.69 OTH MED,LT,CURRENT USE 03/24/2016 YUE DIETZ DO Ot I10 ESSENTIAL (PRIMARY) HYPERTENSION 03/24/2016 YUE DIETZ DO Ot I10 ESSENTIAL (PRIMARY) HYPERTENSION 04/29/2016 YUE DIETZ DO Ot I10 ESSENTIAL (PRIMARY) HYPERTENSION 04/29/2016 YUE DIETZ DO Ot 401.9 HYPERTENSION NOS 04/29/2016 YUE DIETZ DO Ot V58.69 OTH MED,LT,CURRENT USE 12/15/2016 Ot 401.9 HYPERTENSION NOS 12/15/2016 Ot 706.2 SEBACEOUS CYST 12/15/2016 Ot V72.81 [id number] CARDIOVASCULAR 12/15/2016 Ot V74.8 SCREEN-BACTERIAL DIS NEC 12/15/2016 YUE DIETZ DO Ot 401.9 HYPERTENSION NOS 12/15/2016 YUE DIETZ DO Ot V58.69 OTH MED,LT,CURRENT USE 12/15/2016 YUE DIETZ DO Ot I10 ESSENTIAL (PRIMARY) HYPERTENSION 12/15/2016 YUE DIETZ DO Ot I10 ESSENTIAL (PRIMARY) HYPERTENSION 12/15/2016 ALEXIS CUEVAS DO Ot K21.9 GASTRO-ESOPHAGEAL REFLUX DISEASE WITHOUT 12/15/2016 ALEXIS CUEVAS DO Ot R19.4 CHANGE IN BOWEL HABIT 12/15/2016 ALEXIS CUEVAS DO Ot Z01.818 ENCOUNTER FOR OTHER PREPROCEDURAL EXAMIN 12/16/2016 ALEXIS CUEVAS DO Ot K21.9 GASTRO-ESOPHAGEAL REFLUX DISEASE WITHOUT 12/16/2016 ALEXIS CUEVAS DO Ot R19.4 CHANGE IN BOWEL HABIT 12/16/2016 ALEXIS CUEVAS DO Ot Z01.818 ENCOUNTER FOR OTHER PREPROCEDURAL EXAMIN 12/20/2016 ALEXIS CUEVAS DO Ot F17.210 NICOTINE DEPENDENCE, CIGARETTES, UNCOMPL 12/20/2016 ALEXIS CUEVAS DO Ot I10 ESSENTIAL (PRIMARY) HYPERTENSION 12/20/2016 ALEXIS CUEVAS DO Ot J44.9 CHRONIC OBSTRUCTIVE PULMONARY DISEASE, U 12/20/2016 ALEXIS CUEVAS DO Ot K29.70 GASTRITIS, UNSPECIFIED, WITHOUT BLEEDING 12/20/2016 MASON ROJOALEXIS Ot K31.7 POLYP OF STOMACH AND DUODENUM 12/20/2016 ALEXIS CUEVAS DO Ot K63.5 POLYP OF COLON 12/20/2016 MASON ROJOALEXIS Ot Z79.899 OTHER HALFWAY (CURRENT) DRUG THERAPY 07/20/2017 Ot 401.9 HYPERTENSION NOS 07/20/2017 Ot 706.2 SEBACEOUS CYST 07/20/2017 Ot V72.81 [id number] CARDIOVASCULAR 07/20/2017 Ot V74.8 SCREEN-BACTERIAL DIS NEC 07/20/2017 MIRELA ROJOYUE Ot 401.9 HYPERTENSION NOS 07/20/2017 MIRELA ROJO YUE Brown Ot V58.69 OT MED,LT,CURRENT USE 07/20/2017 MIRELA ROJO YUE rBown Ot I10 ESSENTIAL (PRIMARY) HYPERTENSION 07/20/2017 MIRELA ROJO YUE Kevin Ot I10 ESSENTIAL (PRIMARY) HYPERTENSION 07/22/2017 AYDE BYRD SORTING MACHINE ATTENDANT Ot G47.33 OBSTRUCTIVE SLEEP APNEA (ADULT) (PEDIATR 07/22/2017 AYDE BYRD SORTING MACHINE ATTENDANT Ot R06.83 SNORING 07/25/2017 AYDE BYRD SORTING MACHINE ATTENDANT Ot G47.33 OBSTRUCTIVE SLEEP APNEA (ADULT) (PEDIATR 07/25/2017 AYDE BYRD SORTING MACHINE ATTENDANT Ot R06.83 SNORING 09/02/2017 AYDE BYRD SORTING MACHINE ATTENDANT Ot G47.33 OBSTRUCTIVE SLEEP APNEA (ADULT) (PEDIATR 09/02/2017 AYDE BYRD SORTING MACHINE ATTENDANT Ot R06.83 SNORING 10/06/2017 AYDE BYRD SORTING MACHINE ATTENDANT Ot K29.50 UNSPECIFIED CHRONIC GASTRITIS WITHOUT BL 12/04/2017 AYDE BYRD SORTING MACHINE ATTENDANT Ot K29.50 UNSPECIFIED CHRONIC GASTRITIS WITHOUT BL 12/05/2017 AYDE BYRD SORTING MACHINE ATTENDANT Ot K29.50 UNSPECIFIED CHRONIC GASTRITIS WITHOUT BL 05/15/2018 Ot 625.9 05/15/2018 Ot 626.8 05/15/2018 Ot 401.9 HYPERTENSION NOS 05/15/2018 Ot 706.2 SEBACEOUS CYST 05/15/2018 Ot V72.81 [id number] CARDIOVASCULAR 05/15/2018 Ot V74.8 SCREEN-BACTERIAL DIS NEC 05/15/2018 MIRELA DO YUE Kevin Ot 401.9 HYPERTENSION NOS 05/15/2018 YUE DIETZ DO Ot V58.69 OT MED,LT,CURRENT USE 05/15/2018 YUE DIETZ DO Ot I10 ESSENTIAL (PRIMARY) HYPERTENSION 05/15/2018 YUE DIETZ DO Ot I10 ESSENTIAL (PRIMARY) HYPERTENSION 05/15/2018 ROCHELLE AYDE Cheatham SORTING MACHINE ATTENDANT Ot K29.50 UNSPECIFIED CHRONIC GASTRITIS WITHOUT BL Procedures There is no data. Results Test Result Range PLATELET ESTIMATION - 03/12/18 10:43 CBC MORPHOLOGY - 03/12/18 10:43 CBC MORPHOLOGY NORMAL CBC - 11/29/18 08:58 WHITE BLOOD CELL COUNT 7.5 Thousand/uL 3.8-10.8 RED BLOOD CELL COUNT 4.13 Million/uL 3.80-5.10 HEMOGLOBIN 8.4 g/dL 11.7-15.5 HEMATOCRIT 29.1 % 35.0-45.0 MCV 70.5 fL 80.0-100.0 MCH 20.3 pg 27.0-33.0 MCHC 28.9 g/dL 32.0-36.0 RDW 18.5 % 11.0-15.0 PLATELET COUNT 302 Thousand/uL 140-400 MPV 10.1 fL 7.5-12.5 ABSOLUTE NEUTROPHILS 4860 cells/uL 8040-6451 ABSOLUTE LYMPHOCYTES 1808 cells/uL 850-3900 ABSOLUTE MONOCYTES 630 cells/uL 200-950 ABSOLUTE EOSINOPHILS 150 cells/uL 15-500 ABSOLUTE BASOPHILS 53 cells/uL 0-200 NEUTROPHILS 64.8 % NRG LYMPHOCYTES 24.1 % NRG MONOCYTES 8.4 % NRG EOSINOPHILS 2.0 % NRG BASOPHILS 0.7 % NRG CBC - 12/20/18 14:22 WHITE BLOOD CELL COUNT 7.0 Thousand/uL 3.8-10.8 RED BLOOD CELL COUNT 4.32 Million/uL 3.80-5.10 HEMOGLOBIN 9.5 g/dL 11.7-15.5 HEMATOCRIT 32.0 % 35.0-45.0 MCV 74.1 fL 80.0-100.0 MCH 22.0 pg 27.0-33.0 MCHC 29.7 g/dL 32.0-36.0 RDW 22.8 % 11.0-15.0 PLATELET COUNT 258 Thousand/uL 140-400 MPV 10.6 fL 7.5-12.5 ABSOLUTE NEUTROPHILS 4011 cells/uL 4424-9845 ABSOLUTE LYMPHOCYTES 2240 cells/uL 850-3900 ABSOLUTE MONOCYTES 469 cells/uL 200-950 ABSOLUTE EOSINOPHILS 203 cells/uL 15-500 ABSOLUTE BASOPHILS 77 cells/uL 0-200 NEUTROPHILS 57.3 % NRG LYMPHOCYTES 32.0 % NRG MONOCYTES 6.7 % NRG EOSINOPHILS 2.9 % NRG BASOPHILS 1.1 % NRG Encounters ACCT No. Visit Date/Time Discharge Status Pt. Type Provider Facility Loc./Unit Complaint [id number] 12/21/2018 14:40:00 12/21/2018 23:59:59 CLS Outpatient ROCHELLE GRAY AYDE Chaparrit[facility] [id number] 12/20/2018 14:00:00 Document Registration [id number] 11/29/2018 08:00:00 Document Registration [id number] 03/12/2018 10:00:00 Document Registration [id number] 10/05/2017 09:51:00 10/05/2017 23:59:59 CLS Outpatient AYDE BYRD [facility] CARD K29.50 OTHER CHORNIC GASTRITIS WO HEMORRHAGE [id number] 07/21/2017 19:50:00 07/22/2017 06:20:00 DIS Outpatient AYDE BYRD [facility] SLEEP BRAD [id number] 12/20/2016 10:08:00 12/20/2016 12:35:00 DIS Outpatient ALEXIS CUEVAS DO [facility] ENDO ACID REFLUX;CHANGE IN BH [id number] 12/15/2016 05:33:00 12/15/2016 12:34:00 DIS Outpatient ALEXIS CUEVAS DO [facility] PREOP ACID REFLUX; CHANGE IN BH [id number] 05/19/2015 10:18:00 05/19/2015 23:59:59 CLS Outpatient YUE DIETZ DO [facility] LAB HTN [id number] 05/16/2015 12:58:00 05/16/2015 23:59:59 CLS Outpatient YUE DIETZ DO [facility] LAB HYPERTENSION [id number] 09/28/2014 10:53:00 09/28/2014 12:45:00 DIS Emergency NIRMALA HENDERSON [facility] ER BACK PAIN [id number] 03/01/2014 16:47:00 03/01/2014 18:18:00 DIS Emergency SCOTT STANTON APRN [facility] ER BACK PAIN;COPD [id number] 10/15/2012 08:05:00 10/15/2012 23:59:59 CLS Outpatient YUE DIETZ DO [facility] LAB HYPERTENSION,MEDICINE [id number] 05/15/2018 01:28:00 Document Registration [id number] 05/15/2018 01:28:00 Document Registration [id number] 05/15/2018 01:28:00 Document Registration [id number] 05/15/2018 01:28:00 Document Registration [id number] 05/15/2018 01:28:00 Document Registration [id number] 03/07/2012 05:33:00 Document Registration [id number] 03/02/2012 23:00:00 Document Registration [id number] 03/01/2012 08:33:00 Document Registration [id number] 02/02/2012 07:37:00 Document Registration [id number] 06/15/2011 16:55:00 Document Registration [id number] 03/25/2011 11:35:00 Document Registration [id number] 10/23/2010 01:29:00 Document Registration [id number] 01/07/2010 20:17:00 Document Registration [id number] 11/09/2009 09:16:00 Document Registration [id number] 07/31/2009 20:27:00 Document Registration [id number] 02/27/2009 12:24:00 Document Registration
[2019-01-11 14:24] LABS: BASOPHILS # (AUTO) 0.1 10^3/uL (0.0-0.1); BASOPHILS % (AUTO) 1 % (0-10); EOSINOPHILS # (AUTO) 0.1 10^3/uL (0.0-0.3); EOSINOPHILS % (AUTO) 2 % (0-10); HEMATOCRIT 37 % (35-52); HEMOGLOBIN 11.8 G/DL (11.5-16.0); LYMPHOCYTES # (AUTO) 1.9 X 10^3 (1.0-4.0); LYMPHOCYTES % (AUTO) 24 % (12-44); MEAN CORPUSCULAR HEMOGLOBIN 24 PG (25-34); MEAN CORPUSCULAR HGB CONC 32 G/DL (32-36); MEAN CORPUSCULAR VOLUME 76 FL (80-99); MONOCYTES # (AUTO) 0.6 X 10^3 (0.0-1.0); MONOCYTES % (AUTO) 8 % (0-12); NEUTROPHILS # (AUTO) 5.2 X 10^3 (1.8-7.8); NEUTROPHILS % (AUTO) 66 % (42-75); PLATELET COUNT 222 10^3/uL (130-400)
[2019-01-11 14:25] VITALS: BP_SYST 154; BP_SYST 155; BP_SYST 160; BP_DIAS 83; BP_DIAS 95; BP_DIAS 96
--- NOTE | 2019-01-11 14:28 | NUR ---
someone else is doing ortho vs.
--- NOTE | 2019-01-11 14:30 | ED GI ---
General Stated Complaint: THROWING UP BLOOD Source of Information: Patient History of Present Illness Date Seen by Provider: Jan 11, 2019 Time Seen by Provider: 14:03 Initial Comments PT ARRIVES VIA POV FROM HOME C/O VOMITING BLOOD FOR MANY YEARS, ALONG WITH BLACK/TARRY STOOLS FOR YEARS NO VOMITING TODAY HAS CHRONIC INTERMITTENT ABDOMINAL CRAMPING STATES SHE IS ALSO WEAK AND DIZZY, ALSO ONGOING FOR YEARS NONE OF THESE SYMPTOMS ARE DIFFERENT TODAY IN ANY WAY WHATSOEVER PT STATES SHE WAS ADMITTED AT [facility] A COUPLE OF WEEKS AGO FOR THIS PROBLEM--STATES SHE WAS THERE A DAY AND A HALF STATES SHE HAD EGD, WHICH SHOWED A HIATAL HERNIA, BUT STATES SHE WAS TOLD THAT WAS NOT WHERE SHE WAS BLEEDING FROM. NO COLONOSCOPY WAS DONE AT THAT TIME. STATES HER LAST COLONOSCOPY WAS DONE [address] CUEVAS AND SHE HAD POLYPS. STATES SHE WAS REFERRED TO GI SPECIALIST, WHEN SHE WAS AT [facility], BUT HAS NOT MADE A FOLLOW UP APPOINTMENT WITH ANYONE STATES SHE GOES TO [facility], BUT HAS NOT FOLLOWED UP WITH ANYONE THERE SINCE SHE WAS AT [facility], STATES SHE DID HAVE LAB DONE AT [facility], 2 WEEKS AGO, BUT DID NOT SEE ANYONE. STATES THEY CALLED HER 2 WEEKS AGO AND TOLD HER THAT SHE NEEDED TO COME HERE BECAUSE SHE WAS LOW ON BLOOD, SO PT DECIDED TO COME HERE TODAY/MONDAY AFTERNOON. SHE HAS NOT ATTEMPTED TO FOLLOW UP WITH ANYONE SINCE SHE WAS DISMISSED FROM [facility]. PCP: [facility]. 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 [facility] Allergies and Home Medications Allergies Coded Allergies: No Known Drug Allergies (Unverified , 12/15/16) Home Medications Albuterol Sulfate 8 Gm Hfa.aer.ad, 2 PUFF IH Q4H PRN for WHEEZING Prescribed by: SCOTT STANTON on 03/01/14 1752 Amiodarone HCl 100 Mg Tablet, 100 MG PO DAILY, (Reported) Dexlansoprazole 60 Mg bp, 60 MG PO DAILY, (Reported) Doxazosin Mesylate 2 Mg Tablet, 2 MG PO DAILY, (Reported) Melatonin 10 Mg Capsule, 10 MG PO DAILY, (Reported) Polyethylene Glycol 1000 500 Gm Powder, 500 GM MC DAILY, (Reported) Quetiapine Fumarate 200 Mg Tablet, 200 MG PO DAILY, (Reported) Patient Home Medication List Home Medication List Reviewed: Yes Review of Systems Review of Systems Constitutional: see HPI, dizziness, weakness EENTM: No Symptoms Reported Respiratory: No Symptoms Reported; Denies Shortness of Air Cardiovascular: No Symptoms Reported; Denies Chest Pain Gastrointestinal: See HPI, Abdominal Pain; Denies Constipated, Denies Diarrhea; Nausea, Poor Appetite, Rectal Bleeding, Vomiting, Other (PER HPI) Genitourinary: No Symptoms Reported Musculoskeletal: no symptoms reported Skin: no symptoms reported Psychiatric/Neurological: No Symptoms Reported Endocrine: No Symptoms Reported Hematologic/Lymphatic: See HPI; Denies Easy Bleeding, Denies Easy Bruising Past Tnwkfwd-Mxkxyx-Eiwmpe Hx Patient Social History Alcohol Use: Denies Use Recreational Drug Use: No Smoking Status: Current Everyday Smoker (1 PPD) Type Used: Cigarettes Recent Foreign Travel: No Contact w/Someone Who Travel: No Recent Hopitalizations: No Seasonal Allergies Seasonal Allergies: No Past Medical History Surgeries: Yes (EGD/COLONOSCOPY) Respiratory: Yes COPD Cardiac: Yes Hypertension Neurological: No Reproductive Disorders: No 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 Sexually Transmitted Disease: No HIV/AIDS: No Genitourinary: No Gastrointestinal: Yes Gastroesophageal Reflux, Gastrointestinal Bleed, Chronic Constipation, Polyps, Hiatal Hernia Musculoskeletal: Yes Arthritis Endocrine: No HEENT: No Loss of Vision: Bilateral Hearing Impairment: Denies Cancer: No Psychosocial: Yes Anxiety, Depression Integumentary: No Blood Disorders: Yes (ANEMIA) Adverse Reaction/Blood Tranf: No (N/A) Family Medical History No Pertinent Family Hx Physical Exam Vital Signs Vital Signs - First Documented 01/11/19 14:07 Temp 98.5 Pulse 88 Resp 16 B/P (MAP) 181/95 (123) Pulse Ox 99 O2 Delivery Room Air Capillary Refill : Height/Weight/BMI Height: 5'3.00" Weight: 138lbs. 3.2oz. [id number]; 24.5 BMI Method:Stated General Appearance: WD/WN, no apparent distress, other (REEKS OF CIGARETTES) HEENT: PERRL/EOMI; No pale conjunctivae (R), No pale conjunctivae (L) Neck: normal inspection Respiratory: normal breath sounds, no respiratory distress, no accessory muscle use Cardiovascular: regular rate, rhythm, no murmur Gastrointestinal: soft, no organomegaly, no pulsatile mass, abnormal bowel sounds (HYPER ACTIVE); No distended, No guarding, No rebound; tenderness (MILD DIFFUSE TENDERNESS, SLIGHTLY MORE TENDER IN EPIGASTRIC AREA. 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, no motor/sensory deficits, alert, normal mood/affect, oriented x 3 Skin: normal color, warm/dry Progress/Results/Core Measures Results/Orders Lab Results Laboratory Tests Test 01/11/19 14:18 01/11/19 15:10 Range/Units White Blood Count 8.0 4.3-11.0 10^3/uL Red Blood Count 4.90 4.35-5.85 10^6/uL Hemoglobin 11.8 11.5-16.0 G/DL Hematocrit 37 35-52 % Mean Corpuscular Volume 76 L 80-99 FL Mean Corpuscular Hemoglobin 24 L 25-34 PG Mean Corpuscular Hemoglobin Concent 32 32-36 G/DL Red Cell Distribution Width 10.0-14.5 % Platelet Count 222 130-400 10^3/uL Mean Platelet Volume 10.0 7.4-10.4 FL Neutrophils (%) (Auto) 66 42-75 % Lymphocytes (%) (Auto) 24 12-44 % Monocytes (%) (Auto) 8 0-12 % Eosinophils (%) (Auto) 2 0-10 % Basophils (%) (Auto) 1 0-10 % Neutrophils # (Auto) 5.2 1.8-7.8 X 10^3 Lymphocytes # (Auto) 1.9 1.0-4.0 X 10^3 Monocytes # (Auto) 0.6 0.0-1.0 X 10^3 Eosinophils # (Auto) 0.1 0.0-0.3 10^3/uL Basophils # (Auto) 0.1 0.0-0.1 10^3/uL Prothrombin Time 12.8 12.2-14.7 SEC INR Comment 0.9 0.8-1.4 Activated Partial Thromboplast Time 30 24-35 SEC Sodium Level 138 135-145 MMOL/L Potassium Level 3.7 3.6-5.0 MMOL/L Chloride Level 104 98-107 MMOL/L Carbon Dioxide Level 24 21-32 MMOL/L Anion Gap 10 5-14 MMOL/L Blood Urea Nitrogen 12 7-18 MG/DL Creatinine 0.79 0.60-1.30 MG/DL Estimat Glomerular Filtration Rate > 60 BUN/Creatinine Ratio 15 Glucose Level 105 70-105 MG/DL Calcium Level 10.1 8.5-10.1 MG/DL Corrected Calcium 9.7 8.5-10.1 MG/DL Magnesium Level 2.4 1.8-2.4 MG/DL Total Bilirubin 0.1 0.1-1.0 MG/DL Aspartate Amino Transf (AST/SGOT) 21 5-34 U/L Alanine Aminotransferase (ALT/SGPT) 23 0-55 U/L Alkaline Phosphatase 113 40-136 U/L Total Protein 7.4 6.4-8.2 GM/DL Albumin 4.5 3.2-4.5 GM/DL Amylase Level 48 25-125 U/L Lipase 55 8-78 U/L Acetaminophen Level < 10 L 10-30 UG/ML Serum Alcohol < 10 <10 MG/DL Urine Color YELLOW Urine Clarity CLEAR Urine pH 7 5-9 Urine Specific [place] 1.005 L 1.016-1.022 Urine Protein NEGATIVE NEGATIVE Urine Glucose (UA) NEGATIVE NEGATIVE Urine Ketones NEGATIVE NEGATIVE Urine Nitrite NEGATIVE NEGATIVE Urine Bilirubin NEGATIVE NEGATIVE Urine Urobilinogen NORMAL NORMAL MG/DL Urine Leukocyte Esterase NEGATIVE NEGATIVE Urine RBC (Auto) NEGATIVE NEGATIVE Urine RBC NONE /HPF Urine WBC NONE /HPF Urine Squamous Epithelial Cells 0-2 /HPF Urine Crystals NONE /LPF Urine Bacteria TRACE /HPF Urine Casts NONE /LPF Urine Mucus NEGATIVE /LPF Urine Culture Indicated NO Urine Opiates Screen NEGATIVE NEGATIVE Urine Oxycodone Screen NEGATIVE NEGATIVE Urine Methadone Screen NEGATIVE NEGATIVE Urine Propoxyphene Screen NEGATIVE NEGATIVE Urine Barbiturates Screen NEGATIVE NEGATIVE Ur Tricyclic Antidepressants Screen POSITIVE H NEGATIVE Urine Phencyclidine Screen NEGATIVE NEGATIVE Urine Amphetamines Screen NEGATIVE NEGATIVE Urine Methamphetamines Screen NEGATIVE NEGATIVE Urine Benzodiazepines Screen NEGATIVE NEGATIVE Urine Cocaine Screen NEGATIVE NEGATIVE Urine Cannabinoids Screen NEGATIVE NEGATIVE My Orders Orders - LISSETT EDWARDS DO Ed Iv/Invasive Line Start (01/11/19 14:12) Monitor-Rhythm Ecg Trace Only (01/11/19 14:12) Orthostatic Vital Signs (Adult (01/11/19 14:12) Acetaminophen (01/11/19 14:12) Alcohol (01/11/19 14:12) Amylase (01/11/19 14:12) Cbc With Automated Diff (01/11/19 14:12) Comprehensive Metabolic Panel (01/11/19 14:12) Drug Screen Stat (Urine) (01/11/19 14:12) Lipase (01/11/19 14:12) Magnesium (01/11/19 14:12) Protime With Inr (01/11/19 14:12) Partial Thromboplastin Time (01/11/19 14:12) Ua Culture If Indicated (01/11/19 14:12) Ed Iv/Invasive Line Start (01/11/19 14:12) Ns Iv 1000 Ml (Sodium Chloride 0.9%) (01/11/19 14:12) Pantoprazole Injection (Protonix Injecti (01/11/19 14:12) Ondansetron Injection (Zofran Injectio (01/11/19 14:15) Ct Abdomen/Pelvis W (01/11/19 14:47) Acute Abd Series (01/11/19 14:47) Iohexol Injection (Omnipaque 350 Mg/Ml 1 (01/11/19 15:00) Received Contrast (Hold Metformin- Contr (01/11/19 15:00) Ns (Ivpb) (Sodium Chloride 0.9% Ivpb Bag (01/11/19 15:00) Medications Given in ED Current Medications Medications Dose Ordered Sig/Rula Route Start Time Stop Time Status Last Admin Dose Admin Ondansetron HCl 4 mg ONCE ONCE IVP 01/11/19 14:15 01/11/19 14:16 DC 01/11/19 14:32 4 MG Vital Signs/I&O 01/11/19 01/11/19 14:07 14:25 Temp 98.5 Pulse 88 82 89 94 Resp 16 B/P (MAP) 181/95 (123) 154/83 (106) 160/95 (116) 155/96 (115) Pulse Ox 99 O2 Delivery Room Air Progress Progress Note : Progress Note NO NAUSEA/VOMITING OR STOOLS IN ER. NO C/O ABDOMINAL PAIN DURING ER STAY PT STATES SHE TAKES PROTONIX, CARAFATE, PEPCID AND HAS NAUSEA MEDICATION AT HOME. Diagnostic Imaging Comments ABDOMEN XRAYS--NO ACUTE PROCESS, MODERATE AMOUNT OF STOOL IN COLON CT ABDOMEN/PELVIS--NO ACUTE PROCESS, MODERATE AMOUNT OF STOOL IN COLON PER RADIOLOGIST REPORTS AT 1552 Reviewed: Reviewed by Me Departure Impression Primary Impression: SELF REPORTED HEMATEMESIS AND MELENA Disposition: HOME, SELF-CARE Condition: Stable Departure-Patient Inst. Referrals: [facility] (PCP) Primary Care Physician AYDE BYRD (Family) Primary Care Physician ALEXIS CUEVAS DO Patient Instructions: Nausea and Vomiting, Adult (DC) Add. Discharge Instructions: CONTINUE YOUR CURRENT MEDICATIONS PRESCRIBED AVOID NSAIDS AND ASPIRIN FOLLOW UP WITH DR. CUEVAS NEXT WEEK FOR FURTHER CARE LISSETT EDWARDS DO Jan 11, 2019 14:30
--- NOTE | 2019-01-11 14:38 | NUR ---
tele applied by me shows sr 79. pt cant ua yet
[2019-01-11 14:39] LABS: INR 0.9 (0.8-1.4); PROTHROMBIN TIME PATIENT 12.8 SEC (12.2-14.7)
[2019-01-11 14:46] LABS: ALANINE AMINOTRANSFERASE 23 U/L (0-55); ALBUMIN 4.5 GM/DL (3.2-4.5); ALKALINE PHOSPHATASE 113 U/L (40-136); AMYLASE 48 U/L (25-125); BILIRUBIN,TOTAL 0.1 MG/DL (0.1-1.0); BUN/CREATININE RATIO 15; CALCIUM 10.1 MG/DL (8.5-10.1); CARBON DIOXIDE 24 MMOL/L (21-32); CHLORIDE 104 MMOL/L (98-107); CREATININE SERUM 0.79 MG/DL (0.60-1.30); GFR ESTIMATED > 60; GLUCOSE 105 MG/DL (70-105); LIPASE 55 U/L (8-78); MAGNESIUM 2.4 MG/DL (1.8-2.4); POTASSIUM 3.7 MMOL/L (3.6-5.0); SODIUM 138 MMOL/L (135-145); TOTAL PROTEIN 7.4 GM/DL (6.4-8.2)
[2019-01-11] MEDS ORDERED: IOHEXOL 350 MG/ML 100 ML (OMNIPAQUE 350) VIAL IV ONE (15:00)
[2019-01-11] MEDS ORDERED: HOLD METFORMIN - RECEIVED CONTRAST 20 ML VIAL IV SCH (15:00)
[2019-01-11] MEDS ORDERED: NS 100 ML (IVPB) BAG IV ONE (15:00)
[2019-01-11 15:02] LABS: ACETAMINOPHEN < 10 UG/ML (10-30)
--- NOTE | 2019-01-11 15:08 | NUR ---
pt to bathroom for ua. bolus 1/2 completed.
--- NOTE | 2019-01-11 15:11 | NUR ---
ua tolab by me and pt to ct.
[2019-01-11 15:16] LABS: BILIRUBIN,URINE NEGATIVE (NEGATIVE); CLARITY,URINE CLEAR; COLOR,URINE YELLOW; GLUCOSE, URINE (UA) NEGATIVE (NEGATIVE); KETONES,URINE NEGATIVE (NEGATIVE); LEUKOCYTE ESTERASE ,URINE NEGATIVE (NEGATIVE); NITRITE,URINE NEGATIVE (NEGATIVE); PH,URINE 7 (5-9); PROTEIN,URINE NEGATIVE (NEGATIVE); UROBILINOGEN,URINE NORMAL (NORMAL)
[2019-01-11 15:23] LABS: BACTERIA,URINE TRACE /HPF; SQUAMOUS EPITHELIAL CELL,UR 0-2 /HPF
[2019-01-11 15:27] LABS: AMPHETAMINE SCREEN, URINE NEGATIVE (NEGATIVE); BARBITURATE SCREEN URINE NEGATIVE (NEGATIVE); BENZODIAZEPINES SCREEN URINE NEGATIVE (NEGATIVE); CANNABINOID SCREEN, URINE NEGATIVE (NEGATIVE); COCAINE SCREEN URINE NEGATIVE (NEGATIVE); METHADONE STAT NEGATIVE (NEGATIVE); METHAMPHETAMINE SCREEN URINE S NEGATIVE (NEGATIVE); OPIATE SCREEN URINE NEGATIVE (NEGATIVE); OXYCODONE STAT NEGATIVE (NEGATIVE); PROPOXYPHENE STAT NEGATIVE (NEGATIVE); TRICYCLIC ANTIDEPRESSANTS SCRE POSITIVE (NEGATIVE)
--- NOTE | 2019-01-11 15:47 | Diagnostic Imaging Report ---
INDICATION: Hematemesis. EXAMINATION: PA chest, supine and upright abdominal images were obtained. FINDINGS: Lungs are clear. Bowel gas pattern is normal. There are no pathologic masses or calcifications. IMPRESSION: No acute abnormality in the abdomen. Dictated by: Dictated on workstation # [id number]
--- NOTE | 2019-01-11 15:48 | Diagnostic Imaging Report ---
PROCEDURE: CT abdomen and pelvis with contrast. TECHNIQUE: Multiple contiguous axial images were obtained through the abdomen and pelvis after administration of intravenous contrast. Auto Exposure Controls were utilized during the CT exam to meet ALARA standards for radiation dose reduction. INDICATION: Hematemesis, nausea, hematochezia, COPD, hiatal hernia. COMPARISON: None. FINDINGS: The lung bases are clear. The heart is normal in size. There is no pericardial effusion. The liver demonstrates no focal lesions. The spleen is normal. The pancreas is normal. The adrenal glands are normal. The kidneys appear normal. The bowel loops are nondistended without obstruction seen. There is moderate stool in the colon. The appendix is normal. No acute osseous abnormality is seen. There is mild calcific atherosclerosis in the aorta. IMPRESSION: Moderate stool in the colon with no acute abdominopelvic abnormality seen. Dictated by: Dictated on workstation # [id number]
[2019-01-11 16:27] VITALS: BP 144/76
--- NOTE | 2019-01-11 16:27 | NUR ---
d/c instrcutions to pt. told to read all papers. no scripts given. pt left ambulatory by self. pt knows f/u. i went over the handtyped by dr velazquez on the chart. bolus completed and i d/cd iv prior to d/c. pt had no n/v/d blood during er visit. no acute sighns of dypsnea noted at d/c.
== END 2019-01-11 16:27 | disposition home or self-care (01) ==
LOC: EDUNIT# 14:03 → ER 14:05
DX: K92.0 Hematemesis (principal); K92.1 Melena; F17.210 Nicotine dependence, cigarettes, uncomplicated; I10 Essential (primary) hypertension; J44.9 Chronic obstructive pulmonary disease, unspecified; K21.9 Gastro-esophageal reflux disease without esophagitis; H54.7 Unspecified visual loss; D64.9 Anemia, unspecified; F41.9 Anxiety disorder, unspecified; F32.9 Major depressive disorder, single episode, unspecified
CPT/HCPCS: 36415; 74022; 74177; 80053; 80306; 80320; 80329; 81000; 82150; 83690; 83735; 85025; 85610; 85730; 93041; 96374; 96375

== ENCOUNTER → 2019-10-09 | Outpatient (CLI) | payer MEDICAID, OTHER ==
--- NOTE | 2019-10-09 08:53 | Diagnostic Imaging Report ---
PROCEDURE: US Gallbladder. TECHNIQUE: Multiple real-time grayscale images were obtained over the right upper quadrant in various projections. INDICATION: Abdominal pain. The liver is upper limits of normal in size at 18 cm. No discrete liver mass is detected. The portal vein is patent and shows normal direction of flow. The gallbladder is without stones or sludge. No wall thickening or biliary ductal dilatation is identified. The pancreas was obscured by bowel gas. Aorta is obscured by bowel gas. IVC appears patent. Right kidney is without calculi or hydronephrosis. There is no ascites. IMPRESSION: Unremarkable gallbladder ultrasound. Dictated by: Dictated on workstation # [id number]
== END ==
LOC: RAD 07:39
PROVIDERS: ATTEND Surgery
DX: R10.11 Right upper quadrant pain (principal)
CPT/HCPCS: 76705

== ENCOUNTER → 2019-10-24 | Outpatient (CLI) | payer MEDICAID ==
[~2019-10-24] MED LIST changes: +CATHETER FLUSH 10 ML SYR IV PRN
--- NOTE | 2019-10-24 14:38 | Diagnostic Imaging Report ---
INDICATION: Right upper quadrant abdominal pain. Patient was administered 5.3 mCi technetium 99m Choletec intravenously and imaging over the abdomen was performed. At 1 hour patient ingested 8 ounces of ensure and a gallbladder ejection fraction was calculated. Patient denied any discomfort during the study. There is homogeneous uptake of activity by the liver. There is prompt excretion of activity into the common duct and gallbladder. Normal passage of activity into the small bowel is noted. Gallbladder ejection fraction is 80%. IMPRESSION: Normal HIDA scan and gallbladder ejection fraction. Dictated by: Dictated on workstation # [id number]
== END ==
LOC: CARD 09:34
PROVIDERS: ATTEND Surgery
DX: R10.11 Right upper quadrant pain (principal)
CPT/HCPCS: 78227

== ENCOUNTER 2020-11-08 12:16 | Emergency (ER) | payer MEDICAID ==
[~2020-11-08] VITALS: Ht 160 cm; Wt 66.0 kg
[~2020-11-08 12:16] MED LIST changes: -CATHETER FLUSH 10 ML SYR IV PRN
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
--- NOTE | 2020-11-08 13:45 | Diagnostic Imaging Report ---
PROCEDURE: CT head and CT cervical spine without contrast. TECHNIQUE: Multiple contiguous axial images were obtained through the brain and cervical spine without the use of intravenous contrast. Sagittal and coronal reformations through the cervical spine were then performed. Auto Exposure Controls were utilized during the CT exam to meet ALARA standards for radiation dose reduction. INDICATION: Dizziness CT HEAD: There is no mass, shift of midline or hemorrhage to suggest an acute intracranial abnormality. The ventricles are not abnormally dilated and similar in size to the prior exam of 07/31/2009. Small basal ganglia calcifications are again noted. These are developmental variant. The bone windows show no evidence for fracture or for destructive lesion. The orbits are symmetrical and within normal limits. The sinuses are generally clear. IMPRESSION: 1. There is no evidence for an acute intracranial abnormality. 2. If clinical concern regarding an underlying abnormality persists, then MRI would be recommended for additional study. CT CERVICAL SPINE There are no prior studies available for comparison. The reconstructed sagittal images show slight straightening of the cervical spine. This may be secondary to muscle spasm and/or positioning. There also appears to be minimal anterior translation of C3 with respect to C4 and C4 with respect to C5. There is moderate narrowing of the disc space at C5-C6 as well. The axial images fail to show any sign of a high-grade central stenosis of the cervical spine. There is no fracture identified. There is no sign of retropharyngeal edema. The thyroid gland is generally unremarkable. The lung apices are clear. IMPRESSION: There is no acute bony abnormality of the cervical spine. Dictated by: Dictated on workstation # [id number]
[2020-11-08] MEDS ORDERED: PRD20T PO (13:48)
--- NOTE | 2020-11-08 14:43 | Diagnostic Imaging Report ---
Portable erect AP chest at 2:33. Indication: Hiatal hernia The heart size is within normal limits and stable when compared to 01/11/2019. The lungs are clear. There is no sign of failure, pneumonia or pleural effusion. The mediastinum is not widened. There is no retrocardiac mass to suggest a hiatal hernia. The osseous structures are intact. Impression: 1. There is no evidence for active disease. There is no sign of a hiatal hernia either. 2. If further evaluation for hiatal hernia is desired, then CT of the chest would be recommended. Dictated by: Dictated on workstation # [id number]
[2020-11-08 14:53] VITALS: BP 136/83
== END 2020-11-08 14:59 | disposition home or self-care (01) ==
LOC: EDUNIT# 12:16 → ER 12:18
DX: R42 Dizziness and giddiness (principal); H65.93 Unspecified nonsuppurative otitis media, bilateral; I10 Essential (primary) hypertension; J44.9 Chronic obstructive pulmonary disease, unspecified; K21.9 Gastro-esophageal reflux disease without esophagitis; K59.09 Other constipation; F41.9 Anxiety disorder, unspecified; F32.9 Major depressive disorder, single episode, unspecified; F17.210 Nicotine dependence, cigarettes, uncomplicated; Z79.899 Other long term (current) drug therapy
CPT/HCPCS: 70450; 71045; 72125

== ENCOUNTER 2020-11-14 08:43 | Emergency (ER) | payer MEDICAID ==
[~2020-11-14] VITALS: Ht 160 cm; Wt 66.0 kg
[2020-11-14 09:23] LABS: BASOPHILS % (AUTO) 0 % (0-10); EOSINOPHILS # (AUTO) 0.1 10^3/uL (0.0-0.3); EOSINOPHILS % (AUTO) 1 % (0-10); HEMATOCRIT 40 % (35-52); HEMOGLOBIN 13.3 g/dL (11.5-16.0); LYMPHOCYTES # (AUTO) 2.1 10^3/uL (1.0-4.0); LYMPHOCYTES % (AUTO) 18 % (12-44); MEAN CORPUSCULAR HEMOGLOBIN 30 pg (25-34); MEAN CORPUSCULAR HGB CONC 33 g/dL (32-36); MEAN CORPUSCULAR VOLUME 89 fL (80-99); MEAN PLATELET VOLUME 10.2 fL (9.0-12.2); MONOCYTES % (AUTO) 8 % (0-12); NEUTROPHILS # (AUTO) 8.8 10^3/uL (1.8-7.8); NEUTROPHILS % (AUTO) 73 % (42-75); PLATELET COUNT 262 10^3/uL (130-400); WHITE BLOOD COUNT 12.1 10^3/uL (4.3-11.0)
[2020-11-14 09:33] LABS: ALBUMIN 4.2 GM/DL (3.2-4.5); CHLORIDE 105 MMOL/L (98-107)
[2020-11-14 09:34] LABS: SODIUM 140 MMOL/L (135-145)
[2020-11-14 09:35] LABS: CALCIUM 9.3 MG/DL (8.5-10.1)
--- NOTE | 2020-11-14 09:35 | Diagnostic Imaging Report ---
Indication: Chest pain. Comparison: 11/08/2020. Discussion: Single portable upright view of the chest was obtained. Stable normal heart size. No consolidation, pleural fluid, or pneumothorax. No osseous abnormality. Impression: 1. Negative portable chest. Dictated by: Dictated on workstation # [id number]
[2020-11-14 09:36] LABS: GLUCOSE 97 MG/DL (70-105); TOTAL PROTEIN 6.9 GM/DL (6.4-8.2)
[2020-11-14 09:37] LABS: CARBON DIOXIDE 22 MMOL/L (21-32)
[2020-11-14 09:38] LABS: BILIRUBIN,TOTAL 0.3 MG/DL (0.1-1.0)
[2020-11-14 09:39] LABS: ALKALINE PHOSPHATASE 85 U/L (40-136); CREATININE SERUM 0.74 MG/DL (0.60-1.30); GFR ESTIMATED > 60
[2020-11-14 09:40] LABS: BUN/CREATININE RATIO 15
--- NOTE | 2020-11-14 09:40 | Diagnostic Imaging Report ---
PROCEDURE: CT head wo r/o stroke. TECHNIQUE: Multiple contiguous axial images were obtained through the brain without the use of intravenous contrast. Auto Exposure Controls were utilized during the CT exam to meet ALARA standards for radiation dose reduction. INDICATION: New onset left-sided facial droop, right arm weakness, left leg weakness, and altered mental status for one week. COMPARISON: 11/08/2020. DISCUSSION: No adverse interval change. Small calcifications are again noted within the bilateral basal ganglia, benign. No acute intracranial hemorrhage, mass, midline shift, or hydrocephalus. The ventricles and sulci are normal size and configuration for age. The orbits, sinuses, mastoid air cells, and calvarium are unremarkable. IMPRESSION: 1. Stable negative head CT. Dictated by: Dictated on workstation # [id number]
[2020-11-14 09:42] LABS: ALANINE AMINOTRANSFERASE 11 U/L (0-55); MAGNESIUM 2.5 MG/DL (1.6-2.4)
[2020-11-14 09:43] LABS: LIPASE 32 U/L (8-78)
[2020-11-14 09:55] LABS: PROTHROMBIN TIME PATIENT 13.5 SEC (12.2-14.7)
[2020-11-14] MEDS ORDERED: CATHETER FLUSH 10 ML SYR IV PRN (10:15)
[2020-11-14] MEDS ORDERED: IOHEXOL 350 MG/ML 100 ML (OMNIPAQUE 350) VIAL IV ONE (10:15)
[2020-11-14] MEDS ORDERED: NS 100 ML (IVPB) BAG IV ONE (10:15)
[2020-11-14] MEDS ORDERED: HOLD METFORMIN - RECEIVED CONTRAST 20 ML VIAL IV SCH (10:15)
--- NOTE | 2020-11-14 11:32 | Diagnostic Imaging Report ---
PROCEDURE: CT angiography of the head and CT angiography of the neck with and without contrast. TECHNIQUE: Contiguous noncontrast images were obtained from the skull base through the vertex. After intravenous contrast administration, helical CT angiography of the neck was performed. Source data was reformatted into 3D MIP projections. Delayed post contrast acquisition was also obtained. Auto Exposure Controls were utilized during the CT exam to meet ALARA standards for radiation dose reduction. INDICATION: Left-sided facial numbness and chest pain x1 week. Worsened over the past couple of days. Not thinking correctly, slurred speech. Headache, lightheaded, numbness in bilateral feet. CORRELATION STUDY: None FINDINGS: There is moderate calcification of the aortic arch. There is rather prominent calcification at the origin of the brachiocephalic trunk. It was somewhat difficult to quantify owing to artifact. Does appear to be suspect for potential greater than 50% narrowing at the origin of the brachiocephalic trunk. The remainder of the brachiocephalic trunk is patent. The right common carotid artery with mild intimal thickening diffusely. Minimal plaque in the carotid bifurcation. No significant stenosis of the internal carotid artery. External carotid artery is patent. On the left, the left common carotid artery is completely occluded from its origin to the bifurcation. There is calcification of the carotid bifurcation. There is contrast filling of the internal and external carotid artery. This is likely owing to retrograde flow. This appears attributed to a branch that originates off the left subclavian artery and courses left retro-paraspinal distribution. Multiple branches are noted in the soft tissues of the neck. This vessel also appears to fill the left vertebral artery which is occluded from its origin to approximately the C5 level. The right vertebral artery is tortuous but widely patent. [place] demonstrates patency at terminal internal carotid arteries. Middle and anterior cerebral arteries appear to be patent. Likely patent anterior communicating artery. Overall slight low attenuation of the vessels of the left cerebral hemisphere as compared to the right. The posterior circulation demonstrates both vertebral arteries terminating into the basilar artery. There is small-caliber diminutive appearance about the distal vertebral artery. There is persistent origin of the right posterior cerebral artery. Left posterior cerebral artery originates off the basilar artery. Postcontrast imaging demonstrates no abnormal areas of intracranial enhancement. IMPRESSION: 1. There is complete occlusion of the left common carotid artery from its origin to the bifurcation. Additionally, there is occlusion of the proximal left vertebral artery. The left internal and external carotid arteries as well as the remainder of the left vertebral artery appears to be filled via collateralized vessel originating off the left subclavian artery which courses to the left retro-paraspinal region. 2. [place] demonstrates a perhaps slight diminished vascular enhancement in the left cerebral hemisphere as compared to the right. However, definitive large vessel occlusion intracranially is not suggested. 3. While somewhat difficult to quantify, findings are concerning for potential likely greater than 50% narrowing at the origin the brachiocephalic trunk which is by far the dominant supplier of intracranial vascular blood flow. CRITICAL FINDINGS Telephone call has been made to the emergency department at the time of this dictation, at 10:45 AM. Dictated by: Dictated on workstation # [id number]
[2020-11-14] MEDS ORDERED: fentaNYL INJ 100 MCG/2 ML AMP IVP ONE (12:45)
[2020-11-14] MEDS ORDERED: ASPIRIN 325 MG (5 GR) TABLET PO ONE (13:00)
[2020-11-14] MEDS ORDERED: LORazepam 0.5 MG (ATIVAN) TABLET PO STA (13:16)
[2020-11-14] MEDS ORDERED: NICOTINE 21 MG (NICODERM) PATCH TD ONE (13:30)
[2020-11-14] MEDS ORDERED: ONDANSETRON 4 MG/2 ML (SDV) Z0FRAN IVP ONE (13:30)
--- NOTE | 2020-11-14 13:43 | ED Neurological Problem ---
General Chief Complaint: Neurological Problems Stated Complaint: SLURRED SPEECH, L SIDE FACE NUMB X 1 WK Nursing Triage Note: ARRIVED VIA WC TO ROOM 05 WITH MULTIPLE COMPLAINTS. STATES SHE HAS HAD LEFT SIDED FACIAL NUMBESS AND CHEST PAIN X1 WEEK BUT WORSE THE LAST COUPLE OF DAYS. ASLO STATES SHE IS NOT THINKING CORRECTLY AND IS HAVING SOME SLURRED SPEECH. COMPLAINS OF HEADACHE, LIGHT HEADEDED, NUMBESS IN BILAT FEET. Nursing Sepsis Screen: No Definite Risk Source: patient, old records Exam Limitations: no limitations History of Present Illness Date Seen by Provider: Nov 14, 2020 Time Seen by Provider: 08:57 Initial Comments This 60-year-old woman presents to the emergency room with complaints of weakness and numbness in her left arm, left facial drooping, weakness and numbness in her right leg, intermittent speech difficulties, confusion, and difficulty driving for the past several days. She presented to the ER on November 08 for dizziness. She had CT of the head and cervical spine at that time which were unremarkable. The neurologic deficits have developed since that time and have been present for several days. She denies any drug or alcohol use. She does smoke tobacco. She takes multiple blood pressure medications. She has been taking Antivert for dizziness which has not been helpful. She takes multiple inhalers for COPD. Her primary care doctor has been trying to wean her off of clonazepam and hydrocodone. She has not had any clonazepam today and feels jittery. NIH stroke score was 3 for left arm and right leg weakness and left facial droop. Stroke activation was not paged due to duration of symptoms. She has recently been on steroids for serous otitis media. Allergies and Home Medications Allergies Coded Allergies: No Known Drug Allergies (Unverified , 12/15/16) Patient Home Medication List Home Medication List Reviewed: Yes Review of Systems Review of Systems Constitutional: no symptoms reported Eyes: No Symptoms Reported Ears, Nose, Mouth, Throat: no symptoms reported Respiratory: no symptoms reported Gastrointestinal: no symptoms reported Genitourinary: no symptoms reported : No Musculoskeletal: no symptoms reported Skin: no symptoms reported Psychiatric/Neurological: See HPI Endocrine: No Symptoms Reported Hematologic/Lymphatic: No Symptoms Reported Past Ogvlwlc-Ihujok-Azrwrt Hx Past Med/Social Hx: Reviewed Nursing Past Med/Soc Hx Patient Social History Type Used: Cigarettes Recent Infectious Disease Expo: No Recent Hopitalizations: No Seasonal Allergies Seasonal Allergies: No Past Medical History Surgeries: Yes (EGD/COLONOSCOPY) Respiratory: Yes COPD Cardiac: Yes Hypertension Neurological: No Reproductive Disorders: No PEDIATRIC ORTHODONTIST History: Menopausal Sexually Transmitted Disease: No HIV/AIDS: No Genitourinary: No Gastrointestinal: Yes Gastroesophageal Reflux, Gastrointestinal Bleed, Chronic Constipation, Polyps, Hiatal Hernia Musculoskeletal: Yes Arthritis Endocrine: No HEENT: No Loss of Vision: Bilateral Hearing Impairment: Denies Cancer: No Psychosocial: Yes Anxiety, Depression Integumentary: No Blood Disorders: Yes (ANEMIA) Adverse Reaction/Blood Tranf: No (N/A) Family Medical History No Pertinent Family Hx Physical Exam Vital Signs Vital Signs - First Documented 11/14/20 08:58 Temp 35.9 Pulse 86 Resp 16 B/P (MAP) 152/77 (102) Pulse Ox 96 O2 Delivery Room Air Capillary Refill : Less Than 3 Seconds Height, Weight, BMI Height: 5'2.00" Weight: 147lbs. 3.2oz. 66.511806la; 25.00 BMI Method:Stated General Appearance: WD/WN, no apparent distress, thin HEENT: PERRL/EOMI, normal ENT inspection, TMs normal, pharynx normal Neck: normal inspection Respiratory: lungs clear, normal breath sounds, no respiratory distress Cardiovascular: regular rate, rhythm, no edema, no murmur Gastrointestinal: normal bowel sounds, non tender, soft Extremities: normal inspection, no pedal edema Neurologic/Psychiatric: alert, normal mood/affect Crainal Nerves: normal hearing, normal speech, PERRL, facial droop (Left mouth) Coordination/Gait: normal finger to nose (Sluggish on the left correlated with weakness. Right [id number] sluggish correlating with weakness.), other (Patient arrives in wheelchair due to disrupted gait) Motor/Sensory: no sensory deficit, pronator drift (L), weak motor strength LUE, weak motor strength RLE Skin: normal color, warm/dry Stroke NIH Stroke Scale Assessment Level of Consciousness: 0=Alert (0), Level of Consciousness-Questions: 0=Answers both month/age (0), LOC Commands: 0=Performs both tasks (0), Visual Akhtar: 0=No visual loss (0), Facial Movement (Facial Paresis): 1=Minor paralysis (1), Motor Function-Arms Right: 0=No drift (0), Motor Function-Arms Left: 1=Drift (1), Motor Function-Legs Right: 1=Drift (1), Motor Function- Legs Left: 0=No drift (0), Limb Ataxia: 0=Absent (0), Sensory: 0=Normal:no loss (0), Best Language: 0=No aphasia (0), Dysarthria: 0=Normal (0), E xtinction & Inattention: 0=No abnormality (0), Total: 3 Progress/Results/Core Measures Results/Orders Lab Results Laboratory Tests Test 11/14/20 09:18 11/14/20 09:25 Range/Units White Blood Count 12.1 H 4.3-11.0 10^3/uL Red Blood Count 4.48 3.80-5.11 10^6/uL Hemoglobin 13.3 11.5-16.0 g/dL Hematocrit 40 35-52 % Mean Corpuscular Volume 89 80-99 fL Mean Corpuscular Hemoglobin 30 25-34 pg Mean Corpuscular Hemoglobin Concent 33 32-36 g/dL Red Cell Distribution Width 13.2 10.0-14.5 % Platelet Count 262 130-400 10^3/uL Mean Platelet Volume 10.2 9.0-12.2 fL Immature Granulocyte % (Auto) 1 % Neutrophils (%) (Auto) 73 42-75 % Lymphocytes (%) (Auto) 18 12-44 % Monocytes (%) (Auto) 8 0-12 % Eosinophils (%) (Auto) 1 0-10 % Basophils (%) (Auto) 0 0-10 % Neutrophils # (Auto) 8.8 H 1.8-7.8 10^3/uL Lymphocytes # (Auto) 2.1 1.0-4.0 10^3/uL Monocytes # (Auto) 1.0 0.0-1.0 10^3/uL Eosinophils # (Auto) 0.1 0.0-0.3 10^3/uL Basophils # (Auto) 0.0 0.0-0.1 10^3/uL Immature Granulocyte # (Auto) 0.1 0.0-0.1 10^3/uL Sodium Level 140 135-145 MMOL/L Potassium Level 4.0 3.6-5.0 MMOL/L Chloride Level 105 98-107 MMOL/L Carbon Dioxide Level 22 21-32 MMOL/L Anion Gap 13 5-14 MMOL/L Blood Urea Nitrogen 11 7-18 MG/DL Creatinine 0.74 0.60-1.30 MG/DL Estimat Glomerular Filtration Rate > 60 BUN/Creatinine Ratio 15 Glucose Level 97 70-105 MG/DL Calcium Level 9.3 8.5-10.1 MG/DL Corrected Calcium 9.1 8.5-10.1 MG/DL Magnesium Level 2.5 H 1.6-2.4 MG/DL Total Bilirubin 0.3 0.1-1.0 MG/DL Aspartate Amino Transf (AST/SGOT) 12 5-34 U/L Alanine Aminotransferase (ALT/SGPT) 11 0-55 U/L Alkaline Phosphatase 85 40-136 U/L Myoglobin 21.0 10.0-92.0 NG/ML Troponin I < 0.028 <0.028 NG/ML Total Protein 6.9 6.4-8.2 GM/DL Albumin 4.2 3.2-4.5 GM/DL Lipase 32 8-78 U/L Prothrombin Time 13.5 12.2-14.7 SEC INR Comment 1.0 0.8-1.4 Activated Partial Thromboplast Time 21 L 24-35 SEC My Orders Orders - JUANA MEDRANO MD Cbc With Automated Diff (11/14/20 09:13) Magnesium (11/14/20 09:13) Chest 1 View, Ap/Pa Only (11/14/20 09:13) Ekg Tracing (11/14/20 09:13) Comprehensive Metabolic Panel (11/14/20 09:13) Myoglobin Serum (11/14/20 09:13) Protime With Inr (11/14/20 09:13) Partial Thromboplastin Time (11/14/20 09:13) O2 (11/14/20 09:13) Monitor-Rhythm Ecg Trace Only (11/14/20 09:13) Ed Iv/Invasive Line Start (11/14/20 09:13) Lipase (11/14/20 09:13) Ct Head Wo-R/O Stroke (11/14/20 09:15) Troponin I (11/14/20 09:13) Ct Angio Head/Neck (11/14/20 09:58) Iohexol Injection (Omnipaque 350 Mg/Ml 1 (11/14/20 10:15) Received Contrast (Hold Metformin- Contr (11/14/20 10:15) Sodium Chloride Flush (Catheter Flush Sy (11/14/20 10:15) Ns (Ivpb) (Sodium Chloride 0.9% Ivpb Bag (11/14/20 10:15) Fentanyl Inj (Sublimaze Injection) (11/14/20 12:45) Aspirin Tablet (Aspirin Tablet) (11/14/20 13:00) Lorazepam Tablet (Ativan Tablet) (11/14/20 13:16) Nicotine Patch (Nicoderm Patch) (11/14/20 13:30) Ondansetron Injection (Zofran Injectio (11/14/20 13:30) Medications Given in ED Current Medications Medications Dose Ordered Sig/Rula Route Start Time Stop Time Status Last Admin Dose Admin Aspirin 325 mg ONCE ONCE PO 11/14/20 13:00 11/14/20 13:01 DC 11/14/20 13:23 325 MG Fentanyl Citrate 50 mcg ONCE ONCE IVP 11/14/20 12:45 11/14/20 12:46 DC 11/14/20 12:38 50 MCG Iohexol 100 ml ONCE ONCE IV 11/14/20 10:15 11/14/20 10:16 DC 11/14/20 10:15 75 ML Nicotine 21 mg ONCE ONCE TD 11/14/20 13:30 11/14/20 13:31 DC 11/14/20 13:36 21 MG Ondansetron HCl 8 mg ONCE ONCE IVP 11/14/20 13:30 11/14/20 13:31 DC 11/14/20 13:35 8 MG Sodium Chloride 10 ml NEEDED PRN IV 11/14/20 10:15 11/14/20 14:08 DC 11/14/20 10:15 10 ML Sodium Chloride 100 ml ONCE ONCE IV 11/14/20 10:15 11/14/20 10:16 DC 11/14/20 10:15 80 ML Vital Signs/I&O 11/14/20 11/14/20 08:58 14:08 Temp 35.9 Pulse 86 69 Resp 16 16 B/P (MAP) 152/77 (102) 161/85 Pulse Ox 96 100 O2 Delivery Room Air Room Air Blood Pressure Mean: 102 Progress Progress Note : Time: 13:00 Progress Note Patient was seen and examined. Thorough work-up was pursued including CT of the head which was unremarkable. This was followed by CT angiogram of the head and neck that revealed complete occlusion of the left common carotid and left vertebral arteries. Collateral blood flow was present in the small vessels. Clinical presentation and CT angiogram findings were discussed with Dr. Meier who suggested admission at [facility]. Transfer arrangements are being made. Aspirin was given in the ER. Zofran was given for nausea. Nicotine patch was applied for nicotine withdrawal and Ativan 0.5 mg orally was given for suspected mild benzodiazepine withdrawal. Initial ECG Impression Date: Nov 14, 2020 Initial ECG Impression Time: 09:08 Initial ECG Rate: 83 Initial ECG Rhythm: Normal Sinus Initial ECG Intervals: Normal Initial ECG Impression: Normal Comment Normal sinus rhythm with no ST elevation or depression. No abnormal intervals or axis deviation. Diagnostic Imaging Diagonstic Imaging: Xray Plain Films/CT/US/NM/MRI: chest Comments NAME: JAISON WILSONDeepa Sommers [facility] REC#: [id number] PT STATUS: REG ER : 1960 PHYSICIAN: JUANA MEDRANO MD ADMIT DATE: 11/14/20/ER Draft Date of Exam:11/14/20 CHEST 1 VIEW, AP/PA ONLY Indication: Chest pain. Comparison: 11/08/2020. Discussion: Single portable upright view of the chest was obtained. Stable normal heart size. No consolidation, pleural fluid, or pneumothorax. No osseous abnormality. Impression: 1. Negative portable chest. Dictated on workstation # [id number] Dict: 11/14/20 0933 Trans: 11/14/20 0935 [facility] [id number] Interpreted by: MATEO MYLES MD Diagonstic Imaging: CT Plain Films/CT/US/NM/MRI: head Comments CT head viewed by me and report reviewed. See report below: NAME: JENNI WILSON Matthieu [facility] REC#: [id number] PT STATUS: REG ER : 1960 PHYSICIAN: JUANA MEDRANO MD ADMIT DATE: 11/14/20/ER Draft Date of Exam:11/14/20 CT HEAD WO-R/O STROKE PROCEDURE: CT head wo r/o stroke. TECHNIQUE: Multiple contiguous axial images were obtained through the brain without the use of intravenous contrast. Auto Exposure Controls were utilized during the CT exam to meet ALARA standards for radiation dose reduction. INDICATION: New onset left-sided facial droop, right arm weakness, left leg weakness, and altered mental status for one week. COMPARISON: 11/08/2020. DISCUSSION: No adverse interval change. Small calcifications are again noted within the bilateral basal ganglia, benign. No acute intracranial hemorrhage, mass, midline shift, or hydrocephalus. The ventricles and sulci are normal size and configuration for age. The orbits, sinuses, mastoid air cells, and calvarium are unremarkable. IMPRESSION: 1. Stable negative head CT. Dictated on workstation # [id number] Dict: 11/14/20935 Trans: 11/14/20 0940 [facility] [id number] Interpreted by: MATEO MYLES MD Diagonstic Imaging: CT Comments CT angiogram head and neck viewed by me and report reviewed. Discussed with the radiologist. See report below: NAME: JENNI WILSON [facility] REC#: [id number] PT STATUS: REG ER : 1960 PHYSICIAN: JUANA MEDRANO MD ADMIT DATE: 11/14/20/ER Signed Date of Exam:11/14/20 CT ANGIO HEAD/NECK PROCEDURE: CT angiography of the head and CT angiography of the neck with and without contrast. TECHNIQUE: Contiguous noncontrast images were obtained from the skull base through the vertex. After intravenous contrast administration, helical CT angiography of the neck was performed. Source data was reformatted into 3D MIP projections. Delayed post contrast acquisition was also obtained. Auto Exposure Controls were utilized during the CT exam to meet ALARA standards for radiation dose reduction. INDICATION: Left-sided facial numbness and chest pain x1 week. Worsened over the past couple of days. Not thinking correctly, slurred speech. Headache, lightheaded, numbness in bilateral feet. CORRELATION STUDY: None FINDINGS: There is moderate calcification of the aortic arch. There is rather prominent calcification at the origin of the brachiocephalic trunk. It was somewhat difficult to quantify owing to artifact. Does appear to be suspect for potential greater than 50% narrowing at the origin of the brachiocephalic trunk. The remainder of the brachiocephalic trunk is patent. The right common carotid artery with mild intimal thickening diffusely. Minimal plaque in the carotid bifurcation. No significant stenosis of the internal carotid artery. External carotid artery is patent. On the left, the left common carotid artery is completely occluded from its origin to the bifurcation. There is calcification of the carotid bifurcation. There is contrast filling of the internal and external carotid artery. This is likely owing to retrograde flow. This appears attributed to a branch that originates off the left subclavian artery and courses left retro-paraspinal distribution. Multiple branches are noted in the soft tissues of the neck. This vessel also appears to fill the left vertebral artery which is occluded from its origin to approximately the C5 level. The right vertebral artery is tortuous but widely patent. [place] demonstrates patency at terminal internal carotid arteries. Middle and anterior cerebral arteries appear to be patent. Likely patent anterior communicating artery. Overall slight low attenuation of the vessels of the left cerebral hemisphere as compared to the right. The posterior circulation demonstrates both vertebral arteries terminating into the basilar artery. There is small-caliber diminutive appearance about the distal vertebral artery. There is persistent origin of the right posterior cerebral artery. Left posterior cerebral artery originates off the basilar artery. Postcontrast imaging demonstrates no abnormal areas of intracranial enhancement. IMPRESSION: 1. There is complete occlusion of the left common carotid artery from its origin to the bifurcation. Additionally, there is occlusion of the proximal left vertebral artery. The left internal and external carotid arteries as well as the remainder of the left vertebral artery appears to be filled via collateralized vessel originating off the left subclavian artery which courses to the left retro-paraspinal region. 2. [place] demonstrates a perhaps slight diminished vascular enhancement in the left cerebral hemisphere as compared to the right. However, definitive large vessel occlusion intracranially is not suggested. 3. While somewhat difficult to quantify, findings are concerning for potential likely greater than 50% narrowing at the origin the brachiocephalic trunk which is by far the dominant supplier of intracranial vascular blood flow. CRITICAL FINDINGS Telephone call has been made to the emergency department at the time of this dictation, at 10:45 AM. Dictated by: Dictated on workstation # [id number] Dict: 11/14/20 1027 Trans: 11/14/20 1131 [facility] [id number] Interpreted by: ANNA HERNANDEZ DO Electronically signed by: ANNA HERNANDEZ DO 11/14/20 1131 Departure Impression Primary Impression: Occlusion of left vertebral artery Additional Impressions: Carotid occlusion, left Left arm weakness Right leg weakness Facial droop Disposition: 02 XFER SHT-TRM HOSP Condition: Stable Transfer Transfer Reason: Exceeds level of care Time Spoke to Accepting Phy: 12:50 Transfer Progress Notes Transfer accepted by Dr. Meier at [facility]. Transfer Time: 14:19 Transfer Facility: [facility] Method of Transfer: EMS Departure-Patient Inst. Referrals: JEANETTE MERIDA MD (PCP/Family) Primary Care Physician Copy Copies To 1: JEANETTE MERIDA MD, JOSHUA T MD Nov 14, 2020 13:43
[2020-11-14 14:08] VITALS: BP 161/85
== END 2020-11-14 14:08 | disposition short-term general hospital (02) ==
LOC: EDUNIT# 08:43 → ER 08:44
DX: I65.02 Occlusion and stenosis of left vertebral artery (principal); I65.22 Occlusion and stenosis of left carotid artery; I10 Essential (primary) hypertension; J44.9 Chronic obstructive pulmonary disease, unspecified
CPT/HCPCS: 36415; 70450; 70496; 70498; 71045; 80053; 83690; 83735; 83874; 84484; 85025; 85610; 85730; 93005; 93041

== ENCOUNTER → 2021-01-01 | Outpatient (CLI) | payer OTHER | LOC: RT 16:00 | PROVIDERS: ATTEND Family Medicine | DX: Z02.71 Encounter for disability determination (principal); J44.9 Chronic obstructive pulmonary disease, unspecified | CPT/HCPCS: 94010; 94729 ==

== ENCOUNTER 2021-01-16 22:18 | Emergency (ER) | payer MEDICAID, OTHER ==
[~2021-01-16] VITALS: Ht 160 cm; Wt 68.0 kg
[2021-01-16 22:50] LABS: BASOPHILS # (AUTO) 0.1 10^3/uL (0.0-0.1); BASOPHILS % (AUTO) 1 % (0-10); EOSINOPHILS # (AUTO) 0.2 10^3/uL (0.0-0.3); EOSINOPHILS % (AUTO) 2 % (0-10); HEMATOCRIT 39 % (35-52); HEMOGLOBIN 12.7 g/dL (11.5-16.0); LYMPHOCYTES # (AUTO) 2.7 10^3/uL (1.0-4.0); LYMPHOCYTES % (AUTO) 30 % (12-44); MEAN CORPUSCULAR HEMOGLOBIN 29 pg (25-34); MEAN CORPUSCULAR HGB CONC 33 g/dL (32-36); MEAN CORPUSCULAR VOLUME 90 fL (80-99); MEAN PLATELET VOLUME 10.5 fL (9.0-12.2); MONOCYTES # (AUTO) 0.7 10^3/uL (0.0-1.0); MONOCYTES % (AUTO) 8 % (0-12); NEUTROPHILS # (AUTO) 5.2 10^3/uL (1.8-7.8); NEUTROPHILS % (AUTO) 59 % (42-75); PLATELET COUNT 193 10^3/uL (130-400); WHITE BLOOD COUNT 8.8 10^3/uL (4.3-11.0)
[2021-01-16 23:01] LABS: INR 0.9 (0.8-1.4); PROTHROMBIN TIME PATIENT 12.7 SEC (12.2-14.7)
[2021-01-16 23:03] LABS: BILIRUBIN,URINE NEGATIVE (NEGATIVE); CLARITY,URINE CLEAR; COLOR,URINE YELLOW; GLUCOSE, URINE (UA) NEGATIVE (NEGATIVE); KETONES,URINE NEGATIVE (NEGATIVE); LEUKOCYTE ESTERASE ,URINE TRACE (NEGATIVE); NITRITE,URINE NEGATIVE (NEGATIVE); PH,URINE 5.5 (5-9); PROTEIN,URINE NEGATIVE (NEGATIVE)
[2021-01-16 23:08] LABS: RBC,URINE RARE /HPF
[2021-01-16 23:09] LABS: BACTERIA,URINE TRACE /HPF
[2021-01-16 23:14] LABS: ALANINE AMINOTRANSFERASE 21 U/L (0-55); ALBUMIN 4.2 GM/DL (3.2-4.5); ALKALINE PHOSPHATASE 82 U/L (40-136); BILIRUBIN,TOTAL 0.3 MG/DL (0.1-1.0); BUN/CREATININE RATIO 16; CALCIUM 9.2 MG/DL (8.5-10.1); CARBON DIOXIDE 23 MMOL/L (21-32); CHLORIDE 107 MMOL/L (98-107); CREATININE SERUM 1.04 MG/DL (0.60-1.30); GFR ESTIMATED 54; GLUCOSE 136 MG/DL (70-105); POTASSIUM 3.9 MMOL/L (3.6-5.0); SODIUM 140 MMOL/L (135-145); TOTAL PROTEIN 7.1 GM/DL (6.4-8.2)
--- NOTE | 2021-01-16 23:17 | ED Neurological Problem ---
General Chief Complaint: Neurological Problems Stated Complaint: WEAKNESS IN LEGS/R SIDE FACIAL NUMBNESS Nursing Triage Note: ASSISTED PT VIA ER W/C TO ROOM #8 W/CO STROKE LIKE SX. PT REPORTS ON THE MORNING OF 01/14/21 SHE WOKE UP WITH R SIDED FACIAL NUMBNESS, NECK PAIN, GENERALIZED WEAKNESS, AND DIFFICULTY WALKING. PT REPORTS SX HAVE BEEN INTERMITTENT SINCE ONSET. PT REPORTS SX ARE SIMILAR TO SX SHE EXPERIENCED WITH TIA IN DECEMBER 2020. PT REPORTS HX CAD AND FOLLOWS WITH NEUROLOGY. ACCOMPANIED BY DAUGHTER. Source: patient, family Exam Limitations: no limitations History of Present Illness Date Seen by Provider: Jan 16, 2021 Time Seen by Provider: 22:20 Initial Comments 60-year-old female with past medical history of TIA, hypertension, hyperlipidemia, and chronic pain coming in due to right-sided facial numbness and generalized weakness for greater than 48 hours. She states she woke up feeling like she had some tingling on the right side of her face with some general weakness making it more difficult to walk at that time. Nothing localized as far as the weakness at that time. She had some right-sided head pain and neck pain at that time as well which has been consistent. She attributed this to stopping smoking and that is why she did not come back in. She said with her last TIA she was transferred to and they did images concerning for blockages on the left side but they were unable to intervene at that time and they started her on medications to lower her risk of stroke in the future. At that time she was having numbness in the left side of her face. This occurred early November. She is otherwise denying any chest pain, shortness of breath, abdominal pain, nausea, vomiting, diarrhea, fever, chills, or any other concerns. Allergies and Home Medications Allergies Coded Allergies: No Known Drug Allergies (Unverified , 12/15/16) Patient Home Medication List Home Medication List Reviewed: Yes Review of Systems Review of Systems Constitutional: No fever Eyes: Denies Blurred Vision Ears, Nose, Mouth, Throat: no symptoms reported Respiratory: No cough, No dyspnea on exertion, No short of breath Cardiovascular: No chest pain Gastrointestinal: No abdominal pain, No constipation, No diarrhea, No vomiting Genitourinary: No dysuria : No Musculoskeletal: back pain Skin: No rash Psychiatric/Neurological: Denies Anxiety, Denies Depressed Endocrine: No Symptoms Reported Hematologic/Lymphatic: No Symptoms Reported All Other Systems Reviewed Negative Unless Noted: Yes Past Hvgocbc-Nrztjq-Ttkdzs Hx Patient Social History Tobacco Use?: No Tobacco type used: Cigarettes Smoking Status: Current Someday Smoker Substance use?: No Alcohol Use?: No Pt feels they are or have been: No Seasonal Allergies Seasonal Allergies: No Past Medical History Surgeries: Yes (EGD/COLONOSCOPY) Respiratory: Yes COPD Cardiac: Yes Hypertension Neurological: No Reproductive Disorders: No WARPMAN History: Menopausal Sexually Transmitted Disease: No HIV/AIDS: No Genitourinary: No Gastrointestinal: Yes Gastroesophageal Reflux, Gastrointestinal Bleed, Chronic Constipation, Polyps, Hiatal Hernia Musculoskeletal: Yes Arthritis Endocrine: No HEENT: No Loss of Vision: Bilateral Hearing Impairment: Denies Cancer: No Psychosocial: Yes Anxiety, Depression Integumentary: No Blood Disorders: Yes (ANEMIA) Adverse Reaction/Blood Tranf: No (N/A) Family Medical History No Pertinent Family Hx Physical Exam Vital Signs Vital Signs - First Documented 01/16/21 22:27 Temp 36.9 Pulse 76 Resp 18 B/P (MAP) 153/97 (115) Pulse Ox 98 O2 Delivery Room Air Capillary Refill : Less Than 3 Seconds Height, Weight, BMI Height: 5'2.00" Weight: 147lbs. 3.2oz. [id number]; 26.00 BMI Method:Stated General Appearance: WD/WN, no apparent distress HEENT: PERRL/EOMI, normal ENT inspection, TMs normal Neck: non-tender, full range of motion, supple, normal inspection Respiratory: chest non-tender, lungs clear, normal breath sounds, no respiratory distress, no accessory muscle use Cardiovascular: regular rate, rhythm, no edema, no JVD, no murmur Gastrointestinal: normal bowel sounds, non tender, soft; No distended, No guarding, No rebound Back: normal inspection, no CVA tenderness, no vertebral tenderness Extremities: normal range of motion, non-tender, normal inspection, no calf tenderness, normal capillary refill 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, no motor/sensory deficits, alert, normal mood/affect, oriented x 3, other (Normal visual acuity, normal visual akhtar, normal sensation along her face) Crainal Nerves: normal hearing, normal speech, PERRL Coordination/Gait: normal finger to nose, normal gait Motor/Sensory: no motor deficit, no sensory deficit, no pronator drift Skin: normal color, warm/dry Lymphatic: no adenopathy Stroke Onset of Symptoms Date of Onset of Symptoms: Jan 14, 2021 Time of Symptom Onset: 08:00 Onset of Symptoms: Yes Symptoms onset unknown: No NIH Stroke Scale Assessment Level of Consciousness: 0=Alert (0), Level of Consciousness-Questions: 0=Answers both month/age (0), LOC Commands: 0=Performs both tasks (0), Visual Akhtar: 0=No visual loss (0), Facial Movement (Facial Paresis): 0=Normal symmetrical mnt (0), Motor Function-Arms Right: 0=No drift (0), Motor Function-Arms Left: 0=No drift (0), Motor Function-Legs Right: 0=No drift (0), Motor Function-Legs Left: 0=No drift (0), Limb Ataxia: 0=Absent (0), Sensory: 0=Normal:no loss (0), Best Language: 0=No aphasia (0), Dysarthria: 0=Normal (0), Extinction & Inattention: 0=No abnormality (0), Total: 0 IV - TPa Received IV - TPa Procedure Performed?: No Progress/Results/Core Measures Results/Orders Lab Results Laboratory Tests Test 01/16/21 22:40 01/16/21 22:51 01/16/21 23:00 Range/Units White Blood Count 8.8 4.3-11.0 10^3/uL Red Blood Count 4.34 3.80-5.11 10^6/uL Hemoglobin 12.7 11.5-16.0 g/dL Hematocrit 39 35-52 % Mean Corpuscular Volume 90 80-99 fL Mean Corpuscular Hemoglobin 29 25-34 pg Mean Corpuscular Hemoglobin Concent 33 32-36 g/dL Red Cell Distribution Width 12.9 10.0-14.5 % Platelet Count 193 130-400 10^3/uL Mean Platelet Volume 10.5 9.0-12.2 fL Immature Granulocyte % (Auto) 1 % Neutrophils (%) (Auto) 59 42-75 % Lymphocytes (%) (Auto) 30 12-44 % Monocytes (%) (Auto) 8 0-12 % Eosinophils (%) (Auto) 2 0-10 % Basophils (%) (Auto) 1 0-10 % Neutrophils # (Auto) 5.2 1.8-7.8 10^3/uL Lymphocytes # (Auto) 2.7 1.0-4.0 10^3/uL Monocytes # (Auto) 0.7 0.0-1.0 10^3/uL Eosinophils # (Auto) 0.2 0.0-0.3 10^3/uL Basophils # (Auto) 0.1 0.0-0.1 10^3/uL Immature Granulocyte # (Auto) 0.0 0.0-0.1 10^3/uL Prothrombin Time 12.7 12.2-14.7 SEC INR Comment 0.9 0.8-1.4 Activated Partial Thromboplast Time 29 24-35 SEC Sodium Level 140 135-145 MMOL/L Potassium Level 3.9 3.6-5.0 MMOL/L Chloride Level 107 98-107 MMOL/L Carbon Dioxide Level 23 21-32 MMOL/L Anion Gap 10 5-14 MMOL/L Blood Urea Nitrogen 17 7-18 MG/DL Creatinine 1.04 0.60-1.30 MG/DL Estimat Glomerular Filtration Rate 54 BUN/Creatinine Ratio 16 Glucose Level 136 H 70-105 MG/DL Calcium Level 9.2 8.5-10.1 MG/DL Corrected Calcium 9.0 8.5-10.1 MG/DL Total Bilirubin 0.3 0.1-1.0 MG/DL Aspartate Amino Transf (AST/SGOT) 18 5-34 U/L Alanine Aminotransferase (ALT/SGPT) 21 0-55 U/L Alkaline Phosphatase 82 40-136 U/L Troponin I < 0.028 <0.028 NG/ML Total Protein 7.1 6.4-8.2 GM/DL Albumin 4.2 3.2-4.5 GM/DL Serum Test, Qualitative NEGATIVE NEGATIVE Glucometer 141 H 70-110 MG/DL Urine Color YELLOW Urine Clarity CLEAR Urine pH 5.5 5-9 Urine Specific [place] 1.015 L 1.016-1.022 Urine Protein NEGATIVE NEGATIVE Urine Glucose (UA) NEGATIVE NEGATIVE Urine Ketones NEGATIVE NEGATIVE Urine Nitrite NEGATIVE NEGATIVE Urine Bilirubin NEGATIVE NEGATIVE Urine Urobilinogen 0.2 < = 1.0 MG/DL Urine Leukocyte Esterase TRACE H NEGATIVE Urine RBC (Auto) 1+ H NEGATIVE Urine RBC RARE /HPF Urine WBC 2-5 /HPF Urine Squamous Epithelial Cells 5-10 /HPF Urine Crystals NONE /LPF Urine Bacteria TRACE /HPF Urine Casts NONE /LPF Urine Mucus SMALL H /LPF Urine Culture Indicated NO My Orders Orders - MULU MANUEL MD Cbc With Automated Diff (01/16/21 22:41) Protime With Inr (01/16/21 22:41) Partial Thromboplastin Time (01/16/21 22:41) Comprehensive Metabolic Panel (01/16/21 22:41) Troponin I (01/16/21 22:41) Hcg,Qualitative Serum (01/16/21 22:41) Ua Culture If Indicated (01/16/21 22:41) Chest 1 View, Ap/Pa Only (01/16/21 22:41) Ekg Tracing (01/16/21 22:41) Accucheck Stat ONCE (01/16/21 22:41) Ed Iv/Invasive Line Start (01/16/21 22:41) Ed Iv/Invasive Line Start (01/16/21 22:41) Vital Signs Stroke Patient Q1HR (01/16/21 22:41) Ct Head Wo-R/O Stroke (01/16/21 22:41) O2 (01/16/21 22:41) Intake & Output 06,14,22 (01/16/21 22:41) Monitor-Rhythm Ecg Trace Only (01/16/21 22:41) Dysphagia Screening Tool (01/16/21 22:41) Ct Angio Head/Neck (01/16/21 22:41) Hydrocodone/Apap 7.5/325 Tab (Lortab 7. (01/17/21 01:15) Medications Given in ED Current Medications Medications Dose Ordered Sig/Rula Route Start Time Stop Time Status Last Admin Dose Admin Acetaminophen/ Hydrocodone Bitart 1 ea ONCE ONCE PO 01/17/21 01:15 01/17/21 01:16 DC 01/17/21 01:44 1 EA Vital Signs/I&O 01/16/21 22:27 Temp 36.9 Pulse 76 Resp 18 B/P (MAP) 153/97 (115) Pulse Ox 98 O2 Delivery Room Air Blood Pressure Mean: 115 FSBG Bedside Testing Finger Stick Blood Glucose: 141 Blood Glucose Action Taken: doctor notified Progress Progress Note : Progress Note 60-year-old female with above history coming in due to right-sided facial numbness and general weakness. ABCs were intact and vitals were stable on presentation. Blood glucose 141. On physical exam she has no focal neuro deficits and her NIH stroke scale is 0. Additionally, she presented greater than 48 hours after symptoms and she would not be a candidate for any intervention if she did have a stroke. She is stated she has had blockage on th e left arteries on her neck before, so we will get a CT head and neck with and without contrast to assess for any signs of stroke or worsening stenosis. I personally discussed the case with the radiologist on-call and the CT/CTA of her head and neck are negative for any acute findings. 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 Labs are mostly unremarkable. I gave her hydrocodone which is what she takes at home for her chronic neck pain. Continue to reassess her and she had no neurologic deficits. I am unclear the exact cause of her symptoms but given her normal work-up, return to baseline, and she is already on medications to lower her risk of stroke, I believe it is appropriate for her to follow-up with her neurologist by calling in the morning. Believe she is stable for discharge. She was sent home with strict return precautions. EKG : EKG Time: 22:33 Rate: 68 Rhythm: Normal Sinus Comment Normal sinus rhythm with a rate of 68, narrow QRS, normal axis, no significant ST changes, no T wave abnormalities Diagnostic Imaging Diagonstic Imaging: Xray Comments X-ray chest ordered and interpreted by me with no obvious abnormalities including no obvious pneumonia Diagonstic Imaging: CT Comments CT head without contrast as well as CTA head and neck ordered and interpreted by me without any obvious bleed or new occlusion. CT ANGIO HEAD/NECK PROCEDURE: CT angiography of the head and CT angiography of the neck with and without contrast. TECHNIQUE: Contiguous noncontrast images were obtained from the skull base through the vertex. After intravenous contrast administration, helical CT angiography of the neck was performed. Source data was reformatted into 3D MIP projections. Delayed post contrast acquisition was also obtained. Auto Exposure Controls were utilized during the CT exam to meet ALARA standards for radiation dose reduction. INDICATION: Right leg weakness The previous CTA head and neck exam performed on 11/14/2020 noted complete occlusion of the left common carotid artery. There also appear to be occlusion of the proximal left vertebral artery. There was no evidence for a large vessel occlusion, however. On this exam, there is still no evidence for a large vessel occlusion. There is no sign of an aneurysm of the [place] either. As noted on the prior exam, the internal carotid artery on the left is occluded. The proximal portion of the left vertebral artery is also occluded. There is atherosclerotic disease involving the carotid bifurcation on the right but there is no hemodynamically significant stenosis identified. There is no mass or adenopathy involving the neck. The lung apices are clear. IMPRESSION: 1. There is no evidence for a large vessel occlusion or for an aneurysm of the [place] of [place]. If clinical concern regarding an acute abnormality persists, then MRI would be recommended for further study. 2. The left internal carotid artery remains occluded as does the proximal portion of the left vertebral artery. There is no hemodynamically significant stenosis of the right carotid system. Dictated on workstation # [id number] Dict: 01/16/21 [id number] Trans: 01/16/21 2353 [facility] [id number] Interpreted by: ALMA PUGH MD Electronically signed by: Departure Impression Primary Impression: Headache Qualified Codes: R51.9 - Headache, unspecified Additional Impressions: Numbness Weakness Disposition: 01 HOME, SELF-CARE Condition: Stable Departure-Patient Inst. Decision time for Depature: 01:12 Referrals: JEANETTE MERIDA MD (PCP/Family) Primary Care Physician Patient Instructions: Transient Ischemic Attack (DC) Add. Discharge Instructions: He was seen in the emergency department for some numbness to the right side of your face as well as some headache and changes to your ears. Your labs and imaging look normal for you. It is hard say what this was but could have been another TIA. It does not appear that you have had a stroke however. Please call your neurologist in the morning. He can try to take Zyrtec for the changes in your ears. Take Tylenol for headache. Be sure to drink plenty of fluids. You have any new weakness, numbness, or any other concerns then please come back to the emergency department. All discharge instructions reviewed with patient and/or family. Voiced understanding. MULU MANUEL MD Jan 16, 2021 23:17
--- NOTE | 2021-01-16 23:31 | Diagnostic Imaging Report ---
PROCEDURE: CT head wo r/o stroke. TECHNIQUE: Multiple contiguous axial images were obtained through the brain without the use of intravenous contrast. Auto Exposure Controls were utilized during the CT exam to meet ALARA standards for radiation dose reduction. INDICATION: Right leg weakness There is no mass, shift of the midline or hemorrhage to suggest an acute abnormality. There is no sign of an asymmetric hyperdense vessel either. The ventricles are not abnormally dilated and stable in size when compared to the prior exam of 11/14/2020. The mild cortical atrophy noted on the prior study is again evident and no different. The bone windows show no sign of a fracture or of a destructive lesion. The orbits are symmetrical and within normal limits. The sinuses are generally clear. IMPRESSION: 1. There is no evidence for an acute intracranial abnormality. 2. If clinical concern regarding an underlying abnormality persists, then MRI OR CTA OF THE HEAD AND NECK would be recommended for further study. Dictated by: Dictated on workstation # [id number]
--- NOTE | 2021-01-16 23:54 | Diagnostic Imaging Report ---
PROCEDURE: CT angiography of the head and CT angiography of the neck with and without contrast. TECHNIQUE: Contiguous noncontrast images were obtained from the skull base through the vertex. After intravenous contrast administration, helical CT angiography of the neck was performed. Source data was reformatted into 3D MIP projections. Delayed post contrast acquisition was also obtained. Auto Exposure Controls were utilized during the CT exam to meet ALARA standards for radiation dose reduction. INDICATION: Right leg weakness The previous CTA head and neck exam performed on 11/14/2020 noted complete occlusion of the left common carotid artery. There also appear to be occlusion of the proximal left vertebral artery. There was no evidence for a large vessel occlusion, however. On this exam, there is still no evidence for a large vessel occlusion. There is no sign of an aneurysm of the [place] of [place]andez either. As noted on the prior exam, the internal carotid artery on the left is occluded. Most of the left vertebral artery is also occluded although there is contrast in the distal most portion of the left vertebral artery.. There is atherosclerotic disease involving the carotid bifurcation on the right but there is no hemodynamically significant stenosis identified. The previous exam raise a question of a 50% stenosis involving the brachiocephalic trunk. This is felt to be insignificant as the brachiocephalic trunk was the dominant supplier of the intracranial vascular blood flow since the left internal carotid artery was occluded. On this study there is atherosclerotic plaque and some narrowing of the origin of the brachiocephalic trunk but there is no clear evidence for hemodynamically significant stenosis. There is no mass or adenopathy involving the neck. The lung apices are clear. IMPRESSION: 1. There is no evidence for a large vessel occlusion or for an aneurysm of the [place] of [place]. If clinical concern regarding an acute abnormality persists, then MRI would be recommended for further study. 2. The left internal carotid artery remains occluded as does most of the left vertebral artery. There is no hemodynamically significant stenosis of the right carotid system. 3. There is atherosclerotic disease involving the brachiocephalic trunk but there is no is for hemodynamically significant stenosis of this vessel. 4. These results were discussed with Dr. Gilbert Purcell at the time of this dictation.. Dictated by: Dictated on workstation # [id number]
[2021-01-17] MEDS ORDERED: HYDROcodone/APAP 7.5 MG/325 MG (LORTAB, LORCET PLUS) TABLET PO ONE (01:15)
[2021-01-17 02:48] VITALS: BP 130/92
--- NOTE | 2021-01-17 07:51 | Diagnostic Imaging Report ---
INDICATION: Weakness EXAMINATION: Chest 01/17/2021 COMPARISON: 11/14/2020 FINDINGS: There is a vague density in the right midlung. CT recommended to exclude a lung nodule. Remaining lungs clear. Heart and pulmonary vasculature normal. No pneumothorax or effusions. IMPRESSION: 1. Vague density in the right midlung. CT recommended to exclude a lung mass. Dictated by: Dictated on workstation # [id number]
== END 2021-01-17 02:49 | disposition home or self-care (01) ==
LOC: ER 22:18
DX: R51.9 Headache, unspecified (principal); R20.0 Anesthesia of skin; R53.1 Weakness; J44.9 Chronic obstructive pulmonary disease, unspecified; I10 Essential (primary) hypertension; F17.210 Nicotine dependence, cigarettes, uncomplicated; Z86.73 Personal history of transient ischemic attack (TIA), and cerebral infarction without residual deficits
CPT/HCPCS: 36415; 70450; 70496; 70498; 71045; 80053; 81000; 82947; 84484; 84703; 85025; 85610; 85730; 93005; 93041

== ENCOUNTER 2021-01-19 10:35 | Emergency (ER) | payer MEDICAID ==
[~2021-01-19] VITALS: Ht 157.4 cm; Wt 68.0 kg
--- NOTE | 2021-01-19 14:21 | Diagnostic Imaging Report ---
PROCEDURE: MR imaging of the brain without contrast. TECHNIQUE: Multiplanar, multisequence MR imaging of the brain was performed without contrast. INDICATION: Facial numbness and popping sensation in head COMPARISON: None available. FINDINGS: The exam had to be truncated as patient could not tolerate additional imaging. Allowing for limitations, there is no restricted diffusion to indicate acute infarct. No hydrocephalus, intra-axial mass or extra-axial fluid collection. No features of vasogenic edema. There are few scattered deep white matter FLAIR hyperintensities most compatible chronic microvascular ischemic disease. Major arterial flow voids are preserved. Probable sebaceous cyst in the left infraorbital region along the margins of the nasal ala. Visualized portions of paranasal sinuses are clear. Orbits are unremarkable. Mastoid air cells are clear. IMPRESSION: 1. Limited examination due to patient's inability to tolerate further imaging. 2. Sufficient imaging was able to be obtained to indicate that there is no acute infarct, hydrocephalus, mass or vasogenic edema. Dictated by: Dictated on workstation # [id number]
--- NOTE | 2021-01-19 15:30 | ED General ---
General Chief Complaint: Neurological Problems Stated Complaint: POSS STROKE Nursing Triage Note: Pt to ED in wheelchair. Pt c/o popping in head/ears, R sided weakness, dizziness and neck pain. Pt reports being seen in ED on Monday for the same symptoms. Pt reports not taking Depakote since last . 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 Sexually Transmitted Disease: No HIV/AIDS: No Genitourinary: No Gastrointestinal: Yes Gastroesophageal Reflux, Gastrointestinal Bleed, Chronic Constipation, Polyps, Hiatal Hernia Musculoskeletal: Yes Arthritis Endocrine: No HEENT: No Loss of Vision: Bilateral Hearing Impairment: Denies Cancer: No Psychosocial: Yes Anxiety, Depression Integumentary: No Blood Disorders: Yes (ANEMIA) Adverse Reaction/Blood Tranf: No (N/A) Family Medical History No Pertinent Family Hx Physical Exam Vital Signs Vital Signs - First Documented 01/19/21 10:35 Temp 36.8 Pulse 92 Resp 15 B/P (MAP) 147/91 (109) Pulse Ox 97 O2 Delivery Room Air Capillary Refill : Less Than 3 Seconds Height, Weight, BMI Height: 5'2.00" Weight: 147lbs. 3.2oz. [id number]; 27.00 BMI Method:Stated Progress/Results/Core Measures Suspected Sepsis SIRS Temperature: Pulse: 92 Respiratory Rate: 15 Blood Pressure 147 /91 Mean: 109 Results/Orders Lab Results Laboratory Tests Test 01/19/21 10:45 Range/Units Glucometer 180 H 70-110 MG/DL My Orders Orders - JUANA MEDRANO MD Mri Brain W/O Contrast (01/19/21 12:35) Vital Signs/I&O 01/19/21 01/19/21 10:35 15:44 Temp 36.8 Pulse 92 89 Resp 15 18 B/P (MAP) 147/91 (109) 120/74 (109) Pulse Ox 97 97 O2 Delivery Room Air Room Air Capillary Refill : Less Than 3 Seconds Blood Pressure Mean: 109 Point of Care Testing Finger Stick Blood Glucose: 180 Blood Glucose Action Taken: reported to Isabel ECG Initial ECG Impression Date: Jan 19, 2021 Initial ECG Impression Time: 10:41 Initial ECG Rate: 79 Initial ECG Rhythm: Normal Sinus Comment Normal sinus rhythm with no ST elevation or depression. No abnormal intervals or axis deviation. Departure Impression Primary Impression: Numbness and tingling of right face Additional Impression: Lower extremity weakness Qualified Codes: R29.898 - Other symptoms and signs involving the mu sculoskeletal system Disposition: 01 HOME, SELF-CARE Condition: Stable Departure-Patient Inst. Referrals: JEANETTE MERIDA MD (PCP/Family) Primary Care Physician Patient Instructions: Paresthesia (DC) Add. Discharge Instructions: Follow-up with the neurology clinic at with a phone call this week. Report of the that the MRI performed at the request of Dr. Hua was normal in the [facility] ER. Request further instructions from the neurology clinic about your follow-up time. Walk carefully and use your cane or a walker if needed for safety. Call with questions or concerns. Return to the ER if you have worsening symptoms. Resume your medications as previously instructed including your Depakote. You may take a Depakote dose when you return home and again before bed. All discharge instructions reviewed with patient and/or family. Voiced understanding. JUANA MEDRANO MD Jan 19, 2021 15:30
[2021-01-19 15:44] VITALS: BP 120/74
== END 2021-01-19 15:45 | disposition home or self-care (01) ==
LOC: EDUNIT# 10:35 → ER 10:36
DX: R20.0 Anesthesia of skin (principal); R20.2 Paresthesia of skin; M62.81 Muscle weakness (generalized); J44.9 Chronic obstructive pulmonary disease, unspecified; I10 Essential (primary) hypertension; Z87.891 Personal history of nicotine dependence
CPT/HCPCS: 70551; 82947; 93005

== ENCOUNTER → 2021-04-06 | Outpatient (CLI) | payer MEDICAID ==
--- NOTE | 2021-04-06 12:40 | Diagnostic Imaging Report ---
Indication: Routine screening. No prior mammograms are available for comparison. 2-D and 3-D bilateral screening mammography was performed with CAD. Both breasts are heterogeneously dense, limiting the sensitivity of mammography. There are benign calculus cases bilaterally. No mass or malignant-appearing microcalcifications are seen. Axillae are unremarkable. IMPRESSION: BI-RADS Category 2 No mammographic features suspicious for malignancy are identified. ACR BI-RADS Category 2: Benign findings. Result letter will be mailed to the patient. Note: At least 10% of breast cancer is not imaged by mammography. Dictated by: Dictated on workstation # [id number]
== END ==
LOC: RAD 10:15
DX: Z12.31 Encounter for screening mammogram for malignant neoplasm of breast (principal)
CPT/HCPCS: 77063; 77067

== ENCOUNTER → 2021-05-28 | Outpatient (CLI) | payer MEDICAID ==
[2021-05-28 07:45] LABS: CREATININE SERUM 0.86 MG/DL (0.60-1.30); POTASSIUM 4.4 MMOL/L (3.6-5.0)
[2021-05-28 07:46] LABS: CALCIUM 9.1 MG/DL (8.5-10.1)
--- NOTE | 2021-05-28 09:11 | Diagnostic Imaging Report ---
PROCEDURE: CT angiography of the head and CT angiography of the neck with and without contrast. TECHNIQUE: Contiguous noncontrast images were obtained from the skull base through the vertex. After intravenous contrast administration, helical CT angiography of the neck was performed. Source data was reformatted into 3D MIP projections. Delayed post contrast acquisition was also obtained. Auto Exposure Controls were utilized during the CT exam to meet ALARA standards for radiation dose reduction. INDICATION: Follow-up. Occluded left common carotid artery and left vertebral artery. History of lung cancer. Dizziness. Comparison: 01/19/2021. 01/16/2021. FINDINGS: CTA Neck: The visualized portions of the aortic arch demonstrate no evidence of aneurysm or dissection. There is conventional branching pattern of the great vessels of the aorta. The brachiocephalic artery is normal in course and caliber. There is unchanged complete occlusion of the origin of the left common carotid artery. The origin of the left subclavian artery is patent. The right common carotid artery is normal in course and caliber without focal stenosis or dissection. There is reconstitution of flow within the left carotid system at the carotid bulb. There is atherosclerotic plaque in the bilateral carotid bulbs and proximal internal carotid arteries without flow-limiting stenosis or dissection. The external carotid arteries are visualized and are unremarkable. The right vertebral artery is dominant. There is occlusion of the left vertebral artery at its origin with reconstitution of flow at the C4-C5 level. No evidence of dissection or stenosis in the right vertebral artery. The osseous structures of the cervical spine are unremarkable. Included views through the lung apices demonstrate no focal consolidation. CTA brain: Atherosclerotic plaque is seen in the spencer of the bilateral terminal internal carotid arteries without significant stenosis. No stenosis is seen in the bilateral anterior, middle, and posterior cerebral arteries. There is origin of the right CHART CHANGER. No evidence of aneurysm the [place]. Both the right and left PICA arteries are identified. The basilar artery is normal in course and caliber. The terminal branch vessels including the superior cerebellar arteries unremarkable. CT head: No large acute territorial ischemia, mass, or hemorrhage. No midline shift or mass effect. The ventricles, cortical sulci, and basilar cisterns are patent and unremarkable. The calvarium is intact. The visualized paranasal sinuses are clear. IMPRESSION: 1. Stable chronic occlusion of the left common carotid artery with reconstitution of flow at the left carotid bulb. No new stenosis or dissection is seen in the right common carotid artery or bilateral internal carotid arteries. 2. 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 The right vertebral artery is widely patent. 3. No evidence of stenosis or aneurysm in the [place]. No large vessel occlusion. 4. No large acute territorial ischemia, mass, or hemorrhage. Dictated by: Dictated on workstation # [id number]
== END ==
LOC: RAD 08:45
DX: I65.22 Occlusion and stenosis of left carotid artery (principal); I65.02 Occlusion and stenosis of left vertebral artery; I10 Essential (primary) hypertension
CPT/HCPCS: 36415; 70496; 70498; 80048

== ENCOUNTER → 2021-06-14 | Outpatient (CLI) | payer MEDICAID | LOC: LABNPT 02:07 | PROVIDERS: ATTEND Student in an Organized Health Care Education/Training Program | DX: Z20.822 Contact with and (suspected) exposure to COVID-19 (principal) | CPT/HCPCS: 87635 ==

== ENCOUNTER → 2021-07-23 | Outpatient (CLI) | payer MEDICAID | LOC: LABNPT 08:37 | DX: Z20.822 Contact with and (suspected) exposure to COVID-19 (principal) | CPT/HCPCS: 87635 ==

== ENCOUNTER → 2021-09-12 | Outpatient (CLI) | payer MEDICAID | LOC: LAB 16:46 | PROVIDERS: ATTEND Internal Medicine | DX: K52.9 Noninfective gastroenteritis and colitis, unspecified (principal) | CPT/HCPCS: 87015; 87045; 87046; 87449; 87899 ==

== ENCOUNTER → 2021-10-12 | Outpatient (CLI) | payer MEDICAID | LOC: LAB 12:12 | PROVIDERS: ATTEND Family Medicine | DX: R63.5 Abnormal weight gain (principal); R06.02 Shortness of breath | CPT/HCPCS: 36415; 83880 ==

== ENCOUNTER → 2021-11-15 | Outpatient (CLI) | payer MEDICAID ==
--- NOTE | 2021-11-15 11:08 | Diagnostic Imaging Report ---
PROCEDURE: CT chest without contrast. TECHNIQUE: Multiple contiguous axial images were obtained through the chest without the use of intravenous contrast. Auto Exposure Controls were utilized during the CT exam to meet ALARA standards for radiation dose reduction. INDICATION: Lung mass. FINDINGS: There is minimal infiltrate in the superior aspect of the right middle lobe. There are no other discrete pulmonary nodules, masses, or infiltrates. There is no pleural or pericardial fluid. There is no pneumothorax. The thoracic aorta is normal in caliber without dissection. The heart size is normal. There is mild soft tissue prominence about the left hilum. The visualized intra-abdominal structures are unremarkable. There are degenerative changes in the spine. IMPRESSION: 1. Mild soft tissue prominence about the left hilum. This is nonspecific due to the lack of intravenous contrast. Further evaluation with either a contrast-enhanced exam or PET scan is recommended. 2. Minimal infiltrate in the superior aspect of the right middle lobe. 3. No other acute abnormality in the chest. Dictated by: Dictated on workstation # [id number]
== END ==
LOC: RAD 09:45
PROVIDERS: ATTEND Radiology Radiation Oncology
DX: R91.8 Other nonspecific abnormal finding of lung field (principal)
CPT/HCPCS: 71250

== ENCOUNTER → 2022-01-29 | Outpatient (CLI) | payer MEDICARE, MEDICAID ==
--- NOTE | 2022-01-29 12:37 | Diagnostic Imaging Report ---
Indication: Bilateral knee pain, swelling, degenerative disease. No priors. Findings: 3 view bilateral knee showed no fracture, dislocation, loose body, bony destruction, or erosion. Abnormal periosteal reaction or evidence for joint effusion. Impression: Unremarkable 3 view bilateral knees. Dictated by: Dictated on workstation # [id number]
== END ==
LOC: RAD 11:26
DX: M17.0 Bilateral primary osteoarthritis of knee (principal); R79.89 Other specified abnormal findings of blood chemistry; R53.1 Weakness; R25.1 Tremor, unspecified; R63.5 Abnormal weight gain
CPT/HCPCS: 36415; 83520; 84480; 84481

== ENCOUNTER → 2022-05-03 | Outpatient (CLI) | payer MEDICARE, MEDICAID ==
--- NOTE | 2022-05-03 21:21 | Diagnostic Imaging Report ---
Indication: Routine screening. Comparison is made with prior mammogram from 04/06/2021. 2-D and 3-D bilateral screening mammography was performed with CAD. Scattered fibroglandular densities are identified bilaterally. The parenchymal pattern is stable. No mass or malignant-appearing microcalcifications are seen. There are benign calcifications. Axillae are unremarkable. IMPRESSION: BI-RADS Category 2 No mammographic features suspicious for malignancy are identified. ACR BI-RADS Category 2: Benign findings. Result letter will be mailed to the patient. Note: At least 10% of breast cancer is not imaged by mammography. Dictated by: Dictated on workstation # [id number]
== END ==
LOC: RAD 08:45
DX: Z12.31 Encounter for screening mammogram for malignant neoplasm of breast (principal)
CPT/HCPCS: 77063; 77067

== ENCOUNTER 2022-06-21 11:14 | Emergency (ER) | payer MEDICARE, MEDICAID ==
[~2022-06-21] VITALS: Ht 155 cm; Wt 72.6 kg
[2022-06-21 11:36] LABS: BASOPHILS # (AUTO) 0.1 10^3/uL (0.0-0.1); BASOPHILS % (AUTO) 1 % (0-10); EOSINOPHILS # (AUTO) 0.1 10^3/uL (0.0-0.3); EOSINOPHILS % (AUTO) 2 % (0-10); HEMATOCRIT 39 % (35-52); LYMPHOCYTES # (AUTO) 1.5 10^3/uL (1.0-4.0); LYMPHOCYTES % (AUTO) 20 % (12-44); MEAN CORPUSCULAR HEMOGLOBIN 29 pg (25-34); MEAN CORPUSCULAR HGB CONC 33 g/dL (32-36); MEAN CORPUSCULAR VOLUME 88 fL (80-99); MEAN PLATELET VOLUME 10.5 fL (9.0-12.2); MONOCYTES # (AUTO) 0.6 10^3/uL (0.0-1.0); MONOCYTES % (AUTO) 8 % (0-12); NEUTROPHILS # (AUTO) 5.3 10^3/uL (1.8-7.8); NEUTROPHILS % (AUTO) 69 % (42-75); PLATELET COUNT 203 10^3/uL (130-400); WHITE BLOOD COUNT 7.7 10^3/uL (4.3-11.0)
[2022-06-21] MEDS ORDERED: NS 100 ML (IVPB) BAG IV ONE (11:45)
[2022-06-21] MEDS ORDERED: IOHEXOL 350 MG/ML 100 ML (OMNIPAQUE 350) VIAL IV ONE (11:45)
[2022-06-21] MEDS ORDERED: HOLD METFORMIN - RECEIVED CONTRAST 20 ML VIAL IV SCH (11:45)
--- NOTE | 2022-06-21 11:51 | Diagnostic Imaging Report ---
INDICATION: Dizziness FINDINGS: The lungs clear. No failure, effusion or pneumothorax. IMPRESSION: No acute appearing abnormality. Dictated by: Dictated on workstation # [id number]
[2022-06-21 11:57] LABS: ERYTHROCYTE SEDIMENTATION RATE 8 MM/HR (0-30)
[2022-06-21 12:03] LABS: FIBRIN DEGRADATION PRODUCTS 0.58 UG/ML (0.00-0.49); INR 0.9 (0.8-1.4); PROTHROMBIN TIME PATIENT 13.1 SEC (12.2-14.7)
[2022-06-21 12:04] LABS: ALANINE AMINOTRANSFERASE 17 U/L (0-55); ALBUMIN 3.9 GM/DL (3.2-4.5); ALKALINE PHOSPHATASE 90 U/L (40-136); BILIRUBIN,TOTAL 0.6 MG/DL (0.1-1.0); BUN/CREATININE RATIO 19; CALCIUM 8.5 MG/DL (8.5-10.1); CARBON DIOXIDE 24 MMOL/L (21-32); CHLORIDE 108 MMOL/L (98-107); CREATINE KINASE 96 U/L (29-168); GFR ESTIMATED 84; GLUCOSE 116 MG/DL (70-105); LIPASE 21 U/L (8-78); POTASSIUM 3.7 MMOL/L (3.6-5.0); SODIUM 141 MMOL/L (135-145); TOTAL PROTEIN 6.4 GM/DL (6.4-8.2)
[2022-06-21 12:18] LABS: BILIRUBIN,URINE NEGATIVE (NEGATIVE); CLARITY,URINE CLEAR; COLOR,URINE YELLOW; GLUCOSE, URINE (UA) NEGATIVE (NEGATIVE); KETONES,URINE NEGATIVE (NEGATIVE); LEUKOCYTE ESTERASE ,URINE TRACE (NEGATIVE); NITRITE,URINE NEGATIVE (NEGATIVE); PROTEIN,URINE NEGATIVE (NEGATIVE)
[2022-06-21 12:25] LABS: CREATINE KINASE MB 1.2 NG/ML (<6.6); TSH (THYROID ANALYZER) 0.47 UIU/ML (0.35-4.94)
[2022-06-21 12:26] LABS: BACTERIA,URINE FEW /HPF; WBC,URINE 0-2 /HPF
[2022-06-21 12:33] LABS: BENZODIAZEPINES SCREEN URINE NEGATIVE (NEGATIVE)
[2022-06-21 12:34] LABS: AMPHETAMINE SCREEN, URINE NEGATIVE (NEGATIVE); BARBITURATE SCREEN URINE NEGATIVE (NEGATIVE); CANNABINOID SCREEN, URINE POSITIVE (NEGATIVE); COCAINE SCREEN URINE NEGATIVE (NEGATIVE); METHADONE STAT NEGATIVE (NEGATIVE); OPIATE SCREEN URINE POSITIVE (NEGATIVE); OXYCODONE STAT NEGATIVE (NEGATIVE); PROPOXYPHENE STAT NEGATIVE (NEGATIVE); TRICYCLIC ANTIDEPRESSANTS SCRE POSITIVE (NEGATIVE)
--- NOTE | 2022-06-21 12:53 | Diagnostic Imaging Report ---
PROCEDURE: CT angiography of the head and CT angiography of the neck with and without contrast. TECHNIQUE: Contiguous noncontrast images were obtained from the skull base through the vertex. After intravenous contrast administration, helical CT angiography of the neck was performed. Source data was reformatted into 3D MIP projections. Delayed post contrast acquisition was also obtained. Auto Exposure Controls were utilized during the CT exam to meet ALARA standards for radiation dose reduction. INDICATION: Chronic occlusion of the left common carotid artery. Follow-up. History of headaches and dizziness. Comparison: 05/28/2021. FINDINGS: CTA Neck: The visualized portions of the aortic arch demonstrate no evidence of aneurysm or dissection. There is conventional branching pattern of the great vessels of the aorta. The brachiocephalic artery is normal in course and caliber. There is stable chronic occlusion at the origin of the left common carotid artery. There is reconstitution of flow at the left carotid bulb. No focal stenosis or dissection is seen in the left internal carotid artery. The right common carotid artery has a tortuous course without focal stenosis or dissection. There is atherosclerotic plaque in the right carotid bulb and proximal right internal carotid artery without stenosis or dissection. The bilateral external carotid arteries are visualized and are unremarkable. There is chronic occlusion of the origin of the left vertebral artery. There is reconstitution of flow at the C4 level. The right vertebral artery is dominant. The right vertebral artery is widely patent without focal stenosis or dissection. The osseous structures of the cervical spine are unremarkable. Included views through the lung apices demonstrate no focal consolidation. CTA brain: A small amount of atherosclerotic plaque is seen in the spencer of the bilateral terminal internal carotid arteries without significant stenosis. No stenosis is seen in the bilateral anterior, middle, and posterior cerebral arteries. There is origin of the right [employer]MAN [employer]. No evidence of aneurysm the [place]. In the posterior circulation, both of the vertebral arteries demonstrate normal opacification. Both the right and left PICA arteries are identified. The basilar artery is normal in course and caliber. The terminal branch vessels including the superior cerebellar arteries unremarkable. CT head: No large acute territorial ischemia, mass, or hemorrhage. No midline shift or mass effect. The ventricles, cortical sulci, and basilar cisterns are patent and unremarkable. The calvarium is intact. The visualized paranasal sinuses are clear. IMPRESSION: 1. Stable chronic occlusion of the left common carotid artery. The left internal carotid artery is widely patent without focal stenosis or dissection. The right common and internal carotid arteries are patent. 2. Stable chronic occlusion at the origin of the left vertebral artery with reconstitution of flow at the C4 level. The right vertebral artery is widely patent. 3. No evidence of stenosis or aneurysm in the [place]. No large vessel occlusion. 4. No large acute territorial ischemia. No acute hemorrhage or mass. Dictated by: Dictated on workstation # [id number]
--- NOTE | 2022-06-21 12:58 | ED General ---
General Chief Complaint: Dizziness/Syncope Stated Complaint: DIZZINESS Nursing Triage Note: PT TO ED BY EMS WITH C/O SYNCOPAL EPISODES. PT REPORTS SHE HAS HAD INCREASED DIZZINESS AND HAS BEEN "PASSING OUT" OVER THE LAST 2-3 MONTHS. PT HAS NON-OPERABLE 90% BLOCKAGES OF BILAT CAROTIDS. REPORTS 2 SYNCOPAL EPISODES TODAY, WAS LOWERED TO THE COUCH BY DAUGHTER. DENIES INJURY, N/V/D. Source of Information: Patient Exam Limitations: No Limitations (BARBARA SMITH APRN) History of Present Illness Date Seen by Provider: Jun 21, 2022 Time Seen by Provider: 13:00 Initial Comments Patient is a 62-year-old female who presents to the emergency department via EMS with dizziness and syncopal episodes over the last 2 to 3 months. Patient states she has syncopal or near syncopal episodes every day to every other day. She states she had 2 of these episodes today. She denies any other new symptoms. She states her daughter witnessed both of the episodes and called EMS. Patient denies any chest pain, headache, shortness of air, vision change, focal neurologic deficit. She does have a history of stroke and carotid stenosis. She is followed by several subspecialists at . She was seen by her oncologist last week and was told she would need to follow-up with neurology for further evaluation of her symptoms. She has not yet gotten a date for that appointment. She denies any recent head trauma. States she has no dizziness at the time of this interview. (BARBARA SMITH APRN) Allergies and Home Medications Allergies Coded Allergies: No Known Drug Allergies (Unverified , 12/15/16) Patient Home Medication List Home Medication List Reviewed: Yes (BARBARA SMITH APRN) Review of Systems Review of Systems Constitutional: no symptoms reported EENTM: no symptoms reported Respiratory: no symptoms reported Cardiovascular: no symptoms reported Gastrointestinal: no symptoms reported Genitourinary: no symptoms reported Musculoskeletal: no symptoms reported Skin: no symptoms reported Psychiatric/Neurological: No Symptoms Reported Hematologic/Lymphatic: No Symptoms Reported Immunological/Allergic: no symptoms reported (BARBARA SMITH APRN) Past Cvkfuiv-Vjcfgx-Xgqwuu Hx Patient Social History Tobacco Use?: Yes Tobacco type used: Cigarettes Smoking Status: Former Smoker Use of E-Cig and/or Vaping dev: No Substance use?: No Alcohol Use?: Yes Alcohol type: Beer Alcohol Frequency: Once in a while Pt feels they are or have been: No (BARBARA SMITH APRN) Immunizations Up To Date Influenza Vaccine Up-to-Date: Yes; Up-to-Date First/Initial COVID19 Vaccinat: yes Second COVID19 Vaccination Brendon: yes Third COVID19 Vaccination Date: yes (BARBARA SMITH APRN) Seasonal Allergies Seasonal Allergies: No (BARBARA SMITH APRN) Past Medical History Surgery/Hospitalization HX: BILAT CAROTID STENOSIS, R LUNG CA Surgeries: Yes (EGD/COLONOSCOPY) Abdominal Respiratory: Yes COPD Cardiac: Yes Hypertension Neurological: Yes TIA 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 Sexually Transmitted Disease: No HIV/AIDS: No Genitourinary: No Gastrointestinal: Yes Gastroesophageal Reflux, Gastrointestinal Bleed, Chronic Constipation, Polyps, Hiatal Hernia Musculoskeletal: Yes Arthritis Endocrine: No HEENT: No Loss of Vision: Bilateral Hearing Impairment: Denies Cancer: No Psychosocial: Yes Anxiety, Depression Integumentary: No Blood Disorders: Yes (ANEMIA) Adverse Reaction/Blood Tranf: No (N/A) (BARBARA SMITH APRN) Family Medical History No Pertinent Family Hx (BARBARA SMITH APRN) Physical Exam Vital Signs Vital Signs - First Documented 06/21/22 11:15 Temp 36.5 Pulse 104 Resp 16 B/P (MAP) 153/91 (111) Pulse Ox 94 O2 Delivery Room Air (KEOTA,LISSETT K DO) Vital Signs Capillary Refill : (BARBARA SMITH APRN) Height, Weight, BMI Height: 5'2.00" Weight: 147lbs. 3.2oz. [id number]; 30.00 BMI Method:Stated General Appearance: No Apparent Distress, WD/WN HEENT: PERRL/EOMI, TMs Normal, Normal ENT Inspection, Pharynx Normal Neck: Full Range of Motion, Normal Inspection, Non Tender, Supple Respiratory: Chest Non Tender, Lungs Clear, Normal Breath Sounds, No Accessory Muscle Use, No Respiratory Distress Cardiovascular: Regular Rate, Rhythm Gastrointestinal: Non Tender, Soft Extremity: Non Tender, No Calf Tenderness Neurologic/Psychiatric: Alert, Oriented x3, No Motor/Sensory Deficits, Normal Mood/Affect Skin: Normal Color, Warm/Dry Lymphatic: No Adenopathy (SMITH,BARBARA CHANGE CONTROL SPECIALIST) Progress/Results/Core Measures Suspected Sepsis SIRS Temperature: Pulse: 104 Respiratory Rate: 16 Laboratory Tests 06/21/22 11:17: White Blood Count 7.7 Blood Pressure 153 /91 Mean: 111 Laboratory Tests 06/21/22 11:17: Creatinine 0.80, INR Comment 0.9, Platelet Count 203, Total Bilirubin 0.6 (BARBARA SMITH CHANGE CONTROL SPECIALIST) Results/Orders Lab Results Laboratory Tests Test 06/21/22 11:17 06/21/22 12:04 06/21/22 12:30 Range/Units White Blood Count 7.7 4.3-11.0 10^3/uL Red Blood Count 4.42 3.80-5.11 10^6/uL Hemoglobin 13.0 11.5-16.0 g/dL Hematocrit 39 35-52 % Mean Corpuscular Volume 88 80-99 fL Mean Corpuscular Hemoglobin 29 25-34 pg Mean Corpuscular Hemoglobin Concent 33 32-36 g/dL Red Cell Distribution Width 13.7 10.0-14.5 % Platelet Count 203 130-400 10^3/uL Mean Platelet Volume 10.5 9.0-12.2 fL Immature Granulocyte % (Auto) 0 % Neutrophils (%) (Auto) 69 42-75 % Lymphocytes (%) (Auto) 20 12-44 % Monocytes (%) (Auto) 8 0-12 % Eosinophils (%) (Auto) 2 0-10 % Basophils (%) (Auto) 1 0-10 % Neutrophils # (Auto) 5.3 1.8-7.8 10^3/uL Lymphocytes # (Auto) 1.5 1.0-4.0 10^3/uL Monocytes # (Auto) 0.6 0.0-1.0 10^3/uL Eosinophils # (Auto) 0.1 0.0-0.3 10^3/uL Basophils # (Auto) 0.1 0.0-0.1 10^3/uL Immature Granulocyte # (Auto) 0.0 0.0-0.1 10^3/uL Erythrocyte Sedimentation Rate 8 0-30 MM/HR Prothrombin Time 13.1 12.2-14.7 SEC INR Comment 0.9 0.8-1.4 Activated Partial Thromboplast Time 32 24-35 SEC D-Dimer 0.58 H 0.00-0.49 UG/ML Sodium Level 141 135-145 MMOL/L Potassium Level 3.7 3.6-5.0 MMOL/L Chloride Level 108 H 98-107 MMOL/L Carbon Dioxide Level 24 21-32 MMOL/L Anion Gap 9 5-14 MMOL/L Blood Urea Nitrogen 15 7-18 MG/DL Creatinine 0.80 0.60-1.30 MG/DL Estimat Glomerular Filtration Rate 84 BUN/Creatinine Ratio 19 Glucose Level 116 H 70-105 MG/DL Calcium Level 8.5 8.5-10.1 MG/DL Corrected Calcium 8.6 8.5-10.1 MG/DL Magnesium Level 2.0 1.6-2.4 MG/DL Total Bilirubin 0.6 0.1-1.0 MG/DL Aspartate Amino Transf (AST/SGOT) 17 5-34 U/L Alanine Aminotransferase (ALT/SGPT) 17 0-55 U/L Alkaline Phosphatase 90 40-136 U/L Total Creatine Kinase 96 29-168 U/L Creatine Kinase MB 1.2 <6.6 NG/ML Myoglobin 27.7 10.0-92.0 NG/ML Troponin I < 0.028 <0.028 NG/ML C-Reactive Protein High Sensitivity 0.24 0.00-0.50 MG/DL B-Type Natriuretic Peptide 38.1 <100.0 PG/ML Total Protein 6.4 6.4-8.2 GM/DL Albumin 3.9 3.2-4.5 GM/DL Lipase 21 8-78 U/L TSH [place] Testing 0.47 0.35-4.94 UIU/ML Serum Alcohol < 10 <10 MG/DL Urine Color YELLOW Urine Clarity CLEAR Urine pH 7.0 5-9 Urine Specific [place] 1.015 L 1.016-1.022 Urine Protein NEGATIVE NEGATIVE Urine Glucose (UA) NEGATIVE NEGATIVE Urine Ketones NEGATIVE NEGATIVE Urine Nitrite NEGATIVE NEGATIVE Urine Bilirubin NEGATIVE NEGATIVE Urine Urobilinogen 0.2 < = 1.0 MG/DL Urine Leukocyte Esterase TRACE H NEGATIVE Urine RBC (Auto) NEGATIVE NEGATIVE Urine RBC NONE /HPF Urine WBC 0-2 /HPF Urine Squamous Epithelial Cells 5-10 /HPF Urine Crystals NONE /LPF Urine Bacteria FEW H /HPF Urine Casts NONE /LPF Urine Mucus NEGATIVE /LPF Urine Culture Indicated YES Urine Opiates Screen POSITIVE H NEGATIVE Urine Oxycodone Screen NEGATIVE NEGATIVE Urine Methadone Screen NEGATIVE NEGATIVE Urine Propoxyphene Screen NEGATIVE NEGATIVE Urine Barbiturates Screen NEGATIVE NEGATIVE Ur Tricyclic Antidepressants Screen POSITIVE H NEGATIVE Urine Phencyclidine Screen NEGATIVE NEGATIVE Urine Amphetamines Screen NEGATIVE NEGATIVE Urine Methamphetamines Screen NEGATIVE NEGATIVE Urine Benzodiazepines Screen NEGATIVE NEGATIVE Urine Cocaine Screen NEGATIVE NEGATIVE Urine Cannabinoids Screen POSITIVE H NEGATIVE Influenza Type A (RT-PCR) Not Detected Not Detecte Influenza Type B (RT-PCR) Not Detected Not Detecte SARS-CoV-2 RNA (RT-PCR) Not Detected Not Detecte (LISSETT EDWARDS DO) Micro Results Microbiology 06/21/22 Urine Culture - Final, Complete >=3 Gram Positive Isolates (LISSETT EDWARDS DO) My Orders Orders - LISSETT EDWARDS DO Ekg Tracing (06/21/22 11:18) Ed Iv/Invasive Line Start (06/21/22 11:24) O2 (06/21/22 11:24) Monitor-Rhythm Ecg Trace Only (06/21/22 11:24) Alcohol (06/21/22 11:24) Bnp [place] (06/21/22 11:24) Cbc With Automated Diff (06/21/22 11:24) Comprehensive Metabolic Panel (06/21/22 11:24) Creatine Kinase (06/21/22 11:24) Creatine Kinase Mb (06/21/22 11:24) Hs C Reactive Protein (06/21/22 11:24) Fibrin Degradation Products (06/21/22 11:24) Drug Screen Stat (Urine) (06/21/22 11:24) Lipase (06/21/22 11:24) Magnesium (06/21/22 11:24) Protime With Inr (06/21/22 11:24) Partial Thromboplastin Time (06/21/22 11:24) Thyroid Analyzer (06/21/22 11:24) Ua Culture If Indicated (06/21/22 11:24) Erythrocyte Sedimentation Rate (06/21/22 11:24) Myoglobin Serum (06/21/22 11:24) Troponin I [place] (06/21/22 11:24) Chest 1 View, Ap/Pa Only (06/21/22 11:24) Covid 19 Inhouse Test (06/21/22 11:24) Influenza A And B By Pcr (06/21/22 11:24) Isolation Central Supply Req (06/21/22 11:24) Urine Culture (06/21/22 12:04) (LISSETT EDWARDS DO) Vital Signs/I&O 06/21/22 06/21/22 11:15 15:24 Temp 36.5 Pulse 104 77 Resp 16 14 B/P (MAP) 153/91 (111) 143/95 Pulse Ox 94 97 O2 Delivery Room Air Room Air (LISSETT EDWARDS ) Vital Signs/I&O Capillary Refill : (BARBARA SMITH APRN) Blood Pressure Mean: 111 Progress Note : Progress Note Patient is nontoxic and well-hydrated on exam. No adventitious lung sounds or increased work of breathing noted. No focal neurologic deficits appreciated. Patient was able to self transfer from the EMS stretcher to the ER stretcher. Vital signs are reassuring. Orders were placed for CBC, CMP, CT of the head/neck, coagulation studies, D- dimer, troponin, EKG, UDS, urinalysis, chest x-ray. CBC is largely unremarkable. CMP unremarkable. Troponin is negative. D-dimer is very mildly elevated. Coagulation studies are otherwise unremarkable. EKG without acute ischemic change or arrhythmia. Urinalysis unremarkable. Chest x- ray acutely negative. UDS positive for opiates, tricyclic antidepressants, and cannabinoids. CTA of the head and neck reveal stable chronic left carotid stenosis as well as left vertebral artery stenosis. Right vertebral artery appears dominant. I spoke with neurology on-call at . They recommended an MRI with and without contrast to evaluate for any infarction in the region of posterior circulation. They recommended the addition of contrast to assess for any lesions as patient has a history of cancer. They states that this is normal and that it is reasonable to send the patient home. I also recommended further cardiac evaluation as an outpatient. They recommended an event monitor if it can be ordered from the ER to see if there is any correlating cardiac findings when the syncopal episodes occur. The brain MRI was obtained and there was no acute findings noted. I had a lengthy discussion with the patient regarding the importance of follow-up with neurology, cardiology, and ENT. She verbalized understanding. Return precautions for urgent symptomology discussed. (BARBARA SMITH APRN) ECG EKG : EKG Time: 11:20 Rate: 100 Rhythm: S.Tach Intervals: Normal ECG Impression: Normal (BARBARA SMITH APRN) Departure Impression Primary Impression: Syncope Qualified Codes: R55 - Syncope and collapse Additional Impression: Dizziness Disposition: 01 HOME, SELF-CARE Condition: Stable Departure-Patient Inst. Decision time for Depature: 15:00 (BARBARA SMITH APRN) Referrals: YUE DIETZ DO (PCP/Family) Primary Care Physician Patient Instructions: Syncope (Fainting) (DC), Dizziness, Nonvertigo, (DC) Add. Discharge Instructions: We spoke with the neurology team at . They recommended the MRI that we obtained today that was reassuring and did not show any new findings that are concerning. It is important you follow-up closely with them. Neurology also recommended that an evaluation by cardiology and potentially ENT might be beneficial for further evaluation of why you are having these episodes. There was no emergently concerning findings on our testing today. Please return to the emergency department for any worsening or concerning symptoms. All discharge instructions reviewed with patient and/or family. Voiced understanding. ATTENDING PHYSICIAN NOTE: I WAS PHYSICALLY PRESENT ER PHYSICIAN, BUT I WAS NOT INVOLVED IN ANY DECISION MAKING OR ANY CARE OF THIS PATIENT, AND I AM NOT COLLABORATING PHYSICIAN. (LISSETT EDWARDS DO) BARBARA SMITH APRN Jun 21, 2022 12:58 LISSETT EDWARDS DO Jun 24, 2022 03:51
[2022-06-21] MEDS ORDERED: GADOTERATE 0.5 MMOL/ML (CLARISCAN) 20 ML VIAL IV ONE (14:30)
--- NOTE | 2022-06-21 14:48 | Diagnostic Imaging Report ---
PROCEDURE: MR imaging of the brain with and without contrast. TECHNIQUE: Multiplanar, multisequence MR imaging of the brain was performed with and without contrast. INDICATION: Dizziness. History of lung cancer. COMPARISON: 01/19/2021. FINDINGS: No acute ischemia, mass, or hemorrhage. No abnormal enhancement. A small amount of confluent T2 hyperintense signal is seen extending to the cortex in the left parietal lobe. The ventricles, cortical sulci, and basilar cisterns are symmetric and unremarkable. The sellar and suprasellar regions have a normal appearance. The brainstem and posterior fossa are unremarkable. The paranasal sinuses and mastoid air cells demonstrate normal signal characteristics. The globes and orbits are symmetric and unremarkable. The scalp and calvarium have a normal appearance. IMPRESSION: 1. No acute ischemia, mass, or hemorrhage. No abnormal enhancement. 2. Small chronic infarct in the left parietal lobe. Dictated by: Dictated on workstation # [id number]
[2022-06-21 15:24] VITALS: BP 143/95
== END 2022-06-21 15:30 | disposition home or self-care (01) ==
LOC: EDUNIT# 11:14 → ER 11:15
DX: R55 Syncope and collapse (principal); R42 Dizziness and giddiness; F17.210 Nicotine dependence, cigarettes, uncomplicated; Z20.822 Contact with and (suspected) exposure to COVID-19
CPT/HCPCS: 70496; 70498; 70553; 71045; 80053; 80306; 81000; 82550; 82553; 83690; 83735; 83874; 83880; 84443; 84484; 85025; 85379; 85610; 85652; 85730; 86141; 87088; 87636; 93041; G0480; 36415; 80320; 93005

== ENCOUNTER → 2022-09-01 | Outpatient (CLI) | payer MEDICARE, MEDICAID ==
--- NOTE | 2022-09-08 09:12 | Diagnostic Imaging Report ---
PROCEDURE: MR imaging of the brain without contrast. TECHNIQUE: Multiplanar, multisequence MR imaging of the brain was performed without contrast. INDICATION: Recent falls with history of transient ischemic attack and carotid artery disease. COMPARISON is made with prior MRI from 06/21/2022. No diffusion restriction is identified. The normal expected flow-voids within the carotid siphons are seen. Ventricles and sulci are stable in appearance. There are occasional periventricular and subcortical white matter signal foci consistent with chronic microvascular ischemia. No acute intra-axial or extra-axial hemorrhage is detected. Corpus callosum is unremarkable. The sella and parasellar structures are unremarkable. IMPRESSION: Stable noncontrast MRI of the brain when compared with prior study from 06/21/2022. There are changes of chronic microvascular ischemia. No acute feature is detected. Dictated by: Dictated on workstation # [id number]
== END ==
LOC: RAD 13:48
PROVIDERS: ATTEND Pediatrics
DX: I67.82 Cerebral ischemia (principal); I65.22 Occlusion and stenosis of left carotid artery; R29.6 Repeated falls

== ENCOUNTER → 2022-09-08 | Outpatient (CLI) | payer MEDICARE, MEDICAID ==
--- NOTE | 2022-09-08 14:36 | Diagnostic Imaging Report ---
PROCEDURE: MR imaging cervical spine without contrast. TECHNIQUE: Multiplanar, multisequence MR imaging of the cervical spine was performed without contrast. INDICATION: Radiculopathy, cervical region. COMPARISON: CTA head and neck from 06/21/2022. FINDINGS: Normal alignment of the cervical spine. No fracture or concerning marrow replacing process. Cervical cord maintains normal size and signal. No extradural fluid collection. Paravertebral musculature is normal. C2-C3: No spinal canal or neuroforaminal stenosis. C3-C4: No spinal canal or neuroforaminal stenosis. C4-C5: Small central disc protrusion and left uncovertebral joint hypertrophy. This causes moderate left neuroforaminal stenosis. No spinal canal stenosis. C5-C6: Small posterior disc protrusion with bilateral uncovertebral joint hypertrophy. This results in mild spinal canal stenosis with mild effacement of the sac but no impingement of the cord. Moderate left neuroforaminal stenosis is present. C6-C7: Left paracentral disc protrusion effaces the ventral thecal sac but does not impinge upon the cord. No neuroforaminal stenosis. C7-T1: No spinal canal or neuroforaminal stenosis. IMPRESSION: 1. Normal cervical cord without impingement. 2. There are a few sites of moderate foraminal stenosis on the left at C4-C5 and C5-C6. Dictated by: Dictated on workstation # [id number]
== END ==
LOC: RAD 08:45
PROVIDERS: ATTEND Anesthesiology Pain Medicine
DX: M48.02 Spinal stenosis, cervical region (principal); M54.12 Radiculopathy, cervical region; W19.XXXA Unspecified fall, initial encounter
CPT/HCPCS: 72141

== ENCOUNTER → 2022-09-30 | Outpatient (CLI) | payer MEDICARE, MEDICAID ==
--- NOTE | 2022-09-30 12:07 | Diagnostic Imaging Report ---
INDICATION: Inability to obtain blood pressure or pulse in the right arm. There are monophasic waveforms extending from the right subclavian artery to the wrist with monophasic waveforms within the axillary, brachial, radial and ulnar arteries. Velocities are unremarkable. No definite high-grade stenosis or occlusion is identified. No mass or fluid collection is seen IMPRESSION: Monophasic waveforms in the right upper extremity arterial system without evidence of high-grade stenosis or occlusion. Findings may be owing to a more proximal lesion. CT angiography of of the chest with evaluation of the aorta and great vessels may be useful for further evaluation. Dictated by: Dictated on workstation # [id number]
== END ==
LOC: RAD 10:41
PROVIDERS: ATTEND Family Medicine
DX: I99.8 Other disorder of circulatory system (principal)
CPT/HCPCS: 93931

== ENCOUNTER 2022-10-01 12:33 | Emergency (ER) | payer MEDICARE, MEDICAID ==
[~2022-10-01] VITALS: Ht 170 cm; Wt 72.6 kg
--- NOTE | 2022-10-01 12:46 | ED Neurological Problem ---
General Chief Complaint: Neurological Problems Stated Complaint: NUMBNESS RIGHT ARM/LOSS OF FEELING IN RIGHT LEG Source: patient Exam Limitations: no limitations History of Present Illness Date Seen by Provider: Oct 01, 2022 Time Seen by Provider: 12:45 Timing/Duration: other (chronic for months) Severity: moderate Associated Symptoms: numbness in legs/feet (right arm more than left), tingling in legs/feet, trouble walking, weakness Allergies and Home Medications Allergies Coded Allergies: No Known Drug Allergies (Unverified , 12/15/16) Patient Home Medication List Home Medication List Reviewed: Yes Review of Systems Review of Systems Constitutional: see HPI Eyes: No Symptoms Reported Ears, Nose, Mouth, Throat: no symptoms reported Respiratory: no symptoms reported Cardiovascular: no symptoms reported Gastrointestinal: no symptoms reported Genitourinary: no symptoms reported Musculoskeletal: muscle weakness (bilateral legs) Skin: no symptoms reported Psychiatric/Neurological: Numbness (Right arm and leg (none now)) All Other Systems Reviewed Negative Unless Noted: Yes Past [facility]tbn[facility] Hx Immunizations Up To Date First/Initial COVID19 Vaccinat: yes Second COVID19 Vaccination Brendon: yes Third COVID19 Vaccination Date: yes Seasonal Allergies Seasonal Allergies: No Past Medical History Surgery/Hospitalization HX: BILAT CAROTID STENOSIS, R LUNG CA Surgeries: Yes (EGD/COLONOSCOPY) Abdominal Respiratory: Yes COPD Cardiac: Yes Hypertension Neurological: Yes TIA Reproductive Disorders: No 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 History: Menopausal Sexually Transmitted Disease: No HIV/AIDS: No Genitourinary: No Gastrointestinal: Yes Gastroesophageal Reflux, Gastrointestinal Bleed, Chronic Constipation, Polyps, Hiatal Hernia Musculoskeletal: Yes Arthritis Endocrine: No HEENT: No Loss of Vision: Bilateral Hearing Impairment: Denies Cancer: No Psychosocial: Yes Anxiety, Depression Integumentary: No Blood Disorders: Yes (ANEMIA) Adverse Reaction/Blood Tranf: No (N/A) Family Medical History No Pertinent Family Hx Physical Exam Vital Signs Vital Signs - First Documented 10/01/22 12:46 Temp 36.0 Pulse 85 Resp 18 B/P (MAP) 142/82 (102) Pulse Ox 96 O2 Delivery Room Air Capillary Refill : Height, Weight, BMI Height: 5'2.00" Weight: 147lbs. 3.2oz. [id number]; 30.00 BMI Method:Stated General Appearance: no apparent distress, obese HEENT: PERRL/EOMI Neck: normal inspection Respiratory: lungs clear, normal breath sounds, no respiratory distress, no accessory muscle use Cardiovascular: regular rate, rhythm, other (2+ distal pulses) Gastrointestinal: normal bowel sounds, non tender, soft, other (protuberant; distended. +BS; ) Extremities: normal range of motion, non-tender, normal inspection, no pedal edema, normal capillary refill Neurologic/Psychiatric: hand carver II-XII nml as tested, no motor/sensory deficits, alert, normal mood/affect, oriented x 3, other ((+) tinnels on the right, equivocal phalen's) Crainal Nerves: normal hearing, normal speech, PERRL; No abnormal eye position, No abnormal pupil position, No abnormal speech, No facial asymmetry, No facial droop, No facial paresthesias, No facial weakness, No tongue deviation to R, No tongue deviation to L Coordination/Gait: normal finger to nose Motor/Sensory: no motor deficit, no sensory deficit, other (5/5 motor strength bilateral UE; same LE bilat. normal sensation throughout. No drift. tongue midline.) Skin: normal color, warm/dry Progress/Results/Core Measures Results/Orders Vital Signs/I&O 10/01/22 12:46 Temp 36.0 Pulse 85 Resp 18 B/P (MAP) 142/82 (102) Pulse Ox 96 O2 Delivery Room Air Departure Impression Primary Impression: Frequent falls Additional Impression: Carotid artery disease Qualified Codes: I77.9 - Disorder of arteries and arterioles, unspecified Disposition: 01 HOME, SELF-CARE Condition: Stable Departure-Patient Inst. Decision time for Depature: 14:58 Referrals: YUE DIETZ DO (PCP/Family) Primary Care Physician Patient Instructions: Carpal Tunnel Syndrome (DC), Quitting Smoking ED Add. Discharge Instructions: Talk to Dr. Dietz on Monday about having an evaluation for carpal tunnel syndrome. Wear the brace on your right hand at night while you are sleeping. If the numbness and pain persists shake your hand out at night which should help imp rove the symptoms. You can take [id number] ibuprofen 3 tablets every 6 hours as needed for pain. Always take ibuprofen with food. If you develop severe headache, facial droop, weakness on one side of your body more than the other or any other emergent, concerning symptoms please return to the emergency room for reevaluation. You should also keep your follow-ups with [facility] as scheduled. Copy Copies To 1: YUE DIETZ KATHRYN M MD Oct 01, 2022 12:45
[2022-10-01 15:08] VITALS: BP 131/76
== END 2022-10-01 15:13 | disposition home or self-care (01) ==
LOC: EDUNIT# 12:33 → ER 12:39
DX: I77.9 Disorder of arteries and arterioles, unspecified (principal); R29.6 Repeated falls; E66.9 Obesity, unspecified; Z68.30 Body mass index [BMI] 30.0-30.9, adult

== ENCOUNTER 2022-10-05 10:14 | Emergency (ER) | payer MEDICARE, MEDICAID ==
[~2022-10-05] VITALS: Ht 157 cm; Wt 78.0 kg
--- NOTE | 2022-10-05 10:52 | ED General ---
General Chief Complaint: Cardiac/General Problems Stated Complaint: LOW BLOOD PRESSURE|WEAKNESS IN LEGS Nursing Triage Note: ARRIVED VIA EMS FROM HOME WITH ONGOING WEAKNESS IN HER LEGS AND ARMS. SCHEDULED FOR A OUTPT CAROTID THIS AM AT 0945 BUT CANCELLED IT BECAUSE SHE FELT TO WEAK. PT REQUESTS TO HAVE IT DONE NOWL. Source of Information: Patient, Family Exam Limitations: No Limitations History of Present Illness Date Seen by Provider: Oct 05, 2022 Time Seen by Provider: 10:28 Initial Comments Here with report of ongoing weakness in her arms and legs. Specifically this morning, she was very weak in her legs. She was supposed to have an appointment here at the hospital for ultrasound and CT angiogram of the chest but she could not make it because she was too weak. She does follow with neurology at [facility] and also reports history of lung cancer that she has had radiation treatments for through them as well. She was seen here recently and did not have any significant findings at that time. She is concerned because she has had MRI of the brain and neck and does not know the results and reports that she has had previous TIA. She does smoke but denies drugs. Denies nausea or vomiting and states she is eating and drinking okay but feels like maybe she has had some reduced urination. Timing/Duration: Getting Worse, Other (Several months) Severity: Moderate Associated Systoms: No Chest Pain, No Cough, No Fever/Chills, No Nausea/Vomiting, No Shortness of Air; Weakness Allergies and Home Medications Allergies Coded Allergies: No Known Drug Allergies (Unverified , 12/15/16) Patient Home Medication List Home Medication List Reviewed: Yes Review of Systems Review of Systems Constitutional: see HPI; No chills, No fever EENTM: no symptoms reported Respiratory: No cough, No short of breath Cardiovascular: No chest pain, No edema; other (Abnormal blood pressure to the right arm) Gastrointestinal: No abdominal pain, No nausea, No vomiting Genitourinary: no symptoms reported Musculoskeletal: muscle weakness, neck pain (Chronic) Skin: no symptoms reported Psychiatric/Neurological: Tremors, Weakness Past Dlrzcmx-Fgcxgc-Ktmyhv Hx Patient Social History Tobacco Use?: Yes Tobacco type used: Cigarettes Smoking Status: Current Everyday Smoker Substance use?: No Alcohol Use?: Yes Alcohol Frequency: Rarely Immunizations Up To Date First/Initial COVID19 Vaccinat: "3 shots" Second COVID19 Vaccination Brendon: yes Third COVID19 Vaccination Date: yes Seasonal Allergies Seasonal Allergies: No Past Medical History Surgery/Hospitalization HX: BILAT CAROTID STENOSIS, R LUNG CA Surgeries: Yes (EGD/COLONOSCOPY) Abdominal Respiratory: Yes COPD Cardiac: Yes Hypertension Neurological: Yes TIA Reproductive Disorders: No NEEDLE GRINDER History: Menopausal Sexually Transmitted Disease: No HIV/AIDS: No Genitourinary: No Gastrointestinal: Yes Gastroesophageal Reflux, Gastrointestinal Bleed, Chronic Constipation, Polyps, Hiatal Hernia Musculoskeletal: Yes Arthritis Endocrine: No HEENT: No Loss of Vision: Bilateral Hearing Impairment: Denies Cancer: No Psychosocial: Yes Anxiety, Depression Integumentary: No Blood Disorders: Yes (ANEMIA) Adverse Reaction/Blood Tranf: No (N/A) Family Medical History Reviewed Nursing Family Hx No Pertinent Family Hx Physical Exam Vital Signs Vital Signs - First Documented 10/05/22 10:15 Temp 36.1 Pulse 73 Resp 16 B/P (MAP) 117/86 (96) Pulse Ox 98 O2 Delivery Room Air Capillary Refill : Less Than 3 Seconds Height, Weight, BMI Height: 5'2.00" Weight: 147lbs. 3.2oz. [id number]; 31.00 BMI Method:Stated General Appearance: WD/WN, Chronically ill, Obese HEENT: PERRL/EOMI, Other (Mucous membranes dry) Neck: Non Tender, Supple Respiratory: Lungs Clear, Normal Breath Sounds Cardiovascular: Regular Rate, Rhythm, No Murmur, Other (Pulses decreased on right versus left with similar cap refill noted.) Gastrointestinal: Non Tender, Soft Back: Normal Inspection, No CVA Tenderness, No Vertebral Tenderness Extremity: Normal Range of Motion, Non Tender Neurologic/Psychiatric: Alert, Oriented x3 Skin: Normal Color, Warm/Dry Progress/Results/Core Measures Suspected Sepsis SIRS Temperature: Pulse: 73 Respiratory Rate: 16 Laboratory Tests 10/05/22 11:10: White Blood Count 5.1 Blood Pressure 117 /86 Mean: 96 Laboratory Tests 10/05/22 11:10: Creatinine 0.85, INR Comment 0.9, Platelet Count 224, Total Bilirubin 0.3 Results/Orders Lab Results Laboratory Tests Test 10/05/22 11:10 Range/Units White Blood Count 5.1 4.3-11.0 10^3/uL Red Blood Count 4.40 3.80-5.11 10^6/uL Hemoglobin 12.9 11.5-16.0 g/dL Hematocrit 40 35-52 % Mean Corpuscular Volume 91 80-99 fL Mean Corpuscular Hemoglobin 29 25-34 pg Mean Corpuscular Hemoglobin Concent 32 32-36 g/dL Red Cell Distribution Width 12.3 10.0-14.5 % Platelet Count 224 130-400 10^3/uL Mean Platelet Volume 10.0 9.0-12.2 fL Immature Granulocyte % (Auto) 0 % Neutrophils (%) (Auto) 56 42-75 % Lymphocytes (%) (Auto) 32 12-44 % Monocytes (%) (Auto) 9 0-12 % Eosinophils (%) (Auto) 3 0-10 % Basophils (%) (Auto) 1 0-10 % Neutrophils # (Auto) 2.8 1.8-7.8 10^3/uL Lymphocytes # (Auto) 1.6 1.0-4.0 10^3/uL Monocytes # (Auto) 0.4 0.0-1.0 10^3/uL Eosinophils # (Auto) 0.1 0.0-0.3 10^3/uL Basophils # (Auto) 0.1 0.0-0.1 10^3/uL Immature Granulocyte # (Auto) 0.0 0.0-0.1 10^3/uL Prothrombin Time 12.7 12.2-14.7 SEC INR Comment 0.9 0.8-1.4 Activated Partial Thromboplast Time 31 24-35 SEC Sodium Level 137 135-145 MMOL/L Potassium Level 4.0 3.6-5.0 MMOL/L Chloride Level 102 98-107 MMOL/L Carbon Dioxide Level 23 21-32 MMOL/L Anion Gap 12 5-14 MMOL/L Blood Urea Nitrogen 15 7-18 MG/DL Creatinine 0.85 0.60-1.30 MG/DL Estimat Glomerular Filtration Rate 78 BUN/Creatinine Ratio 18 Glucose Level 94 70-105 MG/DL Calcium Level 8.7 8.5-10.1 MG/DL Corrected Calcium 8.8 8.5-10.1 MG/DL Total Bilirubin 0.3 0.1-1.0 MG/DL Aspartate Amino Transf (AST/SGOT) 17 5-34 U/L Alanine Aminotransferase (ALT/SGPT) 14 0-55 U/L Alkaline Phosphatase 92 40-136 U/L C-Reactive Protein High Sensitivity 0.14 0.00-0.50 MG/DL Total Protein 6.6 6.4-8.2 GM/DL Albumin 3.9 3.2-4.5 GM/DL My Orders Orders - GARRETT SIMEON MD Cbc With Automated Diff (10/05/22 10:48) Comprehensive Metabolic Panel (10/05/22 10:48) Hs C Reactive Protein (10/05/22 10:48) Ed Iv/Invasive Line Start (10/05/22 10:48) Ns Iv 500 Ml (Sodium Chloride 0.9%) (10/05/22 11:00) Chest 1 View, Ap/Pa Only (10/05/22 10:48) Ct Angio Chest W(R/O Tad) (10/05/22 11:52) Ct Angio Chest W(R/O Tad) (10/05/22 ) Iohexol Injection (Omnipaque 350 Mg/Ml 1 (10/05/22 12:30) Received Contrast (Hold Metformin- Contr (10/05/22 12:30) Ns (Ivpb) (Sodium Chloride 0.9% Ivpb Bag (10/05/22 12:30) Sodium Chloride Flush (Catheter Flush Sy (10/05/22 12:30) Ns Iv 500 Ml (Sodium Chloride 0.9%) (10/05/22 13:30) Protime With Inr (10/05/22 14:28) Partial Thromboplastin Time (10/05/22 14:28) Clonazepam Tablet (Klonopin Tablet) (10/05/22 14:45) Hydrocodone/Apap 7.5/325 Tab (Lortab 7. (10/05/22 14:33) Medications Given in ED Current Medications Medications Dose Ordered Sig/Rula Route Start Time Stop Time Status Last Admin Dose Admin Clonazepam 1 mg ONCE ONCE PO 10/05/22 14:45 10/05/22 14:46 DC 10/05/22 14:53 1 MG Iohexol 100 ml ONCE ONCE IV 10/05/22 12:30 10/05/22 12:31 DC 10/05/22 12:45 72 ML Sodium Chloride 100 ml ONCE ONCE IV 10/05/22 12:30 10/05/22 12:31 DC 10/05/22 12:45 80 ML Sodium Chloride 500 ml @ 0 mls/hr Q0M ONCE IV 10/05/22 11:00 10/05/22 11:01 DC 10/05/22 11:10 500 MLS/HR Sodium Chloride 500 ml @ 0 mls/hr Q0M ONCE IV 10/05/22 13:30 10/05/22 13:31 DC 10/05/22 14:43 500 MLS/HR Vital Signs/I&O 10/05/22 10:15 Temp 36.1 Pulse 73 Resp 16 B/P (MAP) 117/86 (96) Pulse Ox 98 O2 Delivery Room Air Capillary Refill : Less Than 3 Seconds Blood Pressure Mean: 96 Progress Note : Progress Note Seen and evaluated. IV, labs including CBC, CMP and CRP ordered. Normal saline 500 mL bolus. We will get chest x-ray and EKG. I will review previous MRI of the brain and C-spine. I initially ordered right upper extremity arterial ultrasound but then found that she actually had that done within the last week. Results of that are noted below. I have reviewed the results of the MRIs and ultrasound. Radiology did recommend CT angiogram of the chest after reviewing ultrasound as noted in note. Monitor patient. Differential diagnosis includes dehydration, electrolyte abnormality, vascular abnormality, chronic medical condition 1130: MRI of the brain from previous was nonconcerning for new pathology and that was done within the last month. MRI of the C-spine did not show cord stenosis but did have some foraminal narrowing as noted below. Ultrasound did not show acute vascular occlusion but did have recommendation for CT angiogram of the chest. Labs are still pending. We will order CT angiogram of the chest when results are noted. Chest x-ray reviewed by me and shows no acute infiltrate. Loop recorder noted on my interpretation. Monitor patient. 1155: I have reviewed labs and CBC and CMP are both normal as well as CRP. I did discuss the case with Dr. Motley, radiologist. We will get CT angiogram of the chest, thoracic aortic dissection protocol, to evaluate vascular structures and arterial structures to the right arm. Monitor patient. 1418: CT results noted. She does have critical findings of vascular occlusion per radiology in multiple vessels including right subclavian artery, left common carotid, left vertebral and right vertebral artery. Radiology reports very tenuous flow to the brain. 1425: I have been on the phone with [facility] and we have clouded the images to their facility. They are at capacity but are looking at possibility of transfer there. They will call back shortly. Patient informed of results. I have added coags in anticipation of possible heparin requirement. Patient resting comfortably in bed. She is sitting up and talking without distress and is alert and oriented x3. She is moving all extremities. 1605: I have spoken at length about the case with Dr. West, vascular surgery on-call at . We reviewed all labs and current findings as well as radiology reports. He agrees that she has significant vascular disease but she has a significant amount of collateral circulation which is helping her. While they do need to see her in clinic soon, there is no urgent surgical condition that he notes after reviewing the films. It turns out she is already set up for appointment on October 10 with the vascular clinic and they will talk to her about making sure that that is an in person and not a virtual visit. 1610: I have spoken about all this with the patient. We did discuss cessation of smoking and she is been off cigarettes for 2 days although she is using nicotine supplement. She states that she will keep that appointment. No indication for admission. She is doing much better after fluid administration. Discharged home with return precautions. Patient verbalized understanding of instructions and agreement with plan. Diagnostic Imaging Diagonstic Imaging: Ultrasound Plain Films/CT/US/NM/MRI: other Comments Results from previous outpatient visit at was not ordered today but was reviewed today [facility] [place], [place] NAME: JENNI WILSON Matthieu [facility] REC#: [id number] PT STATUS: REG CLI : 1960 PHYSICIAN: YUE DIETZ DO ADMIT DATE: 09/30/22/RAD Signed Date of Exam:09/30/22 US RIGHT UP EXT ARTERIAL [id number] INDICATION: Inability to obtain blood pressure or pulse in the right arm. There are monophasic waveforms extending from the right subclavian artery to the wrist with monophasic waveforms within the axillary, brachial, radial and ulnar arteries. Velocities are unremarkable. No definite high-grade stenosis or occlusion is identified. No mass or fluid collection is seen IMPRESSION: Monophasic waveforms in the right upper extremity arterial system without evidence of high-grade stenosis or occlusion. Findings may be owing to a more proximal lesion. CT angiography of of the chest with evaluation of the aorta and great vessels may be useful for further evaluation. Dictated by: Dictated on workstation # [id number] Dict: 09/30/22 1204 Trans: 09/30/22 1540 CVB [id number] Interpreted by: JULIO MOTLEY MD Electronically signed by: JULIO MOTLEY MD 09/30/22 1540 Diagonstic Imaging: MRI Plain Films/CT/US/NM/MRI: other Comments Results from outpatient visit from previous that was not ordered today but is reviewed [facility]. [place], [place] NAME: JENNI WILSON [facility] REC#: [id number] PT STATUS: REG CLI : 1960 PHYSICIAN: ELKE CHANDRA MD ADMIT DATE: 09/08/22/RAD Signed Date of Exam:09/08/22 MRI BRAIN W/O CONTRAST PROCEDURE: MR imaging of the brain without contrast. TECHNIQUE: Multiplanar, multisequence MR imaging of the brain was performed without contrast. INDICATION: Recent falls with history of transient ischemic attack and carotid artery disease. COMPARISON is made with prior MRI from 06/21/2022. No diffusion restriction is identified. The normal expected flow-voids within the carotid siphons are seen. Ventricles and sulci are stable in appearance. There are occasional periventricular and subcortical white matter signal foci consistent with chronic microvascular ischemia. No acute intra-axial or extra-axial hemorrhage is detected. Corpus callosum is unremarkable. The sella and parasellar structures are unremarkable. IMPRESSION: Stable noncontrast MRI of the brain when compared with prior study from 06/21/2022. There are changes of chronic microvascular ischemia. No acute feature is detected. Dictated by: Dictated on workstation # [id number] Dict: 09/08/22 0908 Trans: 09/29/22 0858 [facility] [id number] Interpreted by: JULIO MOTLEY MD Electronically signed by: JULIO MOTLEY MD 09/29/22 0858 Diagonstic Imaging: MRI Plain Films/CT/US/NM/MRI: c-spine Comments Results from outpatient orders and not from today but reviewed today. [facility]. [place], [place] NAME: JENNI WILSON [facility] REC#: [id number] PT STATUS: REG CLI : 1960 PHYSICIAN: ELKE CHANDRA MD ADMIT DATE: 09/08/22/RAD Signed Date of Exam:09/08/22 MRI CERVICAL SPINE W/O CONTRAS PROCEDURE: MR imaging cervical spine without contrast. TECHNIQUE: Multiplanar, multisequence MR imaging of the cervical spine was performed without contrast. INDICATION: Radiculopathy, cervical region. COMPARISON: CTA head and neck from 06/21/2022. FINDINGS: Normal alignment of the cervical spine. No fracture or concerning marrow replacing process. Cervical cord maintains normal size and signal. No extradural fluid collection. Paravertebral musculature is normal. C2-C3: No spinal canal or neuroforaminal stenosis. C3-C4: No spinal canal or neuroforaminal stenosis. C4-C5: Small central disc protrusion and left uncovertebral joint hypertrophy. This causes moderate left neuroforaminal stenosis. No spinal canal stenosis. C5-C6: Small posterior disc protrusion with bilateral uncovertebral joint hypertrophy. This results in mild spinal canal stenosis with mild effacement of the sac but no impingement of the cord. Moderate left neuroforaminal stenosis is present. C6-C7: Left paracentral disc protrusion effaces the ventral thecal sac but does not impinge upon the cord. No neuroforaminal stenosis. C7-T1: No spinal canal or neuroforaminal stenosis. IMPRESSION: 1. Normal cervical cord without impingement. 2. There are a few sites of moderate foraminal stenosis on the left at C4-C5 and C5-C6. Diagonstic Imaging: CT Plain Films/CT/US/NM/MRI: chest Comments [facility] [place] [place] NAME: JENNI WILSON [facility] REC#: [id number] PT STATUS: REG ER : 1960 PHYSICIAN: GARRETT SIMEON MD ADMIT DATE: 10/05/22/ER Draft Date of Exam:10/05/22 CT ANGIO CHEST W(R/O TAD) INDICATION: Inability to obtain blood pressure/pulse right arm. Abnormal Doppler.. TECHNIQUE: CT imaging the chest following administration of intravenous contrast. Multiplanar including MIPS reformatted images. Auto Exposure Controls were utilized during the CT exam to meet ALARA standards for radiation dose reduction. CORRELATION STUDY: 06/21/2022. FINDINGS: Heart size within normal limits. No disproportionate right heart strain. Atherosclerotic change about the thoracic aorta most pronounced at the arch and descending thoracic aorta. No dissection. There is rather extensive calcification at the origin of the brachiocephalic trunk with various degrees rather significant stenosis. Short segment occlusion of the brachiocephalic trunk. This is proximal to the takeoff of the right common carotid artery which does appear patent with contrast filling. Subclavian artery distal to this demonstrates small attenuation with scattered plaque. More focal soft plaque at the peripheral aspect results in significant narrowing. Axillary artery is also very small in caliber with contrast filling into the brachial artery. The left common carotid artery is occluded. Prominent calcification left subclavian artery with what appears to be high degree likely greater than 70% narrowing. Right vertebral artery demonstrates a very diminutive, string-like appearance which is changed from prior CTA study. Left vertebral artery appears to be occluded at its origin with perhaps some filling distally. No pulmonary artery filling defects to suggest pulmonary embolism. A few shotty mediastinal lymph nodes. There is presence of esophageal hernia as well as thickening low esophagus. Advanced emphysematous lung disease. There is a nonsolid, somewhat groundglass opacity at the posterior lateral aspect of the superior right lower lobe measuring approximately 2.7 cm. Visualized portion upper abdomen unremarkable. IMPRESSION: 1. Markedly abnormal and critical findings at CT angiography. 2. The brachiocephalic trunk appears to be with a short segment occlusion. This appears to have adversely changed from prior. There is additional narrowing of the right subclavian artery as well as small caliber appearance of the axillary and brachial artery. 3. The left common carotid artery and proximal left vertebral artery are again noted to be occluded. There is string-like appearance of the right vertebral artery. The caliber of the artery has decreased since prior CTA study 3 months earlier. Therefore, the patient has extreme limitations and very tenuous arterial blood supply to the brain. Dictated on workstation # [id number] Dict: 10/05/22 1315 Trans: 10/05/22 1352 [facility] [id number] Interpreted by: ANNA HERNANDEZ DO Electronically signed by: Departure Impression Primary Impression: Occlusive disease, arterial Disposition: 01 HOME, SELF-CARE Condition: Stable Departure-Patient Inst. Decision time for Depature: 16:11 Referrals: YUE DIETZ DO (PCP/Family) Primary Care Physician Patient Instructions: Atherosclerosis, Peripheral Vascular (Arterial) Disease (DC) Add. Discharge Instructions: All discharge instructions reviewed with patient and/or family. Voiced understanding. Continue home medications as previously prescribed and you should be taken aspirin 81 mg daily as well. It is very important that you follow-up with the vascular clinic as scheduled on October 10 and this should be in person. You should continue smoking cessation and eventually nicotine cessation. Drink plenty of fluids to make sure that you are appropriately hydrated and try to eat a normal, low-fat diet. Return for worse pain, fever, vomiting, weakness, breathing problems, vision or balance problems, speech problems or other concerns as needed. Copy Copies To 1: YUE DIETZ TIMOTHY D MD Oct 05, 2022 10:52
[2022-10-05] MEDS ORDERED: NS IV 500 ML 500 ML IV ONE ×2 (11:00→13:30)
[2022-10-05 11:25] LABS: BASOPHILS # (AUTO) 0.1 10^3/uL (0.0-0.1); BASOPHILS % (AUTO) 1 % (0-10); EOSINOPHILS # (AUTO) 0.1 10^3/uL (0.0-0.3); EOSINOPHILS % (AUTO) 3 % (0-10); HEMATOCRIT 40 % (35-52); HEMOGLOBIN 12.9 g/dL (11.5-16.0); LYMPHOCYTES # (AUTO) 1.6 10^3/uL (1.0-4.0); LYMPHOCYTES % (AUTO) 32 % (12-44); MEAN CORPUSCULAR HEMOGLOBIN 29 pg (25-34); MEAN CORPUSCULAR HGB CONC 32 g/dL (32-36); MEAN CORPUSCULAR VOLUME 91 fL (80-99); MONOCYTES # (AUTO) 0.4 10^3/uL (0.0-1.0); MONOCYTES % (AUTO) 9 % (0-12); NEUTROPHILS # (AUTO) 2.8 10^3/uL (1.8-7.8); NEUTROPHILS % (AUTO) 56 % (42-75); PLATELET COUNT 224 10^3/uL (130-400); WHITE BLOOD COUNT 5.1 10^3/uL (4.3-11.0)
--- NOTE | 2022-10-05 11:27 | Diagnostic Imaging Report ---
CLINICAL INDICATION: Patient with weakness. EXAM: Portable chest x-ray upright view. COMPARISON: Chest x-ray dated 06/21/2022. FINDINGS: Lungs/pleura: There is interval mild bibasilar atelectasis. Otherwise, lungs are clear. There is no pneumothorax. There is no pleural effusion. Mediastinum: Unremarkable. Pulmonary vasculature: Unremarkable. Heart: Heart size is within normal limits. Interval placement of loop recorder overlying the left chest region. Bones/extrathoracic soft tissue: Unremarkable. IMPRESSION: There is interval mild bibasilar atelectasis. There is no radiographic evidence of acute cardiopulmonary process. Dictated by: Dictated on workstation # [id number]
[2022-10-05 11:30] LABS: ALBUMIN 3.9 GM/DL (3.2-4.5)
[2022-10-05 11:31] LABS: CALCIUM 8.7 MG/DL (8.5-10.1)
[2022-10-05 11:32] LABS: TOTAL PROTEIN 6.6 GM/DL (6.4-8.2)
[2022-10-05 11:34] LABS: BILIRUBIN,TOTAL 0.3 MG/DL (0.1-1.0)
[2022-10-05 11:36] LABS: CREATININE SERUM 0.85 MG/DL (0.60-1.30)
[2022-10-05] MEDS ORDERED: NS 100 ML (IVPB) BAG IV ONE (12:30)
[2022-10-05] MEDS ORDERED: CATHETER FLUSH 10 ML SYR IV PRN (12:30)
[2022-10-05] MEDS ORDERED: IOHEXOL 350 MG/ML 100 ML (OMNIPAQUE 350) VIAL IV ONE (12:30)
[2022-10-05] MEDS ORDERED: HOLD METFORMIN - RECEIVED CONTRAST 20 ML VIAL IV SCH (12:30)
--- NOTE | 2022-10-05 13:52 | Diagnostic Imaging Report ---
INDICATION: Inability to obtain blood pressure/pulse right arm. Abnormal Doppler.. TECHNIQUE: CT imaging the chest following administration of intravenous contrast. Multiplanar including MIPS reformatted images. Auto Exposure Controls were utilized during the CT exam to meet ALARA standards for radiation dose reduction. CORRELATION STUDY: 06/21/2022. FINDINGS: Heart size within normal limits. No disproportionate right heart strain. Atherosclerotic change about the thoracic aorta most pronounced at the arch and descending thoracic aorta. No dissection. There is rather extensive calcification at the origin of the brachiocephalic trunk with various degrees rather significant stenosis. Short segment occlusion of the brachiocephalic trunk. This is proximal to the takeoff of the right common carotid artery which does appear patent with contrast filling. Subclavian artery distal to this demonstrates small attenuation with scattered plaque. More focal soft plaque at the peripheral aspect results in significant narrowing. Axillary artery is also very small in caliber with contrast filling into the brachial artery. The left common carotid artery is occluded. Prominent calcification left subclavian artery with what appears to be high degree likely greater than 70% narrowing. Right vertebral artery demonstrates a very diminutive, string-like appearance which is changed from prior CTA study. Left vertebral artery appears to be occluded at its origin with perhaps some filling distally. No pulmonary artery filling defects to suggest pulmonary embolism. A few shotty mediastinal lymph nodes. There is presence of esophageal hernia as well as thickening low esophagus. Advanced emphysematous lung disease. There is a nonsolid, somewhat groundglass opacity at the posterior lateral aspect of the superior right lower lobe measuring approximately 2.7 cm. Visualized portion upper abdomen unremarkable. IMPRESSION: 1. Markedly abnormal and critical findings at CT angiography. 2. The brachiocephalic trunk appears to be with a short segment occlusion. This appears to have adversely changed from prior. There is additional narrowing of the right subclavian artery as well as small caliber appearance of the axillary and brachial artery. 3. The left common carotid artery and proximal left vertebral artery are again noted to be occluded. There is string-like appearance of the right vertebral artery. The caliber of the artery has decreased since prior CTA study 3 months earlier. Therefore, the patient has extreme limitations and very tenuous arterial blood supply to the brain. Dictated by: Dictated on workstation # [id number]
[2022-10-05] MEDS ORDERED: HYDROcodone/APAP 7.5 MG/325 MG (LORTAB, LORCET PLUS) TABLET PO STA (14:33)
[2022-10-05 14:41] LABS: INR 0.9 (0.8-1.4); PROTHROMBIN TIME PATIENT 12.7 SEC (12.2-14.7)
[2022-10-05] MEDS ORDERED: clonazePAM 1 MG (KlonoPIN) TAB PO ONE (14:45)
[2022-10-05 16:22] VITALS: BP 152/78
== END 2022-10-05 16:21 | disposition home or self-care (01) ==
LOC: EDUNIT# 10:14 → ER 10:15
DX: I65.22 Occlusion and stenosis of left carotid artery (principal); I65.03 Occlusion and stenosis of bilateral vertebral arteries; I10 Essential (primary) hypertension; C34.91 Malignant neoplasm of unspecified part of right bronchus or lung; E66.9 Obesity, unspecified; F17.210 Nicotine dependence, cigarettes, uncomplicated; Z86.73 Personal history of transient ischemic attack (TIA), and cerebral infarction without residual deficits; Z68.31 Body mass index [BMI] 31.0-31.9, adult
CPT/HCPCS: 36415; 71045; 71275; 80053; 85025; 85610; 85730; 86141

== ENCOUNTER 2022-10-15 23:45 | Emergency (ER) | payer MEDICARE, MEDICAID ==
[~2022-10-15] VITALS: Ht 157.5 cm; Wt 79.0 kg
--- NOTE | 2022-10-16 00:04 | ED General ---
General Stated Complaint: NEAR SYNCOPE Source of Information: Patient, EMS Exam Limitations: No Limitations History of Present Illness Date Seen by Provider: October 15, 2022 Time Seen by Provider: 23:49 Initial Comments Here by EMS with report of near syncopal episodes or syncopal episodes with sitting up or standing. 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 Seen by me 1 week ago for this due to her blood pressure problems and had significant work-up and discussion with vascular surgery at [facility]. She had appointment with them on October 10. Apparently she ended up at [facility] on October 09 due to persistent problems. She had significant work-up there and apparently they changed her meds around and they are going to perform some surgery at some point in the near future. Patient states that the med changes are not working well with her and she is having difficulties at nighttime with low blood pressure problems or nearly passing out. She had that problem tonight and EMS was summoned. EMS reports that when they set her up to get in the cot she did go unresponsive briefly and then came back to after laying her on the cot. EMS did initiate IV and started normal saline 1 L bolus. They did note blood pressures in the 80s systolic. Patient denies chest pain, breathing problems, nausea, vomiting, fever or chills. She does have known issues with blood pressure findings on her right arm due to arterial occlusion. Timing/Duration: 1-2 Days, Changing Over Time Severity: Moderate Associated Systoms: No Chest Pain, No Cough, No Fever/Chills, No Nausea/Vomiting; Syncope, Weakness Allergies and Home Medications Allergies Coded Allergies: No Known Drug Allergies (Unverified , 12/15/16) Patient Home Medication List Home Medication List Reviewed: Yes Review of Systems Review of Systems Constitutional: see HPI; No chills, No fever EENTM: No nose congestion Respiratory: No cough, No short of breath Cardiovascular: see HPI; No chest pain; syncope Gastrointestinal: No nausea, No vomiting Genitourinary: no symptoms reported Musculoskeletal: no symptoms reported Skin: no symptoms reported Psychiatric/Neurological: See HPI, Weakness All Other Systems Reviewed Negative Unless Noted: Yes Past Zhoxxvn-Nstikb-Afbapo Hx Patient Social History Tobacco Use?: Yes Substance use?: No Immunizations Up To Date First/Initial COVID19 Vaccinat: "3 shots" Second COVID19 Vaccination Brendon: yes Third COVID19 Vaccination Date: yes Seasonal Allergies Seasonal Allergies: No Past Medical History Surgery/Hospitalization HX: BILAT CAROTID STENOSIS, R LUNG CA Surgeries: Yes (EGD/COLONOSCOPY) Abdominal Respiratory: Yes COPD Cardiac: Yes Hypertension Neurological: Yes TIA Reproductive Disorders: No 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 Sexually Transmitted Disease: No HIV/AIDS: No Genitourinary: No Gastrointestinal: Yes Gastroesophageal Reflux, Gastrointestinal Bleed, Chronic Constipation, Polyps, Hiatal Hernia Musculoskeletal: Yes Arthritis Endocrine: No HEENT: No Loss of Vision: Bilateral Hearing Impairment: Denies Cancer: No Psychosocial: Yes Anxiety, Depression Integumentary: No Blood Disorders: Yes (ANEMIA) Adverse Reaction/Blood Tranf: No (N/A) Family Medical History Reviewed Nursing Family Hx No Pertinent Family Hx Physical Exam Vital Signs Vital Signs - First Documented 10/15/22 23:47 Temp 36.7 Pulse 73 Resp 14 B/P (MAP) 125/95 (105) Pulse Ox 94 O2 Delivery Room Air Capillary Refill : Height, Weight, BMI Height: 5'2.00" Weight: 147lbs. 3.2oz. [id number]; 31.00 BMI Method:Stated General Appearance: No Apparent Distress, WD/WN HEENT: PERRL/EOMI, Pharynx Normal Neck: Non Tender, Supple Respiratory: Lungs Clear, Normal Breath Sounds Cardiovascular: Regular Rate, Rhythm, No Murmur Gastrointestinal: Non Tender, Soft Back: Normal Inspection, No CVA Tenderness, No Vertebral Tenderness Extremity: No Calf Tenderness; No Calf Tenderness; Other (Does have decreased pulses noted on right arm which is known finding) Neurologic/Psychiatric: Alert, Oriented x3, Motor Weakness, Other (Weak appea ring globally) Skin: Normal Color, Warm/Dry Progress/Results/Core Measures Suspected Sepsis SIRS Temperature: Pulse: Respiratory Rate: Laboratory Tests 10/15/22 23:58: White Blood Count 5.5 Blood Pressure / Mean: Laboratory Tests 10/15/22 23:58: Creatinine 1.18, Platelet Count 227, Total Bilirubin 0.3 Results/Orders Lab Results Laboratory Tests Test 10/15/22 23:58 Range/Units White Blood Count 5.5 4.3-11.0 10^3/uL Red Blood Count 4.11 3.80-5.11 10^6/uL Hemoglobin 12.2 11.5-16.0 g/dL Hematocrit 36 35-52 % Mean Corpuscular Volume 88 80-99 fL Mean Corpuscular Hemoglobin 30 25-34 pg Mean Corpuscular Hemoglobin Concent 34 32-36 g/dL Red Cell Distribution Width 12.3 10.0-14.5 % Platelet Count 227 130-400 10^3/uL Mean Platelet Volume 10.2 9.0-12.2 fL Immature Granulocyte % (Auto) 0 % Neutrophils (%) (Auto) 61 42-75 % Lymphocytes (%) (Auto) 30 12-44 % Monocytes (%) (Auto) 8 0-12 % Eosinophils (%) (Auto) 1 0-10 % Basophils (%) (Auto) 1 0-10 % Neutrophils # (Auto) 3.4 1.8-7.8 10^3/uL Lymphocytes # (Auto) 1.6 1.0-4.0 10^3/uL Monocytes # (Auto) 0.4 0.0-1.0 10^3/uL Eosinophils # (Auto) 0.1 0.0-0.3 10^3/uL Basophils # (Auto) 0.0 0.0-0.1 10^3/uL Immature Granulocyte # (Auto) 0.0 0.0-0.1 10^3/uL Sodium Level 138 135-145 MMOL/L Potassium Level 3.6 3.6-5.0 MMOL/L Chloride Level 107 98-107 MMOL/L Carbon Dioxide Level 19 L 21-32 MMOL/L Anion Gap 12 5-14 MMOL/L Blood Urea Nitrogen 16 7-18 MG/DL Creatinine 1.18 0.60-1.30 MG/DL Estimat Glomerular Filtration Rate 53 BUN/Creatinine Ratio 14 Glucose Level 164 H 70-105 MG/DL Calcium Level 8.8 8.5-10.1 MG/DL Corrected Calcium 9.1 8.5-10.1 MG/DL Total Bilirubin 0.3 0.1-1.0 MG/DL Aspartate Amino Transf (AST/SGOT) 38 H 5-34 U/L Alanine Aminotransferase (ALT/SGPT) 48 0-55 U/L Alkaline Phosphatase 87 40-136 U/L Troponin I < 0.028 <0.028 NG/ML C-Reactive Protein High Sensitivity 0.19 0.00-0.50 MG/DL Total Protein 6.2 L 6.4-8.2 GM/DL Albumin 3.6 3.2-4.5 GM/DL My Orders Orders - GARRETT SIMEON MD Cbc With Automated Diff (10/16/22 00:02) Comprehensive Metabolic Panel (10/16/22 00:02) Hs C Reactive Protein (10/16/22 00:02) Troponin I Devendra (10/16/22 00:02) Ekg Tracing (10/16/22 00:02) Monitor-Rhythm Ecg Trace Only (10/16/22 00:02) Meclizine Tablet (Antivert Tablet) (10/16/22 01:30) Medications Given in ED Current Medications Medications Dose Ordered Sig/Rula Route Start Time Stop Time Status Last Admin Dose Admin Meclizine HCl 25 mg ONCE ONCE PO 10/16/22 01:30 10/16/22 01:31 DC 10/16/22 01:33 25 MG Vital Signs/I&O 10/15/22 10/15/22 23:47 23:47 Temp 36.7 Pulse 73 Resp 14 B/P (MAP) 125/95 (105) Pulse Ox 94 O2 Delivery Room Air Room Air Capillary Refill : Progress Note : Progress Note Seen and evaluated. I did review previous record visit seen here by me. IV established by EMS and we will continue normal saline 1 L bolus. We will check basic labs including CBC, CMP and troponin and get EKG. Monitor patient. Differential diagnosis includes medication effect, dehydration, electrolyte abnormality, vascular disease 0217: I have protracted conversation with the patient and both of her sons regarding her care. They are very concerned because she has the vascular abnormalities and because of her syncopal episodes especially at night. We did discuss the need to continue follow-up with vascular surgery and she has appointment on Monday morning with her vascular surgeon and primary care doctor at via telemedicine and she will keep that. Patient is doing much better now after liter of fluid given. She is in fact able to walk around without feeling weak or dizzy now. I did give meclizine 25 mg p.o. due to her history of vertigo and that is helped out quite a bit. We did discuss her medications and concerns related to some of her medications may be causing part of the problems including the Seroquel, clonazepam and hydrocodone combination. She states she is out of hydrocodone and she is decreasing her clonazepam and I think that some good plan. She will also DC her Lasix unless needed and she was only using that for occasional ankle swelling but she is taking it daily. I do not believe she needs to take that and she will stop it. We will write her prescription for meclizine. I did review her labs and CBC and CMP are both grossly normal with normal troponin and negative CRP. No indication for admission or transfer. Discharged home with return precautions. Patient and family verbalized understanding of instructions and agreement with plan and were very appreciative of the conversations regarding her care. ECG Initial ECG Impression Date: October 16, 2022 Initial ECG Impression Time: 00:04 Initial ECG Rate: 67 Initial ECG Rhythm: Normal Sinus Comment Sinus rhythm with normal axis. No evidence of ST elevation [place]. Interpreted by me. Departure Impression Primary Impression: Syncope Qualified Codes: R55 - Syncope and collapse Additional Impressions: Dehydration Arterial occlusion due to arteriosclerosis Disposition: HOME, SELF-CARE Condition: Stable Departure-Patient Inst. Decision time for Depature: 02:20 Referrals: YUE DIETZ DO (PCP/Family) Primary Care Physician Patient Instructions: Syncope (Fainting) (DC), Dehydration, Adult ED Add. Discharge Instructions: You should stop the Lasix/furosemide and only take if you are having ankle swelling. Do not take that daily. Continue other medications as prescribed. Be very careful with clonazepam and Seroquel combination especially if mixed with hydrocodone as this will cause significant drowsiness. Drink adequate amou nt of fluids. Keep appointment with your vascular surgeon and primary care doctor on Monday as scheduled via telemedicine. Return for worse pain, fever, vomiting, weakness, breathing problems, vision or balance problems, chest pain or other concerns as needed. Due to your vascular disease it is very important that you change positions slowly from lying to sitting and sitting to standing and from standing to walking. You are more likely to have dizziness with position changes due to poor vascular flow. Copy Copies To 1: YUE DIETZ TIMOTHY D MD October 16, 2022 00:04
[2022-10-16 00:12] LABS: BASOPHILS % (AUTO) 1 % (0-10); EOSINOPHILS # (AUTO) 0.1 10^3/uL (0.0-0.3); EOSINOPHILS % (AUTO) 1 % (0-10); HEMATOCRIT 36 % (35-52); HEMOGLOBIN 12.2 g/dL (11.5-16.0); LYMPHOCYTES # (AUTO) 1.6 10^3/uL (1.0-4.0); LYMPHOCYTES % (AUTO) 30 % (12-44); MEAN CORPUSCULAR HEMOGLOBIN 30 pg (25-34); MEAN CORPUSCULAR HGB CONC 34 g/dL (32-36); MEAN CORPUSCULAR VOLUME 88 fL (80-99); MEAN PLATELET VOLUME 10.2 fL (9.0-12.2); MONOCYTES # (AUTO) 0.4 10^3/uL (0.0-1.0); MONOCYTES % (AUTO) 8 % (0-12); NEUTROPHILS # (AUTO) 3.4 10^3/uL (1.8-7.8); NEUTROPHILS % (AUTO) 61 % (42-75); PLATELET COUNT 227 10^3/uL (130-400); WHITE BLOOD COUNT 5.5 10^3/uL (4.3-11.0)
[2022-10-16 00:15] LABS: ALBUMIN 3.6 GM/DL (3.2-4.5); CHLORIDE 107 MMOL/L (98-107); POTASSIUM 3.6 MMOL/L (3.6-5.0); SODIUM 138 MMOL/L (135-145)
[2022-10-16 00:17] LABS: CALCIUM 8.8 MG/DL (8.5-10.1)
[2022-10-16 00:18] LABS: GLUCOSE 164 MG/DL (70-105); TOTAL PROTEIN 6.2 GM/DL (6.4-8.2)
[2022-10-16 00:19] LABS: CARBON DIOXIDE 19 MMOL/L (21-32)
[2022-10-16 00:20] LABS: BILIRUBIN,TOTAL 0.3 MG/DL (0.1-1.0)
[2022-10-16 00:21] LABS: ALKALINE PHOSPHATASE 87 U/L (40-136)
[2022-10-16 00:22] LABS: CREATININE SERUM 1.18 MG/DL (0.60-1.30); GFR ESTIMATED 53
[2022-10-16 00:23] LABS: BUN/CREATININE RATIO 14
[2022-10-16 00:24] LABS: ALANINE AMINOTRANSFERASE 48 U/L (0-55)
[2022-10-16] MEDS ORDERED: MECLIZINE 25 MG (ANTIVERT) TAB PO ONE (01:30)
[2022-10-16 02:36] VITALS: BP 143/62
[2022-10-16] MEDS ORDERED: MECL-149 PO (02:37)
== END 2022-10-16 02:36 | disposition home or self-care (01) ==
LOC: EDUNIT# 23:45 → ER 23:46
DX: R55 Syncope and collapse (principal); E86.0 Dehydration; I65.23 Occlusion and stenosis of bilateral carotid arteries; I10 Essential (primary) hypertension; F41.9 Anxiety disorder, unspecified; F17.200 Nicotine dependence, unspecified, uncomplicated; Z79.899 Other long term (current) drug therapy; Z79.83 Long term (current) use of bisphosphonates; Z79.891 Long term (current) use of opiate analgesic
CPT/HCPCS: 36415; 80053; 84484; 85025; 86141; 93005; 93041

== ENCOUNTER → 2023-04-25 | Outpatient (CLI) | payer OTHER, MEDICAID ==
[~2023-04-25] MED LIST changes: +MECL-291 PO
--- NOTE | 2023-04-25 14:49 | Diagnostic Imaging Report ---
EXAMINATION: 3D bilateral screening mammogram with CAD. INDICATION: Screening. COMPARISON: This study was compared to the prior exams of 05/03/2022 and 04/06/2021. PERSONAL HISTORY: At this time, there are no current complaints. FINDINGS: There are scattered fibroglandular densities in both breasts which could obscure a lesion. No primary or secondary sign of malignancy is noted. There is now a loop recorder device evident on the MLO view of the left breast. IMPRESSION: There is no evidence for malignancy. ACR BI-RADS Category 1: Negative. Result letter will be mailed to the patient. Note: At least 10% of breast cancer is not imaged by mammography. Dictated by: Dictated on workstation # [id number]
== END ==
LOC: RAD 09:15
PROVIDERS: ATTEND Obstetrics & Gynecology
DX: Z12.31 Encounter for screening mammogram for malignant neoplasm of breast (principal)
CPT/HCPCS: 77063; 77067